=== PATIENT | male | born 1955 | race Caucasian/White ===

== ENCOUNTER 2016-11-13 19:16 | Inpatient (IN) | payer BC ==
--- NOTE | 2016-11-13 20:43 | ERPHSYRPT ---
- History of Present Illness Time Seen by Provider: 11/13/16 20:31 Source: patient, family () Patient Subjective Stated Complaint: rt lower leg swelling for 1.5 weeks Triage Nursing Assessment: had doppler for blood clot and it was negative and dx with bakers cyst. pt states rt leg increased swelling and painful to ambulate.3-4+ pitting edema from knee to foot. strong pedal pulse present. pain worse with ambulation--03/19 Physician History: CC: swelling right leg Hx: 61 y/o patient of Dr David Nova. He has hx of liver cirrhosis. Prior DVT treated with anticoagulation. Now off blood thinners. Had right leg swelling start last week after stopping thinners. He had neg doppler but it did show bakers cyst. No fever or chills. He has malaise. No cough, vomiting. No abd pain. Was unable to get out of car due to leg pain. Severity: moderate Allergies/Adverse Reactions: No Known Drug Allergies Allergy (Verified 11/13/16 19:49) Home Medications: Metformin HCl 1000 mg [Glucophage 1000 MG] 1,000 mg PO BID 02/27/15 [History] Lisinopril 20 mg PO DAILY 10/08/15 [History] Furosemide [Lasix] 40 mg PO BID 05/20/16 [History] Hx Tetanus, Diphtheria Vaccination/Date Given: Yes Hx Influenza Vaccination/Date Given: No Hx Pneumococcal Vaccination/Date Given: No Immunizations Up to Date: Yes - Review of Systems Constitutional: Fatigue, Malaise, No Fever, No Chills Eyes: No Symptoms Ears, Nose, & Throat: No Symptoms Respiratory: No Cough, No Dyspnea Cardiac: No Chest Pain Abdominal/Gastrointestinal: No Abdominal Pain, No Nausea, No Vomiting Genitourinary Symptoms: No Dysuria Musculoskeletal: Other (right leg swelling below knee), No Joint Swelling Neurological: No Focal Weakness, No Parasthesia All Other Systems: Reviewed and Negative - Past Medical History Pertinent Past Medical History: Yes Neurological History: No Pertinent History ENT History: Cataracts Cardiac History: Hypertension Respiratory History: No Pertinent History Endocrine Medical History: Diabetes Type II Musculoskeletal History: Other GI Medical History: Cirrhosis History: No Pertinent History Psycho-Social History: No Pertinent History Male Reproductive Disorders: No Pertinent History Other Medical History: elevated ammonia - Past Surgical History Past Surgical History: Yes Neuro Surgical History: No Pertinent History Cardiac: No Pertinent History Respiratory: No Pertinent History Gastrointestinal: Hernia Repair Musculoskeletal: Joint Replacement, Other Male Surgical History: No Pertinent History Other Surgical History: partial RIGHT KNEE REPLACEMENT. cataracts - Social History Smoking Status: Never smoker Exposure to second hand smoke: Yes Drug Use: none Patient Lives Alone: No - Nursing Vital Signs Nursing Vital Signs: Initial Vital Signs Temperature 100.6 F Temperature Source Rectal Pulse Rate 77 Respiratory Rate 18 Blood Pressure [Right Arm] 130/73 Pain Intensity 0 - Physical Exam General Appearance: alert Eye Exam: PERRL/EOMI Ears, Nose, Throat Exam: moist mucous membranes Neck Exam: normal inspection, non-tender, supple Respiratory Exam: normal breath sounds Cardiovascular Exam: regular rate/rhythm, murmur Gastrointestinal/Abdomen Exam: soft, No tenderness, No distention Extremity Exam: pedal edema (right leg edema rather prounounced with warmness, some redness. No shauna knee effusion or swelling) Neurologic Exam: alert, oriented x 3, cooperative, sensation nml, No motor deficits Skin Exam: warm, dry, other (hot skin) SpO2 Interpretation: normal SpO2: 99 Oxygen Delivery: Room Air - Course Nursing assessment & vital signs reviewed: Yes - Radiology Exams cxr X-ray Interpretation: Reviewed by me (CM, mild congestion) lower leg X-ray Interpretation: Reviewed by me (no air in soft tissues, no fx) - Radiology Ultrasound Exam right leg Ultrasound: Other (per RVT: popliteal DVT, bakers cyst present) Ordered Tests: Active Orders 24 hr Category Date Time Status Clean Catch Urine Specimen STAT Care 11/13/16 20:37 Active IV Insertion STAT Care 11/13/16 20:00 Active CHEST 1 VIEW (PORTABLE) Stat Exams 11/13/16 20:37 Taken LOWER LEG Stat Exams 11/13/16 20:38 Taken VENOUS UNILAT/LIMITED EXTREMIT [US] Stat Exams 11/13/16 20:39 Taken BLOOD CULTURE Stat Lab 11/13/16 20:00 Received CBC W DIFF Stat Lab 11/13/16 20:55 Completed CMP Stat Lab 11/13/16 20:55 Completed Lactic Acid Stat Lab 11/13/16 20:37 Results PROTIME WITH INR Stat Lab 11/13/16 20:55 Completed UA W/RFX UR CULTURE Stat Lab 11/13/16 20:37 Ordered Medication Summary Generic Name Dose Route Start Last Admin Trade Name Italoq PRN Reason Stop Dose Admin Enoxaparin Sodium 90 mg 11/13/16 21:45 Enoxaparin Sodium SQ 12/13/16 21:44 Q12H PRESTON Aztreonam 1 gm in 100 mls @ 200 mls/hr 11/13/16 21:42 Azactam 1 Gm/100 Ml D5w IV 11/13/16 22:11 STAT ONE Discontinued Medications Generic Name Dose Route Start Last Admin Trade Name Tommy PRN Reason Stop Dose Admin Famotidine 20 mg 11/13/16 21:42 Pepcid 20 Mg Vial IV 11/13/16 21:43 STAT ONE Non-Formulary Medication 1 each 11/13/16 21:42 Pharmacy Dosing Required: Vancomycin IV 11/13/16 21:43 STAT ONE Lab/Rad Data: Laboratory Result Diagrams 11/13/16 20:55 11/13/16 20:55 Laboratory Results 11/13/16 11/13/16 11/13/16 Range/Units 20:55 20:55 20:55 WBC 4.8 (4.0-10.5) K/mm3 RBC 3.14 L (4.1-5.6) M/mm3 Hgb 9.2 L (12.5-18.0) gm/dl Hct 27.8 L (42-50) % MCV 88.5 (78-100) fl MCH 29.2 (26-32) pg MCHC 33.1 (32-36) g/dl RDW 14.9 H (11.5-14.0) % Plt Count 154 (150-450) K/mm3 MPV 9.7 H (6-9.5) fl Gran % 69.2 H (36.0-66.0) % Lymphocytes % 14.8 L (24.0-44.0) % Monocytes % 14.8 H (0.0-12.0) % Eosinophils % 0.8 (0.00-5.0) % Basophils % 0.4 (0.0-0.4) % Basophils # 0.02 (0-0.4) INR 1.44 (0.8-3.0) Sodium 137 (136-145) mEq/L Potassium 3.6 (3.5-5.1) mEq/L Chloride 102 (98-107) mEq/L Carbon Dioxide 25.0 (21-32) mEq/L Anion Gap 13.4 (5-15) MEQ/L BUN 13 (9-20) mg/dL Creatinine 0.87 (0.55-1.30) mg/dl Estimated GFR > 60 ML/MIN Glucose 153 H (70-110) MG/DL Lactic Acid (0.4-2.0) Calcium 8.9 (8.5-10.1) mg/dL Total Bilirubin 2.00 H (0.2-1.0) mg/dL AST 36 (15-37) U/L ALT 15 (12-78) U/L Alkaline Phosphatase 130 H (46-116) U/L Ammonia (11-32) MMOL/l Serum Total Protein 6.5 (6.4-8.2) gm/dL Albumin 2.3 L (3.4-5.0) g/dL 11/13/16 11/13/16 Range/Units 20:37 20:00 WBC (4.0-10.5) K/mm3 RBC (4.1-5.6) M/mm3 Hgb (12.5-18.0) gm/dl Hct (42-50) % MCV (78-100) fl MCH (26-32) pg MCHC (32-36) g/dl RDW (11.5-14.0) % Plt Count (150-450) K/mm3 MPV (6-9.5) fl Gran % (36.0-66.0) % Lymphocytes % (24.0-44.0) % Monocytes % (0.0-12.0) % Eosinophils % (0.00-5.0) % Basophils % (0.0-0.4) % Basophils # (0-0.4) INR (0.8-3.0) Sodium (136-145) mEq/L Potassium (3.5-5.1) mEq/L Chloride (98-107) mEq/L Carbon Dioxide (21-32) mEq/L Anion Gap (5-15) MEQ/L BUN (9-20) mg/dL Creatinine (0.55-1.30) mg/dl Estimated GFR ML/MIN Glucose (70-110) MG/DL Lactic Acid 2.2 H (0.4-2.0) Calcium (8.5-10.1) mg/dL Total Bilirubin (0.2-1.0) mg/dL AST (15-37) U/L ALT (12-78) U/L Alkaline Phosphatase (46-116) U/L Ammonia 33 H (11-32) MMOL/l Serum Total Protein (6.4-8.2) gm/dL Albumin (3.4-5.0) g/dL - Progress Progress Note: 11/13/16 21:48 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 He has recurrence of DVT. Will cover for cellulitis/ sepsis as leg is warm, red, and he has some fever. Called Dr Jose for [facility] for admission. Discussed with : Damon Will see patient in: hospital (full admit) Counseled pt/family regarding: lab results, diagnosis, need for follow-up, rad results - Departure Time of Disposition: 21:48 Departure Disposition: In-patient Admission Clinical Impression: Deep vein thrombosis (DVT) of popliteal vein, Cellulitis of right leg, Chronic liver disease Condition: Fair Critical Care Time: No Referrals: DAVID NOVA [Primary Care Provider] -
[2016-11-13 21:05] LABS: Lactic Acid 2.2 (0.4-2.0)
[2016-11-13 21:07] LABS: BASOPHIL % 0.4 % (0.0-0.4); Eosinophil % 0.8 % (0.00-5.0); Granulocytes % 69.2 % (36.0-66.0); Lymphocytes % 14.8 % (24.0-44.0); Mean Cell Volume 88.5 fl (78-100); Mean Platelet Volume 9.7 fl (6-9.5); Monocytes % 14.8 % (0.0-12.0); Platelet Count 154 K/mm3 (150-450); Red Blood Count 3.14 M/mm3 (4.1-5.6); Red Cell Distribution Width 14.9 % (11.5-14.0); White Blood Count 4.8 K/mm3 (4.0-10.5)
[2016-11-13 21:08] LABS: Mean Corpuscular Hemoglobin 29.2 pg (26-32)
[2016-11-13 21:24] LABS: INR 1.44 (0.8-3.0); PROTIME 16.2 SECONDS (8.83-12.87)
[2016-11-13 21:26] LABS: ALBUMIN 2.3 g/dL (3.4-5.0); ALKALINE PHOSPHATASE 130 U/L (46-116); ANION GAP 13.4 MEQ/L (5-15); BLOOD UREA NITROGEN 13 mg/dL (9-20); CHLORIDE 102 mEq/L (98-107); Glucose 153 MG/DL (70-110); Potassium 3.6 mEq/L (3.5-5.1); SGOT/AST 36 U/L (15-37); SODIUM 137 mEq/L (136-145); Total Protein 6.5 gm/dL (6.4-8.2)
[2016-11-13 21:40] LABS: SGPT/ALT 15 U/L (12-78)
[2016-11-13] MEDS ORDERED: PHARMACY DOSING REQUIRED: VANCOMYCIN IV ONE ×2 (21:42→23:06)
[2016-11-13] MEDS ORDERED: Pepcid 20 MG VIAL IV ONE ×2 (21:42→22:10)
[2016-11-13] MEDS ORDERED: Azactam 1 GM/100 ML D5W 1 GM/100 ML IVPB IV ONE (21:42)
[2016-11-13] MEDS ORDERED: ENOXAPARIN SODIUM SQ SCH (21:45)
[2016-11-13] MEDS ORDERED: VANCOCIN 1 GM VIAL*** 1 GM in Sodium Chloride 0.9% 250 ML 250 ML IV SCH (22:00)
[2016-11-13 22:32] LABS: ADD URINE CULTURE? NO (NO); Bacteria FEW /HPF (NEGATIVE); COMPLETE URINE MICROSCOPIC? YES; Collection Type CLEAN CATCH; Epithelial Cells FEW /HPF (FEW); Hyaline Casts 0-2 /LPF (0-2); Mucus MANY /HPF (NEGATIVE)
[2016-11-13] MEDS: Azactam 1 GM/100 ML D5W 1 GM/100 ML IVPB IV SCH (23:14)
[2016-11-13] MEDS ORDERED: Vancomycin 1GM/ Ns 250ML*** 250 ML IV ONE (23:41)
[2016-11-14 05:40] LABS: BASOPHIL % 0.5 % (0.0-0.4); Eosinophil % 2.6 % (0.00-5.0); Granulocytes % 60.3 % (36.0-66.0); Lymphocytes % 23.2 % (24.0-44.0); Mean Cell Volume 88.8 fl (78-100); Mean Platelet Volume 8.8 fl (6-9.5); Monocytes % 13.4 % (0.0-12.0); Platelet Count 131 K/mm3 (150-450); Red Blood Count 2.95 M/mm3 (4.1-5.6); Red Cell Distribution Width 14.8 % (11.5-14.0); White Blood Count 4.2 K/mm3 (4.0-10.5)
[2016-11-14 06:00] LABS: Mean Corpuscular Hemoglobin 29.1 pg (26-32)
[2016-11-14] MEDS ORDERED: D5w 100ML Mini Bag 100 ML 100 ML IV ONE (06:04)
[2016-11-14] MEDS ORDERED: AZACTAM 1 GM ONE (06:04)
[2016-11-14] MEDS: Azactam 1 GM/100 ML D5W 1 GM/100 ML IVPB IV SCH ×3 (06:08→23:39)
[2016-11-14 07:18] LABS: ALKALINE PHOSPHATASE 116 U/L (46-116); BLOOD UREA NITROGEN 12 mg/dL (9-20); CHLORIDE 105 mEq/L (98-107); Carbon Dioxide 25.3 mEq/L (21-32); Glucose 126 MG/DL (70-110); Potassium 3.2 mEq/L (3.5-5.1); SGOT/AST 31 U/L (15-37); SGPT/ALT 14 U/L (12-78); SODIUM 139 mEq/L (136-145); Total Protein 5.9 gm/dL (6.4-8.2)
[2016-11-14] MEDS: VANCOCIN 1 GM VIAL*** 1.5 GM in Sodium Chloride 0.9% 500 ML 500 ML IV SCH ×2 (08:15→20:06)
[2016-11-14] MEDS: Pepcid 20 MG VIAL IV SCH ×3 (08:19→22:03)
--- NOTE | 2016-11-14 09:13 | XRAY ---
Indication: Right leg swelling. Two-dimensional sonogram and color Doppler imaging of the major venous vessels of the right leg was performed. Comparison: October 31, 2016. There is now occluding thrombus in the popliteal vein. No thrombus in the remaining deep venous vessels including greater saphenous vein. Patent veins demonstrate normal compressibility. There is again a hypoechogenic complex Brown's cyst today measuring 4.3 cm in greatest dimension. This was previously 6.1 cm. Impression: 1. New popliteal DVT. 2. Smaller complex Brown's cyst. Comment: Preliminary report was given.
--- NOTE | 2016-11-14 09:15 | XRAY ---
Indication: Lower leg swelling. History DVT. Comparison: None 2 views of the right lower leg demonstrates diffuse soft tissue swelling/edema and previous medial knee hemiarthroplasty with intact hardware. No other bony, articular, or soft tissue abnormalities.
--- NOTE | 2016-11-14 09:17 | XRAY ---
Indication: Fever. Comparison: October 08, 2015. Portable chest again demonstrates normal heart, lungs, and bony thorax with incidental scattered calcified granulomas.
[2016-11-14] MEDS: ENOXAPARIN SODIUM SQ SCH ×2 (10:20→22:04)
[2016-11-14] MEDS: Glucophage 500 MG PO SCH (17:04)
[2016-11-14] MEDS: Zestril 20 MG PO SCH (17:04)
[2016-11-14] MEDS: Klor Con 10 MEQ PO SCH (17:04)
[2016-11-14] MEDS: LACTULOSE 20 GM/30ML UD CUP PO SCH ×2 (17:04→22:10)
--- NOTE | 2016-11-14 17:45 | PCM.HP ---
History of Present Illness - Chief Complaint Chief Complaint: DVT, Cellulitis of rt leg Date: 11/14/16 (exam at 08:00) History of Present Illness: is a 61 year old male. with history of cirrhosis and right lower extremity dvt who was treated with 6 months of anticoagulation but was still having pain in the leg. He had repeat ultrasound showing no clot and trial off the anticoagulation was tried and has been off for a few weeks now. He developed worsening pain redness swelling and chills over the last week and pain was so bad last night he was unable to get out of the car to get to the hospital. He was found to have new clot in the popliteal vein as well as concern for a cellulites in that leg as well in the ED last night. He is not having shortness of breath. - Review of Systems Constitutional: Chills, Fatigue, Lethargy, No Fever Eyes: No Symptoms Ears, Nose, & Throat: No Symptoms Respiratory: No Cough, No Short Of Breath Cardiac: Edema, No Chest Pain, No Syncope Abdominal/Gastrointestinal: No Abdominal Pain, No Nausea, No Vomiting, No Diarrhea Genitourinary Symptoms: No Dysuria Musculoskeletal: No Back Pain, No Neck Pain Skin: Rash Neurological: No Dizziness, No Focal Weakness, No Sensory Changes Psychological: No Symptoms Endocrine: No Symptoms Hematologic/Lymphatic: No Symptoms Immunological/Allergic: No Symptoms Medications & Allergies Home Medications: Home Medication List Metformin HCl 1000 mg [Glucophage 1000 MG] 1,000 mg PO BID 02/27/15 [History Confirmed 11/13/16] Lisinopril 20 mg PO DAILY 10/08/15 [History Confirmed 11/13/16] Duloxetine HCl 30 mg [Cymbalta 30 MG Capsule] 60 mg PO DAILY 11/14/16 [ History Confirmed 11/14/16] Furosemide 20 mg [Lasix 20 mg] 20 mg PO DAILY 11/14/16 [History Confirmed 11/14/16] Lactulose 40 ml PO TID 11/14/16 [History Confirmed 11/14/16] Potassium Chloride 10 Meq Tab* [Klor Con 10 MEQ] 10 meq PO DAILY 11/14/16 [ History Confirmed 11/14/16] Rivaroxaban 10 mg Tablet [Xarelto 10 mg Tablet] 20 mg PO DAILY 11/14/16 [ History Confirmed 11/14/16] Allergies/Adverse Reactions: Allergies Allergy/AdvReac Type Severity Reaction Status Date / Time No Known Drug Allergies Allergy Verified 11/13/16 19:49 - Past Medical History Past Medical History: Yes Neurological History: No Pertinent History ENT History: Cataracts Cardiac History: Hypertension Respiratory History: No Pertinent History Endocrine Medical History: Diabetes Type II Musculoskelatal History: Other GI Medical History: Cirrhosis History: No Pertinent History Pyscho-Social History: No Pertinent History Male Reproductive Disorders: No Pertinent History Comment: elevated ammonia - Past Surgical History Past Surgical History: Yes Neuro Surgical History: No Pertinent History Cardiac History: No Pertinent History Respiratory Surgery: No Pertinent History GI Surgical History: Hernia Repair Musculskeletal Surgical Hx: Joint Replacement, Other Male Surgical History: No Pertinent History Other Surgical History: partial RIGHT KNEE REPLACEMENT. cataracts - Social History Smoking Status: Never smoker Exposure to second hand smoke: No Alcohol: None Drug Use: none - Physical Exam Vital Signs: Vital Signs - 24 hr Temp Pulse Resp BP Pulse Ox 11/14/16 16:00 98.5 F 86 20 132/60 98 11/14/16 15:59 18 11/14/16 11:35 98.5 F 86 22 136/69 96 11/14/16 11:27 20 11/14/16 08:00 20 11/14/16 07:35 98.6 F 89 20 135/62 91 L 11/14/16 04:03 97.9 F 91 H 14 129/61 93 L 11/13/16 23:10 98.6 F 97 H 13 135/61 11/13/16 21:56 100 H 16 131/65 96 11/13/16 21:49 99 11/13/16 20:52 18 130/73 97 11/13/16 20:45 100.6 F 11/13/16 20:10 77 18 127/66 99 11/13/16 19:43 99.1 F 110 H 18 127/66 97 General Appearance: obese Neurologic Exam: alert, oriented x 3, cooperative Eye Exam: No scleral icterus, No pale conjunctivae Ears, Nose, Throat Exam: moist mucous membranes Neck Exam: normal inspection, non-tender, supple Respiratory Exam: lungs clear Cardiovascular Exam: regular rate/rhythm, normal peripheral pulses, edema Gastrointestinal/Abdomen Exam: soft, normal bowel sounds, No tenderness, No guarding Extremity Exam: other (right lower extremity warm and tender redness has resolved 3+ edema) Results - Labs Lab/Micro Results: Accuchecks Date 11/14/16 Date 11/14/16 Accucheck Value: 170 Accucheck Value: 182 Lab Results-Last 24 Hours 11/14/16 11/14/16 11/14/16 Range/Units 00:02 05:00 05:30 WBC (4.0-10.5) K/mm3 RBC (4.1-5.6) M/mm3 Hgb (12.5-18.0) gm/dl Hct (42-50) % MCV (78-100) fl MCH (26-32) pg MCHC (32-36) g/dl RDW (11.5-14.0) % Plt Count (150-450) K/mm3 MPV (6-9.5) fl Gran % (36.0-66.0) % Lymphocytes % (24.0-44.0) % Monocytes % (0.0-12.0) % Eosinophils % (0.00-5.0) % Basophils % (0.0-0.4) % Basophils # (0-0.4) Sodium (136-145) mEq/L Potassium (3.5-5.1) mEq/L Chloride (98-107) mEq/L Carbon Dioxide (21-32) mEq/L Anion Gap (5-15) MEQ/L BUN (9-20) mg/dL Creatinine (0.55-1.30) mg/dl Estimated GFR ML/MIN Glucose (70-110) MG/DL Hemoglobin A1c 5.5 (4.5-6.2) Lactic Acid 2.3 H (0.4-2.0) Calcium (8.5-10.1) mg/dL Total Bilirubin (0.2-1.0) mg/dL AST (15-37) U/L ALT (12-78) U/L Alkaline Phosphatase (46-116) U/L Serum Total Protein (6.4-8.2) gm/dL Albumin (3.4-5.0) g/dL Prealbumin 6.3 L (18.0-35.7) mg/dL 11/14/16 11/14/16 Range/Units 05:30 05:30 WBC 4.2 (4.0-10.5) K/mm3 RBC 2.95 L (4.1-5.6) M/mm3 Hgb 8.6 L (12.5-18.0) gm/dl Hct 26.2 L (42-50) % MCV 88.8 (78-100) fl MCH 29.1 (26-32) pg MCHC 32.8 (32-36) g/dl RDW 14.8 H (11.5-14.0) % Plt Count 131 L (150-450) K/mm3 MPV 8.8 (6-9.5) fl Gran % 60.3 (36.0-66.0) % Lymphocytes % 23.2 L (24.0-44.0) % Monocytes % 13.4 H (0.0-12.0) % Eosinophils % 2.6 (0.00-5.0) % Basophils % 0.5 (0.0-0.4) % Basophils # 0.02 (0-0.4) Sodium 139 (136-145) mEq/L Potassium 3.2 L (3.5-5.1) mEq/L Chloride 105 (98-107) mEq/L Carbon Dioxide 25.3 (21-32) mEq/L Anion Gap 12.0 (5-15) MEQ/L BUN 12 (9-20) mg/dL Creatinine 0.68 (0.55-1.30) mg/dl Estimated GFR > 60 ML/MIN Glucose 126 H (70-110) MG/DL Hemoglobin A1c (4.5-6.2) Lactic Acid (0.4-2.0) Calcium 8.6 (8.5-10.1) mg/dL Total Bilirubin 1.80 H (0.2-1.0) mg/dL AST 31 (15-37) U/L ALT 14 (12-78) U/L Alkaline Phosphatase 116 (46-116) U/L Serum Total Protein 5.9 L (6.4-8.2) gm/dL Albumin 2.0 L (3.4-5.0) g/dL Prealbumin (18.0-35.7) mg/dL Accuchecks Date 11/14/16 Date 11/14/16 Accucheck Value: 170 Accucheck Value: 182 Assessment/Plan (1) Deep vein thrombosis (DVT) of popliteal vein Current Visit: Yes Status: Acute Qualifiers: Chronicity: acute Laterality: right Qualified Code(s): I82.431 - Acute embolism and thrombosis of right popliteal vein Assessment & Plan: second unprovoked dvt discussed lifelong anticoagulation currently on therapeutic lovenox. with his fever could be due to the acute dvt but with the hardware in that knee and the redness and warmth he is emprically covered for suspected cellulitis will monitor elevate ambulate as tolerated Code(s): I82.439 - ACUTE EMBOLISM AND THROMBOSIS OF UNSPECIFIED POPLITEAL VEIN (2) Cellulitis of right leg Current Visit: Yes Status: Acute Code(s): L03.115 - CELLULITIS OF RIGHT LOWER LIMB (3) Anemia Current Visit: Yes Status: Acute Assessment & Plan: check iron studies Code(s): D64.9 - ANEMIA, UNSPECIFIED (4) Thrombocytopenia Current Visit: No Status: Acute (5) Diabetes Current Visit: No Status: Chronic Code(s): E11.9 - TYPE 2 DIABETES MELLITUS WITHOUT COMPLICATIONS (6) Cirrhosis of liver Current Visit: No Status: Acute
[2016-11-15] MEDS: Azactam 1 GM/100 ML D5W 1 GM/100 ML IVPB IV SCH ×2 (05:19→12:48)
[2016-11-15] MEDS: Klor Con 10 MEQ PO SCH (07:38)
[2016-11-15] MEDS: Glucophage 500 MG PO SCH (07:38)
[2016-11-15] MEDS: Zestril 20 MG PO SCH (07:38)
[2016-11-15] MEDS: LACTULOSE 20 GM/30ML UD CUP PO SCH ×2 (07:39→15:17)
[2016-11-15] MEDS: VANCOCIN 1 GM VIAL*** 1.5 GM in Sodium Chloride 0.9% 500 ML 500 ML IV SCH (07:40)
[2016-11-15] MEDS: ENOXAPARIN SODIUM SQ SCH (07:40)
[2016-11-15 08:04] VITALS: PULSE 87
[2016-11-15 08:18] LABS: Mean Corpuscular Hemoglobin 29.2 pg (26-32); Mean Platelet Volume 8.9 fl (6-9.5); Platelet Count 134 K/mm3 (150-450); Red Blood Count 3.01 M/mm3 (4.1-5.6); Red Cell Distribution Width 14.9 % (11.5-14.0); White Blood Count 4.1 K/mm3 (4.0-10.5)
[2016-11-15 09:26] LABS: ANION GAP 9.8 MEQ/L (5-15); BLOOD UREA NITROGEN 10 mg/dL (9-20); CHLORIDE 107 mEq/L (98-107); Glucose 132 MG/DL (70-110); MAGNESIUM 1.4 mg/dL (1.8-2.4); Potassium 3.4 mEq/L (3.5-5.1); SODIUM 140 mEq/L (136-145)
[2016-11-15] MEDS: Pepcid 20 MG VIAL IV SCH (09:35)
[2016-11-15] MEDS ORDERED: LASIX 20 MG PO SCH (10:00)
[2016-11-15] MEDS ORDERED: XARELTO 10 MG TABLET PO SCH (10:00)
[2016-11-15] MEDS ORDERED: Cymbalta 30 MG Capsule PO SCH (10:00)
[2016-11-15 12:36] VITALS: BP 131/63; O2SAT 99
--- NOTE | 2016-11-15 12:52 | PCM.DCORD ---
- Discharge Discharge Date: 11/15/16 Disposition: Home, Self-Care Condition: Fair Prescriptions: New Sulfamethoxazole/Trimethoprim [Bactrim Ds Tablet] 1 each PO BID #12 tablet Penicillin V Potassium 500 mg PO QID #24 tablet Rivaroxaban [Xarelto] 15 mg PO BID #21 tablet Ferrous Sulfate 325 mg PO BID #60 tablet. Folic Acid 1 mg PO DAILY #30 tablet Continue Metformin HCl 1000 mg [Glucophage 1000 MG] 1,000 mg PO BID Lisinopril 20 mg PO DAILY Duloxetine HCl 30 mg [Cymbalta 30 MG Capsule] 60 mg PO DAILY Potassium Chloride 10 Meq Tab* [Klor Con 10 MEQ] 10 meq PO DAILY Furosemide 20 mg [Lasix 20 mg] 20 mg PO DAILY Lactulose 40 ml PO TID Discontinued Rivaroxaban 10 mg Tablet [Xarelto 10 mg Tablet] 20 mg PO DAILY Follow up with: DAVID NOVA [Primary Care Provider] - Forms: Patient Portal Information
--- NOTE | 2016-11-15 20:00 | PCM.DS ---
Discharge Summary Date of Admission: 11/13/16 22:57 Date of Discharge: 11/15/16 Admitting Physician: DAVID NOVA Primary Care Provider: DAVID NOVA Allergies Allergies No Known Drug Allergies Allergy (Verified 11/13/16 19:49) Hospital Summary - Hospital Course Hospital Course: was treated for dvt in right leg for 6 months taken of anticoagulation and for 1 week had increasing pain and swelling in his right leg and found to have new dvt but was febrile and had red leg on admission and with hardware on the right knee concern for possible cellulitis as well and thus was treated empirically in ED with vanc and aztreonam. He did improve some in the pain the swelling persisted the warmth and redness resolved. He was keeping elevated. and placed on lovenox 1mg/kg bid and transitioned to xarelto as he was on this previously and it worked well for him prior to discontinuation. He also suffers from chronic cirrhosis with elevated ammonia that was only slightly elevated and on lactulose. he has chronic anemia studies show low iron and low folate and he is being treated with supplementation with this as well. He has no evidence of bleeding. the right leg is still painful when dependent. - Vitals & Intake/Output Vital Signs: Vital Signs Temperature 98.1 F 11/15/16 12:10 Pulse Rate 87 11/15/16 12:10 Respiratory Rate 20 11/15/16 12:10 Blood Pressure 131/63 11/15/16 12:10 O2 Sat by Pulse Oximetry 99 11/15/16 12:10 Intake & Output: Intake & Output 11/13/16 11/14/16 11/15/16 11/16/16 11:59 11:59 11:59 11:59 Intake Total 840 3169 360 Output Total 680 Balance 160 3169 360 Weight 90.718 kg - Lab Result Diagrams: 11/15/16 07:50 11/15/16 07:50 Lab Results-Last 24 Hrs: Accuchecks Date 11/15/16 Date 11/15/16 Date 11/14/16 Time 11:30 Time 07:30 Accucheck Value: 164 Accucheck Value: 142 Accucheck Value: 195 Lab Results-Last 24 Hours 11/15/16 11/15/16 11/15/16 Range/Units 07:50 07:50 07:50 WBC 4.1 (4.0-10.5) K/mm3 RBC 3.01 L (4.1-5.6) M/mm3 Hgb 8.8 L (12.5-18.0) gm/dl Hct 26.8 L (42-50) % MCV 89.0 (78-100) fl MCH 29.2 (26-32) pg MCHC 32.8 (32-36) g/dl RDW 14.9 H (11.5-14.0) % Plt Count 134 L (150-450) K/mm3 MPV 8.9 (6-9.5) fl Sodium (136-145) mEq/L Potassium (3.5-5.1) mEq/L Chloride (98-107) mEq/L Carbon Dioxide (21-32) mEq/L Anion Gap (5-15) MEQ/L BUN (9-20) mg/dL Creatinine (0.55-1.30) mg/dl Estimated GFR ML/MIN Glucose (70-110) MG/DL Calcium (8.5-10.1) mg/dL Magnesium (1.8-2.4) mg/dL Iron 40 L (50-175) ug/dl TIBC 134 L (250-450) ug/dl Iron Saturation 29.9 (20-39) % Vitamin B12 (193-986) Folic Acid (8.6-58.9) Vancomycin Trough 11.8 (10-20) UG/ML 11/15/16 Range/Units 07:50 WBC (4.0-10.5) K/mm3 RBC (4.1-5.6) M/mm3 Hgb (12.5-18.0) gm/dl Hct (42-50) % MCV (78-100) fl MCH (26-32) pg MCHC (32-36) g/dl RDW (11.5-14.0) % Plt Count (150-450) K/mm3 MPV (6-9.5) fl Sodium 140 (136-145) mEq/L Potassium 3.4 L (3.5-5.1) mEq/L Chloride 107 (98-107) mEq/L Carbon Dioxide 27.0 (21-32) mEq/L Anion Gap 9.8 (5-15) MEQ/L BUN 10 (9-20) mg/dL Creatinine 0.67 (0.55-1.30) mg/dl Estimated GFR > 60 ML/MIN Glucose 132 H (70-110) MG/DL Calcium 8.4 L (8.5-10.1) mg/dL Magnesium 1.4 L (1.8-2.4) mg/dL Iron (50-175) ug/dl TIBC (250-450) ug/dl Iron Saturation (20-39) % Vitamin B12 594 (193-986) Folic Acid 4.5 L (8.6-58.9) Vancomycin Trough (10-20) UG/ML Micro Results-Entire Visit: Accuchecks Date 11/15/16 Date 11/15/16 Date 11/14/16 Time 11:30 Time 07:30 Accucheck Value: 164 Accucheck Value: 142 Accucheck Value: 195 - Procedures and Test Procedures and Tests throughout Hospitalization: Therapy Orders & Screens 11/14/16 10:45 OT Screen per Nursing Assess ONCE Comment: Protocol Order Physician Instructions: Greater than 3 points order OT Admission Screening Reason For Exam: Triggered on Admission Diagnosis: DVT, Cellulitis of rt leg Open Wound/Cellutlitis/Pressure Ulcers: Yes Acute Fx/ORIF/Change in wt bearing status: No Severe MUSCULOSKELETAL pain: No ADL Dysfunction: No Acute CVA w/Hemiparesis/Hemiplegia: No Decreased Functional Mobility/Strength: Yes Sprain/Strain: No Acute Post-op Mobility Dysfunction: No Total Points: 6 PT Screen per Nursing Assess ONCE Comment: Protocol Order Physician Instructions: Greater than 3 points order PT Admission Screenin Reason For Exam: Triggered on Admission Diagnosis: DVT, Cellulitis of rt leg Open Wound/Cellutlitis/Pressure Ulcers: Yes Acute Fx/ORIF/Change in wt bearing status: No Severe MUSCULOSKELETAL pain: No ADL Dysfunction: No Acute CVA w/Hemiparesis/Hemiplegia: No Decreased Functional Mobility/Strength: Yes Sprain/Strain: No Acute Post-op Mobility Dysfunction: No Total Points: 6 Discharge Exam General Appearance: no apparent distress, alert, obese Neurologic Exam: alert, oriented x 3, cooperative, normal mood/affect, nml cerebellar function, sensation nml, No motor deficits Skin Exam: normal color, warm, dry Eye Exam: PERRL, EOMI, eyes nml inspection Ears, Nose, Throat Exam: moist mucous membranes Neck Exam: normal inspection, non-tender, supple Respiratory Exam: normal breath sounds, lungs clear, No respiratory distress Cardiovascular Exam: regular rate/rhythm, normal heart sounds Gastrointestinal/Abdomen Exam: soft, No tenderness Extremity Exam: calf tenderness (right with 3+ pitting edema no longer with warmth or redness.) Back Exam: normal inspection, normal range of motion, No CVA tenderness, No vertebral tenderness Male Genitalia Exam: deferred Rectal Exam: deferred Final Diagnosis/Problem List - Final Discharge Diagnosis/Problem (1) Deep vein thrombosis (DVT) of popliteal vein Status: Acute Assessment & Plan: d/c on xarelto 15 bid for 3 weeks then 20 daily indefinitely. ambulate as tolerated but when not ambulating needs leg elevated discussed off work for 1 week until f/u next week to re-evaluate (2) Cellulitis of right leg Status: Acute Assessment & Plan: rapid improvement will change to po bactrim and penicillin to complete 1 week of therapy. (3) Anemia Status: Acute Assessment & Plan: iron and folic acid deficiency start supplement of each (4) Thrombocytopenia Status: Acute (5) Diabetes Status: Chronic (6) Cirrhosis of liver Status: Acute - Discharge Discharge Date: 11/15/16 Disposition: Home, Self-Care Condition: Fair Prescriptions: New Sulfamethoxazole/Trimethoprim [Bactrim Ds Tablet] 1 each PO BID #12 tablet Penicillin V Potassium 500 mg PO QID #24 tablet Rivaroxaban [Xarelto] 15 mg PO BID #21 tablet Ferrous Sulfate 325 mg PO BID #60 tablet. Folic Acid 1 mg PO DAILY #30 tablet Continue Metformin HCl 1000 mg [Glucophage 1000 MG] 1,000 mg PO BID Lisinopril 20 mg PO DAILY Duloxetine HCl 30 mg [Cymbalta 30 MG Capsule] 60 mg PO DAILY Potassium Chloride 10 Meq Tab* [Klor Con 10 MEQ] 10 meq PO DAILY Furosemide 20 mg [Lasix 20 mg] 20 mg PO DAILY Lactulose 40 ml PO TID Discontinued Rivaroxaban 10 mg Tablet [Xarelto 10 mg Tablet] 20 mg PO DAILY Instructions: Cellulitis -- Adult, Deep Vein Thrombosis Follow up with: DAVID NOVA [Primary Care Provider] - 11/22/16 1:00 pm Forms: Discharge Instructions, Patient Portal Information
== END 2016-11-15 15:33 | disposition home or self-care (01) | DRG 300 ==
LOC: ED 19:16 → MED SURG 22:57
PROVIDERS: ADMIT Family Medicine; ATTEND Family Medicine
DX: I82.431 Acute embolism and thrombosis of right popliteal vein (principal); L03.115 Cellulitis of right lower limb; D52.9 Folate deficiency anemia, unspecified; D50.9 Iron deficiency anemia, unspecified; D69.6 Thrombocytopenia, unspecified; E11.9 Type 2 diabetes mellitus without complications; Z79.4 Long term (current) use of insulin; K74.60 Unspecified cirrhosis of liver; Z79.01 Long term (current) use of anticoagulants; Z79.899 Other long term (current) drug therapy; I10 Essential (primary) hypertension
CPT/HCPCS: 36000; 36415; 71010; 73590; 80048; 80053; 80202; 81000; 82140; 82607; 82746; 82962; 83036; 83540; 83550; 83605; 83735; 84134; 85025; 85027; 85610; 87040; 93971; 96372; 96374; 99285; J1650; J3370; A9270-GY

== ENCOUNTER 2017-03-12 17:23 | Inpatient (IN) | payer BC, SELFPAY ==
--- NOTE | 2017-03-12 17:36 | ERPHSYRPT ---
- History of Present Illness Time Seen by Provider: 03/12/17 17:27 Source: EMS, [facility] Exam Limitations: clinical condition Physician History: The patient is a 61-year-old for a code male brought in by EMS [facility] the [facility] for an elevated ammonia level per lab report today. He is combative and confused. The [facility] medical record shows that the patient was getting 2 g of lactulose 4 times a day. His past medical history is significant for hepatic encephalopathy, septic right knee, Timing/Duration: today Severity: moderate Modifying Factors: Improves With: nothing Associated Symptoms: denies symptoms, No seizure Allergies/Adverse Reactions: No Known Drug Allergies Allergy (Verified 03/12/17 18:09) Home Medications: Metformin HCl 1000 mg [Glucophage 1000 MG] 1,000 mg PO BID 02/27/15 [History] Lisinopril 20 mg PO DAILY 10/08/15 [History] Duloxetine HCl 30 mg [Cymbalta 30 MG Capsule] 60 mg PO DAILY 11/14/16 [ History] Furosemide 20 mg [Lasix 20 mg] 20 mg PO DAILY 11/14/16 [History] Lactulose 40 ml PO TID 11/14/16 [History] Potassium Chloride 10 Meq Tab* [Klor Con 10 MEQ] 10 meq PO DAILY 11/14/16 [ History] Hx Tetanus, Diphtheria Vaccination/Date Given: Yes Hx Influenza Vaccination/Date Given: No Hx Pneumococcal Vaccination/Date Given: No - Review of Systems Constitutional: No Fever, No Chills Eyes: No Symptoms Ears, Nose, & Throat: No Symptoms Respiratory: No Cough, No Dyspnea Cardiac: No Symptoms Abdominal/Gastrointestinal: No Abdominal Pain, No Nausea, No Vomiting, No Diarrhea Genitourinary Symptoms: No Dysuria Musculoskeletal: No Back Pain, No Neck Pain Skin: No Rash Neurological: Irritability Psychological: No Symptoms Endocrine: No Symptoms Hematologic/Lymphatic: No Symptoms Immunological/Allergic: No Symptoms All Other Systems: Reviewed and Negative - Past Medical History Pertinent Past Medical History: Yes Neurological History: No Pertinent History ENT History: Cataracts Cardiac History: Hypertension Respiratory History: No Pertinent History Endocrine Medical History: Diabetes Type II Musculoskeletal History: Other GI Medical History: Cirrhosis History: No Pertinent History Psycho-Social History: No Pertinent History Male Reproductive Disorders: No Pertinent History Other Medical History: elevated ammonia - Past Surgical History Past Surgical History: Yes Neuro Surgical History: No Pertinent History Cardiac: No Pertinent History Respiratory: No Pertinent History Gastrointestinal: Hernia Repair Musculoskeletal: Joint Replacement, Other Male Surgical History: No Pertinent History Other Surgical History: partial RIGHT KNEE REPLACEMENT. cataracts - Social History Smoking Status: Never smoker Exposure to second hand smoke: No Drug Use: none Patient Lives Alone: No - Physical Exam General Appearance: mild distress Eye Exam: PERRL/EOMI Ears, Nose, Throat Exam: normal ENT inspection, TMs normal, pharynx normal, moist mucous membranes Neck Exam: normal inspection Respiratory Exam: normal breath sounds, lungs clear, No respiratory distress Cardiovascular Exam: regular rate/rhythm, normal heart sounds, normal peripheral pulses Gastrointestinal/Abdomen Exam: soft Rectal Exam: not done Back Exam: normal inspection, normal range of motion, No CVA tenderness, No vertebral tenderness Extremity Exam: normal inspection, normal range of motion, pelvis stable Neurologic Exam: disoriented, confusion, uncooperative, slurred speech Skin Exam: jaundice Lymphatic Exam: No adenopathy SpO2 Interpretation: normal - Progress Progress: unchanged Discussed with Dr.: Jose Counseled pt/family regarding: lab results - Departure Time of Disposition: 18:15 Departure Disposition: Observation Clinical Impression: Hepatic encephalopathy Condition: Good Critical Care Time: No Referrals: ANNETTE HERNANDEZ [LOCATION] - Additional Instructions: You are being admitted for hepatic encephalopathy per Dr. Jose.
[2017-03-12] MEDS ORDERED: LACTULOSE 20 GM/30ML UD CUP ONE (20:32)
[2017-03-12] MEDS: Sodium Chloride 0.9% 1000 ML 1,000 ML IV SCH (20:35)
[2017-03-12] MEDS ORDERED: Enulose 10 GM/15 ML PO SCH (22:00)
[2017-03-12] MEDS ORDERED: Restoril 15 MG PO PRN (22:38)
[2017-03-12] MEDS ORDERED: Seroquel 100 MG PO ONE (22:38)
[2017-03-12] MEDS ORDERED: ULTRAM 50 MG PO PRN (22:38)
[2017-03-12] MEDS ORDERED: Xifaxan 200 MG PO ONE (22:44)
[2017-03-12] MEDS ORDERED: PROTONIX 40 MG IV IV ONE (22:46)
[2017-03-12] MEDS: Inderal 20 MG PO SCH (23:33)
[2017-03-13] MEDS ORDERED: PHARMACY DOSING REQUEST MC ONE (05:20)
[2017-03-13 05:30] LABS: Lactic Acid 2.1 (0.4-2.0)
[2017-03-13 05:57] LABS: ANION GAP 15.4 MEQ/L (5-15); CHLORIDE 116 mEq/L (98-107); Carbon Dioxide 18.3 mEq/L (21-32); Glucose 97 MG/DL (70-110); Potassium 4.1 mEq/L (3.5-5.1); SODIUM 146 mEq/L (136-145)
[2017-03-13 06:09] LABS: BLOOD UREA NITROGEN 20 mg/dL (9-20)
[2017-03-13 06:18] LABS: BASOPHIL % 0.6 % (0.0-0.4); Eosinophil % 3.5 % (0.00-5.0); Granulocytes % 70.8 % (36.0-66.0); Lymphocytes % 15.2 % (24.0-44.0); Mean Cell Volume 98.8 fl (78-100); Mean Corpuscular Hemoglobin 31.1 pg (26-32); Mean Platelet Volume 10.8 fl (6-9.5); Monocytes % 9.9 % (0.0-12.0); Platelet Count 100 K/mm3 (150-450); Red Blood Count 2.41 M/mm3 (4.1-5.6); Red Cell Distribution Width 16.4 % (11.5-14.0); White Blood Count 6.3 K/mm3 (4.0-10.5)
[2017-03-13] MEDS: Sodium Chloride 0.9% 1000 ML 1,000 ML IV SCH ×2 (06:45→17:20)
--- NOTE | 2017-03-13 09:10 | PCM.HP ---
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 He became quite ill and septic in the midst of the knee replacement. He has been confused and screaming out all night, very confused. - Review of Systems Constitutional: No Fever, No Chills Respiratory: No Cough, No Short Of Breath Cardiac: No Chest Pain, No Edema, No Syncope Skin: No Rash Psychological: Emotional Lability All Other Systems: Reviewed and Negative Medications & Allergies Home Medications: Home Medication List Folic Acid 1 mg PO DAILY #30 tablet 11/15/16 [Rx Confirmed 03/12/17] Acetaminophen [Tylenol] 650 mg PO Q4H PRN 03/12/17 [History Confirmed 03/12/17] Aspirin 81 gm Chew [Baby Aspirin 81 mg Chew] 81 mg PO DAILY 03/12/17 [ History Confirmed 03/12/17] Atorvastatin Calcium [Lipitor 40Mg] 40 mg PO HS 03/12/17 [History Confirmed 08/24] Bisacodyl [Bisac-Evac] 10 mg RC DAILY PRN 03/12/17 [History Confirmed 03/12/17] Darbepoetin Raymundo 60 Mcg [Aranesp 60 Mcg Syringe] 1 dose SQ WEEKLY [History Confirmed 03/12/17] Dextrose [Glucose] 4 gm PO DAILY PRN 03/12/17 [History Confirmed 03/12/17] Enema Bag, Disposable [Enema Bag] 1 each RC DAILY PRN 03/12/17 [History Confirmed 03/12/17] Ferrous Sulfate 325 mg PO DAILY 03/12/17 [History Confirmed 03/12/17] Glucagon 1 mg [GlucaGen 1 MG] 1 dose SQ DAILY PRN 03/12/17 [History Confirmed 03/12/17] Lactulose [Lactulose 20 gm/30Ml Ud Cup] 2 gm PO QID 03/12/17 [History Confirmed 03/12/17] Levocarnitine (with Sugar) [Carnitor 100 mg/ml Oral Soln] 2,000 mg PO Q12H 03/12 [History Confirmed 03/12/17] Magnesium Hydroxide 30 ml [Milk of Magnesia 30 ml] 30 ml PO DAILY PRN PRN 03/12/17 [History Confirmed 03/12/17] Melatonin/Pyridoxine HCl (B6) [Melatonin 3 mg Tablet] 2 tab PO HS 03/12/17 [ History Confirmed 03/12/17] NPH, Human Insulin Isophane [Humulin N] 8 unit SQ BID 03/12/17 [History Confirmed 03/12/17] Ondansetron HCl [Zofran] 8 mg PO Q6H PRN 03/12/17 [History Confirmed 03/12/17] Pantoprazole Sodium [Protonix] 40 mg PO BID 03/12/17 [History Confirmed 03/12/17 ] Propranolol HCl 10 mg PO Q8H 03/12/17 [History Confirmed 03/12/17] Quetiapine Fumarate 100 mg PO HS 03/12/17 [History Confirmed 03/12/17] Rifaximin [Xifaxan] 550 mg PO BID 03/12/17 [History Confirmed 03/12/17] Sodium Bicarbonate 650 mg PO BID 03/12/17 [History Confirmed 03/12/17] Temazepam 15 mg [Restoril 15 MG] 15 mg PO HS PRN 03/12/17 [History Confirmed 03/12/17] Thiamine Mononitrate [Vitamin B-1] 100 mg PO DAILY 03/12/17 [History Confirmed 03/12/17] Tramadol HCl 50 mg [Ultram 50 mg] 50 mg PO Q6H PRN 03/12/17 [History Confirmed 03/12/17] Allergies/Adverse Reactions: Allergies Allergy/AdvReac Type Severity Reaction Status Date / Time No Known Drug Allergies Allergy Verified 03/12/17 18:09 - Past Medical History Past Medical History: Yes Neurological History: No Pertinent History ENT History: Cataracts Cardiac History: Hypertension Respiratory History: No Pertinent History Endocrine Medical History: Diabetes Type II Musculoskelatal History: Other GI Medical History: Cirrhosis History: Dialysis Pyscho-Social History: No Pertinent History Male Reproductive Disorders: No Pertinent History Comment: elevated ammonia, pt has hx of sepsis, has been off dialysis for a month - Past Surgical History Past Surgical History: Yes Neuro Surgical History: No Pertinent History Cardiac History: No Pertinent History Respiratory Surgery: No Pertinent History GI Surgical History: Hernia Repair Genitourinary Surgical Hx: No Pertinent History Musculskeletal Surgical Hx: Joint Replacement, Other Male Surgical History: No Pertinent History Other Surgical History: partial RIGHT KNEE REPLACEMENT. cataracts, - Social History Smoking Status: Never smoker Exposure to second hand smoke: No Alcohol: None Drug Use: none - Physical Exam Vital Signs: Vital Signs - 24 hr Temp Pulse Resp BP Pulse Ox 03/13/17 07:16 97.8 F 77 22 154/72 94 L 03/13/17 04:15 99.2 F 85 28 H 149/67 98 03/13/17 00:15 97.9 F 86 17 158/73 98 03/12/17 20:23 97.4 F 85 20 154/70 98 03/12/17 19:28 80 16 142/60 100 03/12/17 18:50 18 03/12/17 18:14 18 General Appearance: no apparent distress, mild distress (confused, hollering for family members who are not present) Neurologic Exam: alert, No oriented x 3, No cooperative Eye Exam: PERRL/EOMI, eyes nml inspection Respiratory Exam: normal breath sounds, lungs clear, No respiratory distress Cardiovascular Exam: regular rate/rhythm, normal heart sounds, normal peripheral pulses Gastrointestinal/Abdomen Exam: soft, normal bowel sounds, No tenderness, No mass Extremity Exam: other (right knee fixed position, tender. no redness, no warmth , no significant palpable fluid collection. mild swelling) Results - Labs Lab/Micro Results: Lab Results-Last 24 Hours 03/12/17 03/13/17 03/13/17 Range/Units 20:40 05:10 05:10 WBC 6.3 (4.0-10.5) K/mm3 RBC 2.41 L (4.1-5.6) M/mm3 Hgb 7.5 L (12.5-18.0) gm/dl Hct 23.8 L (42-50) % MCV 98.8 (78-100) fl MCH 31.1 (26-32) pg MCHC 31.5 L (32-36) g/dl RDW 16.4 H (11.5-14.0) % Plt Count 100 L (150-450) K/mm3 MPV 10.8 H (6-9.5) fl Gran % 70.8 H (36.0-66.0) % Lymphocytes % 15.2 L (24.0-44.0) % Monocytes % 9.9 (0.0-12.0) % Eosinophils % 3.5 (0.00-5.0) % Basophils % 0.6 (0.0-0.4) % Basophils # 0.04 (0-0.4) Sodium 146 H (136-145) mEq/L Potassium 4.1 (3.5-5.1) mEq/L Chloride 116 H (98-107) mEq/L Carbon Dioxide 18.3 L (21-32) mEq/L Anion Gap 15.4 H (5-15) MEQ/L BUN 20 (9-20) mg/dL Creatinine 1.27 (0.55-1.30) mg/dl Estimated GFR > 60 ML/MIN Glucose 97 (70-110) MG/DL Lactic Acid (0.4-2.0) Calcium 8.3 L (8.5-10.1) mg/dL Ammonia 50 H (11-32) MMOL/l 03/13/17 Range/Units 05:20 WBC (4.0-10.5) K/mm3 RBC (4.1-5.6) M/mm3 Hgb (12.5-18.0) gm/dl Hct (42-50) % MCV (78-100) fl MCH (26-32) pg MCHC (32-36) g/dl RDW (11.5-14.0) % Plt Count (150-450) K/mm3 MPV (6-9.5) fl Gran % (36.0-66.0) % Lymphocytes % (24.0-44.0) % Monocytes % (0.0-12.0) % Eosinophils % (0.00-5.0) % Basophils % (0.0-0.4) % Basophils # (0-0.4) Sodium (136-145) mEq/L Potassium (3.5-5.1) mEq/L Chloride (98-107) mEq/L Carbon Dioxide (21-32) mEq/L Anion Gap (5-15) MEQ/L BUN (9-20) mg/dL Creatinine (0.55-1.30) mg/dl Estimated GFR ML/MIN Glucose (70-110) MG/DL Lactic Acid 2.1 H (0.4-2.0) Calcium (8.5-10.1) mg/dL Ammonia (11-32) MMOL/l - Radiology Impressions Radiology Exams & Impressions: Radiology Procedures Category Date Time Status CHEST 1 VIEW (PORTABLE) Stat Exams 03/13/17 08:54 Ordered HEAD WITHOUT CONTRAST [CT] Stat Exams 03/13/17 08:53 Ordered Assessment/Plan (1) Altered mental status Current Visit: Yes Status: Acute Assessment & Plan: need to check for sources of infection, blood culture pending from yesterday. Code(s): R41.82 - ALTERED MENTAL STATUS, UNSPECIFIED (2) Hepatic encephalopathy Current Visit: Yes Status: Acute Assessment & Plan: lactulose 30ml qid and xifaxan ordered, will monitor Code(s): K72.90 - HEPATIC FAILURE, UNSPECIFIED WITHOUT COMA (3) Anemia Current Visit: No Status: Acute Code(s): D64.9 - ANEMIA, UNSPECIFIED (4) Cirrhosis of liver Current Visit: No Status: Acute (5) Diabetes Current Visit: No Status: Chronic Code(s): E11.9 - TYPE 2 DIABETES MELLITUS WITHOUT COMPLICATIONS
[2017-03-13] MEDS ORDERED: MEDICATION INTERVENTION MC PRN ×3 (09:28→09:56)
[2017-03-13] MEDS ORDERED: Dulcolax 10 MG SUPP RC PRN (09:29)
[2017-03-13] MEDS ORDERED: TYLENOL 325 MG PO PRN (09:29)
[2017-03-13] MEDS ORDERED: Restoril 15 MG PO PRN (09:29)
[2017-03-13] MEDS ORDERED: ARANESP SQ SCH (09:30)
[2017-03-13] MEDS ORDERED: PROPRANOLOL HCL 10 MG PO SCH (09:30)
[2017-03-13] MEDS ORDERED: Xifaxan 200 MG PO SCH (10:00)
[2017-03-13] MEDS ORDERED: NPH HUMAN INSULIN ISOPHANE 8 UNIT SQ SCH (10:00)
[2017-03-13] MEDS ORDERED: BABY ASPIRIN 81 MG CHEW PO SCH (10:00)
[2017-03-13] MEDS ORDERED: NON-FORMULARY ITEM (Ferrous Sulfate [Ferrous Sulfate] 325 MG) PO SCH (10:00)
[2017-03-13] MEDS ORDERED: THIAMINE MONONITRATE 100 MG PO SCH (10:00)
[2017-03-13] MEDS ORDERED: ENOXAPARIN SODIUM SQ SCH (10:00)
--- NOTE | 2017-03-13 10:08 | XRAY ---
Indication: Altered mental status. Multiple contiguous axial images obtained through the head without contrast. Comparison: November 29, 2015. A few images through the top of the head slightly degraded by motion artifact. No acute intracranial hemorrhage, abnormal extra-axial fluid collection, or mass effect. Chin-white matter differentiation preserved. Fourth ventricle is midline without hydrocephalus. Bony calvarium intact. Minimal mucosal thickening of the visualized right maxillary sinus. Remaining visualized paranasal sinuses and mastoid air cells are clear. Impression: Minimal motion artifact. No new/acute intracranial abnormalities. Incidental paranasal sinus disease. CT DI 69.52
--- NOTE | 2017-03-13 10:10 | XRAY ---
Indication: Altered mental status. Comparison: November 13, 2016. Portable chest underinflated today and clear. Heart is not enlarged. Bony thorax intact. Impression: Nonacute underinflated chest.
[2017-03-13] MEDS: LACTULOSE 20 GM/30ML UD CUP PO SCH ×4 (11:00→23:00)
[2017-03-13] MEDS: FEOSOL 325 MG PO SCH (11:09)
[2017-03-13] MEDS: ECOTRIN 81 MG PO SCH (11:09)
[2017-03-13] MEDS: FOLATE 1 MG PO SCH (11:09)
[2017-03-13] MEDS: VITAMIN B-1 100 MG PO SCH (11:09)
[2017-03-13] MEDS: NON-FORMULARY ITEM (Sodium Bicarbonate [Sodium Bicarbonate] 0 MG) PO SCH ×2 (11:10→22:37)
[2017-03-13] MEDS: Inderal 20 MG PO SCH ×3 (11:10→22:36)
[2017-03-13] MEDS: ULTRAM 50 MG PO PRN (15:04)
[2017-03-13 17:16] LABS: Collection Type CLEAN CATCH
[2017-03-13 17:17] LABS: Bacteria RARE /HPF (NEGATIVE); Bilirubin NEGATIVE (NEGATIVE); Blood TRACE NON-HEM Ery/ul (0-5); COMPLETE URINE MICROSCOPIC? YES; Epithelial Cells RARE /HPF (FEW); Glucose NEGATIVE (NEGATIVE); Leukocyte Esterase 2+ (NEGATIVE)
[2017-03-13 17:18] LABS: Yeast FEW /HPF (NEGATIVE)
[2017-03-13] MEDS: Novolin N SQ SCH (17:27)
[2017-03-13] MEDS ORDERED: PYRIDOXINE HCL PO SCH (22:00)
[2017-03-13] MEDS ORDERED: ROCEPHIN 1 Gm-D5w 50 ml Bag** 1 G/50 ML IVPB IV SCH (22:00)
[2017-03-13] MEDS ORDERED: MELATONIN PO SCH (22:00)
[2017-03-13] MEDS: Seroquel 100 MG PO SCH (22:37)
[2017-03-14] MEDS: Sodium Chloride 0.9% 1000 ML 1,000 ML IV SCH ×3 (03:55→16:51)
[2017-03-14 05:46] LABS: INR 1.47 (0.8-3.0); PROTIME 16.4 SECONDS (8.83-12.87)
[2017-03-14 05:49] LABS: Mean Cell Volume 98.6 fl (78-100); Mean Platelet Volume 10.4 fl (6-9.5); Platelet Count 65 K/mm3 (150-450); Red Blood Count 2.22 M/mm3 (4.1-5.6); Red Cell Distribution Width 16.1 % (11.5-14.0); White Blood Count 3.8 K/mm3 (4.0-10.5)
[2017-03-14 05:52] LABS: Mean Corpuscular Hemoglobin 31.9 pg (26-32)
[2017-03-14 05:56] LABS: ALBUMIN 1.8 g/dL (3.4-5.0); ALKALINE PHOSPHATASE 118 U/L (46-116); ANION GAP 14.9 MEQ/L (5-15); BLOOD UREA NITROGEN 16 mg/dL (9-20); CHLORIDE 115 mEq/L (98-107); Glucose 102 MG/DL (70-110); Potassium 3.4 mEq/L (3.5-5.1); SGOT/AST 56 U/L (15-37); SGPT/ALT 21 U/L (12-78); SODIUM 144 mEq/L (136-145); Total Protein 4.8 gm/dL (6.4-8.2)
[2017-03-14] MEDS: Inderal 20 MG PO SCH ×3 (06:35→21:32)
[2017-03-14 07:22] LABS: Eosinophil 2 % (0.00-3.0); Total Cells Counted 100
[2017-03-14 07:25] LABS: Platelet Estimate DECREASED (NORMAL); Polychromasia 1+
--- NOTE | 2017-03-14 07:40 | PCM.NOTE ---
Date and Time: 03/14/17 0736 Subjective Assessment: patient states he is feeling better this am, he is not moaning and appears better oriented Objective Exam General Appearance: no apparent distress, alert Respiratory Exam: normal breath sounds, lungs clear, No respiratory distress Cardiovascular Exam: regular rate/rhythm, normal heart sounds Gastrointestinal/Abdomen Exam: soft, No tenderness, No mass OBJECTIVE DATA Vital Signs: Vital Signs - 24 hr Temp Pulse Resp BP Pulse Ox 03/14/17 07:29 98.1 F 79 20 113/51 96 03/14/17 04:20 98.3 F 78 14 90/52 97 03/13/17 23:42 98.5 F 82 22 108/56 96 03/13/17 20:00 98.7 F 74 18 137/79 96 03/13/17 15:36 98 F 68 20 130/72 96 03/13/17 12:30 97.9 F 88 20 156/80 96 Pain Assessment - Last Documented Pain Scale Used FLACC Intake and Output: Intake & Output 03/11/17 03/12/17 03/13/17 03/14/17 11:59 11:59 11:59 11:59 Intake Total 1059 2903 Output Total 400 Balance 659 2903 Weight 72.393 kg Lab Results: Accuchecks Date 03/13/17 Time 22:00 Accucheck Value: 128 Accucheck Value: 105 Accucheck Value: 101 Lab Results-Last 24 Hours 03/13/17 03/13/17 03/14/17 Range/Units 16:45 Unknown 04:17 WBC (4.0-10.5) K/mm3 RBC (4.1-5.6) M/mm3 Hgb (12.5-18.0) gm/dl Hct (42-50) % MCV (78-100) fl MCH (26-32) pg MCHC (32-36) g/dl RDW (11.5-14.0) % Plt Count (150-450) K/mm3 MPV (6-9.5) fl Segmented Neutrophils (36.-66.) % Lymphocytes (Manual) (24-44) % Monocytes (Manual) (0.0-12.0) % Eosinophils (Manual) (0.00-3.0) % Differential Comment Platelet Estimate (NORMAL) Polychromasia INR (0.8-3.0) Sodium (136-145) mEq/L Potassium (3.5-5.1) mEq/L Chloride (98-107) mEq/L Carbon Dioxide (21-32) mEq/L Anion Gap (5-15) MEQ/L BUN (9-20) mg/dL Creatinine (0.55-1.30) mg/dl Estimated GFR ML/MIN Glucose (70-110) MG/DL Hemoglobin A1c 4.3 L (4.5-6.2) Calcium (8.5-10.1) mg/dL Total Bilirubin (0.2-1.0) mg/dL AST (15-37) U/L ALT (12-78) U/L Alkaline Phosphatase (46-116) U/L Ammonia 25 (11-32) MMOL/l Serum Total Protein (6.4-8.2) gm/dL Albumin (3.4-5.0) g/dL Ur Collection Type CLEAN CATCH Urine Color COLORLESS (YELLOW) Urine Appearance CLEAR (CLEAR) Urine pH 8.0 (5-6) Ur Specific Glady 1.000 (1.005-1.025) Urine Protein NEGATIVE (Negative) Urine Ketones NEGATIVE (NEGATIVE) Urine Blood TRACE NON-HEM (0-5) Migel/ul Urine Nitrite NEGATIVE (NEGATIVE) Urine Bilirubin NEGATIVE (NEGATIVE) Urine Urobilinogen NORMAL (0-1) mg/dL Ur Leukocyte Esterase 2+ (NEGATIVE) Urine Microscopic RBC 0-2 (0-2) /HPF Urine Microscopic WBC 2-5 (0-5) /HPF Ur Epithelial Cells RARE (FEW) /HPF Urine Bacteria RARE (NEGATIVE) /HPF Urine Yeast FEW (NEGATIVE) /HPF Urine Glucose NEGATIVE (NEGATIVE) mg/dL Specimen Received 03/13/17 1645 03/14/17 03/14/17 03/14/17 Range/Units 04:17 04:17 04:17 WBC 3.8 L (4.0-10.5) K/mm3 RBC 2.22 L (4.1-5.6) M/mm3 Hgb 7.1 L (12.5-18.0) gm/dl Hct 21.9 L (42-50) % MCV 98.6 (78-100) fl MCH 31.9 (26-32) pg MCHC 32.4 (32-36) g/dl RDW 16.1 H (11.5-14.0) % Plt Count 65 L (150-450) K/mm3 MPV 10.4 H (6-9.5) fl Segmented Neutrophils 59 (36.-66.) % Lymphocytes (Manual) 30 (24-44) % Monocytes (Manual) 9 (0.0-12.0) % Eosinophils (Manual) 2 (0.00-3.0) % Differential Comment ABNORMAL Platelet Estimate DECREASED (NORMAL) Polychromasia 1+ INR 1.47 (0.8-3.0) Sodium 144 (136-145) mEq/L Potassium 3.4 L (3.5-5.1) mEq/L Chloride 115 H (98-107) mEq/L Carbon Dioxide 17.0 L (21-32) mEq/L Anion Gap 14.9 (5-15) MEQ/L BUN 16 (9-20) mg/dL Creatinine 1.12 (0.55-1.30) mg/dl Estimated GFR > 60 ML/MIN Glucose 102 (70-110) MG/DL Hemoglobin A1c (4.5-6.2) Calcium 7.7 L (8.5-10.1) mg/dL Total Bilirubin 1.50 H (0.2-1.0) mg/dL AST 56 H (15-37) U/L ALT 21 (12-78) U/L Alkaline Phosphatase 118 H (46-116) U/L Ammonia (11-32) MMOL/l Serum Total Protein 4.8 L (6.4-8.2) gm/dL Albumin 1.8 L (3.4-5.0) g/dL Ur Collection Type Urine Color (YELLOW) Urine Appearance (CLEAR) Urine pH (5-6) Ur Specific Glady (1.005-1.025) Urine Protein (Negative) Urine Ketones (NEGATIVE) Urine Blood (0-5) Migel/ul Urine Nitrite (NEGATIVE) Urine Bilirubin (NEGATIVE) Urine Urobilinogen (0-1) mg/dL Ur Leukocyte Esterase (NEGATIVE) Urine Microscopic RBC (0-2) /HPF Urine Microscopic WBC (0-5) /HPF Ur Epithelial Cells (FEW) /HPF Urine Bacteria (NEGATIVE) /HPF Urine Yeast (NEGATIVE) /HPF Urine Glucose (NEGATIVE) mg/dL Specimen Received Radiology Exams: Radiology Procedures Category Date Time Status CHEST 1 VIEW (PORTABLE) Stat Exams 03/13/17 08:54 Completed HEAD WITHOUT CONTRAST [CT] Stat Exams 03/13/17 08:53 Completed Multi-Disciplinary Progress Notes: Multi-Disciplinary Progress Notes 03/14/17 07:34 Pharmacy Note by Martell Myers Platelets lower today at 65. Please review if Lovenox therapy still needed. Martell Reyes Initialized on 03/14/17 07:34 - END OF NOTE 03/13/17 13:00 (created 03/13/17 16:34) Case Management Note by Milly Stevenson CALLED TO REPORT THAT PT'S INSURANCE IS GOING TO REQUIRE THAT HE BE PRE CERTED FOR [facility] AGAIN WHEN HE IS READY FOR [facility]. [facility] REQUESTS TO BE NOTIFIED THE DAY PRIOR TO DISCHARGE TO START PRE CERT PROCESS. WILL CONTINUE TO KEEP [facility] UPDATED ON PT PROGRESS. Initialized on 03/13/17 16:34 - END OF NOTE 03/13/17 08:40 (created 03/13/17 16:32) Case Management Note by Milly Stevenson REVIEWED DISCHARGE PLAN AND AT HOME CARE PLAN WITH , [facility]. REPORTS THAT THEY ARE PLANNING FOR PT TO RETURN TO [facility] ON DISCHARGE. PT IS STILL CONFUSED, YELLING OUT. DECLINED ADDNL NEEDS AT PRESENT. WILL FOLLOW FOR ALL DC NEEDS. Initialized on 03/13/17 16:32 - END OF NOTE Assessment/Plan (1) Altered mental status Current Visit: Yes Status: Acute Assessment & Plan: related to UTI and elevated ammonia, started on rocephin and ammonia has improved Code(s): R41.82 - ALTERED MENTAL STATUS, UNSPECIFIED (2) Hepatic encephalopathy Current Visit: Yes Status: Acute Code(s): K72.90 - HEPATIC FAILURE, UNSPECIFIED WITHOUT COMA (3) Anemia Current Visit: No Status: Resolved Assessment & Plan: transfuse 2 units packed red blood cells Code(s): D64.9 - ANEMIA, UNSPECIFIED (4) Cirrhosis of liver Current Visit: No Status: Chronic (5) Diabetes Current Visit: No Status: Chronic Code(s): E11.9 - TYPE 2 DIABETES MELLITUS WITHOUT COMPLICATIONS
[2017-03-14] MEDS: FEOSOL 325 MG PO SCH (08:53)
[2017-03-14] MEDS: VITAMIN B-1 100 MG PO SCH (08:53)
[2017-03-14] MEDS: ULTRAM 50 MG PO PRN (08:53)
[2017-03-14] MEDS: ECOTRIN 81 MG PO SCH (08:53)
[2017-03-14] MEDS: FOLATE 1 MG PO SCH (08:53)
[2017-03-14] MEDS: NON-FORMULARY ITEM (Sodium Bicarbonate [Sodium Bicarbonate] 0 MG) PO SCH ×2 (08:53→21:33)
[2017-03-14] MEDS: Novolin N SQ SCH ×2 (08:54→16:51)
[2017-03-14] MEDS: LACTULOSE 20 GM/30ML UD CUP PO SCH ×4 (08:54→21:33)
[2017-03-14] MEDS ORDERED: NovoLOG Insulin SQ PRN (13:16)
[2017-03-14] MEDS: ROCEPHIN 1 Gm-D5w 50 ml Bag** 1 G/50 ML IVPB IV SCH (21:32)
[2017-03-14] MEDS: Seroquel 100 MG PO SCH (21:33)
[2017-03-15] MEDS: Sodium Chloride 0.9% 1000 ML 1,000 ML IV SCH (03:28)
[2017-03-15] MEDS: Inderal 20 MG PO SCH ×4 (05:54→21:41)
[2017-03-15 06:03] LABS: Mean Cell Volume 96.3 fl (78-100); Mean Platelet Volume 10.1 fl (6-9.5); Platelet Count 62 K/mm3 (150-450); Red Blood Count 2.44 M/mm3 (4.1-5.6); Red Cell Distribution Width 17.4 % (11.5-14.0); White Blood Count 3.4 K/mm3 (4.0-10.5)
[2017-03-15 06:16] LABS: Mean Corpuscular Hemoglobin 31.5 pg (26-32)
[2017-03-15 06:22] LABS: ALBUMIN 1.7 g/dL (3.4-5.0); ALKALINE PHOSPHATASE 131 U/L (46-116); ANION GAP 14.4 MEQ/L (5-15); BLOOD UREA NITROGEN 14 mg/dL (9-20); CHLORIDE 116 mEq/L (98-107); Carbon Dioxide 17.2 mEq/L (21-32); Glucose 90 MG/DL (70-110); Potassium 3.1 mEq/L (3.5-5.1); SGOT/AST 63 U/L (15-37); SGPT/ALT 23 U/L (12-78); SODIUM 145 mEq/L (136-145); Total Protein 4.6 gm/dL (6.4-8.2)
[2017-03-15 06:53] LABS: Eosinophil 3 % (0.00-3.0); Total Cells Counted 100
[2017-03-15 06:54] LABS: ANISOCYTOSIS 1+; Platelet Estimate INCREASED (NORMAL); Poikilocytosis 1+
[2017-03-15] MEDS ORDERED: K-LYTE 25 MEQ PO ONE (07:58)
--- NOTE | 2017-03-15 08:01 | PCM.NOTE ---
Date and Time: 03/15/17 0759 Subjective Assessment: patient is less confused this morning, he denies complaints. tolerating po Objective Exam General Appearance: no apparent distress, alert Neurologic Exam: alert, oriented x 3 Skin Exam: normal color, warm, dry Respiratory Exam: normal breath sounds, lungs clear, No respiratory distress Cardiovascular Exam: regular rate/rhythm, normal heart sounds Gastrointestinal/Abdomen Exam: soft, No tenderness, No mass Extremity Exam: normal inspection, normal range of motion OBJECTIVE DATA Vital Signs: Vital Signs - 24 hr Temp Pulse Resp BP Pulse Ox 03/15/17 07:16 98.0 F 79 18 121/60 100 03/15/17 04:00 98.2 F 75 18 106/53 98 03/15/17 00:06 97.5 F 64 16 114/62 96 03/14/17 20:13 98.9 F 75 16 116/58 95 03/14/17 15:54 97.8 F 03/14/17 11:12 99.2 F 81 18 133/65 97 Pain Assessment - Last Documented Pain Scale Used 0-10 Pain Scale,FLACC Intake and Output: Intake & Output 03/12/17 03/13/17 03/14/17 03/15/17 11:59 11:59 11:59 11:59 Intake Total 1059 3263 3983 Output Total 400 1 Balance 659 3263 3982 Weight 72.393 kg 72.393 kg Lab Results: Accuchecks Date 03/14/17 Date 03/14/17 Date 03/14/17 Time 22:00 Time 16:30 Time 11:30 Accucheck Value: 149 Accucheck Value: 105 Accucheck Value: 240 Lab Results-Last 24 Hours 03/14/17 03/14/17 03/15/17 Range/Units 07:45 07:45 05:10 WBC (4.0-10.5) K/mm3 RBC (4.1-5.6) M/mm3 Hgb (12.5-18.0) gm/dl Hct (42-50) % MCV (78-100) fl MCH (26-32) pg MCHC (32-36) g/dl RDW (11.5-14.0) % Plt Count (150-450) K/mm3 MPV (6-9.5) fl Segmented Neutrophils (36.-66.) % Lymphocytes (Manual) (24-44) % Monocytes (Manual) (0.0-12.0) % Eosinophils (Manual) (0.00-3.0) % Differential Comment Platelet Estimate (NORMAL) Poikilocytosis Anisocytosis Sodium (136-145) mEq/L Potassium (3.5-5.1) mEq/L Chloride (98-107) mEq/L Carbon Dioxide (21-32) mEq/L Anion Gap (5-15) MEQ/L BUN (9-20) mg/dL Creatinine (0.55-1.30) mg/dl Estimated GFR ML/MIN Glucose (70-110) MG/DL Calcium (8.5-10.1) mg/dL Total Bilirubin (0.2-1.0) mg/dL AST (15-37) U/L ALT (12-78) U/L Alkaline Phosphatase (46-116) U/L Ammonia 27 (11-32) MMOL/l Serum Total Protein (6.4-8.2) gm/dL Albumin (3.4-5.0) g/dL ABO Group O Rh Factor NEGATIVE Antibody Screen NEGATIVE (NEGATIVE) Crossmatch COMPATIBLE COMPATIBLE (COMPATIBLE) 03/15/17 03/15/17 Range/Units 05:10 05:10 WBC 3.4 L (4.0-10.5) K/mm3 RBC 2.44 L (4.1-5.6) M/mm3 Hgb 7.7 L (12.5-18.0) gm/dl Hct 23.5 L (42-50) % MCV 96.3 (78-100) fl MCH 31.5 (26-32) pg MCHC 32.8 (32-36) g/dl RDW 17.4 H (11.5-14.0) % Plt Count 62 L (150-450) K/mm3 MPV 10.1 H (6-9.5) fl Segmented Neutrophils 76 H (36.-66.) % Lymphocytes (Manual) 19 L (24-44) % Monocytes (Manual) 2 (0.0-12.0) % Eosinophils (Manual) 3 (0.00-3.0) % Differential Comment ABNORMAL Platelet Estimate INCREASED (NORMAL) Poikilocytosis 1+ Anisocytosis 1+ Sodium 145 (136-145) mEq/L Potassium 3.1 L (3.5-5.1) mEq/L Chloride 116 H (98-107) mEq/L Carbon Dioxide 17.2 L (21-32) mEq/L Anion Gap 14.4 (5-15) MEQ/L BUN 14 (9-20) mg/dL Creatinine 1.04 (0.55-1.30) mg/dl Estimated GFR > 60 ML/MIN Glucose 90 (70-110) MG/DL Calcium 7.4 L (8.5-10.1) mg/dL Total Bilirubin 1.90 H (0.2-1.0) mg/dL AST 63 H (15-37) U/L ALT 23 (12-78) U/L Alkaline Phosphatase 131 H (46-116) U/L Ammonia (11-32) MMOL/l Serum Total Protein 4.6 L (6.4-8.2) gm/dL Albumin 1.7 L (3.4-5.0) g/dL ABO Group Rh Factor Antibody Screen (NEGATIVE) Crossmatch (COMPATIBLE) Radiology Exams: Radiology Procedures Category Date Time Status CHEST 1 VIEW (PORTABLE) Stat Exams 03/13/17 08:54 Completed HEAD WITHOUT CONTRAST [CT] Stat Exams 03/13/17 08:53 Completed Assessment/Plan (1) Altered mental status Current Visit: Yes Status: Acute Assessment & Plan: improving, continue lactulose/xifaxan as ammonia has improved. will continue rocephin until urine culture complete at 48 hours, so far shows no growth Code(s): R41.82 - ALTERED MENTAL STATUS, UNSPECIFIED (2) Hepatic encephalopathy Current Visit: Yes Status: Acute Code(s): K72.90 - HEPATIC FAILURE, UNSPECIFIED WITHOUT COMA (3) Anemia Current Visit: No Status: Resolved Assessment & Plan: was given 2 units packed rbc's yesterday with very modest improvement in hemoglobin. will d/c IV fluids and repeat cbc in am Code(s): D64.9 - ANEMIA, UNSPECIFIED (4) Cirrhosis of liver Current Visit: No Status: Chronic (5) Diabetes Current Visit: No Status: Chronic Code(s): E11.9 - TYPE 2 DIABETES MELLITUS WITHOUT COMPLICATIONS
[2017-03-15] MEDS: Novolin N SQ SCH ×2 (08:32→16:45)
[2017-03-15] MEDS: FEOSOL 325 MG PO SCH (09:02)
[2017-03-15] MEDS: LACTULOSE 20 GM/30ML UD CUP PO SCH ×4 (09:02→21:46)
[2017-03-15] MEDS: FOLATE 1 MG PO SCH (09:02)
[2017-03-15] MEDS: VITAMIN B-1 100 MG PO SCH (09:02)
[2017-03-15] MEDS: ECOTRIN 81 MG PO SCH (09:02)
[2017-03-15] MEDS: ULTRAM 50 MG PO PRN ×2 (09:03→17:29)
[2017-03-15] MEDS: NON-FORMULARY ITEM (Sodium Bicarbonate [Sodium Bicarbonate] 0 MG) PO SCH (09:03)
[2017-03-15] MEDS: Xifaxan 200 MG PO SCH ×2 (10:42→22:29)
[2017-03-15] MEDS: Seroquel 100 MG PO SCH (21:42)
[2017-03-15] MEDS: NON-FORMULARY ITEM PO SCH (22:29)
[2017-03-15] MEDS: ROCEPHIN 1 Gm-D5w 50 ml Bag** 1 G/50 ML IVPB IV SCH (22:30)
[2017-03-16 06:21] LABS: Mean Cell Volume 97.3 fl (78-100); Mean Platelet Volume 11.1 fl (6-9.5); Platelet Count 62 K/mm3 (150-450); Red Blood Count 2.55 M/mm3 (4.1-5.6); Red Cell Distribution Width 16.9 % (11.5-14.0); White Blood Count 3.2 K/mm3 (4.0-10.5)
[2017-03-16 06:27] LABS: Mean Corpuscular Hemoglobin 31.3 pg (26-32)
[2017-03-16] MEDS: Inderal 20 MG PO SCH (06:38)
[2017-03-16 06:42] LABS: ALBUMIN 1.7 g/dL (3.4-5.0); ALKALINE PHOSPHATASE 178 U/L (46-116); ANION GAP 14.1 MEQ/L (5-15); BLOOD UREA NITROGEN 11 mg/dL (9-20); CHLORIDE 114 mEq/L (98-107); Carbon Dioxide 17.8 mEq/L (21-32); Glucose 109 MG/DL (70-110); Potassium 3.5 mEq/L (3.5-5.1); SGOT/AST 78 U/L (15-37); SGPT/ALT 33 U/L (12-78); SODIUM 142 mEq/L (136-145); Total Protein 5.1 gm/dL (6.4-8.2)
[2017-03-16] MEDS: Novolin N SQ SCH (07:56)
[2017-03-16] MEDS: ECOTRIN 81 MG PO SCH (08:31)
[2017-03-16] MEDS: VITAMIN B-1 100 MG PO SCH (08:31)
[2017-03-16] MEDS: FOLATE 1 MG PO SCH (08:31)
[2017-03-16] MEDS: NON-FORMULARY ITEM PO SCH (08:31)
[2017-03-16] MEDS: LACTULOSE 20 GM/30ML UD CUP PO SCH (08:31)
[2017-03-16] MEDS: FEOSOL 325 MG PO SCH (08:31)
[2017-03-16] MEDS: Xifaxan 200 MG PO SCH (08:32)
[2017-03-16 08:35] LABS: BAND 2 % (0.0-2.0); Eosinophil 2 % (0.00-3.0); Platelet Estimate DECREASED (NORMAL); Total Cells Counted 100
[2017-03-16 08:36] LABS: ANISOCYTOSIS 1+
--- NOTE | 2017-03-16 10:47 | PCM.DCORD ---
- Discharge Discharge Date: 03/16/17 Disposition: Skilled Care @ [facility] Condition: Fair Prescriptions: Continue Folic Acid 1 mg PO DAILY #30 tablet Dextrose [Glucose] 4 gm PO DAILY PRN PRN Reason: Hypoglycemia Glucagon 1 mg [GlucaGen 1 MG] 1 dose SQ DAILY PRN PRN Reason: Hypoglycemia Propranolol HCl 10 mg PO Q8H Ondansetron HCl [Zofran] 8 mg PO Q6H PRN PRN Reason: Nausea Tramadol HCl 50 mg [Ultram 50 mg] 50 mg PO Q6H PRN PRN Reason: Pain Acetaminophen [Tylenol] 650 mg PO Q4H PRN PRN Reason: Pain Temazepam 15 mg [Restoril 15 MG] 15 mg PO HS PRN PRN Reason: Insomnia Magnesium Hydroxide 30 ml [Milk of Magnesia 30 ml] 30 ml PO DAILY PRN PRN PRN Reason: Constipation Enema Bag, Disposable [Enema Bag] 1 each RC DAILY PRN PRN Reason: Constipation Bisacodyl [Bisac-Evac] 10 mg RC DAILY PRN PRN Reason: Constipation Lactulose [Lactulose 20 gm/30Ml Ud Cup] 2 gm PO QID Rifaximin [Xifaxan] 550 mg PO BID Sodium Bicarbonate 650 mg PO BID Pantoprazole Sodium [Protonix] 40 mg PO BID Levocarnitine (with Sugar) [Carnitor 100 mg/ml Oral Soln] 2,000 mg PO Q12H Thiamine Mononitrate [Vitamin B-1] 100 mg PO DAILY Quetiapine Fumarate 100 mg PO HS Melatonin/Pyridoxine HCl (B6) [Melatonin 3 mg Tablet] 2 tab PO HS Atorvastatin Calcium [Lipitor 40Mg] 40 mg PO HS Ferrous Sulfate 325 mg PO DAILY Darbepoetin Raymundo 60 Mcg [Aranesp 60 Mcg Syringe] 1 dose SQ WEEKLY Aspirin 81 gm Chew [Baby Aspirin 81 mg Chew] 81 mg PO DAILY NPH, Human Insulin Isophane [Humulin N] 8 unit SQ BID Additional Instructions: Follow up with Dr. Morales or associate as scheduled about your right knee. Follow up with: KANU HERNANDEZ MD [Primary Care Provider] - 1 Week Forms: Patient Portal Information
[2017-03-16 12:55] VITALS: BP 105/50; PULSE 78; O2SAT 100
--- NOTE | 2017-03-18 12:25 | DS ---
DISCHARGE DIAGNOSES: 1) HEPATIC ENCEPHALOPATHY. 2) CIRRHOSIS. 3) ANEMIA. 4) RIGHT KNEE INFECTION. 5) DIABETES MELLITUS TYPE 2. DISCHARGE PHYSICAL EXAMINATION: VITALS: Temperature current 98.4F, temperature max 98.6F, heart rate 69 to 82, respiratory rate 16 to 18, blood pressure 108 to 126 over 55 to 77, weight 72.3 kg on 03/14/2017. Oxygen saturation 96 to 100% on room air. GENERAL: The patient is lying in bed a pleasant talkative man in no acute distress. He's alert. CVS: He has a regular rate and rhythm. No murmurs, gallops or rubs are appreciated. CHEST: Clear to auscultation bilaterally. No crackles or wheezes. ABDOMEN: Soft, nontender, nondistended with normal bowel sounds. EXTREMITIES: His right knee was markedly swollen. Left lower extremity no clubbing, cyanosis or edema. HOSPITAL COURSE: 1) HEPATIC ENCEPHALOPATHY: He was restarted on lactulose. I saw the patient on the day of his discharge. He was alert and reports that he had eaten well. The plan was for him to be discharged back to [facility] for continued rehab and to follow up concerning his knee with his orthopedic surgeon, Dr. Morales. 2) CIRRHOSIS: Stable at this time. I will continue his home medications. 3) ANEMIA: Dr. Vasquez had him transfused with 2 units of packed red blood cells on 03/14/2017. His hemoglobin at the time of discharge was 8.0. 4) RIGHT KNEE INFECTION: He has antibiotic spacer in place in his knee according to Dr. Vasquez' history and physical. The patient was on ceftriaxone during his hospitalization for possible urinary tract infection but urine culture did not grow bacteria. 5) DIABETES MELLITUS TYPE 2: This was ell controlled his hospital stay. His hemoglobin A1C was 4.3 on 03/13/2017. DISCHARGE MEDICATIONS: Please see the discharge order. DISPOSITION: The patient was discharged back to [facility] for continued therapy, to follow up with Dr. Vasquez. He is the medical appointment clerk at [facility] as well as Dr. Morales following up about the patient's knee.
== END 2017-03-16 12:45 | DRG 442 ==
LOC: ED 17:23 → OBSVTOIN 20:03 → MED SURG 20:03
PROVIDERS: ADMIT Family Medicine; ATTEND Family Medicine
DX: K72.90 Hepatic failure, unspecified without coma (principal); N39.0 Urinary tract infection, site not specified; K74.60 Unspecified cirrhosis of liver; R41.82 Altered mental status, unspecified; T84.69XD Infection and inflammatory reaction due to internal fixation device of other site, subsequent encounter; B99.9 Unspecified infectious disease; Z96.651 Presence of right artificial knee joint; D64.9 Anemia, unspecified; E11.9 Type 2 diabetes mellitus without complications; Z79.4 Long term (current) use of insulin; I10 Essential (primary) hypertension; Z99.2 Dependence on renal dialysis; Z79.899 Other long term (current) drug therapy
CPT/HCPCS: 36000; 36415; 36430; 70450; 71010; 80048; 80053; 81000; 82140; 82272; 82962; 83036; 83605; 85025; 85379; 85610; 85652; 86140; 86850; 86900; 86901; 86922; 87086; 99285; J0696; J1650; P9016; A9270-GY

== ENCOUNTER 2017-05-02 15:50 | Emergency (ER) | payer BC, SELFPAY ==
--- NOTE | 2017-05-02 16:22 | ERPHSYRPT ---
- History of Present Illness Time Seen by Provider: 05/02/17 15:52 Source: patient, family (), EMS, senior care records Patient Subjective Stated Complaint: pt here for nausea, and not acting hes normal state per hes family. pts [place] level was high today, pt has recent major health problems,and is in [place], pt co nausea today Triage Nursing Assessment: pt alert,and knows date,time,place and person, skin w /d. co nausea and abd pain. edema to both legs, swelling worse to right leg, which is normal for him, pt has multi bruising Physician History: CC: nausea Hx: 61 y/o patient from [facility]. 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 He was seen by ortho this week with knee swelling but had no fluid on aspiration. He has been improving. He also has cirrhosis and hx of hyperammonia. He had ammonia level at [place] this AM which was high so he was sent to ER. He ate a full Thanksgiving meal and tried all of the food. He has a little nausea. No fever or vomiting. Family thought he was a little cross this AM. No complaint of pain. No abd pain. Has been taking his normal medications. Timing/Duration: today Allergies/Adverse Reactions: No Known Drug Allergies Allergy (Verified 05/02/17 16:06) Home Medications: Acetaminophen [Tylenol] 650 mg PO Q4H PRN 03/12/17 [History] Atorvastatin Calcium [Lipitor 40Mg] 40 mg PO HS 03/12/17 [History] Bisacodyl [Bisac-Evac] 10 mg RC DAILY PRN 03/12/17 [History] Dextrose [Glucose] 4 gm PO DAILY PRN 03/12/17 [History] Enema Bag, Disposable [Enema Bag] 1 each RC DAILY PRN 03/12/17 [History] Ferrous Sulfate 325 mg PO DAILY 03/12/17 [History] Glucagon 1 mg [GlucaGen 1 MG] 1 dose SQ DAILY PRN 03/12/17 [History] Lactulose [Lactulose 20 gm/30Ml Ud Cup] 2 gm PO QID 03/12/17 [History] Ondansetron HCl [Zofran] 8 mg PO Q6H PRN 03/12/17 [History] Rifaximin [Xifaxan] 550 mg PO BID 03/12/17 [History] Sodium Bicarbonate 650 mg PO TID 03/12/17 [History] Thiamine Mononitrate [Vitamin B-1] 100 mg PO DAILY 03/12/17 [History] Tramadol HCl 50 mg [Ultram 50 mg] 50 mg PO Q6H PRN 03/12/17 [History] Carvedilol 3.125 mg [Coreg 3.125 MG] 3.125 mg BID 05/02/17 [History] Fluoxetine HCl 10 mg [Prozac 10 mg] 10 mg DAILY 05/02/17 [History] Furosemide 40 mg [Lasix 40 MG] 40 mg DAILY 05/02/17 [History] Magnesium Oxide 400 mg [Mag-Ox 400] 400 mg TID 05/02/17 [History] Multivitamin [Multivitamins] 1 ea DAILY 05/02/17 [History] Oxycodone HCl 5 mg Q4H PRN PRN 05/02/17 [History] Potassium Chloride 20 Meq [Klor-Con 20 MEQ] 20 meq DAILY 05/02/17 [History] Zinc Sulfate 220 mg BID 05/02/17 [History] Hx Tetanus, Diphtheria Vaccination/Date Given: Yes Hx Influenza Vaccination/Date Given: No Hx Pneumococcal Vaccination/Date Given: No Immunizations Up to Date: Yes - Review of Systems Constitutional: Malaise, No Fever, No Chills Eyes: No Symptoms Ears, Nose, & Throat: No Symptoms Respiratory: No Cough, No Dyspnea Cardiac: No Chest Pain Abdominal/Gastrointestinal: Nausea, No Abdominal Pain, No Vomiting Genitourinary Symptoms: No Dysuria Skin: No Rash Neurological: No Headache All Other Systems: Reviewed and Negative - Past Medical History Pertinent Past Medical History: Yes Neurological History: No Pertinent History ENT History: Cataracts Cardiac History: Hypertension Respiratory History: No Pertinent History Endocrine Medical History: Diabetes Type II Musculoskeletal History: Other GI Medical History: Cirrhosis History: Dialysis Psycho-Social History: No Pertinent History Male Reproductive Disorders: No Pertinent History Other Medical History: elevated ammonia, pt has hx of sepsis, has been off dialysis for a month - Past Surgical History Past Surgical History: Yes Neuro Surgical History: No Pertinent History Cardiac: No Pertinent History Respiratory: No Pertinent History Gastrointestinal: Hernia Repair Genitourinary: No Pertinent History Musculoskeletal: Joint Replacement, Other Male Surgical History: No Pertinent History Other Surgical History: partial RIGHT KNEE REPLACEMENT. cataracts, - Social History Smoking Status: Never smoker Exposure to second hand smoke: No Drug Use: none Patient Lives Alone: No - Nursing Vital Signs Nursing Vital Signs: Initial Vital Signs Temperature 98.4 F 05/02/17 15:53 Pulse Rate 97 H 05/02/17 15:53 Respiratory Rate 16 05/02/17 15:53 Blood Pressure 153/65 05/02/17 15:53 O2 Sat by Pulse Oximetry 100 05/02/17 15:53 Pain Scale Pain Intensity 8 - Physical Exam General Appearance: alert, other (pale, frail elderly appearing man) Eye Exam: PERRL/EOMI Ears, Nose, Throat Exam: dry mucous membranes Neck Exam: supple Respiratory Exam: normal breath sounds Cardiovascular Exam: regular rate/rhythm Gastrointestinal/Abdomen Exam: soft, distention, No tenderness, No mass, No guarding, No ecchymosis Extremity Exam: pedal edema Neurologic Exam: alert, cooperative, No motor deficits Skin Exam: warm, dry, pale, No rash SpO2 Interpretation: normal SpO2: 100 Oxygen Delivery: Room Air - Course Nursing assessment & vital signs reviewed: Yes EKG Interpreted by Me: RATE (80), Sinus Rhythm, NORMAL AXIS, NORMAL INTERVALS ( QTc 434), NORMAL QRS, Non-specific ST Changes, Other (No ST elevation) - Radiology Exams cxr X-ray Interpretation: Interpreted by me, No Pneumonia Ordered Tests: Active Orders 24 hr Category Date Time Status Clean Catch Urine Specimen STAT Care 05/02/17 15:59 Active EKG-ER Only STAT Care 05/02/17 15:59 Active IV Insertion STAT Care 05/02/17 15:59 Active CHEST 1 VIEW (PORTABLE) Stat Exams 05/02/17 15:59 Taken CBC W DIFF Stat Lab 05/02/17 16:12 Completed CMP Stat Lab 05/02/17 16:12 Completed LIPASE Stat Lab 05/02/17 16:12 Completed Lactic Acid Stat Lab 05/02/17 16:17 Results PROTIME WITH INR Stat Lab 05/02/17 16:12 Completed TROPONIN Q3H Lab 05/02/17 16:12 Completed TROPONIN Q3H Lab 05/02/17 19:45 Ordered TROPONIN Q3H Lab 05/02/17 22:45 Ordered TROPONIN Q3H Lab 05/03/17 01:45 Ordered TROPONIN Q3H Lab 05/03/17 04:45 Ordered UA W/RFX UR CULTURE Stat Lab 05/02/17 16:40 Completed Lab/Rad Data: Laboratory Result Diagrams 05/02/17 16:12 05/02/17 16:12 Laboratory Results 05/02/17 05/02/17 05/02/17 Range/Units 16:40 16:17 16:12 WBC (4.0-10.5) K/mm3 RBC (4.1-5.6) M/mm3 Hgb (12.5-18.0) gm/dl Hct (42-50) % MCV (78-100) fl MCH (26-32) pg MCHC (32-36) g/dl RDW (11.5-14.0) % Plt Count (150-450) K/mm3 MPV (6-9.5) fl Gran % (36.0-66.0) % Lymphocytes % (24.0-44.0) % Monocytes % (0.0-12.0) % Eosinophils % (0.00-5.0) % Basophils % (0.0-0.4) % Basophils # (0-0.4) INR (0.8-3.0) Sodium (136-145) mEq/L Potassium (3.5-5.1) mEq/L Chloride (98-107) mEq/L Carbon Dioxide (21-32) mEq/L Anion Gap (5-15) MEQ/L BUN (9-20) mg/dL Creatinine (0.55-1.30) mg/dl Estimated GFR ML/MIN Glucose (70-110) MG/DL Lactic Acid 2.1 H (0.4-2.0) Calcium (8.5-10.1) mg/dL Total Bilirubin (0.2-1.0) mg/dL AST (15-37) U/L ALT (12-78) U/L Alkaline Phosphatase (46-116) U/L Ammonia (11-32) MMOL/l Troponin I 0.018 (0.000-0.056) ng/ml Serum Total Protein (6.4-8.2) gm/dL Albumin (3.4-5.0) g/dL Lipase (73-393) U/L Ur Collection Type VOID Urine Color YELLOW (YELLOW) Urine Appearance CLEAR (CLEAR) Urine pH 7.0 (5-6) Ur Specific [place] 1.010 (1.005-1.025) Urine Protein NEGATIVE (Negative) Urine Ketones NEGATIVE (NEGATIVE) Urine Blood NEGATIVE (0-5) Migel/ul Urine Nitrite NEGATIVE (NEGATIVE) Urine Bilirubin NEGATIVE (NEGATIVE) Urine Urobilinogen NORMAL (0-1) mg/dL Ur Leukocyte Esterase NEGATIVE (NEGATIVE) Urine Culture Reflexed NO (NO) Urine Glucose NEGATIVE (NEGATIVE) mg/dL Specimen Received 05/02/2017 [id number] 05/02/17 05/02/17 05/02/17 Range/Units 16:12 16:12 16:12 WBC (4.0-10.5) K/mm3 RBC (4.1-5.6) M/mm3 Hgb (12.5-18.0) gm/dl Hct (42-50) % MCV (78-100) fl MCH (26-32) pg MCHC (32-36) g/dl RDW (11.5-14.0) % Plt Count (150-450) K/mm3 MPV (6-9.5) fl Gran % (36.0-66.0) % Lymphocytes % (24.0-44.0) % Monocytes % (0.0-12.0) % Eosinophils % (0.00-5.0) % Basophils % (0.0-0.4) % Basophils # (0-0.4) INR 1.58 (0.8-3.0) Sodium 142 (136-145) mEq/L Potassium 3.9 (3.5-5.1) mEq/L Chloride 111 H (98-107) mEq/L Carbon Dioxide 21.1 (21-32) mEq/L Anion Gap 14.0 (5-15) MEQ/L BUN 10 (9-20) mg/dL Creatinine 1.26 (0.55-1.30) mg/dl Estimated GFR > 60 ML/MIN Glucose 151 H (70-110) MG/DL Lactic Acid (0.4-2.0) Calcium 8.0 L (8.5-10.1) mg/dL Total Bilirubin 1.20 H (0.2-1.0) mg/dL AST 61 H (15-37) U/L ALT 21 (12-78) U/L Alkaline Phosphatase 184 H (46-116) U/L Ammonia 55 H (11-32) MMOL/l Troponin I (0.000-0.056) ng/ml Serum Total Protein 5.8 L (6.4-8.2) gm/dL Albumin 1.7 L (3.4-5.0) g/dL Lipase 158 (73-393) U/L Ur Collection Type Urine Color (YELLOW) Urine Appearance (CLEAR) Urine pH (5-6) Ur Specific [place] (1.005-1.025) Urine Protein (Negative) Urine Ketones (NEGATIVE) Urine Blood (0-5) Migel/ul Urine Nitrite (NEGATIVE) Urine Bilirubin (NEGATIVE) Urine Urobilinogen (0-1) mg/dL Ur Leukocyte Esterase (NEGATIVE) Urine Culture Reflexed (NO) Urine Glucose (NEGATIVE) mg/dL Specimen Received 05/02/17 Range/Units 16:12 WBC 5.6 (4.0-10.5) K/mm3 RBC 2.59 L (4.1-5.6) M/mm3 Hgb 7.9 L (12.5-18.0) gm/dl Hct 24.8 L (42-50) % MCV 95.8 (78-100) fl MCH 30.5 (26-32) pg MCHC 31.9 L (32-36) g/dl RDW 15.9 H (11.5-14.0) % Plt Count 124 L (150-450) K/mm3 MPV 10.2 H (6-9.5) fl Gran % 59.0 (36.0-66.0) % Lymphocytes % 19.9 L (24.0-44.0) % Monocytes % 13.4 H (0.0-12.0) % Eosinophils % 7.0 H (0.00-5.0) % Basophils % 0.7 (0.0-0.4) % Basophils # 0.04 (0-0.4) INR (0.8-3.0) Sodium (136-145) mEq/L Potassium (3.5-5.1) mEq/L Chloride (98-107) mEq/L Carbon Dioxide (21-32) mEq/L Anion Gap (5-15) MEQ/L BUN (9-20) mg/dL Creatinine (0.55-1.30) mg/dl Estimated GFR ML/MIN Glucose (70-110) MG/DL Lactic Acid (0.4-2.0) Calcium (8.5-10.1) mg/dL Total Bilirubin (0.2-1.0) mg/dL AST (15-37) U/L ALT (12-78) U/L Alkaline Phosphatase (46-116) U/L Ammonia (11-32) MMOL/l Troponin I (0.000-0.056) ng/ml Serum Total Protein (6.4-8.2) gm/dL Albumin (3.4-5.0) g/dL Lipase (73-393) U/L Ur Collection Type Urine Color (YELLOW) Urine Appearance (CLEAR) Urine pH (5-6) Ur Specific [place] (1.005-1.025) Urine Protein (Negative) Urine Ketones (NEGATIVE) Urine Blood (0-5) Migel/ul Urine Nitrite (NEGATIVE) Urine Bilirubin (NEGATIVE) Urine Urobilinogen (0-1) mg/dL Ur Leukocyte Esterase (NEGATIVE) Urine Culture Reflexed (NO) Urine Glucose (NEGATIVE) mg/dL Specimen Received - Progress Progress Note: 05/02/17 18:18 Pt stable. He is chronically ill but does not appear to be acutely ill. He has no chest pain. EKG changed from November but unsure significance. Troponin wnl. Called Dr Yazan Vasquez. Will recheck labs in AM, increased lactulose. Curently he is on lactulose 30cc TID so will increase to 45 ccc TID. Family aware and agrees with plans. Counseled pt/family regarding: lab results, diagnosis, need for follow-up - Departure Time of Disposition: 18:19 Departure Disposition: Extended Care Facility Clinical Impression: Hepatic encephalopathy, Cirrhosis of liver, Anemia, Hyperammonemia Condition: Stable Critical Care Time: No Referrals: ANNETTE HERNANDEZ [Primary Care Provider] - Instructions: Cirrhosis Additional Instructions: Increase lactulose to 45 cc TID. Labs in AM. Call Dr Hand/Pedro for problems or concerns.
[2017-05-02 16:23] LABS: BASOPHIL % 0.7 % (0.0-0.4); Lymphocytes % 19.9 % (24.0-44.0); Mean Cell Volume 95.8 fl (78-100); Mean Corpuscular Hemoglobin 30.5 pg (26-32); Mean Platelet Volume 10.2 fl (6-9.5); Monocytes % 13.4 % (0.0-12.0); Platelet Count 124 K/mm3 (150-450); Red Blood Count 2.59 M/mm3 (4.1-5.6); Red Cell Distribution Width 15.9 % (11.5-14.0); White Blood Count 5.6 K/mm3 (4.0-10.5)
[2017-05-02 16:23] LABS: Lactic Acid 2.1 (0.4-2.0)
[2017-05-02 16:33] LABS: INR 1.58 (0.8-3.0); PROTIME 17.6 SECONDS (8.83-12.87)
[2017-05-02 16:39] LABS: ALBUMIN 1.7 g/dL (3.4-5.0); ALKALINE PHOSPHATASE 184 U/L (46-116); BLOOD UREA NITROGEN 10 mg/dL (9-20); CHLORIDE 111 mEq/L (98-107); Carbon Dioxide 21.1 mEq/L (21-32); Glucose 151 MG/DL (70-110); LIPASE 158 U/L (73-393); Potassium 3.9 mEq/L (3.5-5.1); SGOT/AST 61 U/L (15-37); SGPT/ALT 21 U/L (12-78); SODIUM 142 mEq/L (136-145); Total Protein 5.8 gm/dL (6.4-8.2)
[2017-05-02 16:41] LABS: Collection Type VOID
[2017-05-02 16:42] LABS: ADD URINE CULTURE? NO (NO); Bilirubin NEGATIVE (NEGATIVE); Blood NEGATIVE Ery/ul (0-5); COMPLETE URINE MICROSCOPIC? NO; Glucose NEGATIVE (NEGATIVE); Leukocyte Esterase NEGATIVE (NEGATIVE)
[2017-05-02 18:41] VITALS: BP 131/65; PULSE 92; O2SAT 98
--- NOTE | 2017-05-02 19:53 | XRAY ---
Indication: Altered mental status. Comparison: March 13, 2017. Portable chest again demonstrates normal heart, lungs, and bony thorax.
== END 2017-05-02 19:00 | disposition home or self-care (01) ==
LOC: ED 15:50
DX: K72.90 Hepatic failure, unspecified without coma (principal); K74.60 Unspecified cirrhosis of liver; D64.9 Anemia, unspecified; E72.4 Disorders of ornithine metabolism
CPT/HCPCS: 36000; 36415; 71010; 80053; 81002; 82140; 83605; 83690; 84484; 85025; 85610; 93005; 99284

== ENCOUNTER 2017-09-09 13:45 | Emergency (ER) | payer BC, MEDICAID ==
--- NOTE | 2017-09-09 14:04 | ERPHSYRPT ---
- History of Present Illness Time Seen by Provider: 09/09/17 13:47 Source: patient, family Physician History: CC: swelling Hx: 61 y/o patient of Dr Hernandez and Dr Joseph (ortho). He has hx of right knee arthroplasty, infection and subsequent hepato renal failure. Doing better. Home on maintenace abtx. He is on lactulose. Family noted some increased lower extremity edema in the past few days, worsening. No chest pain, cough, or dyspnea. He has some diff with urination. No fever or chills. The right knee hurts a little more than prior. Timing/Duration: day(s) (few) Severity: moderate Allergies/Adverse Reactions: No Known Drug Allergies Allergy (Verified 05/02/17 16:06) Home Medications: Acetaminophen [Tylenol] 650 mg PO Q4H PRN 03/12/17 [History] Atorvastatin Calcium [Lipitor 40Mg] 40 mg PO HS 03/12/17 [History] Bisacodyl [Bisac-Evac] 10 mg RC DAILY PRN 03/12/17 [History] Dextrose [Glucose] 4 gm PO DAILY PRN 03/12/17 [History] Enema Bag, Disposable [Enema Bag] 1 each RC DAILY PRN 03/12/17 [History] Ferrous Sulfate 325 mg PO DAILY 03/12/17 [History] Glucagon 1 mg [GlucaGen 1 MG] 1 dose SQ DAILY PRN 03/12/17 [History] Lactulose [Lactulose 20 gm/30Ml Ud Cup] 2 gm PO QID 03/12/17 [History] Ondansetron HCl [Zofran] 8 mg PO Q6H PRN 03/12/17 [History] Rifaximin [Xifaxan] 550 mg PO BID 03/12/17 [History] Sodium Bicarbonate 650 mg PO TID 03/12/17 [History] Thiamine Mononitrate [Vitamin B-1] 100 mg PO DAILY 03/12/17 [History] Tramadol HCl 50 mg [Ultram 50 mg] 50 mg PO Q6H PRN 03/12/17 [History] Carvedilol 3.125 mg [Coreg 3.125 MG] 3.125 mg BID 05/02/17 [History] Fluoxetine HCl 10 mg [Prozac 10 mg] 10 mg DAILY 05/02/17 [History] Furosemide 40 mg [Lasix 40 MG] 40 mg DAILY 05/02/17 [History] Magnesium Oxide 400 mg [Mag-Ox 400] 400 mg TID 05/02/17 [History] Multivitamin [Multivitamins] 1 ea DAILY 05/02/17 [History] Oxycodone HCl 5 mg Q4H PRN PRN 05/02/17 [History] Potassium Chloride 20 Meq [Klor-Con 20 MEQ] 20 meq DAILY 05/02/17 [History] Zinc Sulfate 220 mg BID 05/02/17 [History] Hx Tetanus, Diphtheria Vaccination/Date Given: Yes Hx Influenza Vaccination/Date Given: No Hx Pneumococcal Vaccination/Date Given: No - Review of Systems Constitutional: Fatigue, Malaise, Weakness, No Fever, No Chills Eyes: No Symptoms Ears, Nose, & Throat: No Symptoms Respiratory: No Cough, No Dyspnea Cardiac: Edema, No Chest Pain Abdominal/Gastrointestinal: No Abdominal Pain, No Nausea, No Vomiting Genitourinary Symptoms: Incontinence Musculoskeletal: Joint Pain (right knee) Skin: Rash (some blisters on legs) Neurological: No Focal Weakness, No Headache All Other Systems: Reviewed and Negative - Past Medical History Pertinent Past Medical History: Yes Neurological History: No Pertinent History ENT History: Cataracts Cardiac History: Hypertension Respiratory History: No Pertinent History Endocrine Medical History: Diabetes Type II Musculoskeletal History: Other GI Medical History: Cirrhosis History: Dialysis Psycho-Social History: No Pertinent History Male Reproductive Disorders: No Pertinent History Other Medical History: elevated ammonia, pt has hx of sepsis. Prior dialysis. - Past Surgical History Past Surgical History: Yes Neuro Surgical History: No Pertinent History Cardiac: No Pertinent History Respiratory: No Pertinent History Gastrointestinal: Hernia Repair Genitourinary: No Pertinent History Musculoskeletal: Joint Replacement, Other Male Surgical History: No Pertinent History Other Surgical History: partial RIGHT KNEE REPLACEMENT. cataracts, - Social History Smoking Status: Never smoker Exposure to second hand smoke: No Drug Use: none Patient Lives Alone: No - Nursing Vital Signs Nursing Vital Signs: Initial Vital Signs Temperature 98.7 F 09/09/17 14:42 Pulse Rate 76 09/09/17 14:42 Respiratory Rate 18 09/09/17 14:42 Blood Pressure 118/55 09/09/17 14:42 O2 Sat by Pulse Oximetry 98 09/09/17 14:42 Pain Scale Pain Intensity 0 - Physical Exam General Appearance: alert Eye Exam: PERRL/EOMI Ears, Nose, Throat Exam: moist mucous membranes Neck Exam: normal inspection, non-tender, supple Respiratory Exam: normal breath sounds, lungs clear, No respiratory distress Cardiovascular Exam: regular rate/rhythm, murmur Gastrointestinal/Abdomen Exam: soft, No tenderness, No distention, No mass, No guarding Male Genitalia Exam: normal genitalia (no scrotal edema, uncircumcised phallus, unable to retract foreskin) Back Exam: normal inspection Extremity Exam: other (moderately severe edema both lower legs, stasis dermatitis with some blisters. Right knee a little warm and a little tender.) Neurologic Exam: alert, oriented x 3, cooperative, cv rn II-XII nml as tested, sensation nml, No motor deficits Skin Exam: warm, dry - Course Nursing assessment & vital signs reviewed: Yes Ordered Tests: Active Orders 24 hr Category Date Time Status Clean Catch Urine Specimen STAT Care 09/09/17 13:47 Active IV Insertion STAT Care 09/09/17 13:47 Active BMP Stat Lab 09/09/17 14:10 Completed CBC W DIFF Stat Lab 09/09/17 14:10 Completed Hepatic Function Panel Stat Lab 09/09/17 14:10 Completed UA W/RFX UR CULTURE Stat Lab 09/09/17 14:35 Completed Lab/Rad Data: Laboratory Result Diagrams 09/09/17 14:10 09/09/17 14:10 Laboratory Results 09/09/17 09/09/17 09/09/17 Range/Units 14:35 14:10 14:10 WBC (4.0-10.5) K/mm3 RBC (4.1-5.6) M/mm3 Hgb (12.5-18.0) gm/dl Hct (42-50) % MCV (78-100) fl MCH (26-32) pg MCHC (32-36) g/dl RDW (11.5-14.0) % Plt Count (150-450) K/mm3 MPV (6-9.5) fl Gran % (36.0-66.0) % Eos # (Auto) (0-0.5) Absolute Lymphs (auto) (1.0-4.6) Absolute Monos (auto) (0.0-1.3) Lymphocytes % (24.0-44.0) % Monocytes % (0.0-12.0) % Eosinophils % (0.00-5.0) % Basophils % (0.0-0.4) % Absolute Granulocytes (1.4-6.9) Basophils # (0-0.4) Sodium 139 (137-145) mmol/L Potassium 3.8 (3.5-5.1) mmol/L Chloride 108 H (98-107) mmol/L Carbon Dioxide 22 (22-30) mmol/L Anion Gap 12.2 (5-15) MEQ/L BUN 21 H (9-20) mg/dL Creatinine 0.95 (0.66-1.25) mg/dL Estimated GFR > 60.0 ML/MIN Glucose 117 H (74-106) mg/dL Calcium 8.6 (8.4-10.2) mg/dL Total Bilirubin 0.90 (0.2-1.3) mg/dL Direct Bilirubin 0 (0.0-0.4) mg/dL AST 57 (17-59) U/L ALT 26 (0-50) U/L Alkaline Phosphatase 226 H (38-126) U/L Ammonia 52 H (9-30) umol/L Serum Total Protein 5.4 L (6.3-8.2) g/dL Albumin 2.6 L (3.5-5.0) g/dL Ur Collection Type CLEAN CATCH Urine Color YELLOW (YELLOW) Urine Appearance CLEAR (CLEAR) Urine pH 5.0 (5-6) Ur Specific [place] 1.015 (1.005-1.025) Urine Protein NEGATIVE (Negative) Urine Ketones NEGATIVE (NEGATIVE) Urine Blood NEGATIVE (0-5) Migel/ul Urine Nitrite NEGATIVE (NEGATIVE) Urine Bilirubin NEGATIVE (NEGATIVE) Urine Urobilinogen NORMAL (0-1) mg/dL Ur Leukocyte Esterase NEGATIVE (NEGATIVE) Urine Culture Reflexed NO (NO) Urine Glucose NEGATIVE (NEGATIVE) mg/dL Slides for Path Review Specimen Received 09/09/2017 1435 09/09/17 Range/Units 14:10 WBC 3.4 L (4.0-10.5) K/mm3 RBC 2.65 L (4.1-5.6) M/mm3 Hgb 8.2 L (12.5-18.0) gm/dl Hct 25.6 L (42-50) % MCV 96.6 (78-100) fl MCH 30.9 (26-32) pg MCHC 32.0 (32-36) g/dl RDW 16.2 H (11.5-14.0) % Plt Count 74 L (150-450) K/mm3 MPV 9.6 H (6-9.5) fl Gran % 60.9 (36.0-66.0) % Eos # (Auto) 0.24 (0-0.5) Absolute Lymphs (auto) 0.67 L (1.0-4.6) Absolute Monos (auto) 0.41 (0.0-1.3) Lymphocytes % 19.5 L (24.0-44.0) % Monocytes % 12.0 (0.0-12.0) % Eosinophils % 7.0 H (0.00-5.0) % Basophils % 0.6 (0.0-0.4) % Absolute Granulocytes 2.09 (1.4-6.9) Basophils # 0.02 (0-0.4) Sodium (137-145) mmol/L Potassium (3.5-5.1) mmol/L Chloride (98-107) mmol/L Carbon Dioxide (22-30) mmol/L Anion Gap (5-15) MEQ/L BUN (9-20) mg/dL Creatinine (0.66-1.25) mg/dL Estimated GFR ML/MIN Glucose (74-106) mg/dL Calcium (8.4-10.2) mg/dL Total Bilirubin (0.2-1.3) mg/dL Direct Bilirubin (0.0-0.4) mg/dL AST (17-59) U/L ALT (0-50) U/L Alkaline Phosphatase (38-126) U/L Ammonia (9-30) umol/L Serum Total Protein (6.3-8.2) g/dL Albumin (3.5-5.0) g/dL Ur Collection Type Urine Color (YELLOW) Urine Appearance (CLEAR) Urine pH (5-6) Ur Specific Evans (1.005-1.025) Urine Protein (Negative) Urine Ketones (NEGATIVE) Urine Blood (0-5) Migel/ul Urine Nitrite (NEGATIVE) Urine Bilirubin (NEGATIVE) Urine Urobilinogen (0-1) mg/dL Ur Leukocyte Esterase (NEGATIVE) Urine Culture Reflexed (NO) Urine Glucose (NEGATIVE) mg/dL Slides for Path Review YES Specimen Received - Progress Progress Note: 09/09/17 15:38 Pt alert, comfortable. He has lower extremity edema bilateral. Labs reassuring. Spoke to Dr Hernandez. Will work on support stockings as he has not been able to use. Will give extra lasix for 3 days. Plan follow up. Counseled pt/family regarding: lab results, diagnosis, need for follow-up - Departure Time of Disposition: 15:39 Departure Disposition: Home Clinical Impression: Lower extremity edema, Cirrhosis of liver Condition: Stable Critical Care Time: No Referrals: KANU HERNANDEZ MD [ACTIVE STAFF] - Instructions: Dependent Edema (DC) Additional Instructions: Use compression stockings. Take an extra lasix every day for 3 days. Follow up with Dr Hernandez. Report any fever or worsening.
[2017-09-09 14:19] LABS: BASOPHIL % 0.6 % (0.0-0.4); Basophil (Absolute #) 0.02 (0-0.4); Eosinophil (Absolute #) 0.24 (0-0.5); Granulocyte Absolute (ANC) 2.09 (1.4-6.9); Granulocytes % 60.9 % (36.0-66.0); Hematocrit 25.6 % (42-50); Hemoglobin 8.2 gm/dl (12.5-18.0); Lymphocyte (Absolute #) 0.67 (1.0-4.6); Lymphocytes % 19.5 % (24.0-44.0); Mean Cell Volume 96.6 fl (78-100); Mean Corpuscular Hemoglobin 30.9 pg (26-32); Mean Platelet Volume 9.6 fl (6-9.5); Monocyte (Absolute #) 0.41 (0.0-1.3); Platelet Count 74 K/mm3 (150-450); Red Blood Count 2.65 M/mm3 (4.1-5.6); Red Cell Distribution Width 16.2 % (11.5-14.0); White Blood Count 3.4 K/mm3 (4.0-10.5)
[2017-09-09 14:40] LABS: ALBUMIN 2.6 g/dL (3.5-5.0); ALKALINE PHOSPHATASE 226 U/L (38-126); ANION GAP 12.2 MEQ/L (5-15); BLOOD UREA NITROGEN 21 mg/dL (9-20); CHLORIDE 108 mmol/L (98-107); Calcium 8.6 mg/dL (8.4-10.2); Carbon Dioxide 22 mmol/L (22-30); Creatinine 1 0.95 mg/dL (0.66-1.25); Glucose 117 mg/dL (74-106); Potassium 3.8 mmol/L (3.5-5.1); SGOT/AST 57 U/L (17-59); SGPT/ALT 26 U/L (0-50); SODIUM 139 mmol/L (137-145); Total Protein 5.4 g/dL (6.3-8.2)
[2017-09-09 14:41] LABS: Direct Bilirubin 0 mg/dL (0.0-0.4)
[2017-09-09 14:45] VITALS: O2SAT 98
[2017-09-09 14:50] LABS: Appearance CLEAR (CLEAR); Bilirubin NEGATIVE (NEGATIVE); Blood NEGATIVE Ery/ul (0-5); Glucose NEGATIVE (NEGATIVE); Ketones NEGATIVE (NEGATIVE); Leukocyte Esterase NEGATIVE (NEGATIVE); Nitrite NEGATIVE (NEGATIVE); Protein,Urine Dip NEGATIVE (Negative); Specific Gravity 1.015 (1.005-1.025); Urobilinogen NORMAL mg/dL (0-1)
[2017-09-09 15:10] LABS: Slide Review 1 YES
[2017-09-09 15:49] VITALS: BP 118/56; PULSE 70
== END 2017-09-09 16:14 | disposition home or self-care (01) ==
LOC: ED 13:45
DX: R60.0 Localized edema (principal); K74.60 Unspecified cirrhosis of liver; I87.2 Venous insufficiency (chronic) (peripheral); Z79.899 Other long term (current) drug therapy
CPT/HCPCS: 36000; 36415; 80048; 80076; 81002; 82140; 85025; 99283

== ENCOUNTER 2017-11-16 14:35 | Observation (INO) | payer SELFPAY ==
[~2017-11-16 14:35] MED LIST: HOLD METFORMIN PRODUCTS FOR 48 HOURS MC SCH
[2017-11-16] MEDS ORDERED: Zofran 4 MG/2 ML VIAL ONE (14:48)
[2017-11-16] MEDS ORDERED: Zofran 4 MG/2 ML VIAL IV ONE (15:08)
[2017-11-16 15:09] LABS: Granulocyte Absolute (ANC) 5.27 (1.4-6.9); Hematocrit 39.7 % (42-50); Hemoglobin 13.8 gm/dl (12.5-18.0); Mean Cell Volume 88.6 fl (78-100); Mean Corpuscular Hemoglobin 30.8 pg (26-32); Mean Corpuscular Hgb Concent. 34.8 g/dl (32-36); Mean Platelet Volume 11.4 fl (6-9.5); Platelet Count 86 K/mm3 (150-450); Red Blood Count 4.48 M/mm3 (4.1-5.6); Red Cell Distribution Width 14.9 % (11.5-14.0); White Blood Count 7.3 K/mm3 (4.0-10.5)
[2017-11-16 15:11] LABS: Lactic Acid 2.7 (0.4-2.0)
[2017-11-16] MEDS: Sodium Chloride 0.9% 1000 ML 1,000 ML IV SCH ×2 (15:29→21:33)
--- NOTE | 2017-11-16 15:48 | ERPHSYRPT ---
- History of Present Illness Time Seen by Provider: 11/16/17 15:01 Historian: patient, family Exam Limitations: no limitations Patient Subjective Stated Complaint: Pt states "his ammonia sometimes will go up and we are fighting an infection in his knee, but today I was trying to tell him to wipe his but and he just stood there and did not do anything. He is not his normal self.". Pt stated he was last seen his normal self on . Triage Nursing Assessment: PT alert and confused, knows who he is knows where he is, but does not know much else. He will follow some commands but not others. when he was coming into the room, he was vomiting into a bucket. Physician History: 62 y/o male with history of cirrhosis and history of hepatic encephalopathy currently on lactulose brought in by for confusion, nausea and vomiting for the last 2 days. Pt has not been having solid bowel movements even though he has been compliant on lactulose. The states that he has been been confused just not acting himself. says that he gets this way when his ammonia level goes up. Timing/Duration: day(s) Activities at Onset: none Associated Symptoms: fatigue, loss of appetite, weakness, No diarrhea Previous symptoms: same symptoms as today Allergies/Adverse Reactions: No Known Drug Allergies Allergy (Verified 05/02/17 16:06) Home Medications: Ferrous Sulfate 325 mg PO BID 03/12/17 [History] Lactulose [Lactulose 20 gm/30Ml Ud Cup] 2 gm PO QID 03/12/17 [History] Ondansetron HCl [Zofran] 8 mg PO Q6H PRN 03/12/17 [History] Thiamine Mononitrate [Vitamin B-1] 100 mg PO DAILY 03/12/17 [History] Fluoxetine HCl 10 mg [Prozac 10 mg] 10 mg DAILY 05/02/17 [History] Furosemide 40 mg [Lasix 40 MG] 40 mg DAILY 05/02/17 [History] Oxycodone HCl 5 mg Q4H PRN PRN 05/02/17 [History] Zinc Sulfate 220 mg PO BID 05/02/17 [History] Alprazolam 0.25 mg [xanAX 0.25 MG] 0.25 mg PO Q6H 11/16/17 [History] Ascorbic Acid 500 mg [Vitamin C 500 MG] 500 mg PO DAILY 11/16/17 [History] Aspirin 81 gm Chew [Baby Aspirin 81 mg Chew] 81 mg PO BID 11/16/17 [ History] Ciprofloxacin [Cipro 500 MG] 500 mg PO BID 11/16/17 [History] Famotidine 20 mg [Pepcid 20 MG] 20 mg PO BID 11/16/17 [History] Folic Acid 1 mg [Folate 1 mg] 1 mg PO DAILY 11/16/17 [History] Gabapentin 100 mg PO TID 11/16/17 [History] Metformin HCl 500 mg [Glucophage 500 MG] 1,000 mg PO BID 11/16/17 [History ] Spironolactone 25 mg [Aldactone 25 MG] 50 mg PO DAILY 11/16/17 [History] Vitamin E 400 Units [Vitamin E 400 UNIT SOFTGEL] 400 units PO DAILY [History] Hx Tetanus, Diphtheria Vaccination/Date Given: Yes Hx Influenza Vaccination/Date Given: Yes Hx Pneumococcal Vaccination/Date Given: No Immunizations Up to Date: Yes - Review of Systems Constitutional: No Fever, No Chills Eyes: No Symptoms Ears, Nose, & Throat: No Symptoms Respiratory: No Cough, No Dyspnea Cardiac: No Chest Pain, No Edema, No Syncope Abdominal/Gastrointestinal: Nausea, Vomiting, Constipation, No Abdominal Pain, No Diarrhea Genitourinary Symptoms: No Dysuria Musculoskeletal: No Back Pain, No Neck Pain Skin: No Rash Neurological: No Dizziness, No Focal Weakness, No Sensory Changes Psychological: No Symptoms Endocrine: No Symptoms All Other Systems: Reviewed and Negative - Past Medical History Pertinent Past Medical History: Yes Neurological History: No Pertinent History ENT History: Cataracts Cardiac History: Hypertension Respiratory History: No Pertinent History Endocrine Medical History: Diabetes Type II Musculoskeletal History: Other GI Medical History: Cirrhosis History: Dialysis Psycho-Social History: No Pertinent History Male Reproductive Disorders: No Pertinent History Other Medical History: elevated ammonia, pt has hx of sepsis. Prior dialysis. - Past Surgical History Past Surgical History: Yes Neuro Surgical History: No Pertinent History Cardiac: No Pertinent History Respiratory: No Pertinent History Gastrointestinal: Hernia Repair Genitourinary: No Pertinent History Musculoskeletal: Joint Replacement, Other Male Surgical History: No Pertinent History Other Surgical History: partial RIGHT KNEE REPLACEMENT. cataracts, - Social History Smoking Status: Never smoker Exposure to second hand smoke: No Drug Use: none Patient Lives Alone: No - Nursing Vital Signs Nursing Vital Signs: Initial Vital Signs Temperature 97.7 F 11/16/17 14:41 Pulse Rate 88 11/16/17 14:41 Respiratory Rate 16 11/16/17 14:41 Blood Pressure 172/100 11/16/17 14:41 O2 Sat by Pulse Oximetry 99 11/16/17 14:41 Pain Scale Pain Intensity 0 - Physical Exam General Appearance: no apparent distress, alert Eye Exam: PERRL/EOMI, eyes nml inspection Ears, Nose, Throat Exam: normal ENT inspection, pharynx normal, moist mucous membranes Neck Exam: normal inspection, non-tender, supple, full range of motion Respiratory Exam: normal breath sounds, lungs clear, No respiratory distress Cardiovascular Exam: regular rate/rhythm, normal heart sounds Gastrointestinal/Abdomen Exam: soft, normal bowel sounds, distention, No tenderness, No mass Back Exam: normal inspection, normal range of motion, No CVA tenderness, No vertebral tenderness Extremity Exam: normal inspection, normal range of motion, pelvis stable Neurologic Exam: alert, oriented x 3, cooperative, normal mood/affect, nml cerebellar function, sensation nml, No motor deficits Skin Exam: normal color, warm, dry SpO2: 99 Oxygen Delivery: Room Air - Course Nursing assessment & vital signs reviewed: Yes EKG Interpreted by Me: RATE, NORMAL AXIS, NORMAL INTERVALS, NORMAL QRS, Non- specific ST Changes Ordered Tests: Medication Summary Discontinued Medications Generic Name Dose Route Start Last Admin Trade Name Freq PRN Reason Stop Dose Admin Alprazolam 0.25 mg 11/16/17 21:15 11/16/17 21:34 Xanax 0.25 Mg PO 12/16/17 21:14 0.25 mg Q6H PRN PRESTON Administration Alprazolam 0.25 mg 11/17/17 09:30 11/18/17 06:24 Xanax 0.25 Mg PO 12/17/17 09:29 0.25 mg Q6HT PRESTON Administration Ascorbic Acid 500 mg 11/17/17 10:00 11/18/17 11:36 Vitamin C 500 Mg PO 12/17/17 09:59 500 mg DAILY PRESTON Administration Aspirin 81 mg 11/16/17 22:00 11/16/17 22:08 Baby Aspirin 81 Mg Chew PO 11/16/17 22:01 81 mg ONCE ONE Administration Aspirin Confirm 11/16/17 21:28 Ecotrin 81 Mg Administered 11/16/17 21:29 Dose 81 mg PO .STK-MED ONE Aspirin 81 mg 11/17/17 07:45 11/17/17 12:39 Ecotrin 81 Mg PO 11/17/17 07:46 Not Given ONCE ONE Aspirin 81 mg 11/17/17 10:00 11/18/17 11:36 Ecotrin 81 Mg PO 12/17/17 09:59 81 mg BID PRESTON Administration Famotidine 20 mg 11/16/17 22:00 11/16/17 21:34 Pepcid 20 Mg PO 11/16/17 22:01 20 mg ONCE ONE Administration Famotidine 20 mg 11/17/17 10:00 11/18/17 11:36 Pepcid 20 Mg PO 12/17/17 09:59 20 mg BID PRESTON Administration Ferrous Sulfate 325 mg 11/16/17 22:00 11/16/17 21:33 Feosol 325 Mg PO 11/16/17 22:01 325 mg ONCE ONE Administration Ferrous Sulfate 325 mg 11/17/17 10:00 11/18/17 11:36 Feosol 325 Mg PO 12/17/17 09:59 325 mg BID RPESTON Administration Fluoxetine HCl 10 mg 11/17/17 10:00 11/18/17 11:36 Prozac 10 Mg PO 12/17/17 09:59 10 mg DAILY PRESTON Administration Folic Acid 1 mg 11/17/17 10:00 11/18/17 11:35 Folate 1 Mg PO 12/17/17 09:59 1 mg DAILY PRESTON Administration Furosemide 40 mg 11/17/17 10:00 11/18/17 11:35 Lasix 40 Mg PO 12/17/17 09:59 40 mg DAILY PRESTON Administration Gabapentin 100 mg 11/16/17 22:00 11/16/17 21:33 Neurontin 100 Mg PO 11/16/17 22:01 100 mg ONCE ONE Administration Gabapentin 100 mg 11/17/17 10:00 11/18/17 11:36 Neurontin 100 Mg PO 12/17/17 09:59 100 mg TID PRESTON Administration Sodium Chloride 1,000 mls @ 100 mls/hr 11/16/17 15:00 11/18/17 06:24 Sodium Chloride 0.9% 1000 Ml IV 12/16/17 14:59 100 mls/hr .Q10H PRESTON Administration Sodium Chloride 1,000 mls @ 100 mls/hr 11/16/17 18:45 Sodium Chloride 0.9% 1000 Ml IV 12/16/17 18:44 .Q10H PRESTON Ceftriaxone Sodium/Dextrose 1 g in 50 mls @ 100 mls/hr 11/17/17 10:00 09:19 Rocephin 1 Gm-D5w 50 Ml Bag IV 12/17/17 09:59 100 mls/hr Q24H10 PRESTON Administration Insulin Aspart 0 unit 11/16/17 21:11 Novolog Insulin SQ 12/16/17 21:10 UD PRN HYPERGLYCEMIA Lactulose 10 g 11/16/17 16:26 11/16/17 18:08 Enulose 10 Gm/15 Ml PO 11/16/17 16:27 10 g STAT ONE Administration Lactulose Confirm 11/16/17 16:49 Lactulose 20 Gm/30ml Ud Cup Administered 11/16/17 16:50 Dose 20 gm .ROUTE .STK-MED ONE Lactulose 20 gm 11/17/17 10:30 11/18/17 11:37 Lactulose 20 Gm/30ml Ud Cup PO 12/17/17 10:29 20 gm TID PRESTON Administration Non-Formulary Medication 1 each 11/16/17 10:00 Hold Metformin Products For 48 Hours 12/16/17 09:59 DAILY PRESTON Ondansetron HCl Confirm 11/16/17 14:48 Zofran 4 Mg/2 Ml Vial Administered 11/16/17 14:49 Dose 4 mg .ROUTE .STK-MED ONE Ondansetron HCl 4 mg 11/16/17 15:08 11/16/17 15:29 Zofran 4 Mg/2 Ml Vial IV 11/16/17 15:09 4 mg STAT ONE Administration Ondansetron HCl 4 mg 11/16/17 18:35 Zofran 4 Mg/2 Ml Vial IV 12/16/17 18:34 Q6H PRN PRN NAUSEA/VOMITING Oxycodone HCl 5 mg 11/16/17 21:16 11/17/17 07:59 Oxy-Ir 5 Mg PO 11/21/17 21:15 5 mg Q4H PRN Administration PAIN Oxycodone HCl 5 mg 11/17/17 09:45 11/17/17 21:39 Oxy-Ir 5 Mg PO 11/21/17 21:15 5 mg Q4H PRN PRN Administration PAIN Spironolactone 50 mg 11/17/17 10:00 11/18/17 11:37 Aldactone 25 Mg PO 12/17/17 09:59 50 mg DAILY PRESTON Administration Thiamine HCl 100 mg 11/17/17 10:00 11/18/17 11:36 Vitamin B-1 100 Mg PO 12/17/17 09:59 100 mg DAILY PRESTON Administration Vitamin E 400 u 11/17/17 10:00 11/18/17 11:36 Vitamin E 400 Unit Softgel PO 12/17/17 09:59 400 u DAILY PRESTON Administration Zinc Gluconate 50 mg 11/17/17 10:00 11/18/17 11:37 Zinc Gluconate 50 Mg PO 12/17/17 09:59 50 mg BID PRESTON Administration Zolpidem Tartrate 5 mg 11/16/17 21:18 11/16/17 23:50 Ambien 5 Mg Tablet PO 12/16/17 21:17 5 mg HS PRN PRN Administration INSOMNIA Lab/Rad Data: Laboratory Result Diagrams 11/16/17 15:00 11/16/17 15:00 Laboratory Results 11/16/17 11/16/17 11/16/17 Range/Units 18:38 18:15 17:00 WBC (4.0-10.5) K/mm3 RBC (4.1-5.6) M/mm3 Hgb (12.5-18.0) gm/dl Hct (42-50) % MCV (78-100) fl MCH (26-32) pg MCHC (32-36) g/dl RDW (11.5-14.0) % Plt Count (150-450) K/mm3 MPV (6-9.5) fl Absolute Granulocytes (1.4-6.9) Segmented Neutrophils (36.-66.) % Band Neutrophils (0.0-2.0) % Lymphocytes (Manual) (24-44) % Monocytes (Manual) (0.0-12.0) % Eosinophils (Manual) (0.00-3.0) % Platelet Estimate (NORMAL) RBC Morphology Sodium (137-145) mmol/L Potassium (3.5-5.1) mmol/L Chloride (98-107) mmol/L Carbon Dioxide (22-30) mmol/L Anion Gap (5-15) MEQ/L BUN (9-20) mg/dL Creatinine (0.66-1.25) mg/dL Estimated GFR ML/MIN Glucose (74-106) mg/dL Lactic Acid 1.8 (0.4-2.0) Calcium (8.4-10.2) mg/dL Total Bilirubin (0.2-1.3) mg/dL AST (17-59) U/L ALT (0-50) U/L Alkaline Phosphatase (38-126) U/L Ammonia (9-30) umol/L Creatine Kinase (55-170) U/L Troponin I < 0.012 (0.000-0.034) ng/mL Serum Total Protein (6.3-8.2) g/dL Albumin (3.5-5.0) g/dL Ur Collection Type CLEAN CATCH Urine Color YELLOW (YELLOW) Urine Appearance CLEAR (CLEAR) Urine pH 6.0 (5-6) Ur Specific [place] 1.015 (1.005-1.025) Urine Protein NEGATIVE (Negative) Urine Ketones NEGATIVE (NEGATIVE) Urine Blood NEGATIVE (0-5) Migel/ul Urine Nitrite NEGATIVE (NEGATIVE) Urine Bilirubin NEGATIVE (NEGATIVE) Urine Urobilinogen NORMAL (0-1) mg/dL Ur Leukocyte Esterase NEGATIVE (NEGATIVE) Urine Culture Reflexed NO (NO) Urine Glucose NEGATIVE (NEGATIVE) mg/dL Specimen Received 11/16/17 1700 11/16/17 11/16/17 11/16/17 Range/Units 15:00 15:00 15:00 WBC (4.0-10.5) K/mm3 RBC (4.1-5.6) M/mm3 Hgb (12.5-18.0) gm/dl Hct (42-50) % MCV (78-100) fl MCH (26-32) pg MCHC (32-36) g/dl RDW (11.5-14.0) % Plt Count (150-450) K/mm3 MPV (6-9.5) fl Absolute Granulocytes (1.4-6.9) Segmented Neutrophils (36.-66.) % Band Neutrophils (0.0-2.0) % Lymphocytes (Manual) (24-44) % Monocytes (Manual) (0.0-12.0) % Eosinophils (Manual) (0.00-3.0) % Platelet Estimate (NORMAL) RBC Morphology Sodium (137-145) mmol/L Potassium (3.5-5.1) mmol/L Chloride (98-107) mmol/L Carbon Dioxide (22-30) mmol/L Anion Gap (5-15) MEQ/L BUN (9-20) mg/dL Creatinine (0.66-1.25) mg/dL Estimated GFR ML/MIN Glucose (74-106) mg/dL Lactic Acid (0.4-2.0) Calcium (8.4-10.2) mg/dL Total Bilirubin (0.2-1.3) mg/dL AST (17-59) U/L ALT (0-50) U/L Alkaline Phosphatase (38-126) U/L Ammonia 36 H (9-30) umol/L Creatine Kinase 122 (55-170) U/L Troponin I < 0.012 (0.000-0.034) ng/mL Serum Total Protein (6.3-8.2) g/dL Albumin (3.5-5.0) g/dL Ur Collection Type Urine Color (YELLOW) Urine Appearance (CLEAR) Urine pH (5-6) Ur Specific [place] (1.005-1.025) Urine Protein (Negative) Urine Ketones (NEGATIVE) Urine Blood (0-5) Mgiel/ul Urine Nitrite (NEGATIVE) Urine Bilirubin (NEGATIVE) Urine Urobilinogen (0-1) mg/dL Ur Leukocyte Esterase (NEGATIVE) Urine Culture Reflexed (NO) Urine Glucose (NEGATIVE) mg/dL Specimen Received 11/16/17 11/16/17 11/16/17 Range/Units 15:00 15:00 14:58 WBC 7.3 (4.0-10.5) K/mm3 RBC 4.48 (4.1-5.6) M/mm3 Hgb 13.8 (12.5-18.0) gm/dl Hct 39.7 L (42-50) % MCV 88.6 (78-100) fl MCH 30.8 (26-32) pg MCHC 34.8 (32-36) g/dl RDW 14.9 H (11.5-14.0) % Plt Count 86 L (150-450) K/mm3 MPV 11.4 H (6-9.5) fl Absolute Granulocytes 5.27 (1.4-6.9) Segmented Neutrophils 88 H (36.-66.) % Band Neutrophils 4 H (0.0-2.0) % Lymphocytes (Manual) 5 L (24-44) % Monocytes (Manual) 2 (0.0-12.0) % Eosinophils (Manual) 1 (0.00-3.0) % Platelet Estimate DECREASED (NORMAL) RBC Morphology NORMAL Sodium 139 (137-145) mmol/L Potassium 4.1 (3.5-5.1) mmol/L Chloride 107 (98-107) mmol/L Carbon Dioxide 21 L (22-30) mmol/L Anion Gap 15.8 H (5-15) MEQ/L BUN 24 H (9-20) mg/dL Creatinine 1.07 (0.66-1.25) mg/dL Estimated GFR > 60.0 ML/MIN Glucose 113 H (74-106) mg/dL Lactic Acid 2.7 H (0.4-2.0) Calcium 9.6 (8.4-10.2) mg/dL Total Bilirubin 2.60 H (0.2-1.3) mg/dL AST 61 H (17-59) U/L ALT 29 (0-50) U/L Alkaline Phosphatase 251 H (38-126) U/L Ammonia (9-30) umol/L Creatine Kinase (55-170) U/L Troponin I (0.000-0.034) ng/mL Serum Total Protein 6.9 (6.3-8.2) g/dL Albumin 3.7 (3.5-5.0) g/dL Ur Collection Type Urine Color (YELLOW) Urine Appearance (CLEAR) Urine pH (5-6) Ur Specific [place] (1.005-1.025) Urine Protein (Negative) Urine Ketones (NEGATIVE) Urine Blood (0-5) Migel/ul Urine Nitrite (NEGATIVE) Urine Bilirubin (NEGATIVE) Urine Urobilinogen (0-1) mg/dL Ur Leukocyte Esterase (NEGATIVE) Urine Culture Reflexed (NO) Urine Glucose (NEGATIVE) mg/dL Specimen Received - Progress Progress: improved Progress Note: 11/16/17 18:30 Pt is resting comfortably after receiving NS fluids and lactulose. The states that he has been more confused but his ammonia level is only 36. He does have worsening direct bili but the CT scan abd/pelvis does not show any acute findings except for cirrhosis. Pt also has no signs of infection with a clean urine and a normal looking CXR. Pt does have a lactoc acid of 2.7 and will be given additional NS fluids. Pt has been admitted to Dr Vasquez for confusion and dehydration. - Departure Time of Disposition: 18:33 Departure Disposition: Observation Clinical Impression: Confusion, Dehydration Cirrhosis of liver Qualifiers: Hepatic cirrhosis type: unspecified hepatic cirrhosis Ascites presence: without ascites Qualified Code(s): K74.60 - Unspecified cirrhosis of liver Condition: Fair Critical Care Time: Yes Critical Care Time(excluding separately billable procedures): 30-74 minutes
[2017-11-16 15:52] LABS: ALBUMIN 3.7 g/dL (3.5-5.0); ALKALINE PHOSPHATASE 251 U/L (38-126); ANION GAP 15.8 MEQ/L (5-15); BLOOD UREA NITROGEN 24 mg/dL (9-20); CHLORIDE 107 mmol/L (98-107); Calcium 9.6 mg/dL (8.4-10.2); Carbon Dioxide 21 mmol/L (22-30); Creatinine 1 1.07 mg/dL (0.66-1.25); Glucose 113 mg/dL (74-106); Potassium 4.1 mmol/L (3.5-5.1); SGOT/AST 61 U/L (17-59); SGPT/ALT 29 U/L (0-50); SODIUM 139 mmol/L (137-145); Total Protein 6.9 g/dL (6.3-8.2)
[2017-11-16 16:21] LABS: BAND 4 % (0.0-2.0); Eosinophil 1 % (0.00-3.0); Lymphocytes 5 % (24-44); Monocyte 2 % (0.0-12.0); Neutrophils 88 % (36.-66.); Total Cells Counted 100
[2017-11-16 16:23] LABS: Platelet Estimate DECREASED (NORMAL)
[2017-11-16] MEDS ORDERED: Enulose 10 GM/15 ML PO ONE (16:26)
[2017-11-16] MEDS ORDERED: LACTULOSE 20 GM/30ML UD CUP ONE (16:49)
[2017-11-16 17:50] LABS: Appearance CLEAR (CLEAR); Bilirubin NEGATIVE (NEGATIVE); Blood NEGATIVE Ery/ul (0-5); Glucose NEGATIVE (NEGATIVE); Ketones NEGATIVE (NEGATIVE); Leukocyte Esterase NEGATIVE (NEGATIVE); Nitrite NEGATIVE (NEGATIVE); Protein,Urine Dip NEGATIVE (Negative); Specific Gravity 1.015 (1.005-1.025); Urobilinogen NORMAL mg/dL (0-1)
[2017-11-16] MEDS ORDERED: Zofran 4 MG/2 ML VIAL IV PRN (18:35)
[2017-11-16] MEDS ORDERED: Sodium Chloride 0.9% 1000 ML 1,000 ML IV SCH (18:45)
--- NOTE | 2017-11-16 20:58 | XRAY ---
Indication: Abdominal pain, nausea, vomiting, and diarrhea. Multiple contiguous axial images obtained through the abdomen and pelvis using 80 cc Isovue 370 contrast. Comparison: May 02, 2015. Lung bases essentially clear. Heart is not enlarged. Stable distal esophageal varices. Noncontrasted stomach and bowel loops appear nonobstructed. Again normal appendix. No free fluid/air. Colon now images mild diffuse fluid distention with some fluid leveling favoring diarrhea. Stable cirrhotic liver, 18 cm splenomegaly, and splenorenal varices. There are now tiny gallstones/gravel. Remaining pancreas, adrenal glands, kidneys, ureters, and bladder appear unremarkable. Stable mild aortoiliac calcifications. No AAA or pathologic retroperitoneal lymphadenopathy. Osseous structures intact again with mild degenerative changes throughout the spine and both hips. Both femur heads again demonstrates subcortical serpiginous lines, possible avascular necrosis in the right clinical setting. Impression: 1. Stable cirrhotic liver, splenomegaly, and portosystemic collaterals. 2. New tiny gallstones/gravel. 3. New fluid distended colon with fluid leveling favoring diarrhea. 4. Again bilateral femur head subcortical serpiginous lines. Rule out avascular necrosis. Comment: Preliminary interpretation was made by [facility]. No critical discrepancy. CTDI 23.66
--- NOTE | 2017-11-16 21:02 | XRAY ---
Indication: Abdominal pain, nausea, vomiting, and diarrhea. Comparison: Chest exam May 02, 2017. 2 views of the abdomen nonacute and nonobstructed with CT proven mild fluid distended large bowel loops and fluid leveling favoring diarrhea. No focal bowel dilatation, obstruction, or free air. Solid organs unremarkable. Osseous structures intact with mild multilevel lumbar degenerative spondylosis and mild levoscoliosis. Single AP chest again demonstrates normal heart and lungs. Bony thorax intact. Impression: 1. Mild fluid distended colon with fluid leveling favoring diarrhea. 2. Stable nonacute one view chest.
[2017-11-16] MEDS ORDERED: NovoLOG Insulin SQ PRN (21:11)
[2017-11-16] MEDS ORDERED: xanAX 0.25 MG PO SCH (21:15)
[2017-11-16] MEDS ORDERED: Ambien 5 MG Tablet PO PRN (21:18)
[2017-11-16] MEDS ORDERED: ECOTRIN 81 MG PO ONE (21:28)
[2017-11-16] MEDS: Oxy-IR 5 MG PO PRN (21:34)
[2017-11-16] MEDS ORDERED: FEOSOL 325 MG PO ONE (22:00)
[2017-11-16] MEDS ORDERED: Pepcid 20 MG PO ONE (22:00)
[2017-11-16] MEDS ORDERED: BABY ASPIRIN 81 MG CHEW PO ONE (22:00)
[2017-11-16] MEDS ORDERED: Neurontin 100 MG PO ONE (22:00)
[2017-11-17 05:50] LABS: BASOPHIL % 0.2 % (0.0-0.4); Basophil (Absolute #) 0.01 (0-0.4); Eosinophil % 3.2 % (0.00-5.0); Eosinophil (Absolute #) 0.15 (0-0.5); Granulocyte Absolute (ANC) 3.27 (1.4-6.9); Granulocytes % 70.7 % (36.0-66.0); Hematocrit 33.1 % (42-50); Hemoglobin 11.8 gm/dl (12.5-18.0); Lymphocyte (Absolute #) 0.74 (1.0-4.6); Mean Cell Volume 89.5 fl (78-100); Mean Corpuscular Hgb Concent. 35.6 g/dl (32-36); Mean Platelet Volume 11.5 fl (6-9.5); Monocyte (Absolute #) 0.46 (0.0-1.3); Monocytes % 9.9 % (0.0-12.0); Platelet Count 63 K/mm3 (150-450); Red Cell Distribution Width 14.6 % (11.5-14.0); White Blood Count 4.6 K/mm3 (4.0-10.5)
[2017-11-17 05:53] LABS: Mean Corpuscular Hemoglobin 31.8 pg (26-32)
[2017-11-17 05:59] LABS: INR 1.41 (0.8-3.0)
[2017-11-17 06:01] LABS: ALBUMIN 2.7 g/dL (3.5-5.0); ALKALINE PHOSPHATASE 138 U/L (38-126); ANION GAP 10.9 MEQ/L (5-15); BLOOD UREA NITROGEN 19 mg/dL (9-20); CHLORIDE 111 mmol/L (98-107); Calcium 8.7 mg/dL (8.4-10.2); Carbon Dioxide 21 mmol/L (22-30); Creatinine 1 0.84 mg/dL (0.66-1.25); Glucose 86 mg/dL (74-106); Potassium 3.7 mmol/L (3.5-5.1); SGOT/AST 41 U/L (17-59); SGPT/ALT 23 U/L (0-50); SODIUM 139 mmol/L (137-145); Total Protein 5.3 g/dL (6.3-8.2)
[2017-11-17] MEDS ORDERED: ECOTRIN 81 MG PO ONE (07:45)
[2017-11-17] MEDS: Oxy-IR 5 MG PO PRN (07:59)
--- NOTE | 2017-11-17 08:18 | PCM.HP ---
History of Present Illness - Chief Complaint Chief Complaint: altered mental status History of Present Illness: is a 62 year old male with advanced cirrhosis and history of right total knee replacement with infected joint and hardware removal. He has been much more confused in the last few days, no fever, no vomiting, no cough or other complaints. - Review of Systems Constitutional: Weakness, No Fever, No Chills Respiratory: No Cough, No Short Of Breath Cardiac: No Chest Pain, No Edema, No Syncope Musculoskeletal: Joint Pain (right knee chronic, no redness or swelling) All Other Systems: Reviewed and Negative Medications & Allergies Home Medications: Home Medication List Ferrous Sulfate 325 mg PO BID 03/12/17 [History Confirmed 11/16/17] Lactulose [Lactulose 20 gm/30Ml Ud Cup] 2 gm PO QID 03/12/17 [History Confirmed 11/16/17] Ondansetron HCl [Zofran] 8 mg PO Q6H PRN 03/12/17 [History Confirmed 11/16/17] Thiamine Mononitrate [Vitamin B-1] 100 mg PO DAILY 03/12/17 [History Confirmed 11/16/17] Fluoxetine HCl 10 mg [Prozac 10 mg] 10 mg DAILY 05/02/17 [History Confirmed 11/16/17] Furosemide 40 mg [Lasix 40 MG] 40 mg DAILY 05/02/17 [History Confirmed 02/25] Oxycodone HCl 5 mg Q4H PRN PRN 05/02/17 [History Confirmed 11/16/17] Zinc Sulfate 220 mg PO BID 05/02/17 [History Confirmed 11/16/17] Alprazolam 0.25 mg [xanAX 0.25 MG] 0.25 mg PO Q6H 11/16/17 [History Confirmed 11/16/17] Ascorbic Acid 500 mg [Vitamin C 500 MG] 500 mg PO DAILY 11/16/17 [History Confirmed 11/16/17] Aspirin 81 gm Chew [Baby Aspirin 81 mg Chew] 81 mg PO BID 11/16/17 [ History Confirmed 11/16/17] Ciprofloxacin [Cipro 500 MG] 500 mg PO BID 11/16/17 [History Confirmed ] Famotidine 20 mg [Pepcid 20 MG] 20 mg PO BID 11/16/17 [History Confirmed 11/16/17] Folic Acid 1 mg [Folate 1 mg] 1 mg PO DAILY 11/16/17 [History Confirmed ] Gabapentin 100 mg PO TID 11/16/17 [History Confirmed 11/16/17] Metformin HCl 500 mg [Glucophage 500 MG] 1,000 mg PO BID 11/16/17 [ History Confirmed 11/16/17] Spironolactone 25 mg [Aldactone 25 MG] 50 mg PO DAILY 11/16/17 [History Confirmed 11/16/17] Vitamin E 400 Units [Vitamin E 400 UNIT SOFTGEL] 400 units PO DAILY [History Confirmed 11/16/17] Allergies/Adverse Reactions: Allergies Allergy/AdvReac Type Severity Reaction Status Date / Time No Known Drug Allergies Allergy Verified 05/02/17 16:06 - Past Medical History Past Medical History: Yes Neurological History: No Pertinent History ENT History: Cataracts Cardiac History: Hypertension Respiratory History: No Pertinent History Endocrine Medical History: Diabetes Type II Musculoskelatal History: Other GI Medical History: Cirrhosis History: Dialysis Pyscho-Social History: No Pertinent History Male Reproductive Disorders: No Pertinent History Comment: elevated ammonia, pt has hx of sepsis. Prior dialysis. - Past Surgical History Past Surgical History: Yes Neuro Surgical History: No Pertinent History Cardiac History: No Pertinent History Respiratory Surgery: No Pertinent History GI Surgical History: Hernia Repair Genitourinary Surgical Hx: No Pertinent History Musculskeletal Surgical Hx: Joint Replacement, Other Male Surgical History: No Pertinent History Other Surgical History: partial RIGHT KNEE REPLACEMENT. cataracts - Social History Smoking Status: Never smoker Exposure to second hand smoke: No Alcohol: None Drug Use: none - Physical Exam Vital Signs: Vital Signs - 24 hr Temp Pulse Resp BP Pulse Ox 11/17/17 07:28 97.7 F 78 19 170/81 95 11/17/17 04:00 97.9 F 78 16 139/64 98 11/17/17 00:05 98.4 F 85 18 133/56 98 11/16/17 18:34 99 11/16/17 17:05 97.9 F 80 16 113/75 98 11/16/17 16:07 98.4 F 82 16 166/96 97 11/16/17 14:41 97.7 F 88 16 172/100 99 General Appearance: no apparent distress Neurologic Exam: alert, No oriented x 3 (disoriented to time but oriented to person and place) Eye Exam: PERRL/EOMI, eyes nml inspection Neck Exam: normal inspection, non-tender, supple, full range of motion Respiratory Exam: normal breath sounds, lungs clear, No respiratory distress Cardiovascular Exam: regular rate/rhythm, normal heart sounds, normal peripheral pulses Gastrointestinal/Abdomen Exam: soft, normal bowel sounds, No tenderness, No mass Extremity Exam: other (right knee well healed incision, no erythema, mild swelling, no warmth) Results - Labs Lab/Micro Results: Accuchecks Date 11/16/17 Time 22:00 Accucheck Value: 98 Lab Results-Last 24 Hours 11/16/17 11/17/17 11/17/17 Range/Units 21:30 05:25 05:25 WBC 4.6 (4.0-10.5) K/mm3 RBC 3.70 L (4.1-5.6) M/mm3 Hgb 11.8 L (12.5-18.0) gm/dl Hct 33.1 L (42-50) % MCV 89.5 (78-100) fl MCH 31.8 (26-32) pg MCHC 35.6 (32-36) g/dl RDW 14.6 H (11.5-14.0) % Plt Count 63 L (150-450) K/mm3 MPV 11.5 H (6-9.5) fl Gran % 70.7 H (36.0-66.0) % Eos # (Auto) 0.15 (0-0.5) Absolute Lymphs (auto) 0.74 L (1.0-4.6) Absolute Monos (auto) 0.46 (0.0-1.3) Lymphocytes % 16.0 L (24.0-44.0) % Monocytes % 9.9 (0.0-12.0) % Eosinophils % 3.2 (0.00-5.0) % Basophils % 0.2 (0.0-0.4) % Absolute Granulocytes 3.27 (1.4-6.9) Basophils # 0.01 (0-0.4) PT (8.83-12.87) SECONDS INR (0.8-3.0) Sodium (137-145) mmol/L Potassium (3.5-5.1) mmol/L Chloride (98-107) mmol/L Carbon Dioxide (22-30) mmol/L Anion Gap (5-15) MEQ/L BUN (9-20) mg/dL Creatinine (0.66-1.25) mg/dL Estimated GFR ML/MIN Glucose (74-106) mg/dL Lactic Acid 1.1 (0.4-2.0) Calcium (8.4-10.2) mg/dL Total Bilirubin (0.2-1.3) mg/dL AST (17-59) U/L ALT (0-50) U/L Alkaline Phosphatase (38-126) U/L Troponin I < 0.012 (0.000-0.034) ng/mL Serum Total Protein (6.3-8.2) g/dL Albumin (3.5-5.0) g/dL 11/17/17 11/17/17 Range/Units 05:25 05:25 WBC (4.0-10.5) K/mm3 RBC (4.1-5.6) M/mm3 Hgb (12.5-18.0) gm/dl Hct (42-50) % MCV (78-100) fl MCH (26-32) pg MCHC (32-36) g/dl RDW (11.5-14.0) % Plt Count (150-450) K/mm3 MPV (6-9.5) fl Gran % (36.0-66.0) % Eos # (Auto) (0-0.5) Absolute Lymphs (auto) (1.0-4.6) Absolute Monos (auto) (0.0-1.3) Lymphocytes % (24.0-44.0) % Monocytes % (0.0-12.0) % Eosinophils % (0.00-5.0) % Basophils % (0.0-0.4) % Absolute Granulocytes (1.4-6.9) Basophils # (0-0.4) PT 16.5 H (8.83-12.87) SECONDS INR 1.41 (0.8-3.0) Sodium 139 (137-145) mmol/L Potassium 3.7 (3.5-5.1) mmol/L Chloride 111 H (98-107) mmol/L Carbon Dioxide 21 L (22-30) mmol/L Anion Gap 10.9 (5-15) MEQ/L BUN 19 (9-20) mg/dL Creatinine 0.84 (0.66-1.25) mg/dL Estimated GFR > 60.0 ML/MIN Glucose 86 (74-106) mg/dL Lactic Acid (0.4-2.0) Calcium 8.7 (8.4-10.2) mg/dL Total Bilirubin 2.70 H (0.2-1.3) mg/dL AST 41 (17-59) U/L ALT 23 (0-50) U/L Alkaline Phosphatase 138 H (38-126) U/L Troponin I (0.000-0.034) ng/mL Serum Total Protein 5.3 L (6.3-8.2) g/dL Albumin 2.7 L (3.5-5.0) g/dL Accuchecks Date 11/16/17 Time 22:00 Accucheck Value: 98 Assessment/Plan (1) Altered mental status Current Visit: Yes Status: Acute Onset Date: ~11/16/17 Assessment & Plan: ammonia level is stable, continue lactulose. will hydrate and cover with rocephin while we await cultures. abdomen nontender, no sign of spontaneous bacterial peritonitis at this time. Code(s): R41.82 - ALTERED MENTAL STATUS, UNSPECIFIED (2) Dehydration Current Visit: Yes Status: Acute Onset Date: ~11/16/17 Code(s): E86.0 - DEHYDRATION (3) Cirrhosis of liver Current Visit: Yes Status: Chronic Qualifiers: Hepatic cirrhosis type: unspecified hepatic cirrhosis Ascites presence: without ascites Qualified Code(s): K74.60 - Unspecified cirrhosis of liver
[2017-11-17] MEDS ORDERED: Oxy-IR 5 MG PO PRN (09:45)
[2017-11-17] MEDS ORDERED: THIAMINE MONONITRATE 100 MG PO SCH (10:00)
[2017-11-17] MEDS ORDERED: NON-FORMULARY ITEM (Ferrous Sulfate [Ferrous Sulfate] 325 MG) PO SCH (10:00)
[2017-11-17] MEDS ORDERED: BABY ASPIRIN 81 MG CHEW PO SCH (10:00)
[2017-11-17 10:11] LABS: Slide Review 1 YES
[2017-11-17] MEDS: Sodium Chloride 0.9% 1000 ML 1,000 ML IV SCH ×2 (10:15→20:39)
[2017-11-17] MEDS: ROCEPHIN 1 Gm-D5w 50 ml Bag** 1 G/50 ML IVPB IV SCH (11:01)
[2017-11-17] MEDS: Aldactone 25 MG PO SCH (11:03)
[2017-11-17] MEDS: FEOSOL 325 MG PO SCH ×2 (11:04→21:39)
[2017-11-17] MEDS: Lasix 40 MG PO SCH (11:04)
[2017-11-17] MEDS: FOLATE 1 MG PO SCH (11:04)
[2017-11-17] MEDS: ECOTRIN 81 MG PO SCH ×2 (11:04→21:39)
[2017-11-17] MEDS: VITAMIN B-1 100 MG PO SCH (11:05)
[2017-11-17] MEDS: Neurontin 100 MG PO SCH ×3 (11:05→21:39)
[2017-11-17] MEDS: PROZAC 10 MG PO SCH (11:05)
[2017-11-17] MEDS: Pepcid 20 MG PO SCH ×2 (11:05→21:40)
[2017-11-17] MEDS: Vitamin E 400 UNIT SOFTGEL PO SCH (11:06)
[2017-11-17] MEDS: Vitamin C 500 MG PO SCH (11:06)
[2017-11-17] MEDS: Zinc Gluconate 50 MG PO SCH ×2 (11:07→21:39)
[2017-11-17] MEDS: LACTULOSE 20 GM/30ML UD CUP PO SCH ×3 (11:07→21:39)
[2017-11-17] MEDS: xanAX 0.25 MG PO SCH ×2 (11:07→18:41)
[2017-11-18] MEDS: xanAX 0.25 MG PO SCH ×2 (00:06→06:24)
[2017-11-18 06:10] LABS: BASOPHIL % 0.6 % (0.0-0.4); Basophil (Absolute #) 0.03 (0-0.4); Eosinophil % 5.3 % (0.00-5.0); Eosinophil (Absolute #) 0.25 (0-0.5); Granulocyte Absolute (ANC) 3.22 (1.4-6.9); Granulocytes % 68.1 % (36.0-66.0); Hematocrit 34.1 % (42-50); Lymphocyte (Absolute #) 0.74 (1.0-4.6); Lymphocytes % 15.6 % (24.0-44.0); Mean Cell Volume 90.2 fl (78-100); Mean Corpuscular Hemoglobin 31.7 pg (26-32); Mean Corpuscular Hgb Concent. 35.2 g/dl (32-36); Mean Platelet Volume 11.1 fl (6-9.5); Monocyte (Absolute #) 0.49 (0.0-1.3); Monocytes % 10.4 % (0.0-12.0); Platelet Count 60 K/mm3 (150-450); Red Blood Count 3.78 M/mm3 (4.1-5.6); Red Cell Distribution Width 14.8 % (11.5-14.0); White Blood Count 4.7 K/mm3 (4.0-10.5)
[2017-11-18] MEDS: Sodium Chloride 0.9% 1000 ML 1,000 ML IV SCH (06:24)
[2017-11-18 06:28] LABS: ALBUMIN 2.6 g/dL (3.5-5.0); ALKALINE PHOSPHATASE 134 U/L (38-126); ANION GAP 10.8 MEQ/L (5-15); BLOOD UREA NITROGEN 15 mg/dL (9-20); CHLORIDE 113 mmol/L (98-107); Calcium 8.6 mg/dL (8.4-10.2); Carbon Dioxide 21 mmol/L (22-30); Creatinine 1 0.73 mg/dL (0.66-1.25); Glucose 93 mg/dL (74-106); Potassium 3.5 mmol/L (3.5-5.1); SGOT/AST 43 U/L (17-59); SGPT/ALT 24 U/L (0-50); SODIUM 141 mmol/L (137-145); Total Protein 5.3 g/dL (6.3-8.2)
[2017-11-18 06:30] LABS: INR 1.37 (0.8-3.0)
[2017-11-18 07:11] LABS: Slide Review 1 YES
--- NOTE | 2017-11-18 08:11 | PCM.DS ---
Discharge Summary Date of Admission: 11/16/17 18:52 Admitting Physician: KANU HERNANDEZ Primary Care Provider: KANU HERNANDEZ Allergies Allergies No Known Drug Allergies Allergy (Verified 05/02/17 16:06) Hospital Summary - Hospital Course Hospital Course: patient was admitted with altered mental status, hx of cirrhosis and right knee infection following total knee replacement. patient had modest elevation in ammonia, honestly lower than his usual baseline. urine was clear, blood cultures clear. he is clear mentally today and labs look good, tolerating po. has no complaints of pain other than the chronic right knee pain. - Vitals & Intake/Output Vital Signs: Vital Signs Temperature 98.2 F 11/18/17 04:16 Pulse Rate 71 11/18/17 04:16 Respiratory Rate 18 11/18/17 04:16 Blood Pressure 137/66 11/18/17 04:16 O2 Sat by Pulse Oximetry 97 11/18/17 04:16 Intake & Output: Intake & Output 11/15/17 11/16/17 11/17/17 11/18/17 11:59 11:59 11:59 11:59 Intake Total 1103 3203 Output Total 475 2550 Balance 628 653 Weight 87.4 kg - Lab Result Diagrams: 11/18/17 05:47 11/18/17 05:47 Lab Results-Last 24 Hrs: Accuchecks Date 11/17/17 Time 11:30 Accucheck Value: 105 Accucheck Value: 138 Accucheck Value: 136 Lab Results-Last 24 Hours 11/17/17 11/18/17 11/18/17 Range/Units 05:25 05:47 05:47 WBC 4.7 (4.0-10.5) K/mm3 RBC 3.78 L (4.1-5.6) M/mm3 Hgb 12.0 L (12.5-18.0) gm/dl Hct 34.1 L (42-50) % MCV 90.2 (78-100) fl MCH 31.7 (26-32) pg MCHC 35.2 (32-36) g/dl RDW 14.8 H (11.5-14.0) % Plt Count 60 L (150-450) K/mm3 MPV 11.1 H (6-9.5) fl Gran % 68.1 H (36.0-66.0) % Eos # (Auto) 0.25 (0-0.5) Absolute Lymphs (auto) 0.74 L (1.0-4.6) Absolute Monos (auto) 0.49 (0.0-1.3) Lymphocytes % 15.6 L (24.0-44.0) % Monocytes % 10.4 (0.0-12.0) % Eosinophils % 5.3 H (0.00-5.0) % Basophils % 0.6 (0.0-0.4) % Absolute Granulocytes 3.22 (1.4-6.9) Basophils # 0.03 (0-0.4) PT (8.83-12.87) SECONDS INR (0.8-3.0) Sodium 141 (137-145) mmol/L Potassium 3.5 (3.5-5.1) mmol/L Chloride 113 H (98-107) mmol/L Carbon Dioxide 21 L (22-30) mmol/L Anion Gap 10.8 (5-15) MEQ/L BUN 15 (9-20) mg/dL Creatinine 0.73 (0.66-1.25) mg/dL Estimated GFR > 60.0 ML/MIN Glucose 93 (74-106) mg/dL Calcium 8.6 (8.4-10.2) mg/dL Magnesium 1.6 (1.6-2.3) mg/dL Total Bilirubin 2.30 H (0.2-1.3) mg/dL AST 43 (17-59) U/L ALT 24 (0-50) U/L Alkaline Phosphatase 134 H (38-126) U/L Ammonia (9-30) umol/L Serum Total Protein 5.3 L (6.3-8.2) g/dL Albumin 2.6 L (3.5-5.0) g/dL Slides for Path Review YES YES 11/18/17 11/18/17 Range/Units 05:47 05:47 WBC (4.0-10.5) K/mm3 RBC (4.1-5.6) M/mm3 Hgb (12.5-18.0) gm/dl Hct (42-50) % MCV (78-100) fl MCH (26-32) pg MCHC (32-36) g/dl RDW (11.5-14.0) % Plt Count (150-450) K/mm3 MPV (6-9.5) fl Gran % (36.0-66.0) % Eos # (Auto) (0-0.5) Absolute Lymphs (auto) (1.0-4.6) Absolute Monos (auto) (0.0-1.3) Lymphocytes % (24.0-44.0) % Monocytes % (0.0-12.0) % Eosinophils % (0.00-5.0) % Basophils % (0.0-0.4) % Absolute Granulocytes (1.4-6.9) Basophils # (0-0.4) PT 16.0 H (8.83-12.87) SECONDS INR 1.37 (0.8-3.0) Sodium (137-145) mmol/L Potassium (3.5-5.1) mmol/L Chloride (98-107) mmol/L Carbon Dioxide (22-30) mmol/L Anion Gap (5-15) MEQ/L BUN (9-20) mg/dL Creatinine (0.66-1.25) mg/dL Estimated GFR ML/MIN Glucose (74-106) mg/dL Calcium (8.4-10.2) mg/dL Magnesium (1.6-2.3) mg/dL Total Bilirubin (0.2-1.3) mg/dL AST (17-59) U/L ALT (0-50) U/L Alkaline Phosphatase (38-126) U/L Ammonia < 9 L (9-30) umol/L Serum Total Protein (6.3-8.2) g/dL Albumin (3.5-5.0) g/dL Slides for Path Review Micro Results-Entire Visit: Accuchecks Date 11/17/17 Time 11:30 Accucheck Value: 105 Accucheck Value: 138 Accucheck Value: 136 - Procedures and Test Procedures and Tests throughout Hospitalization: Therapy Orders & Screens 11/16/17 20:25 OT Screen per Nursing Assess ONCE Comment: Protocol Order Physician Instructions: Greater than 3 points order OT Admission Screening Reason For Exam: Triggered on Admission Diagnosis: altered mental status Open Wound/Cellutlitis/Pressure Ulcers: Yes Acute Fx/ORIF/Change in wt bearing status: No Severe MUSCULOSKELETAL pain: No ADL Dysfunction: No Acute CVA w/Hemiparesis/Hemiplegia: No Decreased Functional Mobility/Strength: No Sprain/Strain: No Acute Post-op Mobility Dysfunction: No Total Points: 5 PT Screen per Nursing Assess ONCE Comment: Protocol Order Physician Instructions: Greater than 3 points order PT Admission Screenin Reason For Exam: Triggered on Admission Diagnosis: altered mental status Open Wound/Cellutlitis/Pressure Ulcers: Yes Acute Fx/ORIF/Change in wt bearing status: No Severe MUSCULOSKELETAL pain: No ADL Dysfunction: No Acute CVA w/Hemiparesis/Hemiplegia: No Decreased Functional Mobility/Strength: No Sprain/Strain: No Acute Post-op Mobility Dysfunction: No Total Points: 5 Discharge Exam General Appearance: no apparent distress, alert Skin Exam: normal color, warm, dry Respiratory Exam: normal breath sounds, lungs clear, No respiratory distress Cardiovascular Exam: regular rate/rhythm, normal heart sounds Gastrointestinal/Abdomen Exam: soft, No tenderness, No mass Extremity Exam: other (right knee mild swelling, no erythema, no draiange. incision well healed) Final Diagnosis/Problem List - Final Discharge Diagnosis/Problem (1) Altered mental status Current Visit: Yes Status: Acute Onset Date: ~11/16/17 Assessment & Plan: no change in home regimen, appears to have had some mild dehydration. discussed drinking more water at home (2) Dehydration Current Visit: Yes Status: Acute Onset Date: ~11/16/17 (3) Cirrhosis of liver Current Visit: Yes Status: Chronic - Discharge Disposition: Home, Self-Care Condition: Fair Prescriptions: Continue Ondansetron HCl [Zofran] 8 mg PO Q6H PRN PRN Reason: Nausea Lactulose [Lactulose 20 gm/30Ml Ud Cup] 2 gm PO QID Thiamine Mononitrate [Vitamin B-1] 100 mg PO DAILY Ferrous Sulfate 325 mg PO BID Furosemide 40 mg [Lasix 40 MG] 40 mg DAILY Zinc Sulfate 220 mg PO BID Oxycodone HCl 5 mg Q4H PRN PRN PRN Reason: Pain Fluoxetine HCl 10 mg [Prozac 10 mg] 10 mg DAILY Aspirin 81 gm Chew [Baby Aspirin 81 mg Chew] 81 mg PO BID Alprazolam 0.25 mg [xanAX 0.25 MG] 0.25 mg PO Q6H Ciprofloxacin [Cipro 500 MG] 500 mg PO BID Famotidine 20 mg [Pepcid 20 MG] 20 mg PO BID Gabapentin 100 mg PO TID Vitamin E 400 Units [Vitamin E 400 UNIT SOFTGEL] 400 units PO DAILY Ascorbic Acid 500 mg [Vitamin C 500 MG] 500 mg PO DAILY Folic Acid 1 mg [Folate 1 mg] 1 mg PO DAILY Spironolactone 25 mg [Aldactone 25 MG] 50 mg PO DAILY Metformin HCl 500 mg [Glucophage 500 MG] 1,000 mg PO BID
[2017-11-18] MEDS: ROCEPHIN 1 Gm-D5w 50 ml Bag** 1 G/50 ML IVPB IV SCH (09:19)
[2017-11-18] MEDS: Lasix 40 MG PO SCH (11:35)
[2017-11-18] MEDS: FOLATE 1 MG PO SCH (11:35)
[2017-11-18] MEDS: ECOTRIN 81 MG PO SCH (11:36)
[2017-11-18] MEDS: Neurontin 100 MG PO SCH (11:36)
[2017-11-18] MEDS: VITAMIN B-1 100 MG PO SCH (11:36)
[2017-11-18] MEDS: FEOSOL 325 MG PO SCH (11:36)
[2017-11-18] MEDS: Vitamin C 500 MG PO SCH (11:36)
[2017-11-18] MEDS: PROZAC 10 MG PO SCH (11:36)
[2017-11-18] MEDS: Pepcid 20 MG PO SCH (11:36)
[2017-11-18] MEDS: Vitamin E 400 UNIT SOFTGEL PO SCH (11:36)
[2017-11-18] MEDS: LACTULOSE 20 GM/30ML UD CUP PO SCH (11:37)
[2017-11-18] MEDS: Zinc Gluconate 50 MG PO SCH (11:37)
[2017-11-18] MEDS: Aldactone 25 MG PO SCH (11:37)
[2017-11-18 11:58] VITALS: BP 147/65; PULSE 74
[2017-11-18 20:54] VITALS: O2SAT 99
== END 2017-11-18 12:30 | disposition home or self-care (01) ==
LOC: ED 14:35 → MED SURG 18:52
PROVIDERS: ADMIT Family Medicine; ATTEND Family Medicine
DX: R41.82 Altered mental status, unspecified (principal); E86.0 Dehydration; K74.60 Unspecified cirrhosis of liver; E11.9 Type 2 diabetes mellitus without complications; Z79.4 Long term (current) use of insulin; Z79.899 Other long term (current) drug therapy; Z99.2 Dependence on renal dialysis
CPT/HCPCS: 36000; 36415; 74022; 74177; 80053; 81002; 82140; 82550; 83605; 83735; 84484; 85025; 85610; 87040; 93005; 96360; 96361; 96374; 99285; G0378; J0696; J2405; A9270-GY

== ENCOUNTER 2017-12-05 14:02 | Observation (INO) | payer MEDICAID ==
--- NOTE | 2017-12-05 14:54 | ERPHSYRPT ---
- History of Present Illness Time Seen by Provider: 12/05/17 14:35 Source: family Exam Limitations: clinical condition Patient Subjective Stated Complaint: pt spouse reports pt has been doing odd things-states he has put a cup in the freezer instead of the refrigerater-asked where they where going on the drive to [facility] and asked if he could open the door to the truck-pt states that he has laid and cried most of the time this past week-states that she doesn't know what is wrong with him Triage Nursing Assessment: pt pink warm and dry-slow to answer but answers questions correctly-resp nonlabored-follows simple commands-self transfered to er bed with verbal guidance-tearful during triage at times- tearful throughout triage Physician History: PATIENT WITH A HISTORY OF CIRRHOSIS, HEPATIC ENCEPHALOPATHY, NOTICED EPISODES OF CONFUSION OVER THE PAST SEVERAL DAYS, PLACED HIS CUP OF COFFEE IN THE FREEZER INSTEAD OF REFIGERATOR. HAS HISTORY OF SEPSIS, ACUTE RENAL FAILURE FOLLOWING RIGHT KNEE REPLACEMENT AND TREATED WITH SHORT TERM DIALYSIS WITH A HOSPITALIZATION OF 7 MONTHS. STATES PATIENT HAS BEEN EMOTIONAL LABILE OUTBURST OF CRYING X 5-7 MONTHS. PATIENT DENIES HEADACHE, BLURRED VISION , CHEST PAIN, DYSPNEA. Severity: moderate Baseline/Normal Cognition: alert but confused Current Cognition: alert but confused Baseline Gait: walks w/o assistance Associated Symptoms: confusion Allergies/Adverse Reactions: No Known Drug Allergies Allergy (Verified 12/05/17 18:05) Home Medications: Ferrous Sulfate 325 mg PO DAILY 03/12/17 [History] Ondansetron HCl [Zofran] 4 mg PO Q6H PRN 03/12/17 [History] Thiamine Mononitrate [Vitamin B-1] 250 mg PO DAILY 03/12/17 [History] Fluoxetine HCl 10 mg [Prozac 10 mg] 40 mg PO HS 05/02/17 [History] Furosemide 40 mg [Lasix 40 MG] 40 mg PO BID 05/02/17 [History] Oxycodone HCl 5 mg PO Q4H PRN PRN 05/02/17 [History] Zinc Sulfate 220 mg PO DAILY 05/02/17 [History] Alprazolam 0.25 mg [xanAX 0.25 MG] 0.25 mg PO Q6H 11/16/17 [History] Ascorbic Acid 500 mg [Vitamin C 500 MG] 500 mg PO DAILY 11/16/17 [History] Aspirin 81 gm Chew [Baby Aspirin 81 mg Chew] 81 mg PO DAILY 11/16/17 [ History] Ciprofloxacin [Cipro 500 MG] 500 mg PO BID 11/16/17 [History] Famotidine 20 mg [Pepcid 20 MG] 20 mg PO BID 11/16/17 [History] Folic Acid 1 mg [Folate 1 mg] 1 mg PO DAILY 11/16/17 [History] Gabapentin 100 mg PO TID 11/16/17 [History] Spironolactone 25 mg [Aldactone 25 MG] 50 mg PO DAILY 11/16/17 [History] Vitamin E 400 Units [Vitamin E 400 UNIT SOFTGEL] 450 units PO DAILY [History] Lactulose 30 ml PO TID 12/05/17 [History] Hx Tetanus, Diphtheria Vaccination/Date Given: Yes Hx Influenza Vaccination/Date Given: Yes Hx Pneumococcal Vaccination/Date Given: No Immunizations Up to Date: Yes - Review of Systems Constitutional: No Fever, No Chills Eyes: No Symptoms Ears, Nose, & Throat: No Symptoms Respiratory: No Symptoms, No Cough, No Dyspnea Cardiac: No Symptoms, No Chest Pain, No Edema, No Syncope Abdominal/Gastrointestinal: No Symptoms, No Abdominal Pain, No Nausea, No Vomiting, No Diarrhea Genitourinary Symptoms: No Symptoms, No Dysuria Musculoskeletal: No Symptoms, No Back Pain, No Neck Pain Skin: No Symptoms, No Rash Neurological: Irritability, Lethargy, Other (CONFUSION), No Dizziness, No Focal Weakness, No Sensory Changes Psychological: No Symptoms Endocrine: No Symptoms All Other Systems: Reviewed and Negative - Past Medical History Pertinent Past Medical History: Yes Neurological History: No Pertinent History ENT History: Cataracts Cardiac History: Hypertension Respiratory History: No Pertinent History Endocrine Medical History: Diabetes Type II Musculoskeletal History: Other GI Medical History: Cirrhosis History: Dialysis Psycho-Social History: No Pertinent History Male Reproductive Disorders: No Pertinent History Other Medical History: elevated ammonia, pt has hx of sepsis. Prior dialysis. - Past Surgical History Past Surgical History: Yes Neuro Surgical History: No Pertinent History Cardiac: No Pertinent History Respiratory: No Pertinent History Gastrointestinal: Hernia Repair Genitourinary: No Pertinent History Musculoskeletal: Joint Replacement, Other Male Surgical History: No Pertinent History Other Surgical History: partial RIGHT KNEE REPLACEMENT. cataracts, - Social History Smoking Status: Never smoker Exposure to second hand smoke: No Drug Use: none Patient Lives Alone: No - Nursing Vital Signs Nursing Vital Signs: Initial Vital Signs Temperature 98.1 F 12/05/17 14:10 Pulse Rate 85 12/05/17 14:10 Respiratory Rate 18 12/05/17 14:10 Blood Pressure 140/71 12/05/17 14:10 O2 Sat by Pulse Oximetry 99 12/05/17 14:10 Pain Scale Pain Intensity 0 - [place] Coma Scale Best Eye Response ([place]): (4) open spontaneously Best Verbal Response ([place]): (4) confused conversation Best Motor Response ([place]): (6) obeys commands [place] Total: 14 - Physical Exam General Appearance: no apparent distress, lethargy Eye Exam: bilateral eye: PERRL, EOMI Ears, Nose, Throat Exam: normal ENT inspection, moist mucous membranes Neck Exam: normal inspection, non-tender, supple Respiratory: normal breath sounds, lungs clear, airway intact, No respiratory distress Cardiovascular: regular rate/rhythm, No edema Gastrointestinal: soft, normal bowel sounds, other (NONTENDER), No tenderness, No distention Back Exam: normal inspection Extremity Exam: normal inspection, No pedal edema (1+) Peripheral Pulses: carotid (R): 2+, carotid (L): 2+, femoral (R): 2+, femoral (L ): 2+, dorsalis-pedis (R): 2+, dorsalis-pedis (L): 2+ Mental Status: disoriented to place, disoriented to time, 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: normal hearing, abnormal pupil position, tongue midline Coordination/Gait: normal finger to nose, normal gait Motor/Sensory: no motor deficit, no sensory deficit DTR: bicep (R): 2+, bicep (L): 2+, tricep (R): 2+, tricep (L): 2+, knee (R): 2+ , knee (L): 2+, ankle (R): 2+, ankle (L): 2+ Skin Exam: normal color, warm, dry, No rash SpO2 Interpretation: normal SpO2: 99 Oxygen Delivery: Room Air - Course EKG Interpreted by Me: RATE, Sinus Rhythm, NORMAL AXIS - Radiology Exams Chest X-ray Interpretation: Discussed w/ radiologist, Negative - CT Exams Head CT Interpretation: Discussed w/radiologist, No/Intracranial Hemorrhag Ordered Tests: Active Orders 24 hr Category Date Time Status Up With Assistance ROUTINE Activity 12/05/17 18:04 Active Accucheck ACHS Care 12/05/17 18:04 Active Call Admit Doctor for Orders ON ADMISSION Care 12/05/17 18:04 Active Clean Catch Urine Specimen STAT Care 12/05/17 14:50 Completed Code Status Order ROUTINE Care 12/05/17 18:04 Active EKG-ER Only STAT Care 12/05/17 14:50 Completed IV Care Q6H Care 12/05/17 18:04 Active IV Insertion STAT Care 12/05/17 14:50 Completed Neuro Checks Q4H Care 12/05/17 18:[address] in Observation ROUTINE Care 12/05/17 18:04 Active Vital Signs Q4H Care 12/05/17 18:04 Active 1800 Calorie ADA Diet 12/05/17 Dinner Active CHEST 1 VIEW (PORTABLE) Stat Exams 12/05/17 14:51 Completed HEAD WITHOUT CONTRAST [CT] Stat Exams 12/05/17 14:52 Completed AMYLASE Stat Lab 12/05/17 15:20 Completed BLOOD CULTURE Stat Lab 12/05/17 15:30 Received CBC W DIFF Stat Lab 12/05/17 15:20 Completed CMP Stat Lab 12/05/17 15:20 Completed LIPASE Stat Lab 12/05/17 15:20 Completed PROTIME WITH INR Stat Lab 12/05/17 15:20 Completed TROPONIN Q3H Lab 12/05/17 15:20 Completed TROPONIN Q3H Lab 12/05/17 18:22 Completed TROPONIN Q3H Lab 12/05/17 21:00 Completed TROPONIN Q3H Lab 12/06/17 00:20 Completed TROPONIN Q3H Lab 12/06/17 03:00 Received UA W/RFX UR CULTURE Stat Lab 12/05/17 15:20 Completed Urine Triage Profile Stat Lab 12/05/17 15:20 Completed Medication Summary Generic Name Dose Route Start Last Admin Trade Name Freq PRN Reason Stop Dose Admin Alprazolam 0.25 mg 12/05/17 22:00 12/05/17 22:18 Xanax 0.25 Mg PO 01/04/18 21:59 0.25 mg QID PRESTON Administration Famotidine 20 mg 12/05/17 22:00 12/05/17 22:18 Pepcid 20 Mg PO 01/04/18 21:59 20 mg BID PRESTON Administration Fluoxetine HCl 10 mg 12/05/17 22:00 12/05/17 22:18 Prozac 10 Mg PO 01/04/18 21:59 10 mg HS PRESTON Administration Furosemide 40 mg 12/06/17 10:00 Lasix 40 Mg PO 01/05/18 09:59 BID DIURETIC PRESTON Sodium Chloride 1,000 mls @ 50 mls/hr 12/05/17 15:00 12/05/17 18:07 Sodium Chloride 0.9% 1000 Ml IV 01/04/18 14:59 Infused .Q20H PRESTON Infusion Lactulose 20 gm 12/05/17 22:00 12/05/17 22:18 Lactulose 20 Gm/30ml Ud Cup PO 01/04/18 21:59 20 gm QID PRESTON Administration Ondansetron HCl 4 mg 12/05/17 18:04 Zofran 4 Mg/2 Ml Vial IV 01/04/18 18:03 Q6H PRN PRN NAUSEA/VOMITING Oxycodone HCl 5 mg 12/05/17 18:57 12/06/17 01:49 Oxy-Ir 5 Mg PO 12/10/17 18:56 5 mg Q4H PRN PRN Administration PAIN Spironolactone 50 mg 12/06/17 10:00 Aldactone 25 Mg PO 01/05/18 09:59 DAILY PRESTON Discontinued Medications Generic Name Dose Route Start Last Admin Trade Name Freq PRN Reason Stop Dose Admin Furosemide 40 mg 12/06/17 10:00 Lasix 20 Mg PO 01/05/18 09:59 DAILY PRESTON Lactulose 30 g 12/05/17 16:35 12/05/17 16:55 Enulose 10 Gm/15 Ml PO 12/05/17 16:36 30 g STAT ONE Administration Metformin HCl 500 mg 12/06/17 08:00 Glucophage 500 Mg PO 01/05/18 07:59 BIDWM PRESTON Lab/Rad Data: Laboratory Result Diagrams 12/05/17 15:20 12/05/17 15:20 Laboratory Results 12/05/17 12/05/17 12/05/17 Range/Units 15:20 15:20 15:20 WBC (4.0-10.5) K/mm3 RBC (4.1-5.6) M/mm3 Hgb (12.5-18.0) gm/dl Hct (42-50) % MCV (78-100) fl MCH (26-32) pg MCHC (32-36) g/dl RDW (11.5-14.0) % Plt Count (150-450) K/mm3 MPV (6-9.5) fl Gran % (36.0-66.0) % Eos # (Auto) (0-0.5) Absolute Lymphs (auto) (1.0-4.6) Absolute Monos (auto) (0.0-1.3) Lymphocytes % (24.0-44.0) % Monocytes % (0.0-12.0) % Eosinophils % (0.00-5.0) % Basophils % (0.0-0.4) % Absolute Granulocytes (1.4-6.9) Basophils # (0-0.4) PT (8.83-12.87) SECONDS INR (0.8-3.0) Sodium (137-145) mmol/L Potassium (3.5-5.1) mmol/L Chloride (98-107) mmol/L Carbon Dioxide (22-30) mmol/L Anion Gap (5-15) MEQ/L BUN (9-20) mg/dL Creatinine (0.66-1.25) mg/dL Estimated GFR ML/MIN Glucose (74-106) mg/dL Calcium (8.4-10.2) mg/dL Total Bilirubin (0.2-1.3) mg/dL AST (17-59) U/L ALT (0-50) U/L Alkaline Phosphatase (38-126) U/L Ammonia (9-30) umol/L Troponin I < 0.012 (0.000-0.034) ng/mL Serum Total Protein (6.3-8.2) g/dL Albumin (3.5-5.0) g/dL Amylase (30-110) U/L Lipase (23-300) U/L Ur Collection Type CLEAN CATCH Urine Color YELLOW (YELLOW) Urine Appearance CLEAR (CLEAR) Urine pH 5.0 (5-6) Ur Specific [place] 1.010 (1.005-1.025) Urine Protein NEGATIVE (Negative) Urine Ketones NEGATIVE (NEGATIVE) Urine Blood NEGATIVE (0-5) Migel/ul Urine Nitrite NEGATIVE (NEGATIVE) Urine Bilirubin NEGATIVE (NEGATIVE) Urine Urobilinogen NORMAL (0-1) mg/dL Ur Leukocyte Esterase NEGATIVE (NEGATIVE) Urine Culture Reflexed NO (NO) Urine Glucose NEGATIVE (NEGATIVE) mg/dL Urine Opiates Level NEGATIVE (NEGATIVE) Ur Methadone NEGATIVE (NEGATIVE) Urine Barbiturates NEGATIVE (NEGATIVE) Ur Phencyclidine (PCP) NEGATIVE (NEGATIVE) Urine Amphetamine NEGATIVE (NEGATIVE) U Benzodiazepine Level NEGATIVE (NEGATIVE) Urine Cocaine NEGATIVE (NEGATIVE) Urine Marijuana (THC) NEGATIVE (NEGATIVE) Slides for Path Review Specimen Received 11/25/17 1555 12/05/17 12/05/17 12/05/17 Range/Units 15:20 15:20 15:20 WBC (4.0-10.5) K/mm3 RBC (4.1-5.6) M/mm3 Hgb (12.5-18.0) gm/dl Hct (42-50) % MCV (78-100) fl MCH (26-32) pg MCHC (32-36) g/dl RDW (11.5-14.0) % Plt Count (150-450) K/mm3 MPV (6-9.5) fl Gran % (36.0-66.0) % Eos # (Auto) (0-0.5) Absolute Lymphs (auto) (1.0-4.6) Absolute Monos (auto) (0.0-1.3) Lymphocytes % (24.0-44.0) % Monocytes % (0.0-12.0) % Eosinophils % (0.00-5.0) % Basophils % (0.0-0.4) % Absolute Granulocytes (1.4-6.9) Basophils # (0-0.4) PT 14.8 H (8.83-12.87) SECONDS INR 1.27 (0.8-3.0) Sodium 137 (137-145) mmol/L Potassium 4.0 (3.5-5.1) mmol/L Chloride 106 (98-107) mmol/L Carbon Dioxide 22 (22-30) mmol/L Anion Gap 12.5 (5-15) MEQ/L BUN 20 (9-20) mg/dL Creatinine 1.13 (0.66-1.25) mg/dL Estimated GFR > 60.0 ML/MIN Glucose 215 H (74-106) mg/dL Calcium 9.1 (8.4-10.2) mg/dL Total Bilirubin 1.50 H (0.2-1.3) mg/dL AST 40 (17-59) U/L ALT 26 (0-50) U/L Alkaline Phosphatase 193 H (38-126) U/L Ammonia 83 H (9-30) umol/L Troponin I (0.000-0.034) ng/mL Serum Total Protein 5.6 L (6.3-8.2) g/dL Albumin 3.0 L (3.5-5.0) g/dL Amylase 57 (30-110) U/L Lipase 131 (23-300) U/L Ur Collection Type Urine Color (YELLOW) Urine Appearance (CLEAR) Urine pH (5-6) Ur Specific [place] (1.005-1.025) Urine Protein (Negative) Urine Ketones (NEGATIVE) Urine Blood (0-5) Migel/ul Urine Nitrite (NEGATIVE) Urine Bilirubin (NEGATIVE) Urine Urobilinogen (0-1) mg/dL Ur Leukocyte Esterase (NEGATIVE) Urine Culture Reflexed (NO) Urine Glucose (NEGATIVE) mg/dL Urine Opiates Level (NEGATIVE) Ur Methadone (NEGATIVE) Urine Barbiturates (NEGATIVE) Ur Phencyclidine (PCP) (NEGATIVE) Urine Amphetamine (NEGATIVE) U Benzodiazepine Level (NEGATIVE) Urine Cocaine (NEGATIVE) Urine Marijuana (THC) (NEGATIVE) Slides for Path Review Specimen Received 12/05/17 Range/Units 15:20 WBC 4.0 (4.0-10.5) K/mm3 RBC 3.42 L (4.1-5.6) M/mm3 Hgb 10.9 L (12.5-18.0) gm/dl Hct 31.2 L (42-50) % MCV 91.2 (78-100) fl MCH 31.8 (26-32) pg MCHC 34.9 (32-36) g/dl RDW 15.4 H (11.5-14.0) % Plt Count 50 L (150-450) K/mm3 MPV 11.3 H (6-9.5) fl Gran % 69.4 H (36.0-66.0) % Eos # (Auto) 0.09 (0-0.5) Absolute Lymphs (auto) 0.61 L (1.0-4.6) Absolute Monos (auto) 0.49 (0.0-1.3) Lymphocytes % 15.4 L (24.0-44.0) % Monocytes % 12.4 H (0.0-12.0) % Eosinophils % 2.3 (0.00-5.0) % Basophils % 0.5 (0.0-0.4) % Absolute Granulocytes 2.75 (1.4-6.9) Basophils # 0.02 (0-0.4) PT (8.83-12.87) SECONDS INR (0.8-3.0) Sodium (137-145) mmol/L Potassium (3.5-5.1) mmol/L Chloride (98-107) mmol/L Carbon Dioxide (22-30) mmol/L Anion Gap (5-15) MEQ/L BUN (9-20) mg/dL Creatinine (0.66-1.25) mg/dL Estimated GFR ML/MIN Glucose (74-106) mg/dL Calcium (8.4-10.2) mg/dL Total Bilirubin (0.2-1.3) mg/dL AST (17-59) U/L ALT (0-50) U/L Alkaline Phosphatase (38-126) U/L Ammonia (9-30) umol/L Troponin I (0.000-0.034) ng/mL Serum Total Protein (6.3-8.2) g/dL Albumin (3.5-5.0) g/dL Amylase (30-110) U/L Lipase (23-300) U/L Ur Collection Type Urine Color (YELLOW) Urine Appearance (CLEAR) Urine pH (5-6) Ur Specific [place] (1.005-1.025) Urine Protein (Negative) Urine Ketones (NEGATIVE) Urine Blood (0-5) Migel/ul Urine Nitrite (NEGATIVE) Urine Bilirubin (NEGATIVE) Urine Urobilinogen (0-1) mg/dL Ur Leukocyte Esterase (NEGATIVE) Urine Culture Reflexed (NO) Urine Glucose (NEGATIVE) mg/dL Urine Opiates Level (NEGATIVE) Ur Methadone (NEGATIVE) Urine Barbiturates (NEGATIVE) Ur Phencyclidine (PCP) (NEGATIVE) Urine Amphetamine (NEGATIVE) U Benzodiazepine Level (NEGATIVE) Urine Cocaine (NEGATIVE) Urine Marijuana (THC) (NEGATIVE) Slides for Path Review YES Specimen Received - Progress Progress Note: 12/05/17 17:08 AMMONIA LEVEL-[id number], ADMINISTERED LACTULOSE 30GM ORALLY Discussed with Dr.: Hand (DISCUSSED WITH DR HAND AT 1700 FOR OBSERVATION) - Departure Time of Disposition: 18:30 Departure Disposition: Observation Clinical Impression: Hepatic encephalopathy, ALTERED MENTAL STATUS Condition: Stable Critical Care Time: No
--- NOTE | 2017-12-05 15:07 | XRAY ---
Indication: Cough. Comparison: November 16, 2017. Portable apical lordotic chest less inflated today and remains clear. Heart and mediastinal structures within normal limits. Bony thorax intact. No new/acute findings. Impression: Nonacute chest.
[2017-12-05] MEDS ORDERED: Sodium Chloride 0.9% 1000 ML 1,000 ML ONE (15:28)
--- NOTE | 2017-12-05 15:28 | XRAY ---
Indication: Confusion. Leg pain. Multiple contiguous axial images obtained through the head without contrast. Comparison: March 13, 2017. Again several images slightly degraded by motion artifact even with repeat CT. No acute intracranial hemorrhage, abnormal extra-axial fluid collection, or mass effect. Fourth ventricle is midline without hydrocephalus. Chin-white matter differentiation preserved. Bony calvarium intact. Visualized paranasal sinuses and mastoid air cells are clear. Impression: Again minimal motion artifact. Remaining CT head without contrast exam grossly negative. CT DI 90.77
[2017-12-05] MEDS: Sodium Chloride 0.9% 1000 ML 1,000 ML IV SCH (15:33)
[2017-12-05 15:41] LABS: BASOPHIL % 0.5 % (0.0-0.4); Basophil (Absolute #) 0.02 (0-0.4); Eosinophil % 2.3 % (0.00-5.0); Eosinophil (Absolute #) 0.09 (0-0.5); Granulocyte Absolute (ANC) 2.75 (1.4-6.9); Granulocytes % 69.4 % (36.0-66.0); Hematocrit 31.2 % (42-50); Hemoglobin 10.9 gm/dl (12.5-18.0); Lymphocyte (Absolute #) 0.61 (1.0-4.6); Lymphocytes % 15.4 % (24.0-44.0); Mean Cell Volume 91.2 fl (78-100); Mean Corpuscular Hgb Concent. 34.9 g/dl (32-36); Mean Platelet Volume 11.3 fl (6-9.5); Monocyte (Absolute #) 0.49 (0.0-1.3); Monocytes % 12.4 % (0.0-12.0); Platelet Count 50 K/mm3 (150-450); Red Blood Count 3.42 M/mm3 (4.1-5.6); Red Cell Distribution Width 15.4 % (11.5-14.0)
[2017-12-05 15:56] LABS: INR 1.27 (0.8-3.0)
[2017-12-05 15:58] LABS: Appearance CLEAR (CLEAR); Bilirubin NEGATIVE (NEGATIVE); Blood NEGATIVE Ery/ul (0-5); Glucose NEGATIVE (NEGATIVE); Ketones NEGATIVE (NEGATIVE); Leukocyte Esterase NEGATIVE (NEGATIVE); Nitrite NEGATIVE (NEGATIVE); Protein,Urine Dip NEGATIVE (Negative); Urobilinogen NORMAL mg/dL (0-1)
[2017-12-05 16:03] LABS: ALKALINE PHOSPHATASE 193 U/L (38-126); AMYLASE 57 U/L (30-110); ANION GAP 12.5 MEQ/L (5-15); BLOOD UREA NITROGEN 20 mg/dL (9-20); CHLORIDE 106 mmol/L (98-107); Calcium 9.1 mg/dL (8.4-10.2); Carbon Dioxide 22 mmol/L (22-30); Creatinine 1 1.13 mg/dL (0.66-1.25); Glucose 215 mg/dL (74-106); LIPASE 131 U/L (23-300); SGOT/AST 40 U/L (17-59); SGPT/ALT 26 U/L (0-50); SODIUM 137 mmol/L (137-145); Total Protein 5.6 g/dL (6.3-8.2)
[2017-12-05 16:15] LABS: Amphetamine,Urine NEGATIVE (NEGATIVE); Barbiturate,Urine NEGATIVE (NEGATIVE); Benzodiazepine,Urine NEGATIVE (NEGATIVE); Cocaine,Urine NEGATIVE (NEGATIVE); Methadone,Urine NEGATIVE (NEGATIVE); Opiate,Urine NEGATIVE (NEGATIVE); PCP,Urine NEGATIVE (NEGATIVE); THC,Urine NEGATIVE (NEGATIVE)
[2017-12-05 16:20] LABS: Mean Corpuscular Hemoglobin 31.8 pg (26-32)
[2017-12-05 16:31] LABS: Slide Review 1 YES
[2017-12-05] MEDS ORDERED: Enulose 10 GM/15 ML PO ONE (16:35)
[2017-12-05] MEDS ORDERED: Zofran 4 MG/2 ML VIAL IV PRN (18:04)
[2017-12-05] MEDS: Oxy-IR 5 MG PO PRN (19:20)
[2017-12-05] MEDS ORDERED: LACTULOSE 20 GM/30ML UD CUP PO SCH (22:00)
[2017-12-05] MEDS ORDERED: PROZAC 10 MG PO SCH (22:00)
[2017-12-05] MEDS: xanAX 0.25 MG PO SCH (22:18)
[2017-12-05] MEDS: Pepcid 20 MG PO SCH (22:18)
[2017-12-06] MEDS: Oxy-IR 5 MG PO PRN ×3 (01:49→22:06)
[2017-12-06] MEDS ORDERED: Glucophage 500 MG PO SCH (08:00)
[2017-12-06] MEDS ORDERED: LACTULOSE 20 GM/30ML UD CUP PO SCH (08:00)
[2017-12-06] MEDS: LACTULOSE 20 GM/30ML UD CUP PO SCH ×4 (08:16→23:50)
--- NOTE | 2017-12-06 08:55 | PCM.HP ---
History of Present Illness - Chief Complaint Chief Complaint: hepatic encephalopathy, AMS History of Present Illness: is a 62 year old male with extensive recent medical hx of knee replacement complicated by sepsis and pt on ventilator; pt now at home but acting more confused over the past 1 week, putting his drink in the freezer and going to the bathroom to eat. Found to have elevated ammonia level in ER of 52. Denies any fever. In ER, labs nonacute aside from ammonia. CT head and CXR nl. - Review of Systems Neurological: Other (disorientation) Psychological: Anxiety, Depression (cries "all the time" even when he doesn't feel like it) All Other Systems: Reviewed and Negative Medications & Allergies Home Medications: Home Medication List Ferrous Sulfate 325 mg PO DAILY 03/12/17 [History Confirmed 12/05/17] Ondansetron HCl [Zofran] 4 mg PO Q6H PRN 03/12/17 [History Confirmed 12/05/17] Thiamine Mononitrate [Vitamin B-1] 250 mg PO DAILY 03/12/17 [History Confirmed 12/05/17] Fluoxetine HCl 10 mg [Prozac 10 mg] 40 mg PO HS 05/02/17 [History Confirmed 12/05/17] Furosemide 40 mg [Lasix 40 MG] 40 mg PO BID 05/02/17 [History Confirmed ] Oxycodone HCl 5 mg PO Q4H PRN PRN 05/02/17 [History Confirmed 12/05/17] Zinc Sulfate 220 mg PO DAILY 05/02/17 [History Confirmed 12/05/17] Alprazolam 0.25 mg [xanAX 0.25 MG] 0.25 mg PO Q6H 11/16/17 [History Confirmed 12/05/17] Ascorbic Acid 500 mg [Vitamin C 500 MG] 500 mg PO DAILY 11/16/17 [History Confirmed 12/05/17] Aspirin 81 gm Chew [Baby Aspirin 81 mg Chew] 81 mg PO DAILY 11/16/17 [ History Confirmed 12/05/17] Ciprofloxacin [Cipro 500 MG] 500 mg PO BID 11/16/17 [History Confirmed ] Famotidine 20 mg [Pepcid 20 MG] 20 mg PO BID 11/16/17 [History Confirmed 12/05/17] Folic Acid 1 mg [Folate 1 mg] 1 mg PO DAILY 11/16/17 [History Confirmed ] Gabapentin 100 mg PO TID 11/16/17 [History Confirmed 12/05/17] Spironolactone 25 mg [Aldactone 25 MG] 50 mg PO DAILY 11/16/17 [History Confirmed 12/05/17] Vitamin E 400 Units [Vitamin E 400 UNIT SOFTGEL] 450 units PO DAILY [History Confirmed 12/05/17] Lactulose 30 ml PO TID 12/05/17 [History Confirmed 12/05/17] Allergies/Adverse Reactions: Allergies Allergy/AdvReac Type Severity Reaction Status Date / Time No Known Drug Allergies Allergy Verified 12/05/17 18:05 - Past Medical History Past Medical History: Yes Neurological History: No Pertinent History ENT History: Cataracts Cardiac History: Hypertension Respiratory History: No Pertinent History Endocrine Medical History: Diabetes Type II Musculoskelatal History: Other GI Medical History: Cirrhosis History: Dialysis Pyscho-Social History: No Pertinent History Male Reproductive Disorders: No Pertinent History Comment: elevated ammonia, pt has hx of sepsis. Prior dialysis. - Past Surgical History Past Surgical History: Yes Neuro Surgical History: No Pertinent History Cardiac History: No Pertinent History Respiratory Surgery: No Pertinent History GI Surgical History: Hernia Repair Genitourinary Surgical Hx: No Pertinent History Musculskeletal Surgical Hx: Joint Replacement, Other Male Surgical History: No Pertinent History Other Surgical History: partial RIGHT KNEE REPLACEMENT. cataracts, - Social History Smoking Status: Never smoker Exposure to second hand smoke: No Alcohol: None Drug Use: none - Physical Exam Vital Signs: Vital Signs - 24 hr Temp Pulse Resp BP Pulse Ox 12/06/17 08:00 16 12/06/17 07:50 97.7 F 80 16 143/63 99 12/06/17 04:17 99 12/06/17 04:00 97.8 F 69 18 134/61 98 12/06/17 00:10 97.9 F 83 18 131/60 98 12/06/17 00:00 16 12/05/17 20:15 98.3 F 72 18 130/61 100 12/05/17 20:00 20 12/05/17 18:13 98.0 F 80 20 140/97 100 12/05/17 17:45 148/69 12/05/17 16:06 87 18 134/64 100 12/05/17 15:49 88 18 143/64 100 12/05/17 14:10 98.1 F 85 18 140/71 99 Oxygen-Last 24 hours O2 Percentage 4 Liters = 36% General Appearance: no apparent distress, alert Neurologic Exam: cooperative, other (oriented to place; thinks it's December 13, unsure of the year) Ears, Nose, Throat Exam: moist mucous membranes Respiratory Exam: normal breath sounds, lungs clear, No crackles/rales, No rhonchi, No wheezing Cardiovascular Exam: regular rate/rhythm, normal heart sounds, No murmur Back Exam: normal inspection, No rash Extremity Exam: other (healing incision on R knee with approx 1cm area of scabbing.) Skin Exam: normal color, warm, dry, No rash Results - Labs Lab/Micro Results: Accuchecks Date 12/06/17 Date 12/05/17 Time 08:10 Time 22:00 Accucheck Value: 95 Accucheck Value: 100 Lab Results-Last 24 Hours 12/05/17 12/05/17 12/05/17 Range/Units 15:20 15:20 15:20 WBC 4.0 (4.0-10.5) K/mm3 RBC 3.42 L (4.1-5.6) M/mm3 Hgb 10.9 L (12.5-18.0) gm/dl Hct 31.2 L (42-50) % MCV 91.2 (78-100) fl MCH 31.8 (26-32) pg MCHC 34.9 (32-36) g/dl RDW 15.4 H (11.5-14.0) % Plt Count 50 L (150-450) K/mm3 MPV 11.3 H (6-9.5) fl Gran % 69.4 H (36.0-66.0) % Eos # (Auto) 0.09 (0-0.5) Absolute Lymphs (auto) 0.61 L (1.0-4.6) Absolute Monos (auto) 0.49 (0.0-1.3) Lymphocytes % 15.4 L (24.0-44.0) % Monocytes % 12.4 H (0.0-12.0) % Eosinophils % 2.3 (0.00-5.0) % Basophils % 0.5 (0.0-0.4) % Absolute Granulocytes 2.75 (1.4-6.9) Basophils # 0.02 (0-0.4) PT (8.83-12.87) SECONDS INR (0.8-3.0) Sodium 137 (137-145) mmol/L Potassium 4.0 (3.5-5.1) mmol/L Chloride 106 (98-107) mmol/L Carbon Dioxide 22 (22-30) mmol/L Anion Gap 12.5 (5-15) MEQ/L BUN 20 (9-20) mg/dL Creatinine 1.13 (0.66-1.25) mg/dL Estimated GFR > 60.0 ML/MIN Glucose 215 H (74-106) mg/dL Hemoglobin A1c (4.5-6.0) % Calcium 9.1 (8.4-10.2) mg/dL Total Bilirubin 1.50 H (0.2-1.3) mg/dL AST 40 (17-59) U/L ALT 26 (0-50) U/L Alkaline Phosphatase 193 H (38-126) U/L Ammonia 83 H (9-30) umol/L Troponin I (0.000-0.034) ng/mL Serum Total Protein 5.6 L (6.3-8.2) g/dL Albumin 3.0 L (3.5-5.0) g/dL Amylase 57 (30-110) U/L Lipase 131 (23-300) U/L Ur Collection Type Urine Color (YELLOW) Urine Appearance (CLEAR) Urine pH (5-6) Ur Specific [place] (1.005-1.025) Urine Protein (Negative) Urine Ketones (NEGATIVE) Urine Blood (0-5) Migel/ul Urine Nitrite (NEGATIVE) Urine Bilirubin (NEGATIVE) Urine Urobilinogen (0-1) mg/dL Ur Leukocyte Esterase (NEGATIVE) Urine Culture Reflexed (NO) Urine Glucose (NEGATIVE) mg/dL Urine Opiates Level (NEGATIVE) Ur Methadone (NEGATIVE) Urine Barbiturates (NEGATIVE) Ur Phencyclidine (PCP) (NEGATIVE) Urine Amphetamine (NEGATIVE) U Benzodiazepine Level (NEGATIVE) Urine Cocaine (NEGATIVE) Urine Marijuana (THC) (NEGATIVE) Slides for Path Review YES Specimen Received 12/05/17 12/05/17 12/05/17 Range/Units 15:20 15:20 15:20 WBC (4.0-10.5) K/mm3 RBC (4.1-5.6) M/mm3 Hgb (12.5-18.0) gm/dl Hct (42-50) % MCV (78-100) fl MCH (26-32) pg MCHC (32-36) g/dl RDW (11.5-14.0) % Plt Count (150-450) K/mm3 MPV (6-9.5) fl Gran % (36.0-66.0) % Eos # (Auto) (0-0.5) Absolute Lymphs (auto) (1.0-4.6) Absolute Monos (auto) (0.0-1.3) Lymphocytes % (24.0-44.0) % Monocytes % (0.0-12.0) % Eosinophils % (0.00-5.0) % Basophils % (0.0-0.4) % Absolute Granulocytes (1.4-6.9) Basophils # (0-0.4) PT 14.8 H (8.83-12.87) SECONDS INR 1.27 (0.8-3.0) Sodium (137-145) mmol/L Potassium (3.5-5.1) mmol/L Chloride (98-107) mmol/L Carbon Dioxide (22-30) mmol/L Anion Gap (5-15) MEQ/L BUN (9-20) mg/dL Creatinine (0.66-1.25) mg/dL Estimated GFR ML/MIN Glucose (74-106) mg/dL Hemoglobin A1c (4.5-6.0) % Calcium (8.4-10.2) mg/dL Total Bilirubin (0.2-1.3) mg/dL AST (17-59) U/L ALT (0-50) U/L Alkaline Phosphatase (38-126) U/L Ammonia (9-30) umol/L Troponin I < 0.012 (0.000-0.034) ng/mL Serum Total Protein (6.3-8.2) g/dL Albumin (3.5-5.0) g/dL Amylase (30-110) U/L Lipase (23-300) U/L Ur Collection Type CLEAN CATCH Urine Color YELLOW (YELLOW) Urine Appearance CLEAR (CLEAR) Urine pH 5.0 (5-6) Ur Specific [place] 1.010 (1.005-1.025) Urine Protein NEGATIVE (Negative) Urine Ketones NEGATIVE (NEGATIVE) Urine Blood NEGATIVE (0-5) Migel/ul Urine Nitrite NEGATIVE (NEGATIVE) Urine Bilirubin NEGATIVE (NEGATIVE) Urine Urobilinogen NORMAL (0-1) mg/dL Ur Leukocyte Esterase NEGATIVE (NEGATIVE) Urine Culture Reflexed NO (NO) Urine Glucose NEGATIVE (NEGATIVE) mg/dL Urine Opiates Level (NEGATIVE) Ur Methadone (NEGATIVE) Urine Barbiturates (NEGATIVE) Ur Phencyclidine (PCP) (NEGATIVE) Urine Amphetamine (NEGATIVE) U Benzodiazepine Level (NEGATIVE) Urine Cocaine (NEGATIVE) Urine Marijuana (THC) (NEGATIVE) Slides for Path Review Specimen Received 11/25/17 [id number] 12/05/17 12/05/17 12/05/17 Range/Units 15:20 18:22 18:22 WBC (4.0-10.5) K/mm3 RBC (4.1-5.6) M/mm3 Hgb (12.5-18.0) gm/dl Hct (42-50) % MCV (78-100) fl MCH (26-32) pg MCHC (32-36) g/dl RDW (11.5-14.0) % Plt Count (150-450) K/mm3 MPV (6-9.5) fl Gran % (36.0-66.0) % Eos # (Auto) (0-0.5) Absolute Lymphs (auto) (1.0-4.6) Absolute Monos (auto) (0.0-1.3) Lymphocytes % (24.0-44.0) % Monocytes % (0.0-12.0) % Eosinophils % (0.00-5.0) % Basophils % (0.0-0.4) % Absolute Granulocytes (1.4-6.9) Basophils # (0-0.4) PT (8.83-12.87) SECONDS INR (0.8-3.0) Sodium (137-145) mmol/L Potassium (3.5-5.1) mmol/L Chloride (98-107) mmol/L Carbon Dioxide (22-30) mmol/L Anion Gap (5-15) MEQ/L BUN (9-20) mg/dL Creatinine (0.66-1.25) mg/dL Estimated GFR ML/MIN Glucose (74-106) mg/dL Hemoglobin A1c (4.5-6.0) % Calcium (8.4-10.2) mg/dL Total Bilirubin (0.2-1.3) mg/dL AST (17-59) U/L ALT (0-50) U/L Alkaline Phosphatase (38-126) U/L Ammonia 52 H (9-30) umol/L Troponin I < 0.012 (0.000-0.034) ng/mL Serum Total Protein (6.3-8.2) g/dL Albumin (3.5-5.0) g/dL Amylase (30-110) U/L Lipase (23-300) U/L Ur Collection Type Urine Color (YELLOW) Urine Appearance (CLEAR) Urine pH (5-6) Ur Specific [place] (1.005-1.025) Urine Protein (Negative) Urine Ketones (NEGATIVE) Urine Blood (0-5) Migel/ul Urine Nitrite (NEGATIVE) Urine Bilirubin (NEGATIVE) Urine Urobilinogen (0-1) mg/dL Ur Leukocyte Esterase (NEGATIVE) Urine Culture Reflexed (NO) Urine Glucose (NEGATIVE) mg/dL Urine Opiates Level NEGATIVE (NEGATIVE) Ur Methadone NEGATIVE (NEGATIVE) Urine Barbiturates NEGATIVE (NEGATIVE) Ur Phencyclidine (PCP) NEGATIVE (NEGATIVE) Urine Amphetamine NEGATIVE (NEGATIVE) U Benzodiazepine Level NEGATIVE (NEGATIVE) Urine Cocaine NEGATIVE (NEGATIVE) Urine Marijuana (THC) NEGATIVE (NEGATIVE) Slides for Path Review Specimen Received 12/05/17 12/05/17 12/06/17 Range/Units 21:00 Unknown 00:20 WBC (4.0-10.5) K/mm3 RBC (4.1-5.6) M/mm3 Hgb (12.5-18.0) gm/dl Hct (42-50) % MCV (78-100) fl MCH (26-32) pg MCHC (32-36) g/dl RDW (11.5-14.0) % Plt Count (150-450) K/mm3 MPV (6-9.5) fl Gran % (36.0-66.0) % Eos # (Auto) (0-0.5) Absolute Lymphs (auto) (1.0-4.6) Absolute Monos (auto) (0.0-1.3) Lymphocytes % (24.0-44.0) % Monocytes % (0.0-12.0) % Eosinophils % (0.00-5.0) % Basophils % (0.0-0.4) % Absolute Granulocytes (1.4-6.9) Basophils # (0-0.4) PT (8.83-12.87) SECONDS INR (0.8-3.0) Sodium (137-145) mmol/L Potassium (3.5-5.1) mmol/L Chloride (98-107) mmol/L Carbon Dioxide (22-30) mmol/L Anion Gap (5-15) MEQ/L BUN (9-20) mg/dL Creatinine (0.66-1.25) mg/dL Estimated GFR ML/MIN Glucose (74-106) mg/dL Hemoglobin A1c 5.40 (4.5-6.0) % Calcium (8.4-10.2) mg/dL Total Bilirubin (0.2-1.3) mg/dL AST (17-59) U/L ALT (0-50) U/L Alkaline Phosphatase (38-126) U/L Ammonia (9-30) umol/L Troponin I < 0.012 < 0.012 (0.000-0.034) ng/mL Serum Total Protein (6.3-8.2) g/dL Albumin (3.5-5.0) g/dL Amylase (30-110) U/L Lipase (23-300) U/L Ur Collection Type Urine Color (YELLOW) Urine Appearance (CLEAR) Urine pH (5-6) Ur Specific [place] (1.005-1.025) Urine Protein (Negative) Urine Ketones (NEGATIVE) Urine Blood (0-5) Migel/ul Urine Nitrite (NEGATIVE) Urine Bilirubin (NEGATIVE) Urine Urobilinogen (0-1) mg/dL Ur Leukocyte Esterase (NEGATIVE) Urine Culture Reflexed (NO) Urine Glucose (NEGATIVE) mg/dL Urine Opiates Level (NEGATIVE) Ur Methadone (NEGATIVE) Urine Barbiturates (NEGATIVE) Ur Phencyclidine (PCP) (NEGATIVE) Urine Amphetamine (NEGATIVE) U Benzodiazepine Level (NEGATIVE) Urine Cocaine (NEGATIVE) Urine Marijuana (THC) (NEGATIVE) Slides for Path Review Specimen Received 12/06/17 Range/Units 03:00 WBC (4.0-10.5) K/mm3 RBC (4.1-5.6) M/mm3 Hgb (12.5-18.0) gm/dl Hct (42-50) % MCV (78-100) fl MCH (26-32) pg MCHC (32-36) g/dl RDW (11.5-14.0) % Plt Count (150-450) K/mm3 MPV (6-9.5) fl Gran % (36.0-66.0) % Eos # (Auto) (0-0.5) Absolute Lymphs (auto) (1.0-4.6) Absolute Monos (auto) (0.0-1.3) Lymphocytes % (24.0-44.0) % Monocytes % (0.0-12.0) % Eosinophils % (0.00-5.0) % Basophils % (0.0-0.4) % Absolute Granulocytes (1.4-6.9) Basophils # (0-0.4) PT (8.83-12.87) SECONDS INR (0.8-3.0) Sodium (137-145) mmol/L Potassium (3.5-5.1) mmol/L Chloride (98-107) mmol/L Carbon Dioxide (22-30) mmol/L Anion Gap (5-15) MEQ/L BUN (9-20) mg/dL Creatinine (0.66-1.25) mg/dL Estimated GFR ML/MIN Glucose (74-106) mg/dL Hemoglobin A1c (4.5-6.0) % Calcium (8.4-10.2) mg/dL Total Bilirubin (0.2-1.3) mg/dL AST (17-59) U/L ALT (0-50) U/L Alkaline Phosphatase (38-126) U/L Ammonia (9-30) umol/L Troponin I < 0.012 (0.000-0.034) ng/mL Serum Total Protein (6.3-8.2) g/dL Albumin (3.5-5.0) g/dL Amylase (30-110) U/L Lipase (23-300) U/L Ur Collection Type Urine Color (YELLOW) Urine Appearance (CLEAR) Urine pH (5-6) Ur Specific [place] (1.005-1.025) Urine Protein (Negative) Urine Ketones (NEGATIVE) Urine Blood (0-5) Migel/ul Urine Nitrite (NEGATIVE) Urine Bilirubin (NEGATIVE) Urine Urobilinogen (0-1) mg/dL Ur Leukocyte Esterase (NEGATIVE) Urine Culture Reflexed (NO) Urine Glucose (NEGATIVE) mg/dL Urine Opiates Level (NEGATIVE) Ur Methadone (NEGATIVE) Urine Barbiturates (NEGATIVE) Ur Phencyclidine (PCP) (NEGATIVE) Urine Amphetamine (NEGATIVE) U Benzodiazepine Level (NEGATIVE) Urine Cocaine (NEGATIVE) Urine Marijuana (THC) (NEGATIVE) Slides for Path Review Specimen Received Accuchecks Date 12/06/17 Date 12/05/17 Time 08:10 Time 22:00 Accucheck Value: 95 Accucheck Value: 100 - Radiology Impressions Radiology Exams & Impressions: Radiology Procedures Category Date Time Status CHEST 1 VIEW (PORTABLE) Stat Exams 12/05/17 14:51 Completed HEAD WITHOUT CONTRAST [CT] Stat Exams 12/05/17 14:52 Completed Assessment/Plan (1) Confusion Current Visit: No Status: Acute Onset Date: ~11/16/17 Assessment & Plan: Likely due to ammonia level increase. on admission increased lactulose to 30 QID. Will observe today. Code(s): R41.0 - DISORIENTATION, UNSPECIFIED (2) Hepatic encephalopathy Current Visit: Yes Status: Acute Code(s): K72.90 - HEPATIC FAILURE, UNSPECIFIED WITHOUT COMA (3) Diabetes Current Visit: No Status: Chronic Qualifiers: Diabetes mellitus type: type 2 Code(s): E11.9 - TYPE 2 DIABETES MELLITUS WITHOUT COMPLICATIONS (4) Hyperammonemia Current Visit: No Status: Acute Onset Date: ~11/16/17 Assessment & Plan: recheck this morning. Code(s): E72.20 - DISORDER OF UREA CYCLE METABOLISM, UNSPECIFIED
[2017-12-06 09:06] LABS: ANION GAP 10.9 MEQ/L (5-15); BLOOD UREA NITROGEN 18 mg/dL (9-20); CHLORIDE 110 mmol/L (98-107); Calcium 8.8 mg/dL (8.4-10.2); Carbon Dioxide 21 mmol/L (22-30); Creatinine 1 0.94 mg/dL (0.66-1.25); Glucose 93 mg/dL (74-106); Potassium 3.7 mmol/L (3.5-5.1); SODIUM 139 mmol/L (137-145)
[2017-12-06 09:43] LABS: BASOPHIL % 0.3 % (0.0-0.4); Basophil (Absolute #) 0.01 (0-0.4); Eosinophil % 4.8 % (0.00-5.0); Eosinophil (Absolute #) 0.19 (0-0.5); Granulocyte Absolute (ANC) 2.45 (1.4-6.9); Granulocytes % 62.2 % (36.0-66.0); Hematocrit 31.9 % (42-50); Lymphocyte (Absolute #) 0.86 (1.0-4.6); Lymphocytes % 21.8 % (24.0-44.0); Mean Cell Volume 90.9 fl (78-100); Mean Corpuscular Hemoglobin 31.3 pg (26-32); Mean Corpuscular Hgb Concent. 34.5 g/dl (32-36); Mean Platelet Volume 12.2 fl (6-9.5); Monocyte (Absolute #) 0.43 (0.0-1.3); Monocytes % 10.9 % (0.0-12.0); Platelet Count 50 K/mm3 (150-450); Red Blood Count 3.51 M/mm3 (4.1-5.6); Red Cell Distribution Width 15.4 % (11.5-14.0); White Blood Count 3.9 K/mm3 (4.0-10.5)
[2017-12-06] MEDS: Aldactone 25 MG PO SCH (09:44)
[2017-12-06] MEDS: Lasix 40 MG PO SCH ×2 (09:44→18:04)
[2017-12-06] MEDS: Pepcid 20 MG PO SCH ×2 (09:44→22:05)
[2017-12-06] MEDS: xanAX 0.25 MG PO SCH ×4 (09:44→22:06)
[2017-12-06] MEDS ORDERED: LASIX 20 MG PO SCH (10:00)
[2017-12-06] MEDS ORDERED: NON-FORMULARY ITEM (Ondansetron Hcl [Zofran] 4 MG) PO PRN (10:31)
[2017-12-06] MEDS: Sodium Chloride 0.9% 1000 ML 1,000 ML IV SCH (10:37)
[2017-12-06] MEDS ORDERED: ZOFRAN ODT 4 MG PO PRN (10:39)
[2017-12-06] MEDS: Cipro 500 MG PO SCH ×2 (11:19→22:05)
[2017-12-06] MEDS: Vitamin E 400 UNIT SOFTGEL PO SCH (11:19)
[2017-12-06] MEDS: FEOSOL 325 MG PO SCH (11:20)
[2017-12-06] MEDS: Neurontin 100 MG PO SCH ×3 (11:20→22:05)
[2017-12-06] MEDS: ECOTRIN 81 MG PO SCH (11:20)
[2017-12-06] MEDS: FOLATE 1 MG PO SCH (11:20)
[2017-12-06] MEDS ORDERED: NovoLOG Insulin SQ PRN (11:32)
[2017-12-06] MEDS ORDERED: Prozac 20 MG PO SCH (22:00)
[2017-12-07] MEDS: Oxy-IR 5 MG PO PRN (02:28)
[2017-12-07] MEDS: LACTULOSE 20 GM/30ML UD CUP PO SCH ×2 (05:29→11:21)
[2017-12-07 05:51] LABS: Hematocrit 32.2 % (42-50); Mean Corpuscular Hgb Concent. 34.2 g/dl (32-36); Mean Platelet Volume 11.9 fl (6-9.5); Platelet Count 52 K/mm3 (150-450); Red Blood Count 3.54 M/mm3 (4.1-5.6); Red Cell Distribution Width 15.3 % (11.5-14.0); White Blood Count 3.7 K/mm3 (4.0-10.5)
[2017-12-07 06:04] LABS: ALKALINE PHOSPHATASE 155 U/L (38-126); ANION GAP 10.6 MEQ/L (5-15); BLOOD UREA NITROGEN 17 mg/dL (9-20); CHLORIDE 109 mmol/L (98-107); Calcium 9.3 mg/dL (8.4-10.2); Carbon Dioxide 23 mmol/L (22-30); Creatinine 1 1.04 mg/dL (0.66-1.25); Glucose 114 mg/dL (74-106); Potassium 3.7 mmol/L (3.5-5.1); SGOT/AST 42 U/L (17-59); SGPT/ALT 27 U/L (0-50); SODIUM 139 mmol/L (137-145); Total Protein 5.7 g/dL (6.3-8.2)
[2017-12-07 07:46] VITALS: O2SAT 98
[2017-12-07] MEDS ORDERED: NON-FORMULARY ITEM (Ferrous Sulfate [Ferrous Sulfate] 325 MG) PO SCH (10:00)
[2017-12-07] MEDS ORDERED: BABY ASPIRIN 81 MG CHEW PO SCH (10:00)
[2017-12-07] MEDS: Vitamin E 400 UNIT SOFTGEL PO SCH (11:14)
[2017-12-07] MEDS: Lasix 40 MG PO SCH (11:14)
[2017-12-07] MEDS: Neurontin 100 MG PO SCH (11:14)
[2017-12-07] MEDS: ECOTRIN 81 MG PO SCH (11:14)
[2017-12-07] MEDS: FEOSOL 325 MG PO SCH (11:14)
[2017-12-07] MEDS: Cipro 500 MG PO SCH (11:14)
[2017-12-07] MEDS: FOLATE 1 MG PO SCH (11:14)
[2017-12-07] MEDS: Aldactone 25 MG PO SCH (11:15)
[2017-12-07] MEDS: xanAX 0.25 MG PO SCH (11:15)
[2017-12-07] MEDS: Pepcid 20 MG PO SCH (11:15)
[2017-12-07 11:30] VITALS: BP 141/65; PULSE 85
--- NOTE | 2017-12-07 12:17 | PCM.DCORD ---
- Discharge Discharge Date: 12/07/17 Disposition: Home, Self-Care Condition: Fair Prescriptions: New Lactulose [Lactulose 20 gm/30Ml Ud Cup] 30 gm PO QID #3600 g Continue Ondansetron HCl [Zofran] 4 mg PO Q6H PRN PRN Reason: Nausea Thiamine Mononitrate [Vitamin B-1] 250 mg PO DAILY Ferrous Sulfate 325 mg PO DAILY Furosemide 40 mg [Lasix 40 MG] 40 mg PO BID Zinc Sulfate 220 mg PO DAILY Oxycodone HCl 5 mg PO Q4H PRN PRN PRN Reason: Pain Fluoxetine HCl 10 mg [Prozac 10 mg] 40 mg PO HS Aspirin 81 gm Chew [Baby Aspirin 81 mg Chew] 81 mg PO DAILY Alprazolam 0.25 mg [xanAX 0.25 MG] 0.25 mg PO Q6H Ciprofloxacin [Cipro 500 MG] 500 mg PO BID Famotidine 20 mg [Pepcid 20 MG] 20 mg PO BID Gabapentin 100 mg PO TID Vitamin E 400 Units [Vitamin E 400 UNIT SOFTGEL] 450 units PO DAILY Ascorbic Acid 500 mg [Vitamin C 500 MG] 500 mg PO DAILY Folic Acid 1 mg [Folate 1 mg] 1 mg PO DAILY Spironolactone 25 mg [Aldactone 25 MG] 50 mg PO DAILY Discontinued Lactulose 30 ml PO TID Instructions: Cirrhosis (DC) Follow up with: KANU HERNANDEZ MD [Primary Care Provider] - Call for Appointment Forms: Discharge Instructions, Patient Portal Information
--- NOTE | 2017-12-10 11:56 | DS ---
DISCHARGE DIAGNOSIS: HEPATIC ENCEPHALOPATHY. DISCHARGE PHYSICAL EXAMINATION: VITALS: Temperature current 97.6F, temperature max 98.4F, heart rate 69 to 88, respiratory rate 17 to 20, blood pressure 130 to 172 over 65 to 76, weight 88.1 kg. Oxygen saturation 98 to 100% on room air. GENERAL: The patient is sitting up in bed in no acute distress. His is at the bedside. He is oriented to place and person. He does not know the year. He does know who the President of [facility] is. CVS: He has a regular rate and rhythm. No murmurs, gallops or rubs are appreciated. CHEST: Clear to auscultation bilaterally. ABDOMEN: Soft, nontender, nondistended with no hepatosplenomegaly noted. EXTREMITIES: No clubbing, cyanosis or edema. SKIN: Warm, dry and intact. HOSPITAL COURSE: HEPATIC ENCEPHALOPATHY: He has a history of this. He was more confused at home. His ammonia was checked and was found to be 52 on 12/05/2017. His lactulose was 83 when he first came in on that day. His lactulose is increased from three times a day to four times a day. His ammonia level is down to normal at 23 today. The patient desires to go home. He feels like he will be able to continue to take care of himself at home. His reports that they have support at home with family. DISCHARGE MEDICATIONS: He is resuming all of his home medications. We are increasing the lactulose to four times a day from three times a day and then follow up again closely with Dr. Vasquez. FOLLOW UP: Follow up with his primary care doctor, Dr. Vasquez. DISPOSITION: The patient will be discharged to home in fair condition.
== END 2017-12-07 13:00 | disposition home or self-care (01) ==
LOC: ED 14:02 → MED SURG 17:56
PROVIDERS: ADMIT Family Medicine; ATTEND Family Medicine
DX: K72.90 Hepatic failure, unspecified without coma (principal); R41.82 Altered mental status, unspecified; R41.0 Disorientation, unspecified; E11.9 Type 2 diabetes mellitus without complications; E72.20 Disorder of urea cycle metabolism, unspecified; F41.8 Other specified anxiety disorders
CPT/HCPCS: 36000; 36415; 70450; 71045; 80048; 80053; 80307; 81002; 82140; 82150; 83036; 83690; 84484; 85025; 85027; 85610; 87040; 93005; 93268; 99285; A9270-GY; G0378

== ENCOUNTER 2018-02-28 02:41 | Observation (INO) | payer BC, MEDICAID, SELFPAY ==
--- NOTE | 2018-02-28 03:31 | ERPHSYRPT ---
- History of Present Illness Time Seen by Provider: 02/28/18 03:23 Source: patient, family Exam Limitations: clinical condition Patient Subjective Stated Complaint: Confusion, states he was outside pecking on the bedroom window at 2:00 AM. He said he was out playing cards, but didn't know with who. Pt states he is dizzy. Pt ambulates with slow gait. states his has been c/o right knee pain all day. A&O x Person & Place states it is 10/26 of . 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 thinks the confusion has been building up over the last few days. Triage Nursing Assessment: See above. Physician History: The patient is a 62-year-old male with his complaining of confusion that began the night. His gives see details of the problem. He has known episodes of hepatic encephalopathy and cirrhosis of the liver. He will get confused and will need to be admitted. He has episodes of elevated serum ammonia levels. Tonight he woke her up by tapping on the window of her bedroom from outside. He states that he had people over from his uncles work. They were playing cards in the house. The states that did not happen. The patient is unable to give us the correct location. He states he is in a different hospital. He does not know the year, day, or month. He says it summer going in the winter. He says Joyce is the president. He also had a knee replacement over a year ago that had a problem causing sepsis. He was in ICU for several months. Timing/Duration: today, sudden Severity: moderate Character of Deficits: other (confusion) Baseline/Normal Cognition: alert oriented x 3, alert/disoriented to time Current Cognition: alert but confused, alert/disoriented to time Baseline Gait: walks w/o assistance Associated Symptoms: confusion Allergies/Adverse Reactions: No Known Drug Allergies Allergy (Verified 12/05/17 18:05) Home Medications: Ferrous Sulfate 325 mg PO DAILY 03/12/17 [History] Ondansetron HCl [Zofran] 4 mg PO Q6H PRN 03/12/17 [History] Thiamine Mononitrate [Vitamin B-1] 250 mg PO DAILY 03/12/17 [History] Fluoxetine HCl 10 mg [Prozac 10 mg] 40 mg PO HS 05/02/17 [History] Furosemide 40 mg [Lasix 40 MG] 40 mg PO BID 05/02/17 [History] Oxycodone HCl 5 mg PO Q4H PRN PRN 05/02/17 [History] Zinc Sulfate 220 mg PO DAILY 05/02/17 [History] Alprazolam 0.25 mg [xanAX 0.25 MG] 0.25 mg PO Q6H 11/16/17 [History] Ascorbic Acid 500 mg [Vitamin C 500 MG] 500 mg PO DAILY 11/16/17 [History] Aspirin 81 gm Chew [Baby Aspirin 81 mg Chew] 81 mg PO DAILY 11/16/17 [ History] Ciprofloxacin [Cipro 500 MG] 500 mg PO BID 11/16/17 [History] Famotidine 20 mg [Pepcid 20 MG] 20 mg PO BID 11/16/17 [History] Folic Acid 1 mg [Folate 1 mg] 1 mg PO DAILY 11/16/17 [History] Gabapentin 100 mg PO TID 11/16/17 [History] Spironolactone 25 mg [Aldactone 25 MG] 50 mg PO DAILY 11/16/17 [History] Vitamin E 400 Units [Vitamin E 400 UNIT SOFTGEL] 450 units PO DAILY [History] Hx Tetanus, Diphtheria Vaccination/Date Given: Yes Hx Influenza Vaccination/Date Given: Yes Hx Pneumococcal Vaccination/Date Given: No - Review of Systems Constitutional: No Fever, No Chills Eyes: No Symptoms Ears, Nose, & Throat: No Symptoms Respiratory: No Cough, No Dyspnea Cardiac: No Chest Pain, No Edema, No Syncope Abdominal/Gastrointestinal: No Abdominal Pain, No Nausea, No Vomiting, No Diarrhea Genitourinary Symptoms: No Dysuria Musculoskeletal: No Back Pain, No Neck Pain Skin: No Rash Neurological: Other (confusion), No Dizziness, No Focal Weakness, No Sensory Changes Psychological: No Symptoms Endocrine: No Symptoms Hematologic/Lymphatic: No Symptoms Immunological/Allergic: No Symptoms All Other Systems: Reviewed and Negative - Past Medical History Pertinent Past Medical History: Yes Neurological History: No Pertinent History ENT History: Cataracts Cardiac History: Hypertension Respiratory History: No Pertinent History Endocrine Medical History: Diabetes Type II Musculoskeletal History: Other GI Medical History: Cirrhosis History: Dialysis Psycho-Social History: No Pertinent History Male Reproductive Disorders: No Pertinent History Other Medical History: elevated ammonia, pt has hx of sepsis. Prior dialysis. - Past Surgical History Past Surgical History: Yes Neuro Surgical History: No Pertinent History Cardiac: No Pertinent History Respiratory: No Pertinent History Gastrointestinal: Hernia Repair Genitourinary: No Pertinent History Musculoskeletal: Joint Replacement, Other Male Surgical History: No Pertinent History Other Surgical History: partial RIGHT KNEE REPLACEMENT. cataracts, - Social History Smoking Status: Never smoker Exposure to second hand smoke: No Drug Use: none Patient Lives Alone: No - Nursing Vital Signs Nursing Vital Signs: Initial Vital Signs Temperature 97.6 F 02/28/18 02:46 Pulse Rate 89 02/28/18 02:46 Respiratory Rate 34 H 02/28/18 02:46 Blood Pressure 140/75 02/28/18 02:46 O2 Sat by Pulse Oximetry 99 02/28/18 02:46 Pain Scale Pain Intensity 8 - [place] Coma Scale Best Eye Response ([place]): (4) open spontaneously Best Verbal Response ([place]): (5) oriented Best Motor Response ([place]): (6) obeys commands [place] Total: 15 - Physical Exam General Appearance: mild distress Ears, Nose, Throat Exam: dry mucous membranes Neck Exam: normal inspection, non-tender, supple Respiratory: normal breath sounds, lungs clear, airway intact, No respiratory distress Cardiovascular: regular rate/rhythm, No edema Gastrointestinal: soft, No tenderness, No distention Rectal Exam: not done Back Exam: normal inspection Extremity Exam: swelling (chronic swelling of right leg) Mental Status: alert, disoriented to place, 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 Exam: tongue midline Motor/Sensory: no motor deficit, no sensory deficit Skin Exam: normal color, warm, dry, No rash SpO2 Interpretation: normal SpO2: 99 Oxygen Delivery: Room Air - Course EKG Interpreted by Me: RATE, Sinus Rhythm, NORMAL INTERVALS, NORMAL QRS, NORMAL ST-T, Other (no change compared to EKG from 12/05/17.) - CT Exams Head CT Interpretation: Negative, Tele-radiologist Report (per Dr Sandoval), No/ Intracranial Hemorrhag Ordered Tests: Active Orders 24 hr Category Date Time Status Accucheck STAT Care 02/28/18 03:38 Active Clean Catch Urine Specimen STAT Care 02/28/18 03:38 Active EKG-ER Only STAT Care 02/28/18 03:38 Active IV Insertion STAT Care 02/28/18 03:38 Active HEAD WITHOUT CONTRAST [CT] Stat Exams 02/28/18 04:50 Taken BLOOD CULTURE Stat Lab 02/28/18 04:25 Received CBC W DIFF Stat Lab 02/28/18 03:45 Completed CMP Stat Lab 02/28/18 03:45 Completed Lactic Acid Stat Lab 02/28/18 04:50 Completed TROPONIN Q3H Lab 02/28/18 04:25 Completed TROPONIN Q3H Lab 02/28/18 06:45 Ordered TROPONIN Q3H Lab 02/28/18 09:45 Ordered TROPONIN Q3H Lab 02/28/18 12:45 Ordered TROPONIN Q3H Lab 02/28/18 15:45 Ordered UA W/RFX UR CULTURE Stat Lab 02/28/18 03:45 Completed Urine Triage Profile Stat Lab 02/28/18 03:45 Completed Medication Summary Discontinued Medications Generic Name Dose Route Start Last Admin Trade Name Freq PRN Reason Stop Dose Admin Sodium Chloride 1,000 mls @ 999 mls/hr 02/28/18 03:38 02/28/18 03:56 Sodium Chloride 0.9% 1000 Ml IV 02/28/18 04:38 999 mls/hr .Q1H1M STA Administration Sodium Chloride Confirm 02/28/18 03:44 Sodium Chloride 0.9% 1000 Ml Administered 02/28/18 03:45 Dose 1,000 mls @ ud .ROUTE .STK-MED ONE Lab/Rad Data: Laboratory Result Diagrams 02/28/18 03:45 02/28/18 03:45 Laboratory Results 02/28/18 02/28/18 02/28/18 Range/Units 04:50 04:25 04:25 WBC (4.0-10.5) K/mm3 RBC (4.1-5.6) M/mm3 Hgb (12.5-18.0) gm/dl Hct (42-50) % MCV (78-100) fl MCH (26-32) pg MCHC (32-36) g/dl RDW (11.5-14.0) % Plt Count (150-450) K/mm3 MPV (6-9.5) fl Gran % (36.0-66.0) % Eos # (Auto) (0-0.5) Absolute Lymphs (auto) (1.0-4.6) Absolute Monos (auto) (0.0-1.3) Lymphocytes % (24.0-44.0) % Monocytes % (0.0-12.0) % Eosinophils % (0.00-5.0) % Basophils % (0.0-0.4) % Absolute Granulocytes (1.4-6.9) Basophils # (0-0.4) Sodium (137-145) mmol/L Potassium (3.5-5.1) mmol/L Chloride (98-107) mmol/L Carbon Dioxide (22-30) mmol/L Anion Gap (5-15) MEQ/L BUN (9-20) mg/dL Creatinine (0.66-1.25) mg/dL Estimated GFR ML/MIN Glucose (74-106) mg/dL Lactic Acid 1.1 (0.4-2.0) Calcium (8.4-10.2) mg/dL Total Bilirubin (0.2-1.3) mg/dL AST (17-59) U/L ALT (0-50) U/L Alkaline Phosphatase (38-126) U/L Ammonia 27 (9-30) umol/L Troponin I < 0.012 (0.000-0.034) ng/mL Serum Total Protein (6.3-8.2) g/dL Albumin (3.5-5.0) g/dL Ur Collection Type Urine Color (YELLOW) Urine Appearance (CLEAR) Urine pH (5-6) Ur Specific [place] (1.005-1.025) Urine Protein (Negative) Urine Ketones (NEGATIVE) Urine Blood (0-5) Migel/ul Urine Nitrite (NEGATIVE) Urine Bilirubin (NEGATIVE) Urine Urobilinogen (0-1) mg/dL Ur Leukocyte Esterase (NEGATIVE) Urine Culture Reflexed (NO) Urine Glucose (NEGATIVE) mg/dL Urine Opiates Level (NEGATIVE) Ur Methadone (NEGATIVE) Urine Barbiturates (NEGATIVE) Ur Phencyclidine (PCP) (NEGATIVE) Urine Amphetamine (NEGATIVE) U Benzodiazepine Level (NEGATIVE) Urine Cocaine (NEGATIVE) Urine Marijuana (THC) (NEGATIVE) 02/28/18 02/28/18 02/28/18 Range/Units 03:45 03:45 03:45 WBC (4.0-10.5) K/mm3 RBC (4.1-5.6) M/mm3 Hgb (12.5-18.0) gm/dl Hct (42-50) % MCV (78-100) fl MCH (26-32) pg MCHC (32-36) g/dl RDW (11.5-14.0) % Plt Count (150-450) K/mm3 MPV (6-9.5) fl Gran % (36.0-66.0) % Eos # (Auto) (0-0.5) Absolute Lymphs (auto) (1.0-4.6) Absolute Monos (auto) (0.0-1.3) Lymphocytes % (24.0-44.0) % Monocytes % (0.0-12.0) % Eosinophils % (0.00-5.0) % Basophils % (0.0-0.4) % Absolute Granulocytes (1.4-6.9) Basophils # (0-0.4) Sodium 136 L (137-145) mmol/L Potassium 4.1 (3.5-5.1) mmol/L Chloride 113 H (98-107) mmol/L Carbon Dioxide 14 L* (22-30) mmol/L Anion Gap 13.7 (5-15) MEQ/L BUN 20 (9-20) mg/dL Creatinine 0.89 (0.66-1.25) mg/dL Estimated GFR > 60.0 ML/MIN Glucose 113 H (74-106) mg/dL Lactic Acid (0.4-2.0) Calcium 9.9 (8.4-10.2) mg/dL Total Bilirubin 1.70 H (0.2-1.3) mg/dL AST 41 (17-59) U/L ALT 23 (0-50) U/L Alkaline Phosphatase 179 H (38-126) U/L Ammonia (9-30) umol/L Troponin I (0.000-0.034) ng/mL Serum Total Protein 6.0 L (6.3-8.2) g/dL Albumin 3.3 L (3.5-5.0) g/dL Ur Collection Type CLEAN CATCH Urine Color YELLOW (YELLOW) Urine Appearance CLEAR (CLEAR) Urine pH 6.0 (5-6) Ur Specific [place] 1.015 (1.005-1.025) Urine Protein NEGATIVE (Negative) Urine Ketones NEGATIVE (NEGATIVE) Urine Blood NEGATIVE (0-5) Migel/ul Urine Nitrite NEGATIVE (NEGATIVE) Urine Bilirubin NEGATIVE (NEGATIVE) Urine Urobilinogen NORMAL (0-1) mg/dL Ur Leukocyte Esterase NEGATIVE (NEGATIVE) Urine Culture Reflexed NO (NO) Urine Glucose NEGATIVE (NEGATIVE) mg/dL Urine Opiates Level NEGATIVE (NEGATIVE) Ur Methadone NEGATIVE (NEGATIVE) Urine Barbiturates NEGATIVE (NEGATIVE) Ur Phencyclidine (PCP) NEGATIVE (NEGATIVE) Urine Amphetamine NEGATIVE (NEGATIVE) U Benzodiazepine Level POSITIVE (NEGATIVE) Urine Cocaine NEGATIVE (NEGATIVE) Urine Marijuana (THC) NEGATIVE (NEGATIVE) 02/28/18 Range/Units 03:45 WBC 8.0 (4.0-10.5) K/mm3 RBC 3.36 L (4.1-5.6) M/mm3 Hgb 11.0 L (12.5-18.0) gm/dl Hct 30.7 L (42-50) % MCV 91.4 (78-100) fl MCH 32.7 H (26-32) pg MCHC 35.8 (32-36) g/dl RDW 14.6 H (11.5-14.0) % Plt Count 63 L (150-450) K/mm3 MPV 10.8 H (6-9.5) fl Gran % 77.2 H (36.0-66.0) % Eos # (Auto) 0.18 (0-0.5) Absolute Lymphs (auto) 0.84 L (1.0-4.6) Absolute Monos (auto) 0.80 (0.0-1.3) Lymphocytes % 10.4 L (24.0-44.0) % Monocytes % 10.0 (0.0-12.0) % Eosinophils % 2.2 (0.00-5.0) % Basophils % 0.2 (0.0-0.4) % Absolute Granulocytes 6.20 (1.4-6.9) Basophils # 0.02 (0-0.4) Sodium (137-145) mmol/L Potassium (3.5-5.1) mmol/L Chloride (98-107) mmol/L Carbon Dioxide (22-30) mmol/L Anion Gap (5-15) MEQ/L BUN (9-20) mg/dL Creatinine (0.66-1.25) mg/dL Estimated GFR ML/MIN Glucose (74-106) mg/dL Lactic Acid (0.4-2.0) Calcium (8.4-10.2) mg/dL Total Bilirubin (0.2-1.3) mg/dL AST (17-59) U/L ALT (0-50) U/L Alkaline Phosphatase (38-126) U/L Ammonia (9-30) umol/L Troponin I (0.000-0.034) ng/mL Serum Total Protein (6.3-8.2) g/dL Albumin (3.5-5.0) g/dL Ur Collection Type Urine Color (YELLOW) Urine Appearance (CLEAR) Urine pH (5-6) Ur Specific [place] (1.005-1.025) Urine Protein (Negative) Urine Ketones (NEGATIVE) Urine Blood (0-5) Migel/ul Urine Nitrite (NEGATIVE) Urine Bilirubin (NEGATIVE) Urine Urobilinogen (0-1) mg/dL Ur Leukocyte Esterase (NEGATIVE) Urine Culture Reflexed (NO) Urine Glucose (NEGATIVE) mg/dL Urine Opiates Level (NEGATIVE) Ur Methadone (NEGATIVE) Urine Barbiturates (NEGATIVE) Ur Phencyclidine (PCP) (NEGATIVE) Urine Amphetamine (NEGATIVE) U Benzodiazepine Level (NEGATIVE) Urine Cocaine (NEGATIVE) Urine Marijuana (THC) (NEGATIVE) - Progress Progress: unchanged Discussed with : Pedro Will see patient in: hospital (observation) Counseled pt/family regarding: lab results, diagnosis, rad results - Departure Time of Disposition: 05:26 Departure Disposition: Observation (per Dr Hernandez) Clinical Impression: Altered mental status, unspecified Condition: Stable Critical Care Time: No Referrals: KANU HERNANDEZ MD [Primary Care Provider] -
[2018-02-28] MEDS ORDERED: Sodium Chloride 0.9% 1000 ML 1,000 ML IV STA (03:38)
[2018-02-28] MEDS ORDERED: Sodium Chloride 0.9% 1000 ML 1,000 ML ONE (03:44)
[2018-02-28 04:40] LABS: BASOPHIL % 0.2 % (0.0-0.4); Basophil (Absolute #) 0.02 (0-0.4); Eosinophil % 2.2 % (0.00-5.0); Eosinophil (Absolute #) 0.18 (0-0.5); Granulocytes % 77.2 % (36.0-66.0); Hematocrit 30.7 % (42-50); Lymphocyte (Absolute #) 0.84 (1.0-4.6); Lymphocytes % 10.4 % (24.0-44.0); Mean Cell Volume 91.4 fl (78-100); Mean Corpuscular Hemoglobin 32.7 pg (26-32); Mean Corpuscular Hgb Concent. 35.8 g/dl (32-36); Mean Platelet Volume 10.8 fl (6-9.5); Platelet Count 63 K/mm3 (150-450); Red Blood Count 3.36 M/mm3 (4.1-5.6); Red Cell Distribution Width 14.6 % (11.5-14.0)
[2018-02-28 04:52] LABS: Appearance CLEAR (CLEAR); Glucose NEGATIVE (NEGATIVE); Leukocyte Esterase NEGATIVE (NEGATIVE); Nitrite NEGATIVE (NEGATIVE); Protein,Urine Dip NEGATIVE (Negative); Specific Gravity 1.015 (1.005-1.025)
[2018-02-28 04:53] LABS: Bilirubin NEGATIVE (NEGATIVE); Blood NEGATIVE Ery/ul (0-5); Ketones NEGATIVE (NEGATIVE); Urobilinogen NORMAL mg/dL (0-1)
[2018-02-28 04:55] LABS: ALBUMIN 3.3 g/dL (3.5-5.0); ALKALINE PHOSPHATASE 179 U/L (38-126); ANION GAP 13.7 MEQ/L (5-15); BLOOD UREA NITROGEN 20 mg/dL (9-20); CHLORIDE 113 mmol/L (98-107); Calcium 9.9 mg/dL (8.4-10.2); Creatinine 1 0.89 mg/dL (0.66-1.25); Glucose 113 mg/dL (74-106); Potassium 4.1 mmol/L (3.5-5.1); SGOT/AST 41 U/L (17-59); SGPT/ALT 23 U/L (0-50); SODIUM 136 mmol/L (137-145)
[2018-02-28 05:02] LABS: Carbon Dioxide 14 mmol/L (22-30)
[2018-02-28 05:04] LABS: Amphetamine,Urine NEGATIVE (NEGATIVE); Barbiturate,Urine NEGATIVE (NEGATIVE); Benzodiazepine,Urine POSITIVE (NEGATIVE); Cocaine,Urine NEGATIVE (NEGATIVE); Methadone,Urine NEGATIVE (NEGATIVE); Opiate,Urine NEGATIVE (NEGATIVE); PCP,Urine NEGATIVE (NEGATIVE); THC,Urine NEGATIVE (NEGATIVE)
[2018-02-28 05:41] LABS: Slide Review 1 YES
[2018-02-28] MEDS ORDERED: TYLENOL 325 MG PO PRN (06:16)
[2018-02-28] MEDS ORDERED: Zofran 4 MG/2 ML VIAL IV PRN (06:16)
[2018-02-28] MEDS: Sodium Chloride 0.9% 1000 ML 1,000 ML IV SCH (06:58)
[2018-02-28] MEDS ORDERED: xanAX 0.25 MG PO PRN (08:19)
[2018-02-28] MEDS ORDERED: Oxy-IR 5 MG PO PRN (08:27)
--- NOTE | 2018-02-28 08:32 | PCM.HP ---
History of Present Illness - Chief Complaint Chief Complaint: altered mental status History of Present Illness: is a 62 year old male with a complicated medical history who presented to the ER early this morning, his reports he was knocking on the window of their home at 1:30am and told her he had been playing cards but not sure with who or where. He is disoriented to place and time on arrival, thinks the year is "80". He has a history of cirrhosis and normally has hyperammonemia when these episodes occur but this is negative today. 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 He is on cipro chronically for this by his orthopedist at [facility]. He takes oxycodone as needed for pain but hasn't actually had any for the last couple of days, takes a low dose of xanax for anxiety but there have been no medication changes. There has been no fever, no cough, no difficulty urinating. No swelling or redness in the knee etc. - Review of Systems Constitutional: No Fever, No Chills Respiratory: No Cough, No Short Of Breath Cardiac: No Chest Pain, No Edema, No Syncope Abdominal/Gastrointestinal: No Abdominal Pain, No Nausea, No Vomiting, No Diarrhea Genitourinary Symptoms: No Dysuria Neurological: No Dizziness, No Focal Weakness, No Headache, No Paralysis, No Parasthesia, No Seizure, No Sensory Changes, No Speech Changes Psychological: No Alcohol Abuse, No Drug Abuse All Other Systems: Reviewed and Negative Medications & Allergies Home Medications: Home Medication List Ferrous Sulfate 325 mg PO BID 03/12/17 [History Confirmed 02/28/18] Ondansetron HCl [Zofran] 4 mg PO Q6H PRN 03/12/17 [History Confirmed 02/28/18] Thiamine Mononitrate [Vitamin B-1] 250 mg PO DAILY 03/12/17 [History Confirmed 02/28/18] Oxycodone HCl 5 mg PO Q4H PRN PRN 05/02/17 [History Confirmed 02/28/18] Zinc Sulfate 220 mg PO BID 05/02/17 [History Confirmed 02/28/18] Alprazolam 0.25 mg [xanAX 0.25 MG] 0.25 mg PO Q6H 11/16/17 [History Confirmed 02/28/18] Ascorbic Acid 500 mg [Vitamin C 500 MG] 500 mg PO DAILY 11/16/17 [History Confirmed 02/28/18] Aspirin 81 gm Chew [Baby Aspirin 81 mg Chew] 81 mg PO BID 11/16/17 [ History Confirmed 02/28/18] Ciprofloxacin [Cipro 500 MG] 500 mg PO BID 11/16/17 [History Confirmed ] Famotidine 20 mg [Pepcid 20 MG] 20 mg PO BID 11/16/17 [History Confirmed 02/28/18] Folic Acid 1 mg [Folate 1 mg] 1 mg PO DAILY 11/16/17 [History Confirmed ] Spironolactone 25 mg [Aldactone 25 MG] 50 mg PO DAILY 11/16/17 [History Confirmed 02/28/18] Vitamin E 400 Units [Vitamin E 400 UNIT SOFTGEL] 450 units PO DAILY [History Confirmed 02/28/18] Lactulose [Lactulose 20 gm/30Ml Ud Cup] 30 gm PO QID #3600 g 12/07/17 [Rx Confirmed 02/28/18] Escitalopram Oxalate 10 mg [Lexapro 10 MG] 10 mg PO DAILY 02/28/18 [History Confirmed 02/28/18] Rifaximin [Xifaxan] 550 mg PO BID 02/28/18 [History Confirmed 02/28/18] Allergies/Adverse Reactions: Allergies Allergy/AdvReac Type Severity Reaction Status Date / Time No Known Drug Allergies Allergy Verified 12/05/17 18:05 - Past Medical History Past Medical History: Yes Neurological History: No Pertinent History ENT History: Cataracts Cardiac History: Hypertension Respiratory History: No Pertinent History Endocrine Medical History: Diabetes Type II Musculoskelatal History: Other GI Medical History: Cirrhosis History: Dialysis Pyscho-Social History: No Pertinent History Male Reproductive Disorders: No Pertinent History Comment: elevated ammonia, pt has hx of sepsis. Prior dialysis. - Past Surgical History Past Surgical History: Yes Neuro Surgical History: No Pertinent History Cardiac History: No Pertinent History Respiratory Surgery: No Pertinent History GI Surgical History: Hernia Repair Genitourinary Surgical Hx: No Pertinent History Musculskeletal Surgical Hx: Joint Replacement, Other Male Surgical History: No Pertinent History Other Surgical History: partial RIGHT KNEE REPLACEMENT. 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, sensation nml, confusion, No oriented x 3 (disoriented to time, oriented to person and place), No motor deficits, No sensory deficit, No agitation, No intoxicated appearance, No facial droop, No slurred speech Eye Exam: PERRL/EOMI, eyes nml inspection Respiratory Exam: normal breath sounds, lungs clear, No respiratory distress Cardiovascular Exam: regular rate/rhythm, normal heart sounds, normal peripheral pulses Gastrointestinal/Abdomen Exam: soft, normal bowel sounds, No tenderness, No mass Extremity Exam: normal inspection, normal range of motion, pelvis stable, other (right knee with well healed surgical scar. no significant redness, warmth etc) Skin Exam: normal color, warm, dry, No rash Results - Labs Lab/Micro Results: Accuchecks Accucheck Value: 120 Lab Results-Last 24 Hours 02/28/18 02/28/18 02/28/18 Range/Units 03:45 03:45 03:45 WBC 8.0 (4.0-10.5) K/mm3 RBC 3.36 L (4.1-5.6) M/mm3 Hgb 11.0 L (12.5-18.0) gm/dl Hct 30.7 L (42-50) % MCV 91.4 (78-100) fl MCH 32.7 H (26-32) pg MCHC 35.8 (32-36) g/dl RDW 14.6 H (11.5-14.0) % Plt Count 63 L (150-450) K/mm3 MPV 10.8 H (6-9.5) fl Gran % 77.2 H (36.0-66.0) % Eos # (Auto) 0.18 (0-0.5) Absolute Lymphs (auto) 0.84 L (1.0-4.6) Absolute Monos (auto) 0.80 (0.0-1.3) Lymphocytes % 10.4 L (24.0-44.0) % Monocytes % 10.0 (0.0-12.0) % Eosinophils % 2.2 (0.00-5.0) % Basophils % 0.2 (0.0-0.4) % Absolute Granulocytes 6.20 (1.4-6.9) Basophils # 0.02 (0-0.4) Sodium 136 L (137-145) mmol/L Potassium 4.1 (3.5-5.1) mmol/L Chloride 113 H (98-107) mmol/L Carbon Dioxide 14 L* (22-30) mmol/L Anion Gap 13.7 (5-15) MEQ/L BUN 20 (9-20) mg/dL Creatinine 0.89 (0.66-1.25) mg/dL Estimated GFR > 60.0 ML/MIN Glucose 113 H (74-106) mg/dL Lactic Acid (0.4-2.0) Calcium 9.9 (8.4-10.2) mg/dL Total Bilirubin 1.70 H (0.2-1.3) mg/dL AST 41 (17-59) U/L ALT 23 (0-50) U/L Alkaline Phosphatase 179 H (38-126) U/L Ammonia (9-30) umol/L Troponin I (0.000-0.034) ng/mL Serum Total Protein 6.0 L (6.3-8.2) g/dL Albumin 3.3 L (3.5-5.0) g/dL Ur Collection Type CLEAN CATCH Urine Color YELLOW (YELLOW) Urine Appearance CLEAR (CLEAR) Urine pH 6.0 (5-6) Ur Specific [place] 1.015 (1.005-1.025) Urine Protein NEGATIVE (Negative) Urine Ketones NEGATIVE (NEGATIVE) Urine Blood NEGATIVE (0-5) Migel/ul Urine Nitrite NEGATIVE (NEGATIVE) Urine Bilirubin NEGATIVE (NEGATIVE) Urine Urobilinogen NORMAL (0-1) mg/dL Ur Leukocyte Esterase NEGATIVE (NEGATIVE) Urine Culture Reflexed NO (NO) Urine Glucose NEGATIVE (NEGATIVE) mg/dL Urine Opiates Level (NEGATIVE) Ur Methadone (NEGATIVE) Urine Barbiturates (NEGATIVE) Ur Phencyclidine (PCP) (NEGATIVE) Urine Amphetamine (NEGATIVE) U Benzodiazepine Level (NEGATIVE) Urine Cocaine (NEGATIVE) Urine Marijuana (THC) (NEGATIVE) Slides for Path Review YES 02/28/18 02/28/18 02/28/18 Range/Units 03:45 04:25 04:25 WBC (4.0-10.5) K/mm3 RBC (4.1-5.6) M/mm3 Hgb (12.5-18.0) gm/dl Hct (42-50) % MCV (78-100) fl MCH (26-32) pg MCHC (32-36) g/dl RDW (11.5-14.0) % Plt Count (150-450) K/mm3 MPV (6-9.5) fl Gran % (36.0-66.0) % Eos # (Auto) (0-0.5) Absolute Lymphs (auto) (1.0-4.6) Absolute Monos (auto) (0.0-1.3) Lymphocytes % (24.0-44.0) % Monocytes % (0.0-12.0) % Eosinophils % (0.00-5.0) % Basophils % (0.0-0.4) % Absolute Granulocytes (1.4-6.9) Basophils # (0-0.4) Sodium (137-145) mmol/L Potassium (3.5-5.1) mmol/L Chloride (98-107) mmol/L Carbon Dioxide (22-30) mmol/L Anion Gap (5-15) MEQ/L BUN (9-20) mg/dL Creatinine (0.66-1.25) mg/dL Estimated GFR ML/MIN Glucose (74-106) mg/dL Lactic Acid (0.4-2.0) Calcium (8.4-10.2) mg/dL Total Bilirubin (0.2-1.3) mg/dL AST (17-59) U/L ALT (0-50) U/L Alkaline Phosphatase (38-126) U/L Ammonia 27 (9-30) umol/L Troponin I < 0.012 (0.000-0.034) ng/mL Serum Total Protein (6.3-8.2) g/dL Albumin (3.5-5.0) g/dL Ur Collection Type Urine Color (YELLOW) Urine Appearance (CLEAR) Urine pH (5-6) Ur Specific [place] (1.005-1.025) Urine Protein (Negative) Urine Ketones (NEGATIVE) Urine Blood (0-5) Migel/ul Urine Nitrite (NEGATIVE) Urine Bilirubin (NEGATIVE) Urine Urobilinogen (0-1) mg/dL Ur Leukocyte Esterase (NEGATIVE) Urine Culture Reflexed (NO) Urine Glucose (NEGATIVE) mg/dL Urine Opiates Level NEGATIVE (NEGATIVE) Ur Methadone NEGATIVE (NEGATIVE) Urine Barbiturates NEGATIVE (NEGATIVE) Ur Phencyclidine (PCP) NEGATIVE (NEGATIVE) Urine Amphetamine NEGATIVE (NEGATIVE) U Benzodiazepine Level POSITIVE (NEGATIVE) Urine Cocaine NEGATIVE (NEGATIVE) Urine Marijuana (THC) NEGATIVE (NEGATIVE) Slides for Path Review 02/28/18 02/28/18 Range/Units 04:50 06:45 WBC (4.0-10.5) K/mm3 RBC (4.1-5.6) M/mm3 Hgb (12.5-18.0) gm/dl Hct (42-50) % MCV (78-100) fl MCH (26-32) pg MCHC (32-36) g/dl RDW (11.5-14.0) % Plt Count (150-450) K/mm3 MPV (6-9.5) fl Gran % (36.0-66.0) % Eos # (Auto) (0-0.5) Absolute Lymphs (auto) (1.0-4.6) Absolute Monos (auto) (0.0-1.3) Lymphocytes % (24.0-44.0) % Monocytes % (0.0-12.0) % Eosinophils % (0.00-5.0) % Basophils % (0.0-0.4) % Absolute Granulocytes (1.4-6.9) Basophils # (0-0.4) Sodium (137-145) mmol/L Potassium (3.5-5.1) mmol/L Chloride (98-107) mmol/L Carbon Dioxide (22-30) mmol/L Anion Gap (5-15) MEQ/L BUN (9-20) mg/dL Creatinine (0.66-1.25) mg/dL Estimated GFR ML/MIN Glucose (74-106) mg/dL Lactic Acid 1.1 (0.4-2.0) Calcium (8.4-10.2) mg/dL Total Bilirubin (0.2-1.3) mg/dL AST (17-59) U/L ALT (0-50) U/L Alkaline Phosphatase (38-126) U/L Ammonia (9-30) umol/L Troponin I < 0.012 (0.000-0.034) ng/mL Serum Total Protein (6.3-8.2) g/dL Albumin (3.5-5.0) g/dL Ur Collection Type Urine Color (YELLOW) Urine Appearance (CLEAR) Urine pH (5-6) Ur Specific [place] (1.005-1.025) Urine Protein (Negative) Urine Ketones (NEGATIVE) Urine Blood (0-5) Migel/ul Urine Nitrite (NEGATIVE) Urine Bilirubin (NEGATIVE) Urine Urobilinogen (0-1) mg/dL Ur Leukocyte Esterase (NEGATIVE) Urine Culture Reflexed (NO) Urine Glucose (NEGATIVE) mg/dL Urine Opiates Level (NEGATIVE) Ur Methadone (NEGATIVE) Urine Barbiturates (NEGATIVE) Ur Phencyclidine (PCP) (NEGATIVE) Urine Amphetamine (NEGATIVE) U Benzodiazepine Level (NEGATIVE) Urine Cocaine (NEGATIVE) Urine Marijuana (THC) (NEGATIVE) Slides for Path Review Accuchecks Accucheck Value: 120 - Radiology Impressions Radiology Exams & Impressions: Radiology Procedures Category Date Time Status HEAD WITHOUT CONTRAST [CT] Stat Exams 02/28/18 04:50 Taken MRA BRAIN WITH CONTRAST [MRI] Stat Exams 02/28/18 06:16 Ordered Assessment/Plan (1) Metabolic acidosis Current Visit: Yes Status: Acute Assessment & Plan: will hold aspirin, check renin/aldosterone ratio. 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 will consult nephrology Dr Coelho. renal function appears stable at this time. 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
[2018-02-28] MEDS ORDERED: NovoLOG Insulin SQ PRN (08:43)
--- NOTE | 2018-02-28 09:00 | XRAY ---
Indication: Confusion. Multiple contiguous axial images obtained through the head without contrast. Comparison: December 05, 2017. Again several images are slightly degraded by motion artifact even with repeat CT. No acute intracranial hemorrhage, abnormal extra-axial fluid collection, or mass effect. Fourth ventricle is midline without hydrocephalus. Chin-white matter differentiation preserved. Bony calvarium intact. Visualized paranasal sinuses and mastoid air cells are clear. Impression: Again motion artifact. Remaining CT head without contrast exam again grossly negative. Comment: Preliminary interpretation was made by [facility]. No discrepancy. CT DI 58.18
[2018-02-28] MEDS ORDERED: THIAMINE MONONITRATE 250 MG PO SCH (10:00)
[2018-02-28] MEDS ORDERED: RIFAXIMIN 550 MG PO SCH (10:00)
[2018-02-28] MEDS ORDERED: NON-FORMULARY ITEM (Ferrous Sulfate [Ferrous Sulfate] 325 MG) PO SCH (10:00)
[2018-02-28] MEDS ORDERED: BABY ASPIRIN 81 MG CHEW PO SCH (10:00)
[2018-02-28] MEDS ORDERED: ECOTRIN 81 MG PO SCH (10:00)
[2018-02-28] MEDS: Lexapro 10 MG PO SCH (10:06)
[2018-02-28] MEDS: Cipro 500 MG PO SCH ×2 (10:06→21:15)
[2018-02-28] MEDS: Aldactone 25 MG PO SCH (10:06)
[2018-02-28] MEDS: Pepcid 20 MG PO SCH ×2 (10:07→21:14)
[2018-02-28] MEDS: FOLATE 1 MG PO SCH (10:07)
[2018-02-28] MEDS: VITAMIN B-1 100 MG PO SCH (10:07)
[2018-02-28] MEDS: Vitamin C 500 MG PO SCH (10:07)
[2018-02-28] MEDS: FEOSOL 325 MG PO SCH ×2 (10:08→21:14)
[2018-02-28] MEDS: Xifaxan 200 MG PO SCH ×2 (10:08→21:15)
[2018-02-28] MEDS: Zinc Gluconate 50 MG PO SCH ×2 (10:09→21:19)
[2018-02-28] MEDS: Vitamin E 400 UNIT SOFTGEL PO SCH (10:09)
[2018-02-28] MEDS: LACTULOSE 20 GM/30ML UD CUP PO SCH ×4 (10:17→21:20)
--- NOTE | 2018-02-28 10:17 | XRAY ---
Indication: Confusion. Only sagittal and axial limited MRI brain was performed without contrast using T2, diffusion, and ADC weighted sequences. This was due to patient unable to lay still for completion of exam. Comparison: None. There is same-day CT head exam. Several images slightly degraded by motion artifact. Age-appropriate global atrophy and minimal periventricular degenerative micro-ischemia signal. Diffusion images are negative for restricted signal. No abnormal extra axial fluid collection, hydrocephalus, or mass effect. 7/8 cranial nerve complex bilaterally symmetric. Normal flow void signal within the major intracerebral circulation. Normal-appearing craniocervical junction and sella turcica. Right occipital bone demonstrates 9 mm cyst. Minimal mucosal thickening of both maxillary sinuses inferiorly. Impression: 1. Limited incomplete exam as discussed. 2. Normal aging atrophy and degenerative micro-ischemia. 3. Remaining limited MRI brain without contrast exam is negative. 4. Incidental occipital bone cyst and minimal paranasal sinus disease.
--- NOTE | 2018-02-28 10:19 | XRAY ---
Indication: Confusion. Comparison: December 05, 2017. Portable chest remains clear. Heart and mediastinal structures within normal limits. Bony thorax intact. No new/acute findings. Impression: Stable nonacute chest.
[2018-02-28 16:08] LABS: Vitamin B12 739 pg/mL (239-931)
[2018-02-28 16:09] LABS: Folate (Folic Acid) > 20.0 ng/mL (2.76 - >20)
[2018-02-28] MEDS: Sodium Bicarbonate 50 MEQ/50 ML VIAL*** 150 MEQ in Dextrose 5%/Water IV Soln. 1000 ML 1... IV SCH (17:45)
[2018-02-28] MEDS: NON-FORMULARY ITEM PO SCH ×2 (17:46→21:17)
[2018-03-01] MEDS: Sodium Bicarbonate 50 MEQ/50 ML VIAL*** 150 MEQ in Dextrose 5%/Water IV Soln. 1000 ML 1... IV SCH ×2 (05:14→17:04)
[2018-03-01 05:25] LABS: BASOPHIL % 0.4 % (0.0-0.4); Basophil (Absolute #) 0.02 (0-0.4); Eosinophil % 3.7 % (0.00-5.0); Granulocyte Absolute (ANC) 3.86 (1.4-6.9); Granulocytes % 72.2 % (36.0-66.0); Hematocrit 28.4 % (42-50); Hemoglobin 10.3 gm/dl (12.5-18.0); Lymphocyte (Absolute #) 0.74 (1.0-4.6); Lymphocytes % 13.8 % (24.0-44.0); Mean Cell Volume 90.4 fl (78-100); Mean Corpuscular Hemoglobin 32.8 pg (26-32); Mean Corpuscular Hgb Concent. 36.3 g/dl (32-36); Mean Platelet Volume 9.8 fl (6-9.5); Monocyte (Absolute #) 0.53 (0.0-1.3); Monocytes % 9.9 % (0.0-12.0); Platelet Count 57 K/mm3 (150-450); Red Blood Count 3.14 M/mm3 (4.1-5.6); Red Cell Distribution Width 14.7 % (11.5-14.0); White Blood Count 5.4 K/mm3 (4.0-10.5)
[2018-03-01 05:55] LABS: ALBUMIN 2.7 g/dL (3.5-5.0); ALKALINE PHOSPHATASE 94 U/L (38-126); ANION GAP 9.9 MEQ/L (5-15); BLOOD UREA NITROGEN 15 mg/dL (9-20); CHLORIDE 115 mmol/L (98-107); Calcium 9.4 mg/dL (8.4-10.2); Carbon Dioxide 17 mmol/L (22-30); Creatinine 1 0.73 mg/dL (0.66-1.25); Glucose 122 mg/dL (74-106); Potassium 3.5 mmol/L (3.5-5.1); SGOT/AST 35 U/L (17-59); SGPT/ALT 20 U/L (0-50); SODIUM 138 mmol/L (137-145); Total Protein 5.3 g/dL (6.3-8.2)
[2018-03-01 08:25] LABS: Slide Review 1 YES
[2018-03-01] MEDS: Aldactone 25 MG PO SCH (09:54)
[2018-03-01] MEDS: LACTULOSE 20 GM/30ML UD CUP PO SCH ×4 (09:54→21:37)
[2018-03-01] MEDS: Pepcid 20 MG PO SCH ×2 (09:55→21:36)
[2018-03-01] MEDS: FOLATE 1 MG PO SCH (09:55)
[2018-03-01] MEDS: NON-FORMULARY ITEM PO SCH ×3 (09:55→21:38)
[2018-03-01] MEDS: Vitamin C 500 MG PO SCH (09:55)
[2018-03-01] MEDS: Lexapro 10 MG PO SCH (09:55)
[2018-03-01] MEDS: VITAMIN B-1 100 MG PO SCH (09:55)
[2018-03-01] MEDS: FEOSOL 325 MG PO SCH ×2 (09:55→21:36)
[2018-03-01] MEDS: Zinc Gluconate 50 MG PO SCH ×2 (09:56→21:37)
[2018-03-01] MEDS: Vitamin E 400 UNIT SOFTGEL PO SCH (09:56)
[2018-03-01] MEDS: Xifaxan 200 MG PO SCH ×2 (09:57→21:37)
[2018-03-01] MEDS: Cipro 500 MG PO SCH ×2 (09:58→21:37)
--- NOTE | 2018-03-01 15:33 | PCM.NOTE ---
Date and Time: 03/01/18 1529 Subjective Assessment: He is feeling much better today. R leg not hurting. Has been having diarrhea with lactulose. Knows he is in [facility], and knows it is February "... I mean 18." - Review of Systems Constitutional: No Fever Abdominal/Gastrointestinal: No Vomiting Objective Exam General Appearance: no apparent distress, alert Neurologic Exam: oriented x 3, cooperative Skin Exam: normal color, warm, dry, No rash Respiratory Exam: normal breath sounds, lungs clear, No crackles/rales, No rhonchi, No wheezing Cardiovascular Exam: regular rate/rhythm, normal heart sounds, No murmur Extremity Exam: other (RLE with healed incision with tiny midline defect, no exudate or erythema or induration) Back Exam: normal inspection, No rash OBJECTIVE DATA Vital Signs: Vital Signs - 24 hr Temp Pulse Resp BP Pulse Ox 03/01/18 11:22 98.6 F 72 18 142/62 97 03/01/18 07:06 98.2 F 76 18 148/66 98 03/01/18 04:00 98.6 F 75 18 135/64 99 02/28/18 23:28 98.6 F 74 18 145/65 98 02/28/18 20:00 97.8 F 75 18 143/69 99 02/28/18 16:00 98.2 F 72 20 147/66 99 Pain Assessment - Last Documented Pain Intensity 1 Pain Scale Used 0-10 Pain Scale Intake and Output: Intake & Output 02/27/18 02/28/18 03/01/18 03/02/18 11:59 11:59 11:59 11:59 Intake Total 120 3064 240 Output Total 600 Balance 120 2464 240 Weight 96.1 kg Lab Results: Accuchecks Date 03/01/18 Date 03/01/18 Date 02/28/18 Time 11:30 Time 07:30 Time 21:00 Accucheck Value: 138 Accucheck Value: 135 Accucheck Value: 118 Lab Results-Last 24 Hours 02/28/18 02/28/18 03/01/18 Range/Units 09:53 16:29 05:10 WBC 5.4 (4.0-10.5) K/mm3 RBC 3.14 L (4.1-5.6) M/mm3 Hgb 10.3 L (12.5-18.0) gm/dl Hct 28.4 L (42-50) % MCV 90.4 (78-100) fl MCH 32.8 H (26-32) pg MCHC 36.3 H (32-36) g/dl RDW 14.7 H (11.5-14.0) % Plt Count 57 L (150-450) K/mm3 MPV 9.8 H (6-9.5) fl Gran % 72.2 H (36.0-66.0) % Eos # (Auto) 0.20 (0-0.5) Absolute Lymphs (auto) 0.74 L (1.0-4.6) Absolute Monos (auto) 0.53 (0.0-1.3) Lymphocytes % 13.8 L (24.0-44.0) % Monocytes % 9.9 (0.0-12.0) % Eosinophils % 3.7 (0.00-5.0) % Basophils % 0.4 (0.0-0.4) % Absolute Granulocytes 3.86 (1.4-6.9) Basophils # 0.02 (0-0.4) Sodium (137-145) mmol/L Potassium (3.5-5.1) mmol/L Chloride (98-107) mmol/L Carbon Dioxide (22-30) mmol/L Anion Gap (5-15) MEQ/L BUN (9-20) mg/dL Creatinine (0.66-1.25) mg/dL Estimated GFR ML/MIN Glucose (74-106) mg/dL Calcium (8.4-10.2) mg/dL Magnesium (1.6-2.3) mg/dL Total Bilirubin (0.2-1.3) mg/dL AST (17-59) U/L ALT (0-50) U/L Alkaline Phosphatase (38-126) U/L Ammonia (9-30) umol/L Troponin I 0.013 (0.000-0.034) ng/mL Serum Total Protein (6.3-8.2) g/dL Albumin (3.5-5.0) g/dL Vitamin B12 739 (239-931) pg/mL Folic Acid > 20.0 (2.76 - >20) ng/mL Slides for Path Review YES 03/01/18 03/01/18 03/01/18 Range/Units 05:10 05:10 05:10 WBC (4.0-10.5) K/mm3 RBC (4.1-5.6) M/mm3 Hgb (12.5-18.0) gm/dl Hct (42-50) % MCV (78-100) fl MCH (26-32) pg MCHC (32-36) g/dl RDW (11.5-14.0) % Plt Count (150-450) K/mm3 MPV (6-9.5) fl Gran % (36.0-66.0) % Eos # (Auto) (0-0.5) Absolute Lymphs (auto) (1.0-4.6) Absolute Monos (auto) (0.0-1.3) Lymphocytes % (24.0-44.0) % Monocytes % (0.0-12.0) % Eosinophils % (0.00-5.0) % Basophils % (0.0-0.4) % Absolute Granulocytes (1.4-6.9) Basophils # (0-0.4) Sodium 138 (137-145) mmol/L Potassium 3.5 (3.5-5.1) mmol/L Chloride 115 H (98-107) mmol/L Carbon Dioxide 17 L (22-30) mmol/L Anion Gap 9.9 (5-15) MEQ/L BUN 15 (9-20) mg/dL Creatinine 0.73 (0.66-1.25) mg/dL Estimated GFR > 60.0 ML/MIN Glucose 122 H (74-106) mg/dL Calcium 9.4 (8.4-10.2) mg/dL Magnesium 1.6 (1.6-2.3) mg/dL Total Bilirubin 2.10 H (0.2-1.3) mg/dL AST 35 (17-59) U/L ALT 20 (0-50) U/L Alkaline Phosphatase 94 (38-126) U/L Ammonia 33 H (9-30) umol/L Troponin I (0.000-0.034) ng/mL Serum Total Protein 5.3 L (6.3-8.2) g/dL Albumin 2.7 L (3.5-5.0) g/dL Vitamin B12 (239-931) pg/mL Folic Acid (2.76 - >20) ng/mL Slides for Path Review Radiology Exams: Radiology Procedures Category Date Time Status CHEST 1 VIEW (PORTABLE) Routine Exams 02/28/18 08:42 Completed HEAD WITHOUT CONTRAST [CT] Stat Exams 02/28/18 04:50 Completed MRI BRAIN W/O CONTRAST [MRI] Stat Exams 02/28/18 06:16 Completed Assessment/Plan (1) Metabolic acidosis Current Visit: Yes Status: Acute Onset Date: ~02/28/18 Assessment & Plan: Unsure etiology; nephrology consulted, thank you. Dr. العراقي did order IV bicarbonate. Pt's CO2 on BMP increased from 14 to 17; will recheck in a.m. 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 Up walking with THERAPEUT[employer]IDING INSTRU[employer] today and appears to be doing well. Code(s): T84.59XA - INFECT/INFLM REACTION DUE TO OTH INTERNAL JOINT PROSTH, INIT ; Z96.659 - PRESENCE OF UNSPECIFIED ARTIFICIAL KNEE JOINT (4) Hyperammonemia Current Visit: No Status: Acute Onset Date: ~12/05/17 Assessment & Plan: from 27 to 33 today; pt has been much higher in the past. Will recheck in the morning. On lactulose. 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
[2018-03-01] MEDS: Sodium Chloride 0.9% 1000 ML 1,000 ML IV SCH (19:42)
[2018-03-02 05:28] LABS: BASOPHIL % 0.3 % (0.0-0.4); Basophil (Absolute #) 0.02 (0-0.4); Eosinophil % 3.1 % (0.00-5.0); Eosinophil (Absolute #) 0.18 (0-0.5); Granulocyte Absolute (ANC) 4.14 (1.4-6.9); Granulocytes % 71.4 % (36.0-66.0); Hematocrit 30.9 % (42-50); Hemoglobin 11.1 gm/dl (12.5-18.0); Lymphocyte (Absolute #) 0.81 (1.0-4.6); Mean Cell Volume 90.9 fl (78-100); Mean Corpuscular Hemoglobin 32.6 pg (26-32); Mean Corpuscular Hgb Concent. 35.9 g/dl (32-36); Mean Platelet Volume 10.8 fl (6-9.5); Monocyte (Absolute #) 0.65 (0.0-1.3); Monocytes % 11.2 % (0.0-12.0); Platelet Count 65 K/mm3 (150-450); Red Cell Distribution Width 14.6 % (11.5-14.0); White Blood Count 5.8 K/mm3 (4.0-10.5)
[2018-03-02 05:39] LABS: ALBUMIN 2.9 g/dL (3.5-5.0); ALKALINE PHOSPHATASE 96 U/L (38-126); ANION GAP 8.6 MEQ/L (5-15); BLOOD UREA NITROGEN 14 mg/dL (9-20); CHLORIDE 110 mmol/L (98-107); Calcium 8.8 mg/dL (8.4-10.2); Carbon Dioxide 24 mmol/L (22-30); Creatinine 1 0.69 mg/dL (0.66-1.25); Glucose 131 mg/dL (74-106); Potassium 3.1 mmol/L (3.5-5.1); SGOT/AST 36 U/L (17-59); SGPT/ALT 22 U/L (0-50); SODIUM 140 mmol/L (137-145); Total Protein 5.3 g/dL (6.3-8.2)
[2018-03-02] MEDS: Sodium Bicarbonate 50 MEQ/50 ML VIAL*** 150 MEQ in Dextrose 5%/Water IV Soln. 1000 ML 1... IV SCH (05:55)
[2018-03-02 07:14] LABS: Slide Review 1 YES
[2018-03-02] MEDS ORDERED: PROVENTIL 2.5 MG/3 ML NEB IH PRN (09:56)
[2018-03-02] MEDS: FOLATE 1 MG PO SCH (10:26)
[2018-03-02] MEDS: Cipro 500 MG PO SCH (10:26)
[2018-03-02] MEDS: Lexapro 10 MG PO SCH (10:26)
[2018-03-02] MEDS: Pepcid 20 MG PO SCH (10:26)
[2018-03-02] MEDS: Aldactone 25 MG PO SCH (10:26)
[2018-03-02] MEDS: FEOSOL 325 MG PO SCH (10:26)
[2018-03-02] MEDS: LACTULOSE 20 GM/30ML UD CUP PO SCH ×2 (10:26→14:25)
--- NOTE | 2018-03-02 10:27 | PCM.DS ---
Discharge Summary Date of Admission: 02/28/18 06:04 Admitting Physician: KANU VASQUEZ Consults: Consults on Case 02/28/18 06:16 Consult Neurology ROUTINE 02/28/18 08:34 Consult Nephrology ROUTINE Primary Care Provider: KANU VASQUEZ Allergies Allergies No Known Drug Allergies Allergy (Verified 12/05/17 18:05) Hospital Summary - Hospital Course Hospital Course: Pt is 62 yo male pt of Dr. 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 CT head non acute. Teleneurology was consulted. MRI brain with normal atrophy and degenerative micro-ischemia; nothing acute. His ammonia level was normal, but he was found to be in metabolic acidosis of unknown etiology with CO2 of 14. Nephrology was consulted and placed him on bicarbonate IV. The next day his CO2 was 17, and today it was 24. Yesterday he was oriented x 3 and feeling much better. I saw him up in the [place] and he was walking without assistance. Will discharge pt to home. F/u with Dr. Vasquez (has scheduled appt on 03/12/18). Dr. العراقي prescribed sodium bicarb po TID; pt should have an outpatient follow up with him as well. He is to get labs after discharge (next week). - Vitals & Intake/Output Vital Signs: Vital Signs Temperature 98.4 F 03/02/18 07:29 Pulse Rate 66 03/02/18 07:29 Respiratory Rate 18 03/02/18 07:29 Blood Pressure 143/97 03/02/18 07:29 O2 Sat by Pulse Oximetry 100 03/02/18 07:29 Intake & Output: Intake & Output 02/27/18 02/28/18 03/01/18 03/02/18 11:59 11:59 11:59 11:59 Intake Total 120 3064 3507 Output Total 600 1 Balance 120 2464 3506 Weight 96.1 kg - Lab Result Diagrams: 03/02/18 05:10 03/02/18 05:10 Lab Results-Last 24 Hrs: Accuchecks Date 03/02/18 Date 03/01/18 Date 03/01/18 Date 03/01/18 Time 07:15 Time 22:00 Time 16:30 Time 11:30 Accucheck Value: 126 Accucheck Value: 128 Accucheck Value: 140 Accucheck Value: 138 Lab Results-Last 24 Hours 03/02/18 03/02/18 03/02/18 Range/Units 05:10 05:10 05:10 WBC 5.8 (4.0-10.5) K/mm3 RBC 3.40 L (4.1-5.6) M/mm3 Hgb 11.1 L (12.5-18.0) gm/dl Hct 30.9 L (42-50) % MCV 90.9 (78-100) fl MCH 32.6 H (26-32) pg MCHC 35.9 (32-36) g/dl RDW 14.6 H (11.5-14.0) % Plt Count 65 L (150-450) K/mm3 MPV 10.8 H (6-9.5) fl Gran % 71.4 H (36.0-66.0) % Eos # (Auto) 0.18 (0-0.5) Absolute Lymphs (auto) 0.81 L (1.0-4.6) Absolute Monos (auto) 0.65 (0.0-1.3) Lymphocytes % 14.0 L (24.0-44.0) % Monocytes % 11.2 (0.0-12.0) % Eosinophils % 3.1 (0.00-5.0) % Basophils % 0.3 (0.0-0.4) % Absolute Granulocytes 4.14 (1.4-6.9) Basophils # 0.02 (0-0.4) Sodium 140 (137-145) mmol/L Potassium 3.1 L (3.5-5.1) mmol/L Chloride 110 H (98-107) mmol/L Carbon Dioxide 24 (22-30) mmol/L Anion Gap 8.6 (5-15) MEQ/L BUN 14 (9-20) mg/dL Creatinine 0.69 (0.66-1.25) mg/dL Estimated GFR > 60.0 ML/MIN Glucose 131 H (74-106) mg/dL Calcium 8.8 (8.4-10.2) mg/dL Total Bilirubin 1.70 H (0.2-1.3) mg/dL AST 36 (17-59) U/L ALT 22 (0-50) U/L Alkaline Phosphatase 96 (38-126) U/L Ammonia 26 (9-30) umol/L Serum Total Protein 5.3 L (6.3-8.2) g/dL Albumin 2.9 L (3.5-5.0) g/dL Slides for Path Review YES Micro Results-Entire Visit: Microbiology 02/28/18 04:25 Blood Culture - Preliminary Blood NO GROWTH TO DATE 02/28/18 03:45 Blood Culture - Preliminary Blood NO GROWTH TO DATE Accuchecks Date 03/02/18 Date 03/01/18 Date 03/01/18 Date 03/01/18 Time 07:15 Time 22:00 Time 16:30 Time 11:30 Accucheck Value: 126 Accucheck Value: 128 Accucheck Value: 140 Accucheck Value: 138 - Procedures and Test Procedures and Tests throughout Hospitalization: Therapy Orders & Screens 02/28/18 07:16 OT Screen per Nursing Assess ONCE Comment: Protocol Order Physician Instructions: Greater than 3 points order OT Admission Screening Reason For Exam: Triggered on Admission Diagnosis: altered mental status Open Wound/Cellutlitis/Pressure Ulcers: No Acute Fx/ORIF/Change in wt bearing status: No Severe MUSCULOSKELETAL pain: Yes ADL Dysfunction: Yes Acute CVA w/Hemiparesis/Hemiplegia: No Decreased Functional Mobility/Strength: Yes Sprain/Strain: No Acute Post-op Mobility Dysfunction: No Total Points: 9 PT Screen per Nursing Assess ONCE Comment: Protocol Order Physician Instructions: Greater than 3 points order PT Admission Screenin Reason For Exam: Triggered on Admission Diagnosis: altered mental status Open Wound/Cellutlitis/Pressure Ulcers: No Acute Fx/ORIF/Change in wt bearing status: No Severe MUSCULOSKELETAL pain: Yes ADL Dysfunction: Yes Acute CVA w/Hemiparesis/Hemiplegia: No Decreased Functional Mobility/Strength: Yes Sprain/Strain: No Acute Post-op Mobility Dysfunction: No Total Points: 9 02/28/18 10:59 PT Eval & Treat ( Order) ROUTINE Reason for Eval:: WOULD LIKE TO DO OTPT PT AFTER DC Diagnosis: altered mental status 03/02/18 09:57 Respiratory Therapy Assessment DAILY Comment: Diagnosis: altered mental status 03/02/18 09:59 Peak Expiratory Flow Rate ONCE Comment: Reason For Exam: Diagnosis: altered mental status Discharge Exam General Appearance: no apparent distress, alert Neurologic Exam: oriented x 3, cooperative Skin Exam: normal color, warm, dry, No rash Respiratory Exam: normal breath sounds, wheezing (scattered exp wheezes), No crackles/rales, No rhonchi Cardiovascular Exam: regular rate/rhythm, normal heart sounds, No murmur Gastrointestinal/Abdomen Exam: soft, normal bowel sounds, No tenderness, No distention, No mass, No guarding, No rebound Extremity Exam: swelling (RLE tr pretibial edema) Back Exam: normal inspection, No rash Final Diagnosis/Problem List - Final Discharge Diagnosis/Problem (1) Metabolic acidosis Current Visit: Yes Status: Acute Onset Date: ~02/28/18 Assessment & Plan: resolved. Home on bicarb [address] العراقي, thank you. (2) Altered mental status Current Visit: Yes Status: Resolved Onset Date: ~02/28/18 Assessment & Plan: b12/folate nl (3) Chronic infection of knee joint prosthesis Current Visit: Yes Status: Chronic Onset Date: ~02/28/18 Assessment & Plan: continue on po cipro (4) Hyperammonemia Current Visit: No Status: Acute Onset Date: ~12/05/17 Assessment & Plan: not always compliant with lactulose at home. the ammonia has normalized here. (5) Diabetes Current Visit: No Status: Chronic (6) Wheezing Current Visit: Yes Status: Acute Assessment & Plan: Pt states he has some of this chronically - will do nebulizer tx here and make sure he has an inhaler at home. - Discharge Disposition: Home, Self-Care Condition: Good Prescriptions: New Albuterol Sulfate [Albuterol Sulfate Hfa] 2 puff IH QID PRN #1 [email or web address] PRN Reason: Wheezing Promethazine HCl 12.5 mg PO Q6H PRN #15 tablet PRN Reason: Nausea Sodium Bicarbonate 650 mg PO TID #90 tablet Continue Thiamine Mononitrate [Vitamin B-1] 250 mg PO DAILY Ferrous Sulfate 325 mg PO BID Zinc Sulfate 220 mg PO BID Oxycodone HCl 5 mg PO Q4H PRN PRN PRN Reason: Pain Aspirin 81 gm Chew [Baby Aspirin 81 mg Chew] 81 mg PO BID Alprazolam 0.25 mg [xanAX 0.25 MG] 0.25 mg PO Q6H Ciprofloxacin [Cipro 500 MG] 500 mg PO BID Famotidine 20 mg [Pepcid 20 MG] 20 mg PO BID Vitamin E 400 Units [Vitamin E 400 UNIT SOFTGEL] 450 units PO DAILY Ascorbic Acid 500 mg [Vitamin C 500 MG] 500 mg PO DAILY Folic Acid 1 mg [Folate 1 mg] 1 mg PO DAILY Spironolactone 25 mg [Aldactone 25 MG] 50 mg PO DAILY Lactulose [Lactulose 20 gm/30Ml Ud Cup] 30 gm PO QID #3600 g Escitalopram Oxalate 10 mg [Lexapro 10 MG] 10 mg PO DAILY Rifaximin [Xifaxan] 550 mg PO BID Discontinued Ondansetron HCl [Zofran] 4 mg PO Q6H PRN PRN Reason: Nausea Follow up with: BERTHA MALIK [CONSULTING PHYSICIAN] - 03/12/18 11:00 am ([facility])
[2018-03-02] MEDS: Xifaxan 200 MG PO SCH (10:29)
[2018-03-02 11:50] VITALS: BP 146/72; PULSE 76; O2SAT 99
[2018-03-02] MEDS: VITAMIN B-1 100 MG PO SCH (11:55)
[2018-03-02] MEDS: Vitamin C 500 MG PO SCH (11:55)
[2018-03-02] MEDS: NON-FORMULARY ITEM PO SCH ×2 (11:56→14:26)
[2018-03-02] MEDS: Zinc Gluconate 50 MG PO SCH (11:56)
[2018-03-02] MEDS: Vitamin E 400 UNIT SOFTGEL PO SCH (11:56)
--- NOTE | 2018-03-03 08:24 | CONS ---
CONSULT DATE: 02/28/2018 REASON FOR CONSULT: Metabolic acidosis. HISTORY: The patient is a 62 year-old gentleman who has history of multiple medical problems including cirrhosis of unclear etiology. He presented to the emergency room last night after he was found to be confused. His reported that he was knocking on the window at their home at 0130 hours. He had been playing cards he was not sure where. He was disoriented. He has had episodes of altered mental status, encephalopathy and hepatic encephalopathy before. He also had an acute episode of acute kidney disease requiring dialysis about a year ago in [place]. He also has history of sepsis in the joint in the right knee and he is chronically on Cipro. He takes oxycodone but stopped it one day ago. He was found to have metabolic acidosis with bicarb of 14 so nephrology service consulted. REVIEW OF SYSTEMS: Complains of some diarrhea related to the lactulose but he had stopped taking his lactulose a few days ago at home because of diarrhea. He denies any vomiting. He denies any chest pain. His confusion is better. He denies any abdominal pain. Trace leg edema or urinary difficulties. All other systems reviewed and negative except for in history of present illness. PAST MEDICAL HISTORY: History of cirrhosis unclear etiology, diabetes mellitus type 2, hypertension. History of acute kidney disease requiring dialysis. History of cataracts. PAST SURGICAL HISTORY: Past surgical history reviewed. Hernia repair, right knee joint replacement surgery, cataract surgery. MEDICATIONS: Home medicines and medicine in the hospital reviewed per the medication reconciliation sheet. His home medicine included Spironolactone, lactulose, rifaximin along with other medications. ALLERGIES: NKDA. SOCIAL HISTORY: Denies any tobacco, current substance abuse. He has remote past history of alcohol but he had quit drinking several years ago. FAMILY HISTORY: He denies any kidney problems in the family. PHYSICAL EXAMINATION: The patient is awake, alert and oriented x3. No acute distress. VITAL SIGNS: Temperature 97.5, pulse rate 86, respiratory rate 20, blood pressure 158/71. Oxygen saturation 98%. HEENT: Head - Atraumatic, normocephalic. Eyes - Positive icterus. No pallor. ENT: Mucosa moist. NECK: No JVD. Trachea midline. CHEST: Clear to auscultation bilaterally. No respiratory distress. CVS: Appears regular. No peripheral edema. ABDOMEN: Soft, nontender. Positive bowel sounds. No organomegaly. EXTREMITIES: No peripheral edema. NEURO: Awake, alert, oriented. Following commands. PSYCH: Appropriate mood and affect. SKIN: Warm and dry. LAB DATA AND TESTS: Hemoglobin 11.0, hematocrit 8.0, PLT 63,000. Sodium 136, potassium 4.1, bicarb 14, BUN 20, creatinine 0.8. AST 41, ALT 23, total bilirubin 1.7, albumin 3.3. UA showed specific gravity 1.015. Ammonia level 27. Lactic acid 1.1. ASSESSMENT AND PLAN: A 62 year-old gentleman with medical problems: 1) Metabolic acidosis with anion gap, hyperchloremic likely secondary to diarrhea but he needs to take lactulose and needs to have bowel movements because of his hepatic encephalopathy. I will start him on bicarb drip while he is in the hospital and then start him on p.o. bicarb. He will require chronic long-term vital supplementation. I will monitor his acid base level closely. 2) Altered mental status/encephalopathy. Likely related to hepatic encephalopathy even though ammonia level is okay. He had stopped taking his lactulose. The history and clinical picture is consistent with that. I will monitor and further management per primary team and neurology. 3) Acute kidney disease treated with dialysis. Management per primary team. 4) Diabetes mellitus type 2. Management per primary team. 5) Chronic infection in knee joint. Management per primary team. 6) Pancytopenia. Likely related to cirrhosis. Primary team will manage. 7) Hypertension. I recommend continuing monitoring and continue present medications. I will adjust medication as an outpatient. He will also require outpatient follow up once he is discharged from the hospital. The patient was accompanied with updated at bedside and all questions were answered. Thank you for the consultation on this patient. Please do not hesitate to contact me for any questions.
[2018-03-03 16:22] LABS: RPR Screen Non Reactive (Non Reactive)
== END 2018-03-02 15:30 | disposition home or self-care (01) ==
LOC: ED 02:41 → MED SURG 06:04
PROVIDERS: ADMIT Family Medicine; ATTEND Family Medicine
DX: E87.2 Acidosis (principal); R41.82 Altered mental status, unspecified; T84.59XA Infection and inflammatory reaction due to other internal joint prosthesis, initial encounter; Z96.659 Presence of unspecified artificial knee joint; K74.60 Unspecified cirrhosis of liver; E11.9 Type 2 diabetes mellitus without complications; E72.20 Disorder of urea cycle metabolism, unspecified; I10 Essential (primary) hypertension; G93.40 Encephalopathy, unspecified; D61.818 Other pancytopenia; Z79.899 Other long term (current) drug therapy
CPT/HCPCS: 36000; 36415; 70450; 70551; 71045; 80053; 80307; 81002; 82088; 82140; 82607; 82746; 82962; 83036; 83605; 83735; 83921; 84244; 84484; 85025; 85652; 86592; 86593; 86780; 87040; 93005; 93268; 94150; 94640; 94760; 96360; 97161; 99285; G0378; J7609; J2405; A9270-GY

== ENCOUNTER 2018-06-16 03:10 | Emergency (ER) | payer MEDICAID ==
--- NOTE | 2018-06-16 04:04 | ERPHSYRPT ---
- History of Present Illness Source: patient, family Patient Subjective Stated Complaint: Pt has been confused, found him at basement steps, he had fallen. states that when he fell, he said that "They went off and left him" Denies hitting his head. Vomited yesterday about 1: 00 pm. States he had been vomiting about every other day. Pt oriented to person and place. States it is 2008,then stated it is 2019. states he has been becoming confused for 2 days. Some hallucinations, says has seen a bat in the house. Triage Nursing Assessment: See above. Occurred: just prior to arrival Reason for Fall: tripped (on steps) Injuries/Pain Location: lower extremity (right knee) Loss of Consciousness: no loss of consciousness Severity of Pain-Max: mild Severity of Pain-Current: mild Associated Symptoms (Fall): confusion Hx Tetanus, Diphtheria Vaccination/Date Given: (unknown) Hx Influenza Vaccination/Date Given: No Hx Pneumococcal Vaccination/Date Given: No Immunizations Up to Date: Yes <PHANI RIVERA - Last Filed: 06/16/18 07:08> <ROSETTA NICHOLSON - Last Filed: 06/16/18 08:08> - History of Present Illness Time Seen by Provider: 06/16/18 03:35 Physician History: 62 y/o diabetic white male with h/o dementia and cirrhosis liver issues on lactulose has been more confused lately. pt found at bottom of stair steps at home. pt stated at home there was a bat. pt brought into ED by spouse. pts blood glucose over 500 at home. pt gets confused when his ammonia level is elevated. pt c/o right knee pain. (PHANI RIVERA) Allergies/Adverse Reactions: No Known Drug Allergies Allergy (Verified 12/05/17 18:05) Home Medications: Ferrous Sulfate 325 mg PO BID 03/12/17 [History] Thiamine Mononitrate [Vitamin B-1] 250 mg PO DAILY 03/12/17 [History] Oxycodone HCl 5 mg PO Q4H PRN PRN 05/02/17 [History] Zinc Sulfate 220 mg PO BID 05/02/17 [History] Alprazolam 0.25 mg [xanAX 0.25 MG] 0.25 mg PO Q6H PRN PRN 11/16/17 [ History] Ascorbic Acid 500 mg [Vitamin C 500 MG] 500 mg PO DAILY 11/16/17 [History] Aspirin 81 gm Chew [Baby Aspirin 81 mg Chew] 81 mg PO BID 11/16/17 [ History] Ciprofloxacin [Cipro 500 MG] 500 mg PO BID 11/16/17 [History] Famotidine 20 mg [Pepcid 20 MG] 20 mg PO BID 11/16/17 [History] Folic Acid 1 mg [Folate 1 mg] 1 mg PO DAILY 11/16/17 [History] Spironolactone 25 mg [Aldactone 25 MG] 50 mg PO DAILY 11/16/17 [History] Vitamin E 400 Units [Vitamin E 400 UNIT SOFTGEL] 450 units PO DAILY [History] Escitalopram Oxalate 10 mg [Lexapro 10 MG] 10 mg PO DAILY 02/28/18 [History] Rifaximin [Xifaxan] 550 mg PO BID 02/28/18 [History] Ondansetron HCl [Zofran] 4 mg PO Q6H PRN PRN 06/16/18 [History] - Review of Systems Constitutional: No Symptoms, No Fever, No Weakness Eyes: No Symptoms Ears, Nose, & Throat: No Symptoms Respiratory: No Symptoms Cardiac: No Symptoms, No Chest Pain, No Palpitations, No Syncope Abdominal/Gastrointestinal: No Symptoms, No Abdominal Pain, No Nausea, No Vomiting, No Diarrhea Genitourinary Symptoms: No Symptoms, No Dysuria, No Frequency, No Hematuria Musculoskeletal: No Symptoms Skin: No Symptoms Psychological: No Symptoms Endocrine: No Symptoms Hematologic/Lymphatic: No Symptoms Immunological/Allergic: No Symptoms All Other Systems: Reviewed and Negative <PHANI RIVERA - Last Filed: 06/16/18 07:08> - Past Medical History Pertinent Past Medical History: Yes Neurological History: Dementia ENT History: Cataracts Cardiac History: Hypertension Respiratory History: Pneumonia Endocrine Medical History: Diabetes Type II, Liver Disease Musculoskeletal History: Arthritis GI Medical History: Cirrhosis History: Dialysis Psycho-Social History: Depression Male Reproductive Disorders: No Pertinent History Other Medical History: elevated ammonia, pt has hx of sepsis. Prior dialysis. - Past Surgical History Past Surgical History: Yes Neuro Surgical History: No Pertinent History Cardiac: No Pertinent History Respiratory: No Pertinent History Gastrointestinal: Hernia Repair Genitourinary: No Pertinent History Musculoskeletal: Joint Replacement, Other Male Surgical History: No Pertinent History Other Surgical History: partial RIGHT KNEE REPLACEMENT. cataracts, - Social History Smoking Status: Never smoker Exposure to second hand smoke: Yes Drug Use: none Patient Lives Alone: No <PHANI RIVERA - Last Filed: 06/16/18 07:08> - [place] Coma Score Best Eye Response ([place]): (4) open spontaneously Best Verbal Response ([place]): (4) confused conversation Best Motor Response ([place]): (6) obeys commands [place] Total: 14 - Physical Exam General Appearance: no apparent distress, alert Head Injury: no evidence of injury Eye Exam: PERRL/EOMI, eyes nml inspection ENT Exam: airway nml Neck Exam: supple, trachea midline, full range of motion, normal alignment, normal inspection Respiratory/Chest Exam: chest tenderness, normal breath sounds, No respiratory distress, No rhonchi, No wheezing Cardiovascular Exam: normal heart sounds, regular rate/rhythm, murmur Gastrointestinal Exam: soft, normal bowel sounds, No tenderness, No guarding, No rebound Rectal Exam: not done Extremity Exam: normal inspection, normal range of motion Neurologic Exam: alert, oriented x 3, cooperative, shift manager II-XII nml as tested, normal mood/affect, No intoxicated appearance, No slurred speech Skin Exam: normal color, warm, dry SpO2 Interpretation: normal SpO2: 97 Oxygen Delivery: Room Air <PHANI RIVERA - Last Filed: 06/16/18 07:08> - Nursing Vital Signs Nursing Vital Signs: Initial Vital Signs Temperature 97.9 F 06/16/18 03:18 Pulse Rate 74 06/16/18 03:18 Blood Pressure 162/82 06/16/18 03:18 O2 Sat by Pulse Oximetry 97 06/16/18 03:18 Pain Scale Pain Intensity [Right Knee] 7 Pain Intensity 0 - Course Nursing assessment & vital signs reviewed: Yes <PHANI RIVERA - Last Filed: 06/16/18 07:08> Ordered Tests: Active Orders 24 hr Category Date Time Status Accucheck STAT Care 06/16/18 04:08 Active Last Model Department Supervisor STAT Care 06/16/18 04:10 Active Clean Catch Urine Specimen STAT Care 06/16/18 04:08 Active IV Insertion STAT Care 06/16/18 04:08 Active HEAD WITHOUT CONTRAST [CT] Stat Exams 06/16/18 04:10 Taken KNEE (3 VIEWS) Stat Exams 06/16/18 04:11 Taken CBC W DIFF Stat Lab 06/16/18 04:15 Completed CMP Stat Lab 06/16/18 04:15 Completed CULTURE,URINE Stat Lab 06/16/18 06:00 Received UA W/RFX UR CULTURE Stat Lab 06/16/18 06:00 Completed Medication Summary Discontinued Medications Generic Name Dose Route Start Last Admin Trade Name Italoq PRN Reason Stop Dose Admin Sodium Chloride 1,000 mls @ 999 mls/hr 06/16/18 04:08 06/16/18 05:51 Sodium Chloride 0.9% 1000 Ml IV 06/16/18 05:08 Infused .Q1H1M STA Infusion Sodium Chloride Confirm 06/16/18 04:19 Sodium Chloride 0.9% 1000 Ml Administered 06/16/18 04:20 Dose 1,000 mls @ ud .ROUTE .STK-MED ONE Insulin Human Regular 14 unit 06/16/18 04:12 06/16/18 04:22 Novolin R IV 06/16/18 04:13 14 unit STAT ONE Administration Insulin Human Regular Confirm 06/16/18 04:19 Novolin R Administered 06/16/18 04:20 Dose 14 unit .ROUTE .STK-MED ONE Insulin Human Regular 15 unit 06/16/18 06:52 06/16/18 07:02 Novolin R IV 06/16/18 06:53 15 unit STAT ONE Administration Insulin Human Regular Confirm 06/16/18 07:00 Novolin R Administered 06/16/18 07:01 Dose 15 unit .ROUTE .STK-MED ONE Lactulose 45 g 06/16/18 06:52 06/16/18 07:12 Enulose 10 Gm/15 Ml PO 06/16/18 06:53 45 g STAT ONE Administration Lab/Rad Data: Laboratory Result Diagrams 06/16/18 04:15 06/16/18 04:15 Laboratory Results 06/16/18 06/16/18 06/16/18 Range/Units 06:00 04:15 04:15 WBC (4.0-10.5) K/mm3 RBC (4.1-5.6) M/mm3 Hgb (12.5-18.0) gm/dl Hct (42-50) % MCV (78-100) fl MCH (26-32) pg MCHC (32-36) g/dl RDW (11.5-14.0) % Plt Count (150-450) K/mm3 MPV (6-9.5) fl Gran % (36.0-66.0) % Eos # (Auto) (0-0.5) Absolute Lymphs (auto) (1.0-4.6) Absolute Monos (auto) (0.0-1.3) Lymphocytes % (24.0-44.0) % Monocytes % (0.0-12.0) % Eosinophils % (0.00-5.0) % Basophils % (0.0-0.4) % Absolute Granulocytes (1.4-6.9) Basophils # (0-0.4) Sodium 131 L (137-145) mmol/L Potassium 3.8 (3.5-5.1) mmol/L Chloride 102 (98-107) mmol/L Carbon Dioxide 17 L (22-30) mmol/L Anion Gap 15.8 H (5-15) MEQ/L BUN 10 (9-20) mg/dL Creatinine 0.93 (0.66-1.25) mg/dL Estimated GFR > 60.0 ML/MIN Glucose 612 H* (74-106) mg/dL Calcium 9.8 (8.4-10.2) mg/dL Total Bilirubin 3.00 H (0.2-1.3) mg/dL AST 35 (17-59) U/L ALT 35 (0-50) U/L Alkaline Phosphatase 341 H (38-126) U/L Ammonia 40 H (9-30) umol/L Serum Total Protein 6.5 (6.3-8.2) g/dL Albumin 3.7 (3.5-5.0) g/dL Urine Color YELLOW (YELLOW) Urine Appearance CLEAR (CLEAR) Urine pH 7.0 (5-6) Ur Specific [place] 1.025 (1.005-1.025) Urine Protein NEGATIVE (Negative) Urine Ketones NEGATIVE (NEGATIVE) Urine Blood NEGATIVE (0-5) Migel/ul Urine Nitrite NEGATIVE (NEGATIVE) Urine Bilirubin NEGATIVE (NEGATIVE) Urine Urobilinogen NEGATIVE (0-1) mg/dL Ur Leukocyte Esterase NEGATIVE (NEGATIVE) Urine WBC (Auto) 3-5 (0-5) /HPF Urine RBC (Auto) 11-15 (0-2) /HPF U Epithel Cells (Auto) RARE (FEW) /HPF Urine Bacteria (Auto) FEW (NEGATIVE) /HPF Urine Mucus (Auto) SLIGHT (NEGATIVE) /HPF Urine Yeast (Budding) Few (NEGATIVE) /HPF Urine Culture Reflexed YES (NO) Urine Glucose >=500 (NEGATIVE) mg/dL Slides for Path Review 06/16/18 Range/Units 04:15 WBC 6.0 (4.0-10.5) K/mm3 RBC 3.83 L (4.1-5.6) M/mm3 Hgb 12.8 (12.5-18.0) gm/dl Hct 34.2 L (42-50) % MCV 89.3 (78-100) fl MCH 33.4 H (26-32) pg MCHC 37.4 H (32-36) g/dl RDW 13.8 (11.5-14.0) % Plt Count 50 L (150-450) K/mm3 MPV 11.2 H (6-9.5) fl Gran % 74.1 H (36.0-66.0) % Eos # (Auto) 0.22 (0-0.5) Absolute Lymphs (auto) 0.85 L (1.0-4.6) Absolute Monos (auto) 0.44 (0.0-1.3) Lymphocytes % 14.3 L (24.0-44.0) % Monocytes % 7.4 (0.0-12.0) % Eosinophils % 3.7 (0.00-5.0) % Basophils % 0.5 (0.0-0.4) % Absolute Granulocytes 4.41 (1.4-6.9) Basophils # 0.03 (0-0.4) Sodium (137-145) mmol/L Potassium (3.5-5.1) mmol/L Chloride (98-107) mmol/L Carbon Dioxide (22-30) mmol/L Anion Gap (5-15) MEQ/L BUN (9-20) mg/dL Creatinine (0.66-1.25) mg/dL Estimated GFR ML/MIN Glucose (74-106) mg/dL Calcium (8.4-10.2) mg/dL Total Bilirubin (0.2-1.3) mg/dL AST (17-59) U/L ALT (0-50) U/L Alkaline Phosphatase (38-126) U/L Ammonia (9-30) umol/L Serum Total Protein (6.3-8.2) g/dL Albumin (3.5-5.0) g/dL Urine Color (YELLOW) Urine Appearance (CLEAR) Urine pH (5-6) Ur Specific [place] (1.005-1.025) Urine Protein (Negative) Urine Ketones (NEGATIVE) Urine Blood (0-5) Migel/ul Urine Nitrite (NEGATIVE) Urine Bilirubin (NEGATIVE) Urine Urobilinogen (0-1) mg/dL Ur Leukocyte Esterase (NEGATIVE) Urine WBC (Auto) (0-5) /HPF Urine RBC (Auto) (0-2) /HPF U Epithel Cells (Auto) (FEW) /HPF Urine Bacteria (Auto) (NEGATIVE) /HPF Urine Mucus (Auto) (NEGATIVE) /HPF Urine Yeast (Budding) (NEGATIVE) /HPF Urine Culture Reflexed (NO) Urine Glucose (NEGATIVE) mg/dL Slides for Path Review YES - Progress Progress: improved, re-examined Counseled pt/family regarding: lab results, diagnosis, need for follow-up, rad results <PHANI RIVERA - Last Filed: 06/16/18 07:08> - Progress Discussed with : Pedro Will see patient in: office <ROSETTA NICHOLSON - Last Filed: 06/16/18 08:08> - Progress Progress Note: 06/16/18 06:56 pt improved. transfer care to dr. nicholson at shift change. he accepts pt in transfer. (PHANI RIVERA) 06/16/18 07:33 Pt care discussed and care accepted from Dr Rivera at 07:00. 06/16/18 07:42 Pt geven insulin 14 units and 15 units IV. Last BG was 447. 06/16/18 08:01 I discussed the findings of the patient with Dr. Vasquez. We discussed the ammonia level of [address] Vasquez says is quite good for the patient's usual ammonia level. We discussed his platelet level of 50. We discussed the sodium of 131, T bili of 3.0, and glucose of 612 when he initially arrived. I also discussed with him that we gave insulin IV 14 units initially followed by another 15 units. His blood glucose lowered to 447. I also discussed the urinalysis finding showing white cells of 3-5, red cells 11-15, and bacteria few. I also discussed that the patient has an appointment with orthopedic surgeon today in [place] at 10:30. Dr. Vasquez wanted to have the patient be given a prescription for Lantus 10 units for use in the evening. Also he is to be given Bactrim double strength twice a day for [address] Vasquez thinks the patient is able to go home and attend his appointment in [place] if he wishes. Dr. Vasquez will see him sometime within the week. I then discussed with the patient and the patient's about my discussion with Dr Vasquez. The patient's then wanted me to talk to Dr. Vasquez once again to see if he could stay in the hospital. Before I could call Dr. Vasquez, the patient's changed her mind and stated the patient wanted to come home and that she agrees with that. She will change her appointment in [place] with orthopedic surgeon. (ROSETTA NICHOLSON) - Departure Time of Disposition: 06:57 Departure Disposition: Home Critical Care Time: No <PHANI RIVERA - Last Filed: 06/16/18 07:08> - Departure Departure Disposition: Home <ROSETTA NICHOLSON - Last Filed: 06/16/18 08:08> - Departure Clinical Impression: Confusion, Fall, Hyperglycemia, Hyperammonemia, Dementia, Thrombocytopenia, UTI (urinary tract infection) Condition: Stable Referrals: KANU VASQUEZ MD [Primary Care Provider] - Additional Instructions: You had a fall during the night. Your blood glucose was elevated to 612 when he initially arrived. After insulin 14 units followed by 15 units IV, your blood sugar had decreased to 447. I discussed all of the findings of your imaging studies and laboratory studies with Dr. Vasquez. He is agreeable to have you go home as you have desired. I gave you the option of going home or staying in the hospital. You decided to go home. You are going to reschedule your orthopedic surgery appointment. Dr. Vasquez wants you to take Lantus 10 units in the evening. Also for a possible mild UTI Dr. Vasquez wants you to take Bactrim double strength 1 tablet 2 times a day for [address] Vasquez within the week. Prescriptions: Insulin Glargine,Hum.rec.anlog [Lantus] 10 unit SQ QPM #1 vial Smz/Tmp Ds Tablet [Bactrim Ds Tablet] 1 udtab PO BID #14 tablet
[2018-06-16] MEDS ORDERED: Sodium Chloride 0.9% 1000 ML 1,000 ML IV STA (04:08)
[2018-06-16] MEDS ORDERED: NovoLIN R IV ONE ×2 (04:12→06:52)
[2018-06-16] MEDS ORDERED: Sodium Chloride 0.9% 1000 ML 1,000 ML ONE (04:19)
[2018-06-16] MEDS ORDERED: NovoLIN R ONE ×2 (04:19→07:00)
[2018-06-16 05:10] LABS: ALBUMIN 3.7 g/dL (3.5-5.0); ALKALINE PHOSPHATASE 341 U/L (38-126); ANION GAP 15.8 MEQ/L (5-15); BLOOD UREA NITROGEN 10 mg/dL (9-20); CHLORIDE 102 mmol/L (98-107); Calcium 9.8 mg/dL (8.4-10.2); Carbon Dioxide 17 mmol/L (22-30); Creatinine 1 0.93 mg/dL (0.66-1.25); Potassium 3.8 mmol/L (3.5-5.1); SGOT/AST 35 U/L (17-59); SGPT/ALT 35 U/L (0-50); SODIUM 131 mmol/L (137-145); Total Protein 6.5 g/dL (6.3-8.2)
[2018-06-16 05:21] LABS: Glucose 612 mg/dL (74-106)
[2018-06-16 05:55] LABS: BASOPHIL % 0.5 % (0.0-0.4); Basophil (Absolute #) 0.03 (0-0.4); Eosinophil % 3.7 % (0.00-5.0); Eosinophil (Absolute #) 0.22 (0-0.5); Granulocytes % 74.1 % (36.0-66.0); Hematocrit 34.2 % (42-50); Hemoglobin 12.8 gm/dl (12.5-18.0); Lymphocyte (Absolute #) 0.85 (1.0-4.6); Lymphocytes % 14.3 % (24.0-44.0); Mean Cell Volume 89.3 fl (78-100); Mean Corpuscular Hemoglobin 33.4 pg (26-32); Mean Corpuscular Hgb Concent. 37.4 g/dl (32-36); Mean Platelet Volume 11.2 fl (6-9.5); Monocyte (Absolute #) 0.44 (0.0-1.3); Monocytes % 7.4 % (0.0-12.0); Platelet Count 50 K/mm3 (150-450); Red Blood Count 3.83 M/mm3 (4.1-5.6); Red Cell Distribution Width 13.8 % (11.5-14.0)
[2018-06-16 06:08] LABS: Slide Review 1 YES
[2018-06-16 06:39] LABS: Appearance CLEAR (CLEAR); Bacteria FEW /HPF (NEGATIVE); Bilirubin NEGATIVE (NEGATIVE); Blood NEGATIVE Ery/ul (0-5); Epithelial Cells RARE /HPF (FEW); Glucose >=500 mg/dL (NEGATIVE); Ketones NEGATIVE (NEGATIVE); Leukocyte Esterase NEGATIVE (NEGATIVE); Mucus SLIGHT /HPF (NEGATIVE); Nitrite NEGATIVE (NEGATIVE); Protein,Urine Dip NEGATIVE (Negative); Specific Gravity 1.025 (1.005-1.025); Urobilinogen NEGATIVE mg/dL (0-1)
[2018-06-16] MEDS ORDERED: Enulose 10 GM/15 ML PO ONE (06:52)
[2018-06-16 07:47] VITALS: PULSE 74
[2018-06-16 08:11] VITALS: BP 124/92; O2SAT 98
--- NOTE | 2018-06-16 08:53 | XRAY ---
Indication: Pain following fall. Comparison: None 3 views of the right knee demonstrates total knee arthroplasty with intact prosthesis and tibial screws. Scattered vascular calcifications. No other bony, articular, or soft tissue abnormalities.
--- NOTE | 2018-06-16 08:53 | XRAY ---
Indication: Confusion following fall. Elevated ammonia and glucose. Multiple contiguous axial images obtained through the head without contrast as ordered. Comparison: February 28, 2018. Images through the base of the brain slightly degraded by motion artifact. Stable age-appropriate global atrophy and minimal periventricular degenerative micro-ischemia. No acute intracranial hemorrhage, abnormal extra-axial fluid collection, or mass effect. Fourth ventricle is midline without hydrocephalus. Bony calvarium intact. Minimal mucosal thickening of both maxillary sinuses. Remaining visualized paranasal sinuses and mastoid air cells are clear. Impression: Motion artifact. Grossly stable nonacute senile brain. Minimal paranasal sinus disease. Comment: Preliminary interpretation was made by [facility]. No discrepancy. CT DI 67.99
== END 2018-06-16 08:36 | disposition home or self-care (01) ==
LOC: ED 03:10
DX: R41.0 Disorientation, unspecified (principal); E11.65 Type 2 diabetes mellitus with hyperglycemia; E72.20 Disorder of urea cycle metabolism, unspecified; F03.90 Unspecified dementia, unspecified severity, without behavioral disturbance, psychotic disturbance, mood disturbance, and anxiety; D69.6 Thrombocytopenia, unspecified; N39.0 Urinary tract infection, site not specified; M25.561 Pain in right knee; I10 Essential (primary) hypertension; W10.9XXA Fall (on) (from) unspecified stairs and steps, initial encounter; Y92.009 Unspecified place in unspecified non-institutional (private) residence as the place of occurrence of the external cause; Z79.899 Other long term (current) drug therapy
CPT/HCPCS: 36000; 36415; 70450; 73562; 80053; 81001; 82140; 82962; 85025; 87086; 93041; 96360; 96372; 99285; A9270-GY

== ENCOUNTER 2018-06-16 19:27 | Inpatient (IN) | payer MEDICAID ==
[2018-06-16] MEDS ORDERED: Sodium Chloride 0.9% 1000 ML 1,000 ML IV STA ×2 (20:09→20:44)
--- NOTE | 2018-06-16 20:14 | ERPHSYRPT ---
- History of Present Illness Time Seen by Provider: 06/16/18 20:01 Source: patient Exam Limitations: no limitations Patient Subjective Stated Complaint: Hyperglycemia Triage Nursing Assessment: Patient brought into ED via W/C and transferred to bed with assist of 1. Patient A+O X 3 with intermittent confusion. Patient was seen in ER this am for hyperglycemia. Patient's stated his last blood sugar was this am prior to leaving ER BS was 490. Patient was given a script for Lantus and Bactrim for UTI. Neither med was started. Patient's skin pink, warm and dry. Patient's lungs clear a/p greyson. Physician History: 62-year-old white male with history of dementia, cataracts, diabetes type 2, liver disease, pneumonia, high blood pressure, cirrhosis Patient is brought by his with complaint of intermittent confusion for 3 days he was seen this morning at 3 AM noted to have a blood sugar of over 600 he was given a prescription for Lantus insulin, Bactrim. Apparently given insulin coverage in the emergency room this morning. Patient's states the patient's blood sugar read high high high so she brought him into the emergency room. Patient denies any pain. Past medical history includes dementia, cataracts, diabetes type 2, liver disease, pneumonia, high blood pressure, cirrhosis, dialysis, arthritis, depression, elevated ammonia, sepsis, dialysis secondary to sepsis Past surgical history includes cataracts, hernia, right knee replacement. Timing/Duration: day(s) (3 days) Severity: moderate Modifying Factors: Improves With: other (seen this morning at 3 AM and given insulin sent home with Bactrim and prescription for Lantis insulin) Associated Symptoms: other (intermittent confusion), No nausea, No vomiting, No abdominal pain, No shortness of breath, No heartburn, No diaphoresis, No cough, No chills, No chest pain, No fever, No headaches, No loss of appetite, No malaise, No rash, No syncope, No seizure, No weakness Allergies/Adverse Reactions: No Known Drug Allergies Allergy (Verified 06/16/18 19:44) Home Medications: Ferrous Sulfate 325 mg PO BID 03/12/17 [History] Thiamine Mononitrate [Vitamin B-1] 250 mg PO DAILY 03/12/17 [History] Oxycodone HCl 5 mg PO Q4H PRN PRN 05/02/17 [History] Zinc Sulfate 220 mg PO BID 05/02/17 [History] Alprazolam 0.25 mg [xanAX 0.25 MG] 0.25 mg PO Q6H PRN PRN 11/16/17 [ History] Ascorbic Acid 500 mg [Vitamin C 500 MG] 500 mg PO DAILY 11/16/17 [History] Aspirin 81 gm Chew [Baby Aspirin 81 mg Chew] 81 mg PO BID 11/16/17 [ History] Ciprofloxacin [Cipro 500 MG] 500 mg PO BID 11/16/17 [History] Famotidine 20 mg [Pepcid 20 MG] 20 mg PO BID 11/16/17 [History] Folic Acid 1 mg [Folate 1 mg] 1 mg PO DAILY 11/16/17 [History] Spironolactone 25 mg [Aldactone 25 MG] 50 mg PO DAILY 11/16/17 [History] Vitamin E 400 Units [Vitamin E 400 UNIT SOFTGEL] 450 units PO DAILY [History] Escitalopram Oxalate 10 mg [Lexapro 10 MG] 10 mg PO DAILY 02/28/18 [History] Rifaximin [Xifaxan] 550 mg PO BID 02/28/18 [History] Ondansetron HCl [Zofran] 4 mg PO Q6H PRN PRN 06/16/18 [History] Hx Tetanus, Diphtheria Vaccination/Date Given: (unknown) Hx Influenza Vaccination/Date Given: No Hx Pneumococcal Vaccination/Date Given: No Immunizations Up to Date: Yes - Review of Systems Constitutional: No Fever, No Chills Eyes: No Symptoms Ears, Nose, & Throat: No Symptoms Respiratory: No Cough, No Dyspnea Cardiac: No Chest Pain, No Edema, No Syncope Abdominal/Gastrointestinal: No Abdominal Pain, No Nausea, No Vomiting, No Diarrhea Genitourinary Symptoms: No Dysuria Musculoskeletal: No Back Pain, No Neck Pain Skin: No Rash Neurological: Other (intermittent confusion), No Dizziness, No Focal Weakness, No Gait Changes, No Headache, No Irritability, No Lethargy, No Paralysis, No Parasthesia, No Seizure, No Sensory Changes, No Speech Changes, No Tics, No Tremors, No Vertigo Psychological: No Symptoms Endocrine: No Symptoms All Other Systems: Reviewed and Negative - Past Medical History Pertinent Past Medical History: Yes Neurological History: Dementia ENT History: Cataracts Cardiac History: Hypertension Respiratory History: Pneumonia Endocrine Medical History: Diabetes Type II, Liver Disease Musculoskeletal History: Arthritis GI Medical History: Cirrhosis History: Dialysis Psycho-Social History: Depression Male Reproductive Disorders: No Pertinent History Other Medical History: elevated ammonia, pt has hx of sepsis. Prior dialysis. - Past Surgical History Past Surgical History: Yes Neuro Surgical History: No Pertinent History Cardiac: No Pertinent History Respiratory: No Pertinent History Gastrointestinal: Hernia Repair Genitourinary: No Pertinent History Musculoskeletal: Joint Replacement, Other Male Surgical History: No Pertinent History Other Surgical History: partial RIGHT KNEE REPLACEMENT. cataracts, - Social History Smoking Status: Never smoker Exposure to second hand smoke: Yes Drug Use: none Patient Lives Alone: No - Nursing Vital Signs Nursing Vital Signs: Initial Vital Signs Temperature 98.2 F 06/16/18 19:35 Pulse Rate 70 06/16/18 19:35 Respiratory Rate 18 06/16/18 19:35 Blood Pressure 155/82 06/16/18 19:35 O2 Sat by Pulse Oximetry 99 06/16/18 19:35 Pain Scale Pain Intensity 0 - Physical Exam General Appearance: no apparent distress Eye Exam: PERRL/EOMI, eyes nml inspection Ears, Nose, Throat Exam: normal ENT inspection, TMs normal, pharynx normal, moist mucous membranes Neck Exam: normal inspection, non-tender, supple, full range of motion Respiratory Exam: normal breath sounds, lungs clear, No respiratory distress Cardiovascular Exam: regular rate/rhythm, normal heart sounds, normal peripheral pulses, capillary refill <2 sec Gastrointestinal/Abdomen Exam: soft, normal bowel sounds, No tenderness, No mass Back Exam: normal inspection, normal range of motion, No CVA tenderness, No vertebral tenderness Extremity Exam: normal inspection, normal range of motion, pelvis stable Neurologic Exam: alert, oriented x 3, cooperative, application support administrator II-XII nml as tested, normal mood/affect, nml cerebellar function, nml station & gait, sensation nml, No motor deficits Skin Exam: normal color, warm, dry, No rash Lymphatic Exam: No adenopathy SpO2 Interpretation: normal (99%) SpO2: 99 Oxygen Delivery: Room Air - Course Nursing assessment & vital signs reviewed: Yes EKG Interpreted by Me: RATE (bpm), Sinus Rhythm, Other (EKG: Sinus rhythm, 72 bpm, axisSI/QIII pattern, no acute ST or TWAVE CHANGES< ) Ordered Tests: Active Orders 24 hr Category Date Time Status Accucheck STAT Care 06/16/18 20:09 Active Accucheck STAT Care 06/16/18 21:49 Active EKG-ER Only STAT Care 06/16/18 20:09 Active IV Insertion STAT Care 06/16/18 20:09 Active Pulse Oximetry (ED) STAT Care 06/16/18 20:09 Active CBC W DIFF Stat Lab 06/16/18 19:40 Completed CMP Stat Lab 06/16/18 19:40 Completed VENOUS BLOOD GAS Urgent Lab 06/16/18 20:09 Completed Transfer Order Routine Transfer 06/16/18 Ordered Medication Summary Discontinued Medications Generic Name Dose Route Start Last Admin Trade Name Freq PRN Reason Stop Dose Admin Sodium Chloride 1,000 mls @ 999 mls/hr 06/16/18 20:09 06/16/18 20:17 Sodium Chloride 0.9% 1000 Ml IV 06/16/18 21:09 999 mls/hr .Q1H1M STA Administration Sodium Chloride Confirm 06/16/18 20:16 Sodium Chloride 0.9% 1000 Ml Administered 06/16/18 20:17 Dose 1,000 mls @ ud .ROUTE .STK-MED ONE Sodium Chloride 1,000 mls @ 999 mls/hr 06/16/18 20:44 06/16/18 21:33 Sodium Chloride 0.9% 1000 Ml IV 06/16/18 21:44 999 mls/hr .Q1H1M STA Administration Sodium Chloride Confirm 06/16/18 21:00 Sodium Chloride 0.9% 1000 Ml Administered 06/16/18 21:01 Dose 1,000 mls @ ud .ROUTE .STK-MED ONE Insulin Human Regular 7 unit 06/16/18 23:20 06/16/18 23:40 Novolin R SQ 06/16/18 23:21 7 unit STAT ONE Administration Insulin Human Regular Confirm 06/16/18 23:38 Novolin R Administered 06/16/18 23:39 Dose 7 unit .ROUTE .STK-MED ONE Lab/Rad Data: Laboratory Result Diagrams 06/16/18 19:40 06/16/18 19:40 Laboratory Results 06/16/18 06/16/18 06/16/18 Range/Units 20:09 19:40 19:40 WBC 7.4 (4.0-10.5) K/mm3 RBC 4.21 (4.1-5.6) M/mm3 Hgb 13.8 (12.5-18.0) gm/dl Hct 37.6 L (42-50) % MCV 89.3 (78-100) fl MCH 32.8 H (26-32) pg MCHC 36.7 H (32-36) g/dl RDW 14.3 H (11.5-14.0) % Plt Count 58 L (150-450) K/mm3 MPV 11.5 H (6-9.5) fl Gran % 74.7 H (36.0-66.0) % Eos # (Auto) 0.24 (0-0.5) Absolute Lymphs (auto) 1.15 (1.0-4.6) Absolute Monos (auto) 0.45 (0.0-1.3) Lymphocytes % 15.5 L (24.0-44.0) % Monocytes % 6.1 (0.0-12.0) % Eosinophils % 3.2 (0.00-5.0) % Basophils % 0.5 (0.0-0.4) % Absolute Granulocytes 5.55 (1.4-6.9) Basophils # 0.04 (0-0.4) pO2/FiO2 Ratio 21.0 % VBG pH 7.32 (7.32-7.42) VBG pCO2 at Pat Temp 33 L (42-55) mm/Hg VBG pO2 at Pat Temp 30 (25-40) mm/Hg VBG HCO3 17.0 L (22-28) meq/L VBG O2 Sat (Mark) 73.4 L (95-100) VBG Base Excess -8.1 L (-2.0-2.0) VBG Hemoglobin 14.0 VBG Carboxyhemoglobin 4.0 (0.0-6.9) % T HGB POC Potassium 4.0 (3.5-5.1) Sodium 135 L (137-145) mmol/L Potassium 3.9 (3.5-5.1) mmol/L Chloride 107 (98-107) mmol/L Carbon Dioxide 17 L (22-30) mmol/L Anion Gap 14.5 (5-15) MEQ/L BUN 9 (9-20) mg/dL Creatinine 0.82 (0.66-1.25) mg/dL Estimated GFR > 60.0 ML/MIN Glucose 443 H (74-106) mg/dL Calcium 9.7 (8.4-10.2) mg/dL Total Bilirubin 4.00 H (0.2-1.3) mg/dL AST 43 (17-59) U/L ALT 35 (0-50) U/L Alkaline Phosphatase 217 H (38-126) U/L Serum Total Protein 6.2 L (6.3-8.2) g/dL Albumin 3.4 L (3.5-5.0) g/dL Slides for Path Review YES - Progress Progress: improved Progress Note: 06/16/18 23:16 62-year-old white male with history of diabetes type 2, cataracts, dementia, liver disease, pneumonia, high blood pressure, cirrhosis Seen this morning around 3:00 secondary to hyperglycemia Patient was apparently given Bactrim for his urine and also given a prescription for Lantus insulin after being given coverage in the emergency room. Patient's brings patient back and she states she feels he is intermittently confused she states his blood sugars are high at home Patient with a glucose of 443 on chemistry patient with a pH of 7.32 PCO2 of 32 Patient is given 2 L of normal saline patient's blood sugar now 365. I've discussed the patient's case with Dr. Hernandez will place patient on observation Will provide insulin coverage moderate sliding scale continued IV fluids. Obtain telemetry and every neuro checks also every 4 hour Accu-Cheks. - Departure Time of Disposition: 23:56 Departure Disposition: Observation Clinical Impression: Intermittent confusion, Hyperglycemia Condition: Fair Critical Care Time: No Referrals: KANU HERNANDEZ MD [Primary Care Provider] -
[2018-06-16] MEDS ORDERED: Sodium Chloride 0.9% 1000 ML 1,000 ML ONE ×2 (20:16→21:00)
[2018-06-16 20:39] LABS: VBG BASE EXCESS -8.1 (-2.0-2.0); VBG O2 SATURATION 73.4 (95-100); VBG pH 7.32 (7.32-7.42)
[2018-06-16 20:41] LABS: BASOPHIL % 0.5 % (0.0-0.4); Basophil (Absolute #) 0.04 (0-0.4); Eosinophil % 3.2 % (0.00-5.0); Eosinophil (Absolute #) 0.24 (0-0.5); Granulocytes % 74.7 % (36.0-66.0); Hematocrit 37.6 % (42-50); Hemoglobin 13.8 gm/dl (12.5-18.0); Lymphocyte (Absolute #) 1.15 (1.0-4.6); Lymphocytes % 15.5 % (24.0-44.0); Mean Cell Volume 89.3 fl (78-100); Mean Corpuscular Hemoglobin 32.8 pg (26-32); Mean Corpuscular Hgb Concent. 36.7 g/dl (32-36); Mean Platelet Volume 11.5 fl (6-9.5); Monocyte (Absolute #) 0.45 (0.0-1.3); Monocytes % 6.1 % (0.0-12.0); Platelet Count 58 K/mm3 (150-450); Red Blood Count 4.21 M/mm3 (4.1-5.6); Red Cell Distribution Width 14.3 % (11.5-14.0); White Blood Count 7.4 K/mm3 (4.0-10.5)
[2018-06-16 20:51] LABS: ALBUMIN 3.4 g/dL (3.5-5.0); ALKALINE PHOSPHATASE 217 U/L (38-126); ANION GAP 14.5 MEQ/L (5-15); BLOOD UREA NITROGEN 9 mg/dL (9-20); CHLORIDE 107 mmol/L (98-107); Calcium 9.7 mg/dL (8.4-10.2); Carbon Dioxide 17 mmol/L (22-30); Creatinine 1 0.82 mg/dL (0.66-1.25); Glucose 443 mg/dL (74-106); Potassium 3.9 mmol/L (3.5-5.1); SGOT/AST 43 U/L (17-59); SGPT/ALT 35 U/L (0-50); SODIUM 135 mmol/L (137-145); Total Protein 6.2 g/dL (6.3-8.2)
[2018-06-16 22:06] LABS: Slide Review 1 YES
[2018-06-16] MEDS ORDERED: NovoLIN R SQ ONE (23:20)
[2018-06-16] MEDS ORDERED: NovoLIN R ONE (23:38)
[2018-06-16] MEDS ORDERED: DUONEB 0.5-3 MG/3 ml Neb IH PRN (23:57)
[2018-06-17] MEDS: NovoLOG Insulin SQ PRN ×6 (00:35→21:25)
[2018-06-17] MEDS: Sodium Chloride 0.9% 1000 ML 1,000 ML IV SCH ×4 (01:17→18:28)
[2018-06-17] MEDS ORDERED: ROCEPHIN 1 Gm-D5w 50 ml Bag** 1 G/50 ML IVPB IV SCH ×2 (05:00→22:00)
[2018-06-17 05:58] LABS: BASOPHIL % 0.4 % (0.0-0.4); Basophil (Absolute #) 0.03 (0-0.4); Eosinophil (Absolute #) 0.27 (0-0.5); Granulocytes % 70.9 % (36.0-66.0); Hematocrit 34.1 % (42-50); Hemoglobin 12.3 gm/dl (12.5-18.0); Lymphocyte (Absolute #) 1.21 (1.0-4.6); Lymphocytes % 18.1 % (24.0-44.0); Mean Cell Volume 90.2 fl (78-100); Mean Corpuscular Hemoglobin 32.5 pg (26-32); Mean Corpuscular Hgb Concent. 36.1 g/dl (32-36); Mean Platelet Volume 11.7 fl (6-9.5); Monocyte (Absolute #) 0.44 (0.0-1.3); Monocytes % 6.6 % (0.0-12.0); Platelet Count 52 K/mm3 (150-450); Red Blood Count 3.78 M/mm3 (4.1-5.6); Red Cell Distribution Width 14.3 % (11.5-14.0); White Blood Count 6.7 K/mm3 (4.0-10.5)
[2018-06-17 06:11] LABS: ALBUMIN 2.8 g/dL (3.5-5.0); ALKALINE PHOSPHATASE 150 U/L (38-126); ANION GAP 11.7 MEQ/L (5-15); BLOOD UREA NITROGEN 8 mg/dL (9-20); CHLORIDE 113 mmol/L (98-107); Calcium 8.6 mg/dL (8.4-10.2); Creatinine 1 0.71 mg/dL (0.66-1.25); Glucose 231 mg/dL (74-106); SGOT/AST 33 U/L (17-59); SGPT/ALT 30 U/L (0-50); SODIUM 136 mmol/L (137-145); Total Protein 5.5 g/dL (6.3-8.2)
[2018-06-17 06:24] LABS: Potassium 2.9 mmol/L (3.5-5.1)
[2018-06-17 06:25] LABS: Carbon Dioxide 16 mmol/L (22-30)
[2018-06-17 07:35] LABS: Slide Review 1 YES
[2018-06-17] MEDS: POTASSIUM CHLORIDE 20 mEq IN WATER 100ML 20 MEQ/100 ML BAG IV SCH ×2 (08:26→11:15)
--- NOTE | 2018-06-17 08:45 | PCM.HP ---
History of Present Illness - Chief Complaint Chief Complaint: hyperglycemia, confusion History of Present Illness: is a 62 year old male pt of DR. Vasquez with sepsis after knee replacement last year, also with DM, HTN, and hepatic encephalopathy who was admitted through ER with UTI. He had several days of acting abnormally at home and had been vomiting intermittently. He went outside on his own, "missed the last 4 steps" and was found outside complaining that "those people aren't helping me" - no people were around. His blood sugar was elevated. He was brought to ER, found to have UTI, started on Lantus 10 units daily and bactrim and sent home. Those Rx were not given at home as his BS read "HI" and he was brought back to ER last night. BS was 443. He was given IV fluids and insulin on sliding scale. IV rocephin 1 g given. This morning he is alert. Oriented to place. Says the date is "06/27/17" as he reads it from the message board. Potassium was 2.9 this morning. He is complaining of pain from the site of potassium IV infusion. - Review of Systems Abdominal/Gastrointestinal: Vomiting Musculoskeletal: Other (swelling RLE, chronic) Neurological: Other (confusion) Psychological: Depression (cries "for no reason") Hematologic/Lymphatic: Anemia All Other Systems: Reviewed and Negative (with pt and pt's ) Medications & Allergies Home Medications: Home Medication List Ferrous Sulfate 325 mg PO BID 03/12/17 [History Confirmed 06/17/18] Thiamine Mononitrate [Vitamin B-1] 250 mg PO DAILY 03/12/17 [History Confirmed 06/17/18] Oxycodone HCl 5 mg PO Q6H PRN PRN 05/02/17 [History Confirmed 06/17/18] Zinc Sulfate 220 mg PO BID 05/02/17 [History Confirmed 06/17/18] Alprazolam 0.25 mg [xanAX 0.25 MG] 0.25 mg PO Q6H PRN PRN 11/16/17 [ History Confirmed 06/17/18] Ascorbic Acid 500 mg [Vitamin C 500 MG] 500 mg PO DAILY 11/16/17 [History Confirmed 06/17/18] Aspirin 81 gm Chew [Baby Aspirin 81 mg Chew] 81 mg PO BID 11/16/17 [ History Confirmed 06/17/18] Ciprofloxacin [Cipro 500 MG] 500 mg PO BID 11/16/17 [History Confirmed ] Famotidine 20 mg [Pepcid 20 MG] 20 mg PO BID 11/16/17 [History Confirmed 06/17/18] Folic Acid 1 mg [Folate 1 mg] 1 mg PO DAILY 11/16/17 [History Confirmed ] Spironolactone 25 mg [Aldactone 25 MG] 50 mg PO DAILY 11/16/17 [History Confirmed 06/17/18] Vitamin E 400 Units [Vitamin E 400 UNIT SOFTGEL] 400 units PO DAILY [History Confirmed 06/17/18] Escitalopram Oxalate 10 mg [Lexapro 10 MG] 10 mg PO DAILY 02/28/18 [History Confirmed 06/17/18] Rifaximin [Xifaxan] 550 mg PO BID 02/28/18 [History Confirmed 06/17/18] Sodium Bicarbonate 650 mg PO TID #90 tablet 03/02/18 [Rx Confirmed 06/17/18] Insulin Glargine,Hum.rec.anlog [Lantus] 10 unit SQ QPM #1 vial 06/16/18 [Rx Confirmed 06/17/18] Ondansetron HCl [Zofran] 4 mg PO Q6H PRN PRN 06/16/18 [History Confirmed ] Lactulose [Lactulose 20 gm/30Ml Ud Cup] 30 mg PO QID 06/17/18 [History Confirmed 06/17/18] Smz/Tmp Ds Tablet [Bactrim Ds Tablet] 1 tab PO BID 06/17/18 [History Confirmed 06/17/18] Allergies/Adverse Reactions: Allergies Allergy/AdvReac Type Severity Reaction Status Date / Time No Known Drug Allergies Allergy Verified 06/16/18 19:44 - Past Medical History Past Medical History: Yes Neurological History: Dementia ENT History: Cataracts Cardiac History: Hypertension Respiratory History: Pneumonia Endocrine Medical History: Diabetes Type II, Liver Disease Musculoskelatal History: Arthritis GI Medical History: Cirrhosis History: Dialysis Pyscho-Social History: Depression Male Reproductive Disorders: No Pertinent History Comment: elevated ammonia, pt has hx of sepsis. Prior dialysis. - Past Surgical History Past Surgical History: Yes Neuro Surgical History: No Pertinent History Cardiac History: No Pertinent History Respiratory Surgery: No Pertinent History GI Surgical History: Hernia Repair Genitourinary Surgical Hx: No Pertinent History Musculskeletal Surgical Hx: Joint Replacement, Other Male Surgical History: No Pertinent History Other Surgical History: partial RIGHT KNEE REPLACEMENT. cataracts, - Social History Smoking Status: Never smoker Exposure to second hand smoke: No Alcohol: None Drug Use: none - Physical Exam Vital Signs: Vital Signs - 24 hr Temp Pulse Resp BP Pulse Ox 06/17/18 07:15 98 F 86 20 158/80 98 06/17/18 03:53 98 F 75 19 168/72 96 06/17/18 00:43 98.4 F 67 22 172/74 100 06/17/18 00:10 67 22 100 06/17/18 00:00 98.4 F 67 22 172/74 100 06/16/18 23:57 100 06/16/18 23:56 99 06/16/18 23:09 75 157/83 98 06/16/18 22:25 68 18 170/86 96 06/16/18 21:43 78 18 167/94 95 06/16/18 20:59 77 164/83 99 06/16/18 20:17 73 151/84 97 06/16/18 20:13 99 06/16/18 19:35 98.2 F 70 18 155/82 99 General Appearance: no apparent distress, alert Neurologic Exam: cooperative, other (gives wrong date) Eye Exam: eyes nml inspection Ears, Nose, Throat Exam: moist mucous membranes Respiratory Exam: diminished breath sounds (good air exchange), wheezing ( expiratory), No crackles/rales, No rhonchi Cardiovascular Exam: regular rate/rhythm, normal heart sounds, No murmur Gastrointestinal/Abdomen Exam: soft, normal bowel sounds, No tenderness, No distention, No mass, No guarding, No rebound Back Exam: normal inspection, No CVA tenderness, No rash Extremity Exam: swelling (1+ pretibial edema RLE, none on L well healed scar on R knee) Results - Labs Lab/Micro Results: Accuchecks Date 06/17/18 Date 06/17/18 Date 06/17/18 Time 04:08 Time 00:15 Accucheck Value: 276 Accucheck Value: 274 Accucheck Value: 395 Accucheck Value: 365 Accucheck Value: 462 Lab Results-Last 24 Hours 06/16/18 06/16/18 06/16/18 Range/Units 19:40 19:40 20:09 WBC 7.4 (4.0-10.5) K/mm3 RBC 4.21 (4.1-5.6) M/mm3 Hgb 13.8 (12.5-18.0) gm/dl Hct 37.6 L (42-50) % MCV 89.3 (78-100) fl MCH 32.8 H (26-32) pg MCHC 36.7 H (32-36) g/dl RDW 14.3 H (11.5-14.0) % Plt Count 58 L (150-450) K/mm3 MPV 11.5 H (6-9.5) fl Gran % 74.7 H (36.0-66.0) % Eos # (Auto) 0.24 (0-0.5) Absolute Lymphs (auto) 1.15 (1.0-4.6) Absolute Monos (auto) 0.45 (0.0-1.3) Lymphocytes % 15.5 L (24.0-44.0) % Monocytes % 6.1 (0.0-12.0) % Eosinophils % 3.2 (0.00-5.0) % Basophils % 0.5 (0.0-0.4) % Absolute Granulocytes 5.55 (1.4-6.9) Basophils # 0.04 (0-0.4) pO2/FiO2 Ratio 21.0 % VBG pH 7.32 (7.32-7.42) VBG pCO2 at Pat Temp 33 L (42-55) mm/Hg VBG pO2 at Pat Temp 30 (25-40) mm/Hg VBG HCO3 17.0 L (22-28) meq/L VBG O2 Sat (Mark) 73.4 L (95-100) VBG Base Excess -8.1 L (-2.0-2.0) VBG Hemoglobin 14.0 VBG Carboxyhemoglobin 4.0 (0.0-6.9) % T HGB POC Potassium 4.0 (3.5-5.1) Sodium 135 L (137-145) mmol/L Potassium 3.9 (3.5-5.1) mmol/L Chloride 107 (98-107) mmol/L Carbon Dioxide 17 L (22-30) mmol/L Anion Gap 14.5 (5-15) MEQ/L BUN 9 (9-20) mg/dL Creatinine 0.82 (0.66-1.25) mg/dL Estimated GFR > 60.0 ML/MIN Glucose 443 H (74-106) mg/dL Calcium 9.7 (8.4-10.2) mg/dL Total Bilirubin 4.00 H (0.2-1.3) mg/dL AST 43 (17-59) U/L ALT 35 (0-50) U/L Alkaline Phosphatase 217 H (38-126) U/L Serum Total Protein 6.2 L (6.3-8.2) g/dL Albumin 3.4 L (3.5-5.0) g/dL Slides for Path Review YES 06/17/18 06/17/18 Range/Units 05:14 05:14 WBC 6.7 (4.0-10.5) K/mm3 RBC 3.78 L (4.1-5.6) M/mm3 Hgb 12.3 L (12.5-18.0) gm/dl Hct 34.1 L (42-50) % MCV 90.2 (78-100) fl MCH 32.5 H (26-32) pg MCHC 36.1 H (32-36) g/dl RDW 14.3 H (11.5-14.0) % Plt Count 52 L (150-450) K/mm3 MPV 11.7 H (6-9.5) fl Gran % 70.9 H (36.0-66.0) % Eos # (Auto) 0.27 (0-0.5) Absolute Lymphs (auto) 1.21 (1.0-4.6) Absolute Monos (auto) 0.44 (0.0-1.3) Lymphocytes % 18.1 L (24.0-44.0) % Monocytes % 6.6 (0.0-12.0) % Eosinophils % 4.0 (0.00-5.0) % Basophils % 0.4 (0.0-0.4) % Absolute Granulocytes 4.73 (1.4-6.9) Basophils # 0.03 (0-0.4) pO2/FiO2 Ratio % VBG pH (7.32-7.42) VBG pCO2 at Pat Temp (42-55) mm/Hg VBG pO2 at Pat Temp (25-40) mm/Hg VBG HCO3 (22-28) meq/L VBG O2 Sat (Mark) (95-100) VBG Base Excess (-2.0-2.0) VBG Hemoglobin VBG Carboxyhemoglobin (0.0-6.9) % T HGB POC Potassium (3.5-5.1) Sodium 136 L (137-145) mmol/L Potassium 2.9 L* D (3.5-5.1) mmol/L Chloride 113 H (98-107) mmol/L Carbon Dioxide 16 L* (22-30) mmol/L Anion Gap 11.7 (5-15) MEQ/L BUN 8 L (9-20) mg/dL Creatinine 0.71 (0.66-1.25) mg/dL Estimated GFR > 60.0 ML/MIN Glucose 231 H (74-106) mg/dL Calcium 8.6 (8.4-10.2) mg/dL Total Bilirubin 3.10 H (0.2-1.3) mg/dL AST 33 (17-59) U/L ALT 30 (0-50) U/L Alkaline Phosphatase 150 H (38-126) U/L Serum Total Protein 5.5 L (6.3-8.2) g/dL Albumin 2.8 L (3.5-5.0) g/dL Slides for Path Review YES Accuchecks Date 06/17/18 Date 06/17/18 Date 06/17/18 Time 04:08 Time 00:15 Accucheck Value: 276 Accucheck Value: 274 Accucheck Value: 395 Accucheck Value: 365 Accucheck Value: 462 - Other Procedures and Tests Respiratory Therapy 06/17/18 00:25 Peak Expiratory Flow Rate ONCE Respiratory Therapy Assessment DAILY Assessment/Plan (1) Hyperglycemia Current Visit: Yes Status: Acute Onset Date: ~06/16/18 Assessment & Plan: Likely due to current infection; just started on insulin. With BS so high he will likely have to stay on insulin. Will give the family rx for lantus pen for home use. Will probably take several days to stabilize the blood sugars. Code(s): R73.9 - HYPERGLYCEMIA, UNSPECIFIED (2) Intermittent confusion Current Visit: Yes Status: Acute Onset Date: ~06/16/18 Assessment & Plan: expect this to resolve as UTI is treated. Code(s): R41.0 - DISORIENTATION, UNSPECIFIED (3) UTI (urinary tract infection) Current Visit: Yes Status: Acute Onset Date: ~06/16/18 Qualifiers: Urinary tract infection type: acute cystitis Hematuria presence: without hematuria Qualified Code(s): N30.00 - Acute cystitis without hematuria Assessment & Plan: on IV rocephin. Culture from 06/16/18 pending - few budding yeast apparent, so will add diflucan 200mg po daily x 14d. Code(s): N39.0 - URINARY TRACT INFECTION, SITE NOT SPECIFIED (4) Diabetes Current Visit: No Status: Chronic Qualifiers: Diabetes mellitus type: type 2 Diabetes mellitus [facility] insulin use: without directory operator use Assessment & Plan: on Lantus 10 units and sliding scale. Likely higher insulin requirement while he is fighting UTI, but with his BS so high I expect he will need insulin going forward. Code(s): E11.9 - TYPE 2 DIABETES MELLITUS WITHOUT COMPLICATIONS (5) Hypokalemia Current Visit: Yes Status: Acute Assessment & Plan: receiving 40 unit K-rider currently. Code(s): E87.6 - HYPOKALEMIA (6) Thrombocytopenia Current Visit: Yes Status: Acute Assessment & Plan: chronic. in Feb 2018 was 63. (7) Cirrhosis of liver Current Visit: No Status: Chronic Qualifiers: Hepatic cirrhosis type: unspecified hepatic cirrhosis Ascites presence: without ascites Qualified Code(s): K74.60 - Unspecified cirrhosis of liver Assessment & Plan: will check ammonia - with hx hepatic encephalopathy.
[2018-06-17] MEDS: Lexapro 10 MG PO SCH (09:21)
[2018-06-17] MEDS ORDERED: xanAX 0.25 MG PO PRN (09:35)
[2018-06-17] MEDS ORDERED: RIFAXIMIN 550 MG PO SCH (10:00)
[2018-06-17] MEDS ORDERED: THIAMINE MONONITRATE 250 MG PO SCH (10:00)
[2018-06-17] MEDS ORDERED: NON-FORMULARY ITEM (Sodium Bicarbonate 650 MG) PO SCH (10:00)
[2018-06-17] MEDS: Zinc Gluconate 50 MG PO SCH ×2 (10:39→21:29)
[2018-06-17] MEDS: Vitamin E 400 UNIT SOFTGEL PO SCH (10:39)
[2018-06-17] MEDS: Aldactone 25 MG PO SCH (10:40)
[2018-06-17] MEDS: Vitamin C 500 MG PO SCH (10:40)
[2018-06-17] MEDS: FOLATE 1 MG PO SCH (10:40)
[2018-06-17] MEDS: ECOTRIN 81 MG PO SCH ×2 (10:40→21:26)
[2018-06-17] MEDS: Pepcid 20 MG PO SCH ×2 (10:40→21:28)
[2018-06-17] MEDS: PROVENTIL 2.5 MG/3 ML NEB IH SCH ×3 (10:41→19:49)
[2018-06-17] MEDS: VITAMIN B-1 100 MG PO SCH (10:42)
[2018-06-17] MEDS: Xifaxan 200 MG PO SCH ×2 (10:43→21:29)
[2018-06-17] MEDS: NON-FORMULARY ITEM PO SCH ×3 (10:44→21:27)
[2018-06-17] MEDS: Enulose 10 GM/15 ML PO SCH ×4 (10:46→21:41)
[2018-06-17] MEDS: ENOXAPARIN SODIUM SQ SCH (10:53)
[2018-06-17] MEDS: PHENERGAN 25 MG PO PRN ×2 (15:19→20:25)
[2018-06-17 17:15] LABS: ANION GAP 13.5 MEQ/L (5-15); BLOOD UREA NITROGEN 8 mg/dL (9-20); CHLORIDE 116 mmol/L (98-107); Calcium 8.7 mg/dL (8.4-10.2); Creatinine 1 0.89 mg/dL (0.66-1.25); Glucose 339 mg/dL (74-106); Potassium 3.4 mmol/L (3.5-5.1); SODIUM 141 mmol/L (137-145)
[2018-06-17 17:24] LABS: Carbon Dioxide 13 mmol/L (22-30)
[2018-06-17] MEDS ORDERED: Sodium Chloride 0.9% 1000 ML 1,000 ML IV STA ×3 (17:30→22:01)
[2018-06-17 20:22] LABS: ANION GAP 11.1 MEQ/L (5-15); BLOOD UREA NITROGEN 8 mg/dL (9-20); CHLORIDE 119 mmol/L (98-107); Calcium 8.2 mg/dL (8.4-10.2); Creatinine 1 0.83 mg/dL (0.66-1.25); Glucose 372 mg/dL (74-106); Potassium 3.8 mmol/L (3.5-5.1); SODIUM 140 mmol/L (137-145)
[2018-06-17 20:28] LABS: Carbon Dioxide 13 mmol/L (22-30)
[2018-06-17] MEDS ORDERED: Phenergan 25 MG INJ IV PRN (20:36)
[2018-06-17] MEDS: Lantus Insulin SQ SCH (21:24)
[2018-06-17 23:11] LABS: ANION GAP 14.2 MEQ/L (5-15); BLOOD UREA NITROGEN 7 mg/dL (9-20); CHLORIDE 119 mmol/L (98-107); Calcium 8.3 mg/dL (8.4-10.2); Creatinine 1 0.82 mg/dL (0.66-1.25); Glucose 381 mg/dL (74-106); Potassium 3.6 mmol/L (3.5-5.1); SODIUM 141 mmol/L (137-145)
[2018-06-17 23:18] LABS: Carbon Dioxide 12 mmol/L (22-30)
[2018-06-17 23:49] LABS: A-aADO2 -19; ABG HEMOGLOBIN 10.9; ABG POTASSIUM 3.4 (3.5-5.1); ARTERIAL BLD GAS O2 SATURATION 100.2 % (95-100); ARTERIAL BLOOD GAS BASE EXCESS -11.7 (-2.0-2.0); ARTERIAL BLOOD GAS FIO2 21 %; ARTERIAL BLOOD GAS PCO2 21 mmHg (35-45); ARTERIAL BLOOD GAS PO2 142 mmHg (75-100); ARTERIAL BLOOD GAS pH 7.36 (7.35-7.45); CARBOXYHEMOGLOBIN 3.1 % THgb (0.0-6.9); HCO3- 11.9 (22-28); HGB O2 SAT 95.6 g/dF (94-100); Methhemoglobin 1.5 % (1.4-1.5); paO2 pAO1 1.15
[2018-06-17 23:50] LABS: ABG SITE RIGHT BRACHIAL
[2018-06-18] MEDS: NovoLOG Insulin SQ PRN ×6 (00:03→23:35)
[2018-06-18] MEDS ORDERED: NOVOLIN R INSULIN (FOR DRIPS)** 100 UNITS in Sodium Chloride 0.9% 100 ML IVPB 100 ML IV PRN ×3 (01:16→03:23)
[2018-06-18] MEDS ORDERED: NovoLIN R ONE ×3 (01:29→01:46)
[2018-06-18] MEDS ORDERED: Sodium Chloride 0.9% 100 ML IVPB 100 ML IV ONE (01:30)
[2018-06-18] MEDS ORDERED: Dextrose 5% -0.45 NaCl 1000 ML 1,000 ML IV ONE (02:12)
[2018-06-18] MEDS ORDERED: Dextrose 5% -0.45 NaCl 1000 ML 1,000 ML IV SCH (02:25)
[2018-06-18] MEDS: Oxy-IR 5 MG PO PRN ×2 (03:14→21:37)
[2018-06-18 04:21] LABS: Lactic Acid 3.1 (0.4-2.0)
[2018-06-18 04:22] LABS: BASOPHIL % 0.3 % (0.0-0.4); Basophil (Absolute #) 0.03 (0-0.4); Eosinophil % 3.8 % (0.00-5.0); Eosinophil (Absolute #) 0.37 (0-0.5); Granulocytes % 65.6 % (36.0-66.0); Hematocrit 33.5 % (42-50); Lymphocyte (Absolute #) 1.93 (1.0-4.6); Lymphocytes % 19.6 % (24.0-44.0); Mean Corpuscular Hemoglobin 32.6 pg (26-32); Mean Corpuscular Hgb Concent. 35.8 g/dl (32-36); Mean Platelet Volume 11.1 fl (6-9.5); Monocyte (Absolute #) 1.05 (0.0-1.3); Monocytes % 10.7 % (0.0-12.0); Platelet Count 67 K/mm3 (150-450); Red Blood Count 3.68 M/mm3 (4.1-5.6); Red Cell Distribution Width 14.8 % (11.5-14.0); White Blood Count 9.8 K/mm3 (4.0-10.5)
[2018-06-18 04:35] LABS: ALBUMIN 2.7 g/dL (3.5-5.0); ALKALINE PHOSPHATASE 151 U/L (38-126); ANION GAP 10.8 MEQ/L (5-15); BLOOD UREA NITROGEN 7 mg/dL (9-20); CHLORIDE 122 mmol/L (98-107); Calcium 8.1 mg/dL (8.4-10.2); Creatinine 1 0.78 mg/dL (0.66-1.25); Glucose 56 mg/dL (74-106); SGOT/AST 55 U/L (17-59); SGPT/ALT 38 U/L (0-50); SODIUM 143 mmol/L (137-145); Total Protein 5.2 g/dL (6.3-8.2)
[2018-06-18 04:43] LABS: Carbon Dioxide 13 mmol/L (22-30); Potassium 2.7 mmol/L (3.5-5.1)
[2018-06-18] MEDS: Zosyn 3.375GM/100 Ml D5W 3.375 GM/100 ML IVPB IV SCH ×4 (05:01→23:35)
[2018-06-18] MEDS ORDERED: POTASSIUM CHLORIDE 20 mEq IN WATER 100ML 100 ML IV ONE (05:23)
[2018-06-18] MEDS: PROVENTIL 2.5 MG/3 ML NEB IH SCH ×4 (05:45→19:50)
[2018-06-18 05:52] LABS: Slide Review 1 YES
[2018-06-18] MEDS: POTASSIUM CHLORIDE 20 mEq IN WATER 100ML 20 MEQ/100 ML BAG IV SCH ×2 (06:50→08:35)
--- NOTE | 2018-06-18 08:05 | PCM.NOTE ---
Date and Time: 06/18/18 08 Subjective Assessment: patient sugars have improved, rapidly fell after initiation of IV insulin drip. his sugars are 150-170 recently. he denies any pain, does report intermittent vomiting. Objective Exam General Appearance: no apparent distress, alert Neurologic Exam: alert, oriented x 3, cooperative, normal mood/affect, nml cerebellar function, sensation nml, No motor deficits Respiratory Exam: normal breath sounds, lungs clear, No respiratory distress Cardiovascular Exam: regular rate/rhythm, normal heart sounds Gastrointestinal/Abdomen Exam: soft, No tenderness, No mass OBJECTIVE DATA Vital Signs: Vital Signs - 24 hr Temp Pulse Resp BP Pulse Ox 06/18/18 05:45 73 18 97 06/18/18 04:12 97.8 F 83 29 H 137/64 96 06/18/18 01:15 98.1 F 93 H 22 161/73 99 06/18/18 00:25 97.9 F 87 20 140/62 98 06/17/18 19:49 82 27 H 97 06/17/18 19:33 98.8 F 83 20 135/58 97 06/17/18 15:53 98 F 87 20 149/68 96 06/17/18 15:25 76 18 96 06/17/18 11:07 97.8 F 77 18 160/87 96 06/17/18 10:44 76 18 95 06/17/18 08:48 86 18 96 Pain Assessment - Last Documented Pain Intensity 0 Pain Scale Used 0-10 Pain Scale Intake and Output: Intake & Output 06/15/18 06/16/18 06/17/18 06/18/18 11:59 11:59 11:59 11:59 Intake Total 454 5787 Balance 454 5787 Weight 95.3 kg Lab Results: Accuchecks Date 06/18/1806/18/1806/18/1806/18/1806/18/1806/18/1806/18/1806/17/1806/17/1806/17/18 Time 06:55 Time 06:00 Time 05:00 Time 04:00 Time 03:00 Time 02:00 Time 00:00 Time 20:00 Accucheck Value: 172 Accucheck Value: 157 Accucheck Value: 152 Accucheck Value: 55 Accucheck Value: 110 Accucheck Value: 276 Accucheck Value: 323 Accucheck Value: 382 Accucheck Value: 324 Accucheck Value: 354 Lab Results-Last 24 Hours 06/17/18 06/17/18 06/17/18 Range/Units 09:15 16:55 20:00 WBC (4.0-10.5) K/mm3 RBC (4.1-5.6) M/mm3 Hgb (12.5-18.0) gm/dl Hct (42-50) % MCV (78-100) fl MCH (26-32) pg MCHC (32-36) g/dl RDW (11.5-14.0) % Plt Count (150-450) K/mm3 MPV (6-9.5) fl Gran % (36.0-66.0) % Eos # (Auto) (0-0.5) Absolute Lymphs (auto) (1.0-4.6) Absolute Monos (auto) (0.0-1.3) Lymphocytes % (24.0-44.0) % Monocytes % (0.0-12.0) % Eosinophils % (0.00-5.0) % Basophils % (0.0-0.4) % Absolute Granulocytes (1.4-6.9) Basophils # (0-0.4) Puncture Site pCO2 (35-45) mmHg pO2 (75-100) mmHg Base Excess (-2.0-2.0) O2 Saturation (94-100) g/dF ABG pH (7.35-7.45) ABG HCO3 (22-28) ABG O2 Sat (Measured) (95-100) % Matt Test A-a Gradient a/A Ratio Hemoglobin Carboxyhemoglobin (0.0-6.9) % THgb Methemoglobin (1.4-1.5) % Temperature C POC O2 Flow Rate % Sodium 141 140 (137-145) mmol/L Potassium 3.4 L 3.8 (3.5-5.1) mmol/L Chloride 116 H 119 H (98-107) mmol/L Carbon Dioxide 13 L* 13 L* (22-30) mmol/L Anion Gap 13.5 11.1 (5-15) MEQ/L BUN 8 L 8 L (9-20) mg/dL Creatinine 0.89 0.83 (0.66-1.25) mg/dL Estimated GFR > 60.0 > 60.0 ML/MIN Glucose 339 H 372 H (74-106) mg/dL Lactic Acid (0.4-2.0) Calcium 8.7 8.2 L (8.4-10.2) mg/dL Total Bilirubin (0.2-1.3) mg/dL AST (17-59) U/L ALT (0-50) U/L Alkaline Phosphatase (38-126) U/L Ammonia 42 H (9-30) umol/L Serum Total Protein (6.3-8.2) g/dL Albumin (3.5-5.0) g/dL Slides for Path Review 06/17/18 06/17/18 06/17/18 Range/Units 22:50 23:44 23:44 WBC (4.0-10.5) K/mm3 RBC (4.1-5.6) M/mm3 Hgb (12.5-18.0) gm/dl Hct (42-50) % MCV (78-100) fl MCH (26-32) pg MCHC (32-36) g/dl RDW (11.5-14.0) % Plt Count (150-450) K/mm3 MPV (6-9.5) fl Gran % (36.0-66.0) % Eos # (Auto) (0-0.5) Absolute Lymphs (auto) (1.0-4.6) Absolute Monos (auto) (0.0-1.3) Lymphocytes % (24.0-44.0) % Monocytes % (0.0-12.0) % Eosinophils % (0.00-5.0) % Basophils % (0.0-0.4) % Absolute Granulocytes (1.4-6.9) Basophils # (0-0.4) Puncture Site RIGHT BRACHIAL pCO2 21 L (35-45) mmHg pO2 142 H* (75-100) mmHg Base Excess -11.7 L (-2.0-2.0) O2 Saturation 95.6 (94-100) g/dF ABG pH 7.36 (7.35-7.45) ABG HCO3 11.9 L* (22-28) ABG O2 Sat (Measured) 100.2 H (95-100) % Matt Test NOT APPLICABLE A-a Gradient -19 a/A Ratio 1.15 Hemoglobin 10.9 Carboxyhemoglobin 3.1 (0.0-6.9) % THgb Methemoglobin 1.5 (1.4-1.5) % Temperature 37.0 C POC O2 Flow Rate 21 % Sodium 141 (137-145) mmol/L Potassium 3.6 3.4 L (3.5-5.1) mmol/L Chloride 119 H (98-107) mmol/L Carbon Dioxide 12 L* (22-30) mmol/L Anion Gap 14.2 (5-15) MEQ/L BUN 7 L (9-20) mg/dL Creatinine 0.82 (0.66-1.25) mg/dL Estimated GFR > 60.0 ML/MIN Glucose 381 H (74-106) mg/dL Lactic Acid 3.0 H (0.4-2.0) Calcium 8.3 L (8.4-10.2) mg/dL Total Bilirubin (0.2-1.3) mg/dL AST (17-59) U/L ALT (0-50) U/L Alkaline Phosphatase (38-126) U/L Ammonia (9-30) umol/L Serum Total Protein (6.3-8.2) g/dL Albumin (3.5-5.0) g/dL Slides for Path Review 06/18/18 06/18/18 06/18/18 Range/Units 04:00 04:00 04:00 WBC 9.8 (4.0-10.5) K/mm3 RBC 3.68 L (4.1-5.6) M/mm3 Hgb 12.0 L (12.5-18.0) gm/dl Hct 33.5 L (42-50) % MCV 91.0 (78-100) fl MCH 32.6 H (26-32) pg MCHC 35.8 (32-36) g/dl RDW 14.8 H (11.5-14.0) % Plt Count 67 L (150-450) K/mm3 MPV 11.1 H (6-9.5) fl Gran % 65.6 (36.0-66.0) % Eos # (Auto) 0.37 (0-0.5) Absolute Lymphs (auto) 1.93 (1.0-4.6) Absolute Monos (auto) 1.05 (0.0-1.3) Lymphocytes % 19.6 L (24.0-44.0) % Monocytes % 10.7 (0.0-12.0) % Eosinophils % 3.8 (0.00-5.0) % Basophils % 0.3 (0.0-0.4) % Absolute Granulocytes 6.45 (1.4-6.9) Basophils # 0.03 (0-0.4) Puncture Site pCO2 (35-45) mmHg pO2 (75-100) mmHg Base Excess (-2.0-2.0) O2 Saturation (94-100) g/dF ABG pH (7.35-7.45) ABG HCO3 (22-28) ABG O2 Sat (Measured) (95-100) % Matt Test A-a Gradient a/A Ratio Hemoglobin Carboxyhemoglobin (0.0-6.9) % THgb Methemoglobin (1.4-1.5) % Temperature C POC O2 Flow Rate % Sodium 143 (137-145) mmol/L Potassium 2.7 L* D (3.5-5.1) mmol/L Chloride 122 H (98-107) mmol/L Carbon Dioxide 13 L* (22-30) mmol/L Anion Gap 10.8 (5-15) MEQ/L BUN 7 L (9-20) mg/dL Creatinine 0.78 (0.66-1.25) mg/dL Estimated GFR > 60.0 ML/MIN Glucose 56 L (74-106) mg/dL Lactic Acid (0.4-2.0) Calcium 8.1 L (8.4-10.2) mg/dL Total Bilirubin 1.60 H (0.2-1.3) mg/dL AST 55 (17-59) U/L ALT 38 (0-50) U/L Alkaline Phosphatase 151 H (38-126) U/L Ammonia 54 H (9-30) umol/L Serum Total Protein 5.2 L (6.3-8.2) g/dL Albumin 2.7 L (3.5-5.0) g/dL Slides for Path Review YES 06/18/18 Range/Units 04:12 WBC (4.0-10.5) K/mm3 RBC (4.1-5.6) M/mm3 Hgb (12.5-18.0) gm/dl Hct (42-50) % MCV (78-100) fl MCH (26-32) pg MCHC (32-36) g/dl RDW (11.5-14.0) % Plt Count (150-450) K/mm3 MPV (6-9.5) fl Gran % (36.0-66.0) % Eos # (Auto) (0-0.5) Absolute Lymphs (auto) (1.0-4.6) Absolute Monos (auto) (0.0-1.3) Lymphocytes % (24.0-44.0) % Monocytes % (0.0-12.0) % Eosinophils % (0.00-5.0) % Basophils % (0.0-0.4) % Absolute Granulocytes (1.4-6.9) Basophils # (0-0.4) Puncture Site pCO2 (35-45) mmHg pO2 (75-100) mmHg Base Excess (-2.0-2.0) O2 Saturation (94-100) g/dF ABG pH (7.35-7.45) ABG HCO3 (22-28) ABG O2 Sat (Measured) (95-100) % Matt Test A-a Gradient a/A Ratio Hemoglobin Carboxyhemoglobin (0.0-6.9) % THgb Methemoglobin (1.4-1.5) % Temperature C POC O2 Flow Rate % Sodium (137-145) mmol/L Potassium (3.5-5.1) mmol/L Chloride (98-107) mmol/L Carbon Dioxide (22-30) mmol/L Anion Gap (5-15) MEQ/L BUN (9-20) mg/dL Creatinine (0.66-1.25) mg/dL Estimated GFR ML/MIN Glucose (74-106) mg/dL Lactic Acid 3.1 H (0.4-2.0) Calcium (8.4-10.2) mg/dL Total Bilirubin (0.2-1.3) mg/dL AST (17-59) U/L ALT (0-50) U/L Alkaline Phosphatase (38-126) U/L Ammonia (9-30) umol/L Serum Total Protein (6.3-8.2) g/dL Albumin (3.5-5.0) g/dL Slides for Path Review Radiology Exams: Radiology Procedures Category Date Time Status CHEST 1 VIEW (PORTABLE) Routine Exams 06/18/18 08:00 Ordered GALLBLADDER [US] Urgent Exams 06/18/18 Ordered Assessment/Plan (1) Lactic acidosis due to diabetes mellitus Current Visit: Yes Status: Acute Assessment & Plan: continue lantus 10 units daily and moderate dose sliding scale coverage. Code(s): E11.10 - TYPE 2 DIABETES MELLITUS WITH KETOACIDOSIS WITHOUT COMA (2) Intermittent confusion Current Visit: Yes Status: Acute Onset Date: ~06/16/18 Assessment & Plan: likely mutlifactorial, has had some underlying confusion since longstanding hospital stay with sepsis Code(s): R41.0 - DISORIENTATION, UNSPECIFIED (3) Cirrhosis of liver Current Visit: No Status: Chronic Qualifiers: Hepatic cirrhosis type: unspecified hepatic cirrhosis Ascites presence: without ascites Qualified Code(s): K74.60 - Unspecified cirrhosis of liver
[2018-06-18] MEDS: SODIUM CHLORIDE 0.45% W/ 20 mEq KCL 1,000 ML IV SCH (08:35)
--- NOTE | 2018-06-18 08:35 | XRAY ---
Indication: Elevated lactic acid. Pneumonia. Comparison: February 28, 2018. Portable chest remains clear. Heart is not enlarged for AP portable technique. Bony thorax intact. Impression: Stable nonacute chest.
[2018-06-18] MEDS: ENOXAPARIN SODIUM SQ SCH (10:27)
--- NOTE | 2018-06-18 11:16 | XRAY ---
Indication: Vomiting. Elevated lactate. Two-dimensional gallbladder sonogram performed. Comparison: None Gallbladder nominally distended without gallstones, wall thickening, or pericholecystic fluid. Common bile duct measures 3.7 mm. No intrahepatic biliary distention. Fatty echogenic liver with left lobe 2.9 x 3.0 x 3.4 cm hypoechogenic mass with color Doppler flow. Tiny anterior perihepatic fluid. Remaining visualized pancreas and right kidney sonographically unremarkable. Right kidney measures 10.5 cm in length. Impression: 1. Fatty liver with tiny nonspecific perihepatic fluid. Left lobe hypoechogenic mass with color Doppler flow possible hemangioma. CT liver with contrast using hemangioma protocol may yield further information. 2. Remaining gallbladder sonogram negative.
[2018-06-18] MEDS: Aldactone 25 MG PO SCH (12:05)
[2018-06-18] MEDS: Pepcid 20 MG PO SCH ×2 (12:06→21:30)
[2018-06-18] MEDS: FOLATE 1 MG PO SCH (12:06)
[2018-06-18] MEDS: ECOTRIN 81 MG PO SCH ×2 (12:06→21:30)
[2018-06-18] MEDS: NON-FORMULARY ITEM PO SCH ×3 (12:07→21:31)
[2018-06-18] MEDS: Xifaxan 200 MG PO SCH ×2 (12:07→21:30)
[2018-06-18] MEDS: Enulose 10 GM/15 ML PO SCH ×4 (12:07→21:31)
[2018-06-18] MEDS: Vitamin E 400 UNIT SOFTGEL PO SCH (12:08)
[2018-06-18] MEDS: Zinc Gluconate 50 MG PO SCH ×2 (12:08→21:32)
[2018-06-18] MEDS: VITAMIN B-1 100 MG PO SCH (12:10)
[2018-06-18] MEDS: Lexapro 10 MG PO SCH (12:11)
[2018-06-18] MEDS: Vitamin C 500 MG PO SCH (12:11)
[2018-06-18 13:26] LABS: ANION GAP 13.6 MEQ/L (5-15); BLOOD UREA NITROGEN 7 mg/dL (9-20); CHLORIDE 118 mmol/L (98-107); Calcium 8.3 mg/dL (8.4-10.2); Creatinine 1 0.86 mg/dL (0.66-1.25); Glucose 273 mg/dL (74-106); MAGNESIUM 1.5 mg/dL (1.6-2.3); Potassium 3.6 mmol/L (3.5-5.1); SODIUM 141 mmol/L (137-145)
[2018-06-18 13:31] LABS: Carbon Dioxide 13 mmol/L (22-30)
[2018-06-18] MEDS: Lantus Insulin SQ SCH (21:31)
[2018-06-19] MEDS: NovoLOG Insulin SQ PRN ×5 (05:01→20:04)
[2018-06-19] MEDS: Zosyn 3.375GM/100 Ml D5W 3.375 GM/100 ML IVPB IV SCH (05:01)
[2018-06-19 05:55] LABS: BASOPHIL % 0.5 % (0.0-0.4); Basophil (Absolute #) 0.02 (0-0.4); Eosinophil % 6.3 % (0.00-5.0); Eosinophil (Absolute #) 0.23 (0-0.5); Granulocytes % 68.7 % (36.0-66.0); Hematocrit 30.5 % (42-50); Hemoglobin 10.7 gm/dl (12.5-18.0); Lymphocyte (Absolute #) 0.58 (1.0-4.6); Lymphocytes % 15.8 % (24.0-44.0); Mean Cell Volume 93.8 fl (78-100); Mean Corpuscular Hemoglobin 32.9 pg (26-32); Mean Corpuscular Hgb Concent. 35.1 g/dl (32-36); Mean Platelet Volume 11.1 fl (6-9.5); Monocyte (Absolute #) 0.32 (0.0-1.3); Monocytes % 8.7 % (0.0-12.0); Platelet Count 34 K/mm3 (150-450); Red Blood Count 3.25 M/mm3 (4.1-5.6); White Blood Count 3.7 K/mm3 (4.0-10.5)
[2018-06-19] MEDS: PROVENTIL 2.5 MG/3 ML NEB IH SCH (06:50)
[2018-06-19 07:15] LABS: Slide Review 1 YES
[2018-06-19] MEDS: FOLATE 1 MG PO SCH (07:46)
[2018-06-19] MEDS: Aldactone 25 MG PO SCH (07:46)
[2018-06-19] MEDS: Lexapro 10 MG PO SCH (07:46)
[2018-06-19] MEDS: ENOXAPARIN SODIUM SQ SCH (07:46)
[2018-06-19] MEDS: NON-FORMULARY ITEM PO SCH ×3 (07:47→21:23)
[2018-06-19] MEDS: Vitamin C 500 MG PO SCH (07:47)
[2018-06-19] MEDS: Pepcid 20 MG PO SCH ×2 (07:47→21:23)
[2018-06-19] MEDS: ECOTRIN 81 MG PO SCH ×2 (07:47→21:23)
[2018-06-19] MEDS: Enulose 10 GM/15 ML PO SCH ×4 (07:47→21:23)
[2018-06-19] MEDS: Vitamin E 400 UNIT SOFTGEL PO SCH (07:49)
[2018-06-19] MEDS: Xifaxan 200 MG PO SCH ×2 (07:50→21:23)
[2018-06-19] MEDS: VITAMIN B-1 100 MG PO SCH (07:52)
[2018-06-19] MEDS: Zinc Gluconate 50 MG PO SCH ×2 (07:53→21:23)
[2018-06-19] MEDS: SODIUM CHLORIDE 0.45% W/ 20 mEq KCL 1,000 ML IV SCH (07:56)
[2018-06-19 08:42] LABS: ALBUMIN 2.3 g/dL (3.5-5.0); ALKALINE PHOSPHATASE 138 U/L (38-126); ANION GAP 9.3 MEQ/L (5-15); BLOOD UREA NITROGEN 8 mg/dL (9-20); CHLORIDE 121 mmol/L (98-107); Calcium 8.3 mg/dL (8.4-10.2); Creatinine 1 0.91 mg/dL (0.66-1.25); Glucose 247 mg/dL (74-106); Potassium 3.5 mmol/L (3.5-5.1); SGOT/AST 41 U/L (17-59); SGPT/ALT 34 U/L (0-50); SODIUM 142 mmol/L (137-145); Total Protein 4.7 g/dL (6.3-8.2)
--- NOTE | 2018-06-19 08:47 | PCM.NOTE ---
Date and Time: 06/19/18 0845 Subjective Assessment: patient doing better today, still has some confusion but denies any pain or complaints at this time. Objective Exam General Appearance: no apparent distress, alert Skin Exam: normal color, warm, dry Respiratory Exam: normal breath sounds, lungs clear, No respiratory distress Cardiovascular Exam: regular rate/rhythm, normal heart sounds Gastrointestinal/Abdomen Exam: soft, distention, No tenderness, No mass Extremity Exam: other (right knee no swelling, no redness. well healed scar) OBJECTIVE DATA Vital Signs: Vital Signs - 24 hr Temp Pulse Resp BP Pulse Ox 06/19/18 07:14 74 16 98 06/19/18 07:05 98.5 F 76 20 135/61 98 06/19/18 05:00 97 06/19/18 04:12 98.2 F 77 18 131/59 97 06/18/18 23:42 98.8 F 85 20 141/64 98 06/18/18 19:55 98.4 F 80 20 144/63 96 06/18/18 19:53 71 16 98 06/18/18 16:00 98.4 F 83 26 H 125/68 97 06/18/18 15:20 84 24 97 06/18/18 12:00 98.5 F 80 23 136/65 99 06/18/18 10:52 79 24 99 Pain Assessment - Last Documented Pain Intensity 2 Pain Scale Used 0-10 Pain Scale Intake and Output: Intake & Output 06/16/18 06/17/18 06/18/18 06/19/18 11:59 11:59 11:59 11:59 Intake Total 454 5787 2203 Balance 454 5787 2203 Weight 95.3 kg Lab Results: Accuchecks Date 06/19/1806/18/18 Date 06/18/18 Date 06/18/18 Time 07:30 Time 04:00 Time 23:45 Time 19:05 Accucheck Value: 217 Accucheck Value: 243 Accucheck Value: 354 Accucheck Value: 386 Accucheck Value: 312 Accucheck Value: 196 Accucheck Value: 217 Lab Results-Last 24 Hours 06/17/18 06/18/18 06/19/18 Range/Units 04:00 13:10 05:35 WBC 3.7 L (4.0-10.5) K/mm3 RBC 3.25 L (4.1-5.6) M/mm3 Hgb 10.7 L (12.5-18.0) gm/dl Hct 30.5 L (42-50) % MCV 93.8 (78-100) fl MCH 32.9 H (26-32) pg MCHC 35.1 (32-36) g/dl RDW 15.0 H (11.5-14.0) % Plt Count 34 L D (150-450) K/mm3 MPV 11.1 H (6-9.5) fl Gran % 68.7 H (36.0-66.0) % Eos # (Auto) 0.23 (0-0.5) Absolute Lymphs (auto) 0.58 L (1.0-4.6) Absolute Monos (auto) 0.32 (0.0-1.3) Lymphocytes % 15.8 L (24.0-44.0) % Monocytes % 8.7 (0.0-12.0) % Eosinophils % 6.3 H (0.00-5.0) % Basophils % 0.5 (0.0-0.4) % Absolute Granulocytes 2.53 (1.4-6.9) Basophils # 0.02 (0-0.4) Sodium 141 (137-145) mmol/L Potassium 3.6 D (3.5-5.1) mmol/L Chloride 118 H (98-107) mmol/L Carbon Dioxide 13 L* (22-30) mmol/L Anion Gap 13.6 (5-15) MEQ/L BUN 7 L (9-20) mg/dL Creatinine 0.86 (0.66-1.25) mg/dL Estimated GFR > 60.0 ML/MIN Glucose 273 H (74-106) mg/dL Hemoglobin A1c 11.32 H (4.5-6.0) % Lactic Acid (0.4-2.0) Calcium 8.3 L (8.4-10.2) mg/dL Magnesium 1.5 L (1.6-2.3) mg/dL Slides for Path Review YES 06/19/18 06/19/18 Range/Units 05:35 05:35 WBC (4.0-10.5) K/mm3 RBC (4.1-5.6) M/mm3 Hgb (12.5-18.0) gm/dl Hct (42-50) % MCV (78-100) fl MCH (26-32) pg MCHC (32-36) g/dl RDW (11.5-14.0) % Plt Count (150-450) K/mm3 MPV (6-9.5) fl Gran % (36.0-66.0) % Eos # (Auto) (0-0.5) Absolute Lymphs (auto) (1.0-4.6) Absolute Monos (auto) (0.0-1.3) Lymphocytes % (24.0-44.0) % Monocytes % (0.0-12.0) % Eosinophils % (0.00-5.0) % Basophils % (0.0-0.4) % Absolute Granulocytes (1.4-6.9) Basophils # (0-0.4) Sodium (137-145) mmol/L Potassium (3.5-5.1) mmol/L Chloride (98-107) mmol/L Carbon Dioxide (22-30) mmol/L Anion Gap (5-15) MEQ/L BUN (9-20) mg/dL Creatinine (0.66-1.25) mg/dL Estimated GFR ML/MIN Glucose (74-106) mg/dL Hemoglobin A1c (4.5-6.0) % Lactic Acid 1.4 (0.4-2.0) Calcium (8.4-10.2) mg/dL Magnesium 1.7 (1.6-2.3) mg/dL Slides for Path Review Radiology Exams: Radiology Procedures Category Date Time Status CHEST 1 VIEW (PORTABLE) Routine Exams 06/18/18 08:00 Completed GALLBLADDER [US] Urgent Exams 06/18/18 10:30 Completed Multi-Disciplinary Progress Notes: Multi-Disciplinary Progress Notes 06/18/18 10:39 Case Management Note by Giovana Lam LATE ENTRY: S/W DR. RODNEY, LAST NOC PT BI CARB DROPPED, IN METABOLIC ACIDOSIS AND MOVED TO ICU TO START AN INSULIN DRIP BEFORE THE PATIENT GOT IN TOO MUCH TROUBLE. CONTINUE CONFUSION. CHANGED ANTIBIOTICS. QUESTIONABLE SEPSIS. AT THAT TIME CHANGED TO INPATIENT. Initialized on 06/18/18 10:39 - END OF NOTE 06/18/18 10:10 (created 06/18/18 13:32) Case Management Note by Milly Stevenson DISCHARGE PLAN WILL BE FOR PT TO RETURN HOME WITH TO PRE EPISODIC LEVEL OF FNX. DENIES ADDNL NEEDS FOR DISCHARGE. HAS ALL NECESSARY EQUIP AT HOME AND REPORTS IS ALL IN WORKING CONDITION. WILL FOLLOW FOR ALL DC NEEDS. Initialized on 06/18/18 13:32 - END OF NOTE Assessment/Plan (1) Lactic acidosis due to diabetes mellitus Current Visit: Yes Status: Acute Onset Date: ~06/17/18 Assessment & Plan: no source of infection identified, urine culture negative. gallbladder ultrasound negative and chest xray normal, no fever and white count normal. will d/c zosyn, increase lantus to 20 units daily and continue sliding scale coverage. Code(s): E11.10 - TYPE 2 DIABETES MELLITUS WITH KETOACIDOSIS WITHOUT COMA (2) Intermittent confusion Current Visit: Yes Status: Acute Onset Date: ~06/16/18 Code(s): R41.0 - DISORIENTATION, UNSPECIFIED (3) Cirrhosis of liver Current Visit: No Status: Chronic Qualifiers: Hepatic cirrhosis type: unspecified hepatic cirrhosis Ascites presence: without ascites Qualified Code(s): K74.60 - Unspecified cirrhosis of liver
[2018-06-19 09:08] LABS: Carbon Dioxide 15 mmol/L (22-30)
[2018-06-19] MEDS ORDERED: Lantus Insulin SQ SCH (22:00)
[2018-06-20] MEDS: NovoLOG Insulin SQ PRN (00:02)
[2018-06-20] MEDS: Oxy-IR 5 MG PO PRN (00:05)
[2018-06-20] MEDS: SODIUM CHLORIDE 0.45% W/ 20 mEq KCL 1,000 ML IV SCH (01:39)
[2018-06-20 05:34] LABS: BASOPHIL % 0.6 % (0.0-0.4); Basophil (Absolute #) 0.03 (0-0.4); Eosinophil % 8.5 % (0.00-5.0); Hematocrit 32.8 % (42-50); Hemoglobin 11.4 gm/dl (12.5-18.0); Lymphocyte (Absolute #) 0.91 (1.0-4.6); Lymphocytes % 19.4 % (24.0-44.0); Mean Cell Volume 94.3 fl (78-100); Mean Corpuscular Hgb Concent. 34.8 g/dl (32-36); Mean Platelet Volume 11.6 fl (6-9.5); Monocyte (Absolute #) 0.35 (0.0-1.3); Monocytes % 7.5 % (0.0-12.0); Platelet Count 41 K/mm3 (150-450); Red Blood Count 3.48 M/mm3 (4.1-5.6); Red Cell Distribution Width 15.5 % (11.5-14.0); White Blood Count 4.7 K/mm3 (4.0-10.5)
[2018-06-20 05:46] LABS: Mean Corpuscular Hemoglobin 32.7 pg (26-32)
[2018-06-20 06:00] LABS: ALBUMIN 2.5 g/dL (3.5-5.0); ALKALINE PHOSPHATASE 156 U/L (38-126); ANION GAP 8.3 MEQ/L (5-15); BLOOD UREA NITROGEN 6 mg/dL (9-20); CHLORIDE 118 mmol/L (98-107); Calcium 8.3 mg/dL (8.4-10.2); Carbon Dioxide 18 mmol/L (22-30); Creatinine 1 0.75 mg/dL (0.66-1.25); Glucose 134 mg/dL (74-106); MAGNESIUM 1.5 mg/dL (1.6-2.3); Potassium 3.8 mmol/L (3.5-5.1); SGOT/AST 51 U/L (17-59); SGPT/ALT 38 U/L (0-50); SODIUM 141 mmol/L (137-145); Total Protein 4.9 g/dL (6.3-8.2)
--- NOTE | 2018-06-20 08:50 | PCM.DS ---
Discharge Summary Date of Admission: 06/18/18 01:23 Admitting Physician: KANU HERNANDEZ Primary Care Provider: KANU HERNANDEZ Allergies Allergies No Known Drug Allergies Allergy (Verified 06/16/18 19:44) Hospital Summary - Hospital Course Hospital Course: patient was admitted with confusion and high blood sugar, found to have a1c of 11.32% and lactic acidosis, no infectious source identified. his sugars are well controlled at this time and he is alert and back to his baseline, doing quite well today. - Vitals & Intake/Output Vital Signs: Vital Signs Temperature 98.2 F 06/20/18 04:05 Pulse Rate 66 06/20/18 04:05 Respiratory Rate 20 06/20/18 04:05 Blood Pressure 159/76 06/20/18 04:05 O2 Sat by Pulse Oximetry 97 06/20/18 07:35 Intake & Output: Intake & Output 06/17/18 06/18/18 06/19/18 06/20/18 11:59 11:59 11:59 11:59 Intake Total 454 5787 2203 3012 Balance 454 5787 2203 3012 Weight 95.3 kg - Lab Result Diagrams: 06/20/18 05:15 06/20/18 05:15 Lab Results-Last 24 Hrs: Accuchecks Date 06/20/18 Date 06/20/18 Date 06/19/18 Date 06/19/18 Date 06/19/18 Time 04:00 Time 00:00 Time 20:00 Time 16:30 Time 11:30 Accucheck Value: 134 Accucheck Value: 190 Accucheck Value: 275 Accucheck Value: 301 Accucheck Value: 251 Lab Results-Last 24 Hours 06/19/18 06/20/18 06/20/18 Range/Units 05:35 05:15 05:15 WBC 4.7 (4.0-10.5) K/mm3 RBC 3.48 L (4.1-5.6) M/mm3 Hgb 11.4 L (12.5-18.0) gm/dl Hct 32.8 L (42-50) % MCV 94.3 (78-100) fl MCH 32.7 H (26-32) pg MCHC 34.8 (32-36) g/dl RDW 15.5 H (11.5-14.0) % Plt Count 41 L (150-450) K/mm3 MPV 11.6 H (6-9.5) fl Gran % 64.0 (36.0-66.0) % Eos # (Auto) 0.40 (0-0.5) Absolute Lymphs (auto) 0.91 L (1.0-4.6) Absolute Monos (auto) 0.35 (0.0-1.3) Lymphocytes % 19.4 L (24.0-44.0) % Monocytes % 7.5 (0.0-12.0) % Eosinophils % 8.5 H (0.00-5.0) % Basophils % 0.6 (0.0-0.4) % Absolute Granulocytes 3.00 (1.4-6.9) Basophils # 0.03 (0-0.4) Sodium 142 141 (137-145) mmol/L Potassium 3.5 3.8 (3.5-5.1) mmol/L Chloride 121 H 118 H (98-107) mmol/L Carbon Dioxide 15 L* 18 L (22-30) mmol/L Anion Gap 9.3 8.3 (5-15) MEQ/L BUN 8 L 6 L (9-20) mg/dL Creatinine 0.91 0.75 (0.66-1.25) mg/dL Estimated GFR > 60.0 > 60.0 ML/MIN Glucose 247 H 134 H (74-106) mg/dL Calcium 8.3 L 8.3 L (8.4-10.2) mg/dL Magnesium 1.5 L (1.6-2.3) mg/dL Total Bilirubin 2.30 H 2.40 H (0.2-1.3) mg/dL AST 41 51 (17-59) U/L ALT 34 38 (0-50) U/L Alkaline Phosphatase 138 H 156 H (38-126) U/L Serum Total Protein 4.7 L 4.9 L (6.3-8.2) g/dL Albumin 2.3 L 2.5 L (3.5-5.0) g/dL Slides for Path Review Micro Results-Entire Visit: Accuchecks Date 06/20/18 Date 06/20/18 Date 06/19/18 Date 06/19/18 Date 06/19/18 Time 04:00 Time 00:00 Time 20:00 Time 16:30 Time 11:30 Accucheck Value: 134 Accucheck Value: 190 Accucheck Value: 275 Accucheck Value: 301 Accucheck Value: 251 - Radiology Exams Ordered Rad Exams-Entire Visit: Radiology Procedures Category Date Time Status CHEST 1 VIEW (PORTABLE) Routine Exams 06/18/18 08:00 Completed GALLBLADDER [US] Urgent Exams 06/18/18 10:30 Completed - Procedures and Test Procedures and Tests throughout Hospitalization: Therapy Orders & Screens 06/16/18 23:57 Respiratory Therapy Consult Comment: Reason For Exam: 06/17/18 00:25 Peak Expiratory Flow Rate ONCE Comment: Reason For Exam: Respiratory Therapy Assessment DAILY Comment: Discharge Exam General Appearance: no apparent distress, alert Neurologic Exam: alert, oriented x 3 Skin Exam: normal color, warm, dry Respiratory Exam: normal breath sounds, lungs clear, No respiratory distress Cardiovascular Exam: regular rate/rhythm, normal heart sounds Gastrointestinal/Abdomen Exam: soft, No tenderness, No mass Extremity Exam: other (right knee well healed scar, no warmth or redness, no effusion) Final Diagnosis/Problem List - Final Discharge Diagnosis/Problem (1) Lactic acidosis due to diabetes mellitus Current Visit: Yes Status: Acute Onset Date: ~06/17/18 (2) Intermittent confusion Current Visit: Yes Status: Acute Onset Date: ~06/16/18 (3) Cirrhosis of liver Current Visit: No Status: Chronic - Discharge Disposition: Home, Self-Care Condition: Good Prescriptions: New Pen Needle, Diabetic [Bd Ultra-Fine Pen Needle] 1 each QID #200 dis.needle Insulin Lispro [Humalog Kwikpen U-100] 100 unit SQ TID #3 insuln.pen Insulin Glargine,Hum.rec.anlog [Lantus Solostar] 20 unit SQ HS #3 pens Continue Thiamine Mononitrate [Vitamin B-1] 250 mg PO DAILY Ferrous Sulfate 325 mg PO BID Zinc Sulfate 220 mg PO BID Oxycodone HCl 5 mg PO Q6H PRN PRN PRN Reason: Pain Aspirin 81 gm Chew [Baby Aspirin 81 mg Chew] 81 mg PO BID Alprazolam 0.25 mg [xanAX 0.25 MG] 0.25 mg PO Q6H PRN PRN PRN Reason: Anxiety Ciprofloxacin [Cipro 500 MG] 500 mg PO BID Famotidine 20 mg [Pepcid 20 MG] 20 mg PO BID Vitamin E 400 Units [Vitamin E 400 UNIT SOFTGEL] 400 units PO DAILY Ascorbic Acid 500 mg [Vitamin C 500 MG] 500 mg PO DAILY Folic Acid 1 mg [Folate 1 mg] 1 mg PO DAILY Spironolactone 25 mg [Aldactone 25 MG] 50 mg PO DAILY Escitalopram Oxalate 10 mg [Lexapro 10 MG] 10 mg PO DAILY Rifaximin [Xifaxan] 550 mg PO BID Sodium Bicarbonate 650 mg PO TID #90 tablet Ondansetron HCl [Zofran] 4 mg PO Q6H PRN PRN PRN Reason: Nausea Lactulose [Lactulose 20 gm/30Ml Ud Cup] 30 mg PO QID Discontinued Insulin Glargine,Hum.rec.anlog [Lantus] 10 unit SQ QPM #1 vial Smz/Tmp Ds Tablet [Bactrim Ds Tablet] 1 tab PO BID Additional Instructions: give lantus 20 units sq every evening, give sliding scale insulin based off of moderate dose scale when checking blood sugars. check blood sugars three times daily. bring a log of your sugars and write down how much humalog you give on the log. call or return for problems or change of condition. followup in 2 weeks with blood sugar log, stop metformin at home Follow up with: KANU HERNANDEZ MD [Primary Care Provider] - Call for Appointment
[2018-06-20 09:03] VITALS: BP 172/72; PULSE 72; O2SAT 99
[2018-06-20] MEDS: Aldactone 25 MG PO SCH (09:28)
[2018-06-20] MEDS: Lexapro 10 MG PO SCH (09:28)
[2018-06-20] MEDS: VITAMIN B-1 100 MG PO SCH (09:28)
[2018-06-20] MEDS: FOLATE 1 MG PO SCH (09:28)
[2018-06-20] MEDS: Zinc Gluconate 50 MG PO SCH (09:29)
[2018-06-20] MEDS: Pepcid 20 MG PO SCH (09:29)
[2018-06-20] MEDS: NON-FORMULARY ITEM PO SCH (09:29)
[2018-06-20] MEDS: Vitamin C 500 MG PO SCH (09:29)
[2018-06-20] MEDS: ECOTRIN 81 MG PO SCH (09:29)
[2018-06-20] MEDS: Xifaxan 200 MG PO SCH (09:30)
[2018-06-20] MEDS: Vitamin E 400 UNIT SOFTGEL PO SCH (09:30)
[2018-06-20] MEDS: Enulose 10 GM/15 ML PO SCH (09:31)
[2018-06-20] MEDS: ENOXAPARIN SODIUM SQ SCH (09:33)
== END 2018-06-20 10:28 | disposition home or self-care (01) | DRG 638 ==
LOC: ED 19:27 → MED SURG 23:56 → OBSVTOIN 06-18 01:21 → INTOOBSV 06-18 01:21 → ICU 06-18 01:22 → OBSVTOIN 06-18 01:23 → MED SURG 06-18 16:00
PROVIDERS: ADMIT Family Medicine; ATTEND Family Medicine
DX: E11.10 Type 2 diabetes mellitus with ketoacidosis without coma (principal); N30.00 Acute cystitis without hematuria; E72.51 Non-ketotic hyperglycinemia; Z79.4 Long term (current) use of insulin; R41.0 Disorientation, unspecified; K74.60 Unspecified cirrhosis of liver; E87.6 Hypokalemia; D69.6 Thrombocytopenia, unspecified
CPT/HCPCS: 36000; 36415; 36600; 70450; 71045; 73562; 76705; 80048; 80053; 81001; 82140; 82375; 82803; 82805; 82962; 83036; 83605; 83735; 85025; 87086; 93005; 93041; 93268; 94150; 94640; 94760; 94762; 96360; 96361; 96372; 99285; J0696; J1650; J1815; J2543; J3480; J7609; A9270-GY; G0378

== ENCOUNTER 2019-06-25 17:13 | Inpatient (IN) | payer MEDICARE ==
[2019-06-25] MEDS ORDERED: Zofran 4 MG/2 ML VIAL ONE (18:02)
[2019-06-25] MEDS ORDERED: Sodium Chloride 0.9% 500 ML 500 ML IV ONE (18:02)
[2019-06-25 18:36] LABS: Lactic Acid 3.7 (0.4-2.0)
[2019-06-25 18:41] LABS: ALBUMIN 3.3 g/dL (3.5-5.0); ALKALINE PHOSPHATASE 325 U/L (38-126); AMYLASE 54 U/L (30-110); BLOOD UREA NITROGEN 22 mg/dL (9-20); CHLORIDE 99 mmol/L (98-107); Carbon Dioxide 22 mmol/L (22-30); Creatinine 1 1.13 mg/dL (0.66-1.25); LIPASE 141 U/L (23-300); MAGNESIUM 1.7 mg/dL (1.6-2.3); NT PRO BNP 339 pg/mL (0-900); Potassium 4.8 mmol/L (3.5-5.1); SGOT/AST 39 U/L (17-59); SGPT/ALT 28 U/L (0-50); SODIUM 131 mmol/L (137-145); Total Protein 6.8 g/dL (6.3-8.2)
[2019-06-25 18:45] LABS: INR 1.36 (0.8-3.0); PROTIME 15.5 SECONDS (8.83-12.87)
[2019-06-25 18:46] LABS: Hematocrit 38.7 % (42-50); Hemoglobin 13.8 gm/dl (12.5-18.0); Mean Cell Volume 93.5 fl (78-100); Mean Corpuscular Hemoglobin 33.3 pg (26-32); Mean Corpuscular Hgb Concent. 35.7 g/dl (32-36); Red Blood Count 4.14 M/mm3 (4.1-5.6); White Blood Count 5.9 K/mm3 (4.0-10.5)
[2019-06-25 18:47] LABS: Absolute Neutrophil Ct (ANC) 4.93 (1.4-6.9); BASOPHIL % 0.3 % (0.0-0.4); Eosinophil % 2.2 % (0.00-5.0); Glucose 606 mg/dL (74-106); Mean Platelet Volume 11.2 fl (7.5-11.0); Monocytes % 7.5 % (0.0-12.0); Platelet Count 51 K/mm3 (150-450); Red Cell Distribution Width 14.4 % (11.5-14.0)
[2019-06-25 18:48] LABS: Basophil (Absolute #) 0.02 (0-0.4); Eosinophil (Absolute #) 0.13 (0-0.5); Lymphocyte (Absolute #) 0.35 (1.0-4.6); Monocyte (Absolute #) 0.44 (0.0-1.3)
[2019-06-25 19:16] LABS: ANION GAP 14.8 MEQ/L (5-15)
[2019-06-25] MEDS ORDERED: Sodium Chloride 0.9% 1000 ML 1,000 ML ONE (21:39)
[2019-06-25] MEDS ORDERED: ROCEPHIN 1 Gm-D5w 50 ml Bag** 1 G/50 ML IVPB IV ONE (21:39)
[2019-06-25] MEDS ORDERED: NovoLIN R ONE (21:39)
[2019-06-25] MEDS ORDERED: NovoLOG Insulin SQ PRN (23:09)
[2019-06-26] MEDS ORDERED: xanAX 0.25 MG ONE (01:15)
[2019-06-26] MEDS: Zofran 4 MG/2 ML VIAL IV PRN ×2 (02:10→15:28)
[2019-06-26] MEDS: Sodium Chloride 0.9% 1000 ML 1,000 ML IV SCH ×2 (03:55→11:19)
[2019-06-26 06:16] LABS: Hematocrit 34.1 % (42-50); Hemoglobin 12.1 gm/dl (12.5-18.0); Mean Cell Volume 94.2 fl (78-100); Mean Corpuscular Hemoglobin 33.4 pg (26-32); Mean Corpuscular Hgb Concent. 35.5 g/dl (32-36); Mean Platelet Volume 11.5 fl (7.5-11.0); Platelet Count 47 K/mm3 (150-450); Red Blood Count 3.62 M/mm3 (4.1-5.6); Red Cell Distribution Width 14.8 % (11.5-14.0)
[2019-06-26 06:25] LABS: ALBUMIN 2.6 g/dL (3.5-5.0); ALKALINE PHOSPHATASE 195 U/L (38-126); ANION GAP 11.9 MEQ/L (5-15); BLOOD UREA NITROGEN 24 mg/dL (9-20); CHLORIDE 105 mmol/L (98-107); Calcium 8.6 mg/dL (8.4-10.2); Carbon Dioxide 20 mmol/L (22-30); Creatinine 1 1.15 mg/dL (0.66-1.25); Glucose 438 mg/dL (74-106); Potassium 4.5 mmol/L (3.5-5.1); SGOT/AST 36 U/L (17-59); SGPT/ALT 25 U/L (0-50); SODIUM 133 mmol/L (137-145); Total Protein 5.9 g/dL (6.3-8.2)
[2019-06-26 06:46] LABS: Lactic Acid 2.2 (0.4-2.0)
[2019-06-26 07:16] LABS: White Blood Count 5.1 K/mm3 (4.0-10.5)
--- NOTE | 2019-06-26 08:33 | PCM.HP ---
History of Present Illness - Chief Complaint Chief Complaint: hepatic encephalopathy History of Present Illness: is a 63 year old male with cirrhosis and hepatocellular carcinoma who presented to the ER due to altered mental status. notes increasingly confused behavior and defiance over the last several days, has had episodes similarly in the past with infection or elevated ammonia levels, no known fever. He is incontinent often at home and has to wear adult diapers, his overall prognosis is poor. - Review of Systems Constitutional: No Fever, No Chills Respiratory: No Cough, No Short Of Breath Cardiac: No Chest Pain, No Edema, No Syncope Abdominal/Gastrointestinal: No Abdominal Pain, No Nausea, No Vomiting, No Diarrhea Psychological: Emotional Lability, No Alcohol Abuse, No Drug Abuse All Other Systems: Reviewed and Negative Medications & Allergies Home Medications: Home Medication List Ferrous Sulfate 325 mg PO BID 03/12/17 [History Confirmed 06/26/19] Thiamine Mononitrate [Vitamin B-1] 250 mg PO DAILY 03/12/17 [History Confirmed 06/26/19] Zinc Sulfate 220 mg PO BID 05/02/17 [History Confirmed 06/26/19] Alprazolam 0.25 mg [xanAX 0.25 MG] 0.25 mg PO Q6H PRN PRN 11/16/17 [ History Confirmed 06/26/19] Ascorbic Acid 500 mg [Vitamin C 500 MG] 500 mg PO DAILY 11/16/17 [History Confirmed 06/26/19] Aspirin 81 gm Chew [Baby Aspirin 81 mg Chew] 81 mg PO BID 11/16/17 [ History Confirmed 06/26/19] Famotidine 20 mg [Pepcid 20 MG] 20 mg PO BID 11/16/17 [History Confirmed 06/26/19] Folic Acid 1 mg [Folate 1 mg] 1 mg PO DAILY 11/16/17 [History Confirmed ] Spironolactone 25 mg [Aldactone 25 MG] 50 mg PO DAILY 11/16/17 [History Confirmed 06/26/19] Vitamin E 400 Units [Vitamin E 400 UNIT SOFTGEL] 400 units PO DAILY [History Confirmed 06/26/19] Escitalopram Oxalate 10 mg [Lexapro 10 MG] 10 mg PO DAILY 02/28/18 [History Confirmed 06/26/19] Sodium Bicarbonate 650 mg PO TID #90 tablet 03/02/18 [Rx Confirmed 06/26/19] Lactulose [Lactulose 20 gm/30Ml Ud Cup] 30 mg PO QID 06/17/18 [History Confirmed 06/26/19] Insulin Lispro [Humalog Kwikpen U-100] 100 unit SQ TID #3 insuln.pen 06/20/18 [ Rx Confirmed 06/26/19] Allergies/Adverse Reactions: Allergies Allergy/AdvReac Type Severity Reaction Status Date / Time No Known Drug Allergies Allergy Verified 06/16/18 19:44 - Past Medical History Past Medical History: Yes Neurological History: Dementia ENT History: Cataracts Cardiac History: Hypertension Respiratory History: Pneumonia Endocrine Medical History: Diabetes Type II, Liver Disease Musculoskelatal History: Arthritis GI Medical History: Cirrhosis, Liver Cancer History: Dialysis Pyscho-Social History: Depression Male Reproductive Disorders: No Pertinent History Comment: elevated ammonia, pt has hx of sepsis. Prior dialysis. - Past Surgical History Past Surgical History: Yes Neuro Surgical History: No Pertinent History Cardiac History: No Pertinent History Respiratory Surgery: No Pertinent History GI Surgical History: Hernia Repair Genitourinary Surgical Hx: No Pertinent History Musculskeletal Surgical Hx: Joint Replacement, Other Male Surgical History: No Pertinent History Other Surgical History: partial RIGHT KNEE REPLACEMENT. cataracts, - Social History Smoking Status: Never smoker Exposure to second hand smoke: No Alcohol: None Drug Use: none - Physical Exam Vital Signs: Vital Signs - 24 hr Temp Pulse Resp BP Pulse Ox 06/26/19 07:29 99 F 80 20 116/52 96 06/26/19 05:00 101.4 F 94 H 20 172/73 06/25/19 22:51 98.4 F 89 17 145/64 98 General Appearance: no apparent distress, other (resting comfortably) Respiratory Exam: normal breath sounds, lungs clear, No respiratory distress Cardiovascular Exam: regular rate/rhythm, normal heart sounds, normal peripheral pulses Gastrointestinal/Abdomen Exam: soft, normal bowel sounds, No tenderness, No mass Skin Exam: normal color, warm, dry, No rash Results - Labs Lab/Micro Results: Lab Results-Last 24 Hours 06/25/19 06/25/19 06/25/19 Range/Units 18:33 18:34 18:34 WBC 5.9 (4.0-10.5) K/mm3 RBC 4.14 (4.1-5.6) M/mm3 Hgb 13.8 (12.5-18.0) gm/dl Hct 38.7 L (42-50) % MCV 93.5 (78-100) fl MCH 33.3 H (26-32) pg MCHC 35.7 (32-36) g/dl RDW 14.4 H (11.5-14.0) % Plt Count 51 L (150-450) K/mm3 MPV 11.2 H (7.5-11.0) fl Gran % 84.0 H (36.0-66.0) % Eos # (Auto) 0.13 (0-0.5) Absolute Lymphs (auto) 0.35 L (1.0-4.6) Absolute Monos (auto) 0.44 (0.0-1.3) Lymphocytes % 6.0 L (24.0-44.0) % Monocytes % 7.5 (0.0-12.0) % Eosinophils % 2.2 (0.00-5.0) % Basophils % 0.3 (0.0-0.4) % Absolute Granulocytes 4.93 (1.4-6.9) Basophils # 0.02 (0-0.4) PT (8.83-12.87) SECONDS INR (0.8-3.0) APTT (24.1-36.1) SECONDS Sodium 131 L (137-145) mmol/L Potassium 4.8 (3.5-5.1) mmol/L Chloride 99 (98-107) mmol/L Carbon Dioxide 22 (22-30) mmol/L Anion Gap 14.8 (5-15) MEQ/L BUN 22 H (9-20) mg/dL Creatinine 1.13 (0.66-1.25) mg/dL Estimated GFR > 60.0 ML/MIN Glucose 606 H* (74-106) mg/dL Lactic Acid 3.7 H (0.4-2.0) Calcium 10.0 (8.4-10.2) mg/dL Magnesium 1.7 (1.6-2.3) mg/dL Total Bilirubin 3.60 H (0.2-1.3) mg/dL AST 39 (17-59) U/L ALT 28 (0-50) U/L Alkaline Phosphatase 325 H (38-126) U/L Ammonia (9-30) umol/L NT-Pro-B Natriuret Pep 339 (0-900) pg/mL Serum Total Protein 6.8 (6.3-8.2) g/dL Albumin 3.3 L (3.5-5.0) g/dL Amylase 54 (30-110) U/L Lipase 141 (23-300) U/L 06/25/19 06/25/19 06/25/19 Range/Units 18:34 18:34 18:34 WBC (4.0-10.5) K/mm3 RBC (4.1-5.6) M/mm3 Hgb (12.5-18.0) gm/dl Hct (42-50) % MCV (78-100) fl MCH (26-32) pg MCHC (32-36) g/dl RDW (11.5-14.0) % Plt Count (150-450) K/mm3 MPV (7.5-11.0) fl Gran % (36.0-66.0) % Eos # (Auto) (0-0.5) Absolute Lymphs (auto) (1.0-4.6) Absolute Monos (auto) (0.0-1.3) Lymphocytes % (24.0-44.0) % Monocytes % (0.0-12.0) % Eosinophils % (0.00-5.0) % Basophils % (0.0-0.4) % Absolute Granulocytes (1.4-6.9) Basophils # (0-0.4) PT 15.5 H (8.83-12.87) SECONDS INR 1.36 (0.8-3.0) APTT 34.0 (24.1-36.1) SECONDS Sodium (137-145) mmol/L Potassium (3.5-5.1) mmol/L Chloride (98-107) mmol/L Carbon Dioxide (22-30) mmol/L Anion Gap (5-15) MEQ/L BUN (9-20) mg/dL Creatinine (0.66-1.25) mg/dL Estimated GFR ML/MIN Glucose (74-106) mg/dL Lactic Acid 2.0 (0.4-2.0) Calcium (8.4-10.2) mg/dL Magnesium (1.6-2.3) mg/dL Total Bilirubin (0.2-1.3) mg/dL AST (17-59) U/L ALT (0-50) U/L Alkaline Phosphatase (38-126) U/L Ammonia 45 H (9-30) umol/L NT-Pro-B Natriuret Pep (0-900) pg/mL Serum Total Protein (6.3-8.2) g/dL Albumin (3.5-5.0) g/dL Amylase (30-110) U/L Lipase (23-300) U/L 06/26/19 06/26/19 06/26/19 Range/Units 05:00 05:00 05:30 WBC 5.1 (4.0-10.5) K/mm3 RBC 3.62 L (4.1-5.6) M/mm3 Hgb 12.1 L (12.5-18.0) gm/dl Hct 34.1 L (42-50) % MCV 94.2 (78-100) fl MCH 33.4 H (26-32) pg MCHC 35.5 (32-36) g/dl RDW 14.8 H (11.5-14.0) % Plt Count 47 L (150-450) K/mm3 MPV 11.5 H (7.5-11.0) fl Gran % (36.0-66.0) % Eos # (Auto) (0-0.5) Absolute Lymphs (auto) (1.0-4.6) Absolute Monos (auto) (0.0-1.3) Lymphocytes % (24.0-44.0) % Monocytes % (0.0-12.0) % Eosinophils % (0.00-5.0) % Basophils % (0.0-0.4) % Absolute Granulocytes (1.4-6.9) Basophils # (0-0.4) PT (8.83-12.87) SECONDS INR (0.8-3.0) APTT (24.1-36.1) SECONDS Sodium 133 L (137-145) mmol/L Potassium 4.5 (3.5-5.1) mmol/L Chloride 105 (98-107) mmol/L Carbon Dioxide 20 L (22-30) mmol/L Anion Gap 11.9 (5-15) MEQ/L BUN 24 H (9-20) mg/dL Creatinine 1.15 (0.66-1.25) mg/dL Estimated GFR > 60.0 ML/MIN Glucose 438 H (74-106) mg/dL Lactic Acid (0.4-2.0) Calcium 8.6 (8.4-10.2) mg/dL Magnesium (1.6-2.3) mg/dL Total Bilirubin 2.50 H (0.2-1.3) mg/dL AST 36 (17-59) U/L ALT 25 (0-50) U/L Alkaline Phosphatase 195 H (38-126) U/L Ammonia 28 (9-30) umol/L NT-Pro-B Natriuret Pep (0-900) pg/mL Serum Total Protein 5.9 L (6.3-8.2) g/dL Albumin 2.6 L (3.5-5.0) g/dL Amylase (30-110) U/L Lipase (23-300) U/L 06/26/19 Range/Units 06:15 WBC (4.0-10.5) K/mm3 RBC (4.1-5.6) M/mm3 Hgb (12.5-18.0) gm/dl Hct (42-50) % MCV (78-100) fl MCH (26-32) pg MCHC (32-36) g/dl RDW (11.5-14.0) % Plt Count (150-450) K/mm3 MPV (7.5-11.0) fl Gran % (36.0-66.0) % Eos # (Auto) (0-0.5) Absolute Lymphs (auto) (1.0-4.6) Absolute Monos (auto) (0.0-1.3) Lymphocytes % (24.0-44.0) % Monocytes % (0.0-12.0) % Eosinophils % (0.00-5.0) % Basophils % (0.0-0.4) % Absolute Granulocytes (1.4-6.9) Basophils # (0-0.4) PT (8.83-12.87) SECONDS INR (0.8-3.0) APTT (24.1-36.1) SECONDS Sodium (137-145) mmol/L Potassium (3.5-5.1) mmol/L Chloride (98-107) mmol/L Carbon Dioxide (22-30) mmol/L Anion Gap (5-15) MEQ/L BUN (9-20) mg/dL Creatinine (0.66-1.25) mg/dL Estimated GFR ML/MIN Glucose (74-106) mg/dL Lactic Acid 2.2 H (0.4-2.0) Calcium (8.4-10.2) mg/dL Magnesium (1.6-2.3) mg/dL Total Bilirubin (0.2-1.3) mg/dL AST (17-59) U/L ALT (0-50) U/L Alkaline Phosphatase (38-126) U/L Ammonia (9-30) umol/L NT-Pro-B Natriuret Pep (0-900) pg/mL Serum Total Protein (6.3-8.2) g/dL Albumin (3.5-5.0) g/dL Amylase (30-110) U/L Lipase (23-300) U/L - Radiology Impressions Radiology Exams & Impressions: Radiology Procedures Category Date Time Status ABDOMEN AND PELVIS W CONTRAST [CT] Routine Exams 06/25/19 19:37 Taken Assessment/Plan (1) Lactic acidosis due to diabetes mellitus Current Visit: No Status: Acute Onset Date: ~06/17/18 Assessment & Plan: suspect blood sugar of 600 on presentation is to account for much of his mental status changes, reports he quit taking his insulin and refuses to comply. will cover with SSI Code(s): E11.10 - TYPE 2 DIABETES MELLITUS WITH KETOACIDOSIS WITHOUT COMA (2) Confusion Current Visit: No Status: Acute Onset Date: ~06/16/18 Assessment & Plan: ammonia normal, u/a not performed in ER so ordered but has had a dose of rocephin now so will continue rocephin at this time for possible/presumed UTI Code(s): R41.0 - DISORIENTATION, UNSPECIFIED (3) Cirrhosis of liver Current Visit: No Status: Chronic Qualifiers:
[2019-06-26 08:41] LABS: Appearance CLEAR (CLEAR); Bacteria MODERATE /HPF (NEGATIVE); Bilirubin NEGATIVE (NEGATIVE); Blood NEGATIVE Ery/ul (0-5); Glucose >=500 mg/dL (NEGATIVE); Ketones NEGATIVE (NEGATIVE); Leukocyte Esterase NEGATIVE (NEGATIVE); Mucus SLIGHT /HPF (NEGATIVE); Nitrite NEGATIVE (NEGATIVE); Protein,Urine Dip NEGATIVE (Negative); Specific Gravity 1.041 (1.005-1.025); Urobilinogen NEGATIVE mg/dL (0-1)
[2019-06-26 08:48] LABS: Budding Yeast Few /HPF (NEGATIVE); WBC 0-2 /HPF (0-5)
--- NOTE | 2019-06-26 08:56 | XRAY ---
Indication: Diffuse abdominal pain, nausea, and vomiting. Multiple contiguous axial images obtained through the abdomen and pelvis using 80 cc Isovue 370 contrast only. Comparison: November 16, 2018. Images through the lung bases and abdomen are degraded by respiration artifact. Lung bases demonstrates mild bilateral atelectasis. No gross infiltrate or effusion. Heart is not enlarged. Stable distal paraesophageal varices. Noncontrasted stomach and bowel loops appear nonobstructed. Normal appendix. No free fluid/air. Stable cirrhotic liver, massive splenomegaly measuring 19.2 cm, and large splenorenal varices. Left lobe of the liver demonstrates a new 2.5 cm indeterminant hypodense mass. Stable tiny gallstone. Remaining pancreas, adrenal glands, kidneys, ureters, and bladder appear unremarkable. Stable scattered aortoiliac calcifications. No AAA or pathologic retroperitoneal lymphadenopathy. Osseous structures again demonstrate mild degenerative changes throughout the spine and both hips. Both femur heads demonstrates stable subcortical serpiginous lines again possibly avascular necrosis. Impression: 1. Respiration artifact. 2. New indeterminate left lobe hepatic hypodense mass. 3. Stable cirrhotic liver, splenomegaly, and portosystemic collaterals. No ascites. 4. Stable tiny gallstone and chronic bony findings.
[2019-06-26 09:28] LABS: INFLUENZA A NEGATIVE (NEGATIVE); INFLUENZA B NEGATIVE (NEGATIVE); RESPIRATORY SYNCTIAL VIRUS NEGATIVE (Negative)
--- NOTE | 2019-06-26 09:30 | XRAY ---
Indication: Fever. Cirrhosis. Confusion. Portable chest now underinflated with new small bibasilar effusions and left base infiltrate/atelectasis. Remaining heart and upper lungs unremarkable.
[2019-06-26 09:40] LABS: Lactic Acid 2.1 (0.4-2.0)
[2019-06-26] MEDS ORDERED: ECOTRIN 81 MG PO SCH (10:00)
[2019-06-26] MEDS ORDERED: LACTULOSE 20 GM/30ML UD CUP PO SCH (10:00)
[2019-06-26] MEDS ORDERED: NON-FORMULARY ITEM (Ferrous Sulfate [Ferrous Sulfate] 325 MG) PO SCH (10:00)
[2019-06-26] MEDS ORDERED: FEOSOL 325 MG PO SCH (10:00)
[2019-06-26] MEDS ORDERED: FLUZONE HIGH-DOSE 2019-20 SYR IM ONE (10:00)
[2019-06-26] MEDS ORDERED: THIAMINE MONONITRATE 250 MG PO SCH (10:00)
[2019-06-26] MEDS ORDERED: BABY ASPIRIN 81 MG CHEW PO SCH ×2 (10:00)
[2019-06-26] MEDS: FEOSOL 325 MG PO SCH ×2 (11:14→22:03)
[2019-06-26] MEDS: ECOTRIN 81 MG PO SCH ×2 (11:14→22:03)
[2019-06-26] MEDS: Pepcid 20 MG PO SCH ×2 (11:14→22:02)
[2019-06-26] MEDS: Lexapro 10 MG PO SCH (11:14)
[2019-06-26] MEDS: Aldactone 25 MG PO SCH (11:14)
[2019-06-26] MEDS: NON-FORMULARY ITEM (Sodium Bicarbonate 650 MG) PO SCH ×3 (11:15→22:03)
[2019-06-26] MEDS: Zinc Gluconate 50 MG PO SCH ×2 (11:15→22:02)
[2019-06-26] MEDS: Vitamin E 400 UNIT SOFTGEL PO SCH (11:15)
[2019-06-26] MEDS: VITAMIN B-1 100 MG PO SCH (11:20)
[2019-06-26] MEDS: LACTULOSE 20 GM/30ML UD CUP PO SCH ×4 (11:22→22:01)
[2019-06-26] MEDS: FOLATE 1 MG PO SCH (11:24)
[2019-06-26] MEDS: Vitamin C 500 MG PO SCH (11:25)
[2019-06-26] MEDS: NovoLOG Insulin SQ PRN ×3 (12:06→22:25)
[2019-06-26] MEDS: xanAX 0.25 MG PO PRN (15:28)
[2019-06-26] MEDS: ROCEPHIN 1 Gm-D5w 50 ml Bag** 1 G/50 ML IVPB IV SCH (22:26)
[2019-06-27] MEDS: Sodium Chloride 0.9% 1000 ML 1,000 ML IV SCH ×3 (01:50→18:24)
[2019-06-27 04:57] LABS: Absolute Neutrophil Ct (ANC) 3.14 (1.4-6.9); BASOPHIL % 0.4 % (0.0-0.4); Basophil (Absolute #) 0.02 (0-0.4); Eosinophil % 4.9 % (0.00-5.0); Eosinophil (Absolute #) 0.22 (0-0.5); Hematocrit 32.7 % (42-50); Hemoglobin 11.4 gm/dl (12.5-18.0); Lymphocyte (Absolute #) 0.65 (1.0-4.6); Lymphocytes % 14.5 % (24.0-44.0); Mean Cell Volume 95.3 fl (78-100); Mean Corpuscular Hemoglobin 33.2 pg (26-32); Mean Corpuscular Hgb Concent. 34.9 g/dl (32-36); Mean Platelet Volume 11.3 fl (7.5-11.0); Monocyte (Absolute #) 0.44 (0.0-1.3); Monocytes % 9.8 % (0.0-12.0); Neutrophil % 70.4 % (36.0-66.0); Platelet Count 37 K/mm3 (150-450); Red Blood Count 3.43 M/mm3 (4.1-5.6); White Blood Count 4.5 K/mm3 (4.0-10.5)
[2019-06-27 05:01] LABS: ALBUMIN 2.3 g/dL (3.5-5.0); ALKALINE PHOSPHATASE 116 U/L (38-126); ANION GAP 8.5 MEQ/L (5-15); BLOOD UREA NITROGEN 20 mg/dL (9-20); CHLORIDE 113 mmol/L (98-107); Calcium 8.2 mg/dL (8.4-10.2); Carbon Dioxide 20 mmol/L (22-30); Creatinine 1 0.96 mg/dL (0.66-1.25); Glucose 274 mg/dL (74-106); Potassium 3.9 mmol/L (3.5-5.1); SGOT/AST 36 U/L (17-59); SGPT/ALT 23 U/L (0-50); SODIUM 137 mmol/L (137-145); Total Protein 5.4 g/dL (6.3-8.2)
[2019-06-27 05:28] LABS: Slide Review 1 YES
[2019-06-27] MEDS: NovoLOG Insulin SQ PRN ×3 (08:51→17:05)
--- NOTE | 2019-06-27 09:37 | PCM.NOTE ---
Date and Time: 06/27/19934 Subjective Assessment: Pt. alert this am, notes he had a good night and so far doing well this am , vitals are stable - Review of Systems Constitutional: No Fever, No Chills Eyes: No Symptoms Ears, Nose, & Throat: No Symptoms Respiratory: No Cough, No Short Of Breath Cardiac: No Chest Pain, No Edema, No Syncope Abdominal/Gastrointestinal: No Abdominal Pain, No Nausea, No Vomiting, No Diarrhea Genitourinary Symptoms: No Dysuria Skin: No Rash Neurological: No Symptoms Psychological: No Symptoms Objective Exam General Appearance: no apparent distress, alert Neurologic Exam: alert (oriented X2 thought he was in [place]), cooperative Skin Exam: normal color Eye Exam: EOMI Ears, Nose, Throat Exam: normal ENT inspection Neck Exam: normal inspection Respiratory Exam: normal breath sounds, lungs clear, No respiratory distress Cardiovascular Exam: regular rate/rhythm, normal heart sounds Extremity Exam: normal inspection, normal range of motion OBJECTIVE DATA Vital Signs: Vital Signs - 24 hr Temp Pulse Resp BP Pulse Ox 06/27/19 08:00 97.7 F 70 18 149/65 97 06/27/19 04:10 97.7 F 72 18 142/67 97 06/27/19 00:08 98.3 F 72 16 133/63 95 06/26/19 20:00 97.7 F 69 18 145/65 95 06/26/19 16:00 97.7 F 78 22 140/72 97 06/26/19 12:00 98.6 F 75 20 151/65 98 Pain Assessment - Last Documented Pain Intensity 0 Pain Scale Used 0-10 Pain Scale Intake and Output: Intake & Output 06/24/19 06/25/19 06/26/19 06/27/19 11:59 11:59 11:59 11:59 Intake Total 1157 1033 Output Total 625 Balance 532 1033 Weight 95.1 kg 95.1 kg Lab Results: Accuchecks Date 06/26/19 Date 06/26/19 Time 16:01 Time 11:30 Accucheck Value: 384 Accucheck Value: 148 Accucheck Value: 337 Lab Results-Last 24 Hours 06/26/19 06/26/19 06/27/19 Range/Units 08:46 13:00 04:56 WBC 4.5 (4.0-10.5) K/mm3 RBC 3.43 L (4.1-5.6) M/mm3 Hgb 11.4 L (12.5-18.0) gm/dl Hct 32.7 L (42-50) % MCV 95.3 (78-100) fl MCH 33.2 H (26-32) pg MCHC 34.9 (32-36) g/dl RDW 15.0 H (11.5-14.0) % Plt Count 37 L (150-450) K/mm3 MPV 11.3 H (7.5-11.0) fl Gran % 70.4 H (36.0-66.0) % Eos # (Auto) 0.22 (0-0.5) Absolute Lymphs (auto) 0.65 L (1.0-4.6) Absolute Monos (auto) 0.44 (0.0-1.3) Lymphocytes % 14.5 L (24.0-44.0) % Monocytes % 9.8 (0.0-12.0) % Eosinophils % 4.9 (0.00-5.0) % Basophils % 0.4 (0.0-0.4) % Absolute Granulocytes 3.14 (1.4-6.9) Basophils # 0.02 (0-0.4) Sodium (137-145) mmol/L Potassium (3.5-5.1) mmol/L Chloride (98-107) mmol/L Carbon Dioxide (22-30) mmol/L Anion Gap (5-15) MEQ/L BUN (9-20) mg/dL Creatinine (0.66-1.25) mg/dL Estimated GFR ML/MIN Glucose (74-106) mg/dL Hemoglobin A1c 11.61 H (4.5-6.0) % Lactic Acid 2.1 H (0.4-2.0) Calcium (8.4-10.2) mg/dL Total Bilirubin (0.2-1.3) mg/dL AST (17-59) U/L ALT (0-50) U/L Alkaline Phosphatase (38-126) U/L Ammonia (9-30) umol/L Serum Total Protein (6.3-8.2) g/dL Albumin (3.5-5.0) g/dL Slides for Path Review YES 06/27/19 06/27/19 Range/Units 04:56 04:56 WBC (4.0-10.5) K/mm3 RBC (4.1-5.6) M/mm3 Hgb (12.5-18.0) gm/dl Hct (42-50) % MCV (78-100) fl MCH (26-32) pg MCHC (32-36) g/dl RDW (11.5-14.0) % Plt Count (150-450) K/mm3 MPV (7.5-11.0) fl Gran % (36.0-66.0) % Eos # (Auto) (0-0.5) Absolute Lymphs (auto) (1.0-4.6) Absolute Monos (auto) (0.0-1.3) Lymphocytes % (24.0-44.0) % Monocytes % (0.0-12.0) % Eosinophils % (0.00-5.0) % Basophils % (0.0-0.4) % Absolute Granulocytes (1.4-6.9) Basophils # (0-0.4) Sodium 137 (137-145) mmol/L Potassium 3.9 (3.5-5.1) mmol/L Chloride 113 H (98-107) mmol/L Carbon Dioxide 20 L (22-30) mmol/L Anion Gap 8.5 (5-15) MEQ/L BUN 20 (9-20) mg/dL Creatinine 0.96 (0.66-1.25) mg/dL Estimated GFR > 60.0 ML/MIN Glucose 274 H (74-106) mg/dL Hemoglobin A1c (4.5-6.0) % Lactic Acid (0.4-2.0) Calcium 8.2 L (8.4-10.2) mg/dL Total Bilirubin 1.50 H (0.2-1.3) mg/dL AST 36 (17-59) U/L ALT 23 (0-50) U/L Alkaline Phosphatase 116 (38-126) U/L Ammonia 13 (9-30) umol/L Serum Total Protein 5.4 L (6.3-8.2) g/dL Albumin 2.3 L (3.5-5.0) g/dL Slides for Path Review Radiology Exams: Radiology Procedures Category Date Time Status ABDOMEN AND PELVIS W CONTRAST [CT] Routine Exams 06/25/19 19:37 Completed CHEST 1 VIEW (PORTABLE) Urgent Exams 06/26/19 08:38 Completed Assessment/Plan (1) Confusion Current Visit: No Status: Acute Onset Date: ~06/16/18 Assessment & Plan: improved from admission, ammonia level now normal and blood sugars are being treated appropriately, if patient continues to do well may consider discharge tomorrow. Code(s): R41.0 - DISORIENTATION, UNSPECIFIED
[2019-06-27] MEDS: ECOTRIN 81 MG PO SCH ×2 (10:02→21:36)
[2019-06-27] MEDS: Aldactone 25 MG PO SCH (10:02)
[2019-06-27] MEDS: Pepcid 20 MG PO SCH ×2 (10:02→21:36)
[2019-06-27] MEDS: Lexapro 10 MG PO SCH (10:02)
[2019-06-27] MEDS: FOLATE 1 MG PO SCH (10:03)
[2019-06-27] MEDS: VITAMIN B-1 100 MG PO SCH (10:03)
[2019-06-27] MEDS: FEOSOL 325 MG PO SCH ×2 (10:04→21:36)
[2019-06-27] MEDS: Vitamin C 500 MG PO SCH (10:04)
[2019-06-27] MEDS: Zinc Gluconate 50 MG PO SCH ×2 (10:04→21:36)
[2019-06-27] MEDS: Vitamin E 400 UNIT SOFTGEL PO SCH (10:05)
[2019-06-27] MEDS: LACTULOSE 20 GM/30ML UD CUP PO SCH ×5 (10:05→23:57)
[2019-06-27] MEDS: NON-FORMULARY ITEM (Sodium Bicarbonate 650 MG) PO SCH ×3 (10:05→21:36)
[2019-06-27] MEDS: ROCEPHIN 1 Gm-D5w 50 ml Bag** 1 G/50 ML IVPB IV SCH (21:37)
[2019-06-28] MEDS: xanAX 0.25 MG PO PRN ×2 (00:06→21:44)
[2019-06-28] MEDS: Sodium Chloride 0.9% 1000 ML 1,000 ML IV SCH ×3 (02:57→21:20)
[2019-06-28] MEDS: NovoLOG Insulin SQ PRN ×4 (08:35→22:31)
[2019-06-28] MEDS: Zinc Gluconate 50 MG PO SCH ×2 (10:20→21:43)
[2019-06-28] MEDS: ECOTRIN 81 MG PO SCH ×2 (10:20→21:43)
[2019-06-28] MEDS: Lexapro 10 MG PO SCH (10:20)
[2019-06-28] MEDS: Aldactone 25 MG PO SCH (10:20)
[2019-06-28] MEDS: FOLATE 1 MG PO SCH (10:20)
[2019-06-28] MEDS: Pepcid 20 MG PO SCH ×2 (10:21→21:43)
[2019-06-28] MEDS: FEOSOL 325 MG PO SCH ×2 (10:21→21:44)
[2019-06-28] MEDS: VITAMIN B-1 100 MG PO SCH (10:21)
[2019-06-28] MEDS: Vitamin C 500 MG PO SCH (10:21)
[2019-06-28] MEDS: Vitamin E 400 UNIT SOFTGEL PO SCH (10:23)
[2019-06-28] MEDS: NON-FORMULARY ITEM (Sodium Bicarbonate 650 MG) PO SCH ×3 (10:23→21:46)
[2019-06-28] MEDS: LACTULOSE 20 GM/30ML UD CUP PO SCH (10:27)
--- NOTE | 2019-06-28 13:18 | PCM.NOTE ---
Date and Time: 06/28/19 1315 Subjective Assessment: still improved but relapses into intermittent confusion, close to baseline, but notes increased stool frequency and she would like this to improve prior to d/c - Review of Systems Constitutional: No Symptoms Eyes: No Symptoms Ears, Nose, & Throat: No Symptoms Respiratory: No Symptoms Cardiac: No Symptoms Abdominal/Gastrointestinal: Diarrhea Genitourinary Symptoms: No Symptoms Musculoskeletal: No Symptoms Skin: No Symptoms Neurological: Other (intermittent confusion) Objective Exam General Appearance: no apparent distress Neurologic Exam: alert, cooperative Skin Exam: normal color, warm, dry Eye Exam: EOMI Ears, Nose, Throat Exam: normal ENT inspection Neck Exam: normal inspection Lymphatic Exam: No adenopathy Respiratory Exam: normal breath sounds Cardiovascular Exam: regular rate/rhythm Gastrointestinal/Abdomen Exam: soft, normal bowel sounds OBJECTIVE DATA Vital Signs: Vital Signs - 24 hr Temp Pulse Resp BP Pulse Ox 06/28/19 11:35 97.6 F 70 18 180/78 97 06/28/19 07:49 97.5 F 74 18 150/69 98 06/28/19 04:09 98.7 F 69 20 145/67 99 06/27/19 23:44 97.9 F 70 18 135/65 97 06/27/19 20:15 98.6 F 76 20 141/67 97 06/27/19 16:00 98.3 F 66 18 154/67 95 Pain Assessment - Last Documented Pain Intensity 0 Pain Scale Used 0-10 Pain Scale Intake and Output: Intake & Output 06/26/19 06/27/19 06/28/19 06/29/19 11:59 11:59 11:59 11:59 Intake Total 1157 1033 3366 Output Total 625 500 Balance 532 1033 2866 Weight 95.1 kg 95.1 kg Lab Results: Accuchecks Date 06/28/19 Time 11:39 Accucheck Value: 301 Accucheck Value: 281 Accucheck Value: 387 Accucheck Value: 407 Multi-Disciplinary Progress Notes: Multi-Disciplinary Progress Notes 06/27/19 18:00 Case Management Note by Giovana Lam DISCHARGE PLAN REVIEWED WITH [facility], AND LAY CAREGIVER. NORMALLY PATIENT LIVES AT HOME WITH HIS SPOUSE WHO HELPS HIM WITH SOME DAILY MOVEMENT. HE IS ABLE TO GET UP AND DOWN ON HIS OWN FROM HIS CHAIR. HE HAS A DIABETIC TESTING DEVICE AT HOME, WHICH HE REFUSES TO USE, OR LET [facility] USE. HE HAS A BEDSIDE [facility], WHICH HE USES. THEY HAVE REFUSED ALL DME OR ANY OTHER SERVICES. [facility] STATES THEY HAVE TRANSPORTATION AND MEANS TO PROVIDE MEDICATIONS. PLAN TO GO HOME TO PRE EPISODIC LEVEL OF FUNCTION. WILL CONTINUE TO MONITOR FOR ALL D/C NEEDS. Initialized on 06/27/19 18:00 - END OF NOTE 06/27/19 14:09 Case Management Note by Giovana Lam ATTEMPT TO CALL [facility], AT [phone], [facility]AYC[employer] AND [employer]SE. 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 Initialized on 06/27/19 14:09 - END OF NOTE Assessment/Plan (1) Confusion Current Visit: No Status: Acute Onset Date: ~06/16/18 Assessment & Plan: improved, near baseline. increased stool frequency will decrease lactulose to 45 tid, home dose is 30 per Code(s): R41.0 - DISORIENTATION, UNSPECIFIED
[2019-06-28] MEDS ORDERED: LACTULOSE 20 GM/30ML UD CUP PO SCH (15:00)
[2019-06-28] MEDS: Enulose 10 GM/15 ML PO SCH (21:45)
[2019-06-28] MEDS: ROCEPHIN 1 Gm-D5w 50 ml Bag** 1 G/50 ML IVPB IV SCH (21:45)
[2019-06-29 00:38] VITALS: O2SAT 98
[2019-06-29] MEDS: Sodium Chloride 0.9% 1000 ML 1,000 ML IV SCH (05:42)
[2019-06-29] MEDS: VITAMIN B-1 100 MG PO SCH (07:18)
[2019-06-29] MEDS: Vitamin E 400 UNIT SOFTGEL PO SCH (07:19)
[2019-06-29] MEDS: Vitamin C 500 MG PO SCH (07:19)
[2019-06-29] MEDS: Zinc Gluconate 50 MG PO SCH (07:19)
[2019-06-29] MEDS: Aldactone 25 MG PO SCH (07:19)
[2019-06-29] MEDS: FOLATE 1 MG PO SCH (07:20)
[2019-06-29] MEDS: Lexapro 10 MG PO SCH (07:20)
[2019-06-29] MEDS: NON-FORMULARY ITEM (Sodium Bicarbonate 650 MG) PO SCH (07:20)
[2019-06-29] MEDS: Pepcid 20 MG PO SCH (07:20)
[2019-06-29] MEDS: FEOSOL 325 MG PO SCH (07:20)
[2019-06-29] MEDS: ECOTRIN 81 MG PO SCH (07:20)
[2019-06-29] MEDS: NovoLOG Insulin SQ PRN (07:21)
[2019-06-29] MEDS: Enulose 10 GM/15 ML PO SCH (07:22)
[2019-06-29 07:24] VITALS: BP 158/68; PULSE 80
--- NOTE | 2019-06-29 08:32 | PCM.DS ---
Discharge Summary Date of Admission: 06/25/19 22:55 Admitting Physician: KANU HERNANDEZ Primary Care Provider: KANU HERNANDEZ Allergies Allergies No Known Drug Allergies Allergy (Verified 06/16/18 19:44) Hospital Summary - Hospital Course Hospital Course: patient with cirrhosis and hepatocellular carcinoma admitted with altered mental status, cultures are negative. was placed on rocephin emperically, blood sugar was extremely high, he had quit his diabetic meds at home on his own. - Vitals & Intake/Output Vital Signs: Vital Signs Temperature 98.8 F 06/29/19 07:23 Pulse Rate 80 06/29/19 07:23 Respiratory Rate 18 06/29/19 07:23 Blood Pressure 158/68 06/29/19 07:23 O2 Sat by Pulse Oximetry 98 06/29/19 07:23 Intake & Output: Intake & Output 06/26/19 06/27/19 06/28/19 06/29/19 11:59 11:59 11:59 11:59 Intake Total 1157 1033 3366 3781 Output Total 625 500 Balance 532 1033 2866 3781 Weight 95.1 kg 95.1 kg - Lab Result Diagrams: 06/27/19 04:56 06/27/19 04:56 Lab Results-Last 24 Hrs: Accuchecks Date 06/29/19 Date 06/28/19 Time 07:33 Time 11:39 Accucheck Value: 298 Accucheck Value: 374 Accucheck Value: 337 Accucheck Value: 301 Micro Results-Entire Visit: Microbiology 06/26/19 03:43 Urine Culture - Final Urine, Void <10K NORMAL SKIN ALYSIA PROBABLE SKIN CONTAMINANT 06/25/19 18:34 Blood Culture - Preliminary Blood NO GROWTH TO DATE 06/25/19 18:34 Blood Culture - Preliminary Blood NO GROWTH TO DATE Accuchecks Date 06/29/19 Date 06/28/19 Time 07:33 Time 11:39 Accucheck Value: 298 Accucheck Value: 374 Accucheck Value: 337 Accucheck Value: 301 Discharge Exam General Appearance: no apparent distress, alert Neurologic Exam: alert, oriented x 3 Respiratory Exam: normal breath sounds, lungs clear, No respiratory distress Cardiovascular Exam: regular rate/rhythm, normal heart sounds Gastrointestinal/Abdomen Exam: soft, No tenderness, No mass Extremity Exam: normal inspection, normal range of motion Skin Exam: normal color, warm, dry Final Diagnosis/Problem List - Final Discharge Diagnosis/Problem (1) Hepatic encephalopathy Current Visit: Yes Status: Acute Code(s): K72.90 - HEPATIC FAILURE, UNSPECIFIED WITHOUT COMA (2) Lactic acidosis due to diabetes mellitus Current Visit: No Status: Acute Onset Date: ~06/17/18 Assessment & Plan: resume lantus 20 units daily at home and use humalog for moderate dose sliding scale coverage as needed Code(s): E11.10 - TYPE 2 DIABETES MELLITUS WITH KETOACIDOSIS WITHOUT COMA (3) Confusion Current Visit: No Status: Acute Onset Date: ~06/16/18 Assessment & Plan: u/a was taken with culture after rocephin given in ER, will send home on cefdinir emperically x 5 days Code(s): R41.0 - DISORIENTATION, UNSPECIFIED (4) Cirrhosis of liver Current Visit: No Status: Chronic - Discharge Disposition: Home, Self-Care Condition: Stable Prescriptions: New Cefdinir 300 mg PO BID #10 capsule Continue Thiamine Mononitrate [Vitamin B-1] 250 mg PO DAILY Ferrous Sulfate 325 mg PO BID Zinc Sulfate 220 mg PO BID Aspirin 81 gm Chew [Baby Aspirin 81 mg Chew] 81 mg PO BID Alprazolam 0.25 mg [xanAX 0.25 MG] 0.25 mg PO Q6H PRN PRN PRN Reason: Anxiety Famotidine 20 mg [Pepcid 20 MG] 20 mg PO BID Vitamin E 400 Units [Vitamin E 400 UNIT SOFTGEL] 400 units PO DAILY Ascorbic Acid 500 mg [Vitamin C 500 MG] 500 mg PO DAILY Folic Acid 1 mg [Folate 1 mg] 1 mg PO DAILY Spironolactone 25 mg [Aldactone 25 MG] 50 mg PO DAILY Escitalopram Oxalate 10 mg [Lexapro 10 MG] 10 mg PO DAILY Sodium Bicarbonate 650 mg PO TID #90 tablet Lactulose [Lactulose 20 gm/30Ml Ud Cup] 30 ml PO TID Insulin Lispro [Humalog Kwikpen U-100] 100 unit SQ TID #3 insuln.pen Follow up with: KANU HERNANDEZ MD [Primary Care Provider] - 1 Week
== END 2019-06-29 09:39 | disposition home or self-care (01) | DRG 441 ==
LOC: ED 17:13 → UNDOADMIN 22:41 → MED SURG 22:41
PROVIDERS: ADMIT Family Medicine; ATTEND Family Medicine
DX: K72.90 Hepatic failure, unspecified without coma (principal); E11.10 Type 2 diabetes mellitus with ketoacidosis without coma; C22.7 Other specified carcinomas of liver; R41.0 Disorientation, unspecified; I10 Essential (primary) hypertension; K74.60 Unspecified cirrhosis of liver; Z79.899 Other long term (current) drug therapy
CPT/HCPCS: 36415; 71045; 74177; 80053; 81001; 82140; 82150; 82962; 83036; 83605; 83690; 83735; 83880; 85025; 85610; 85730; 87040; 87086; 87631; 90662; 99285; J0696; J2405; A9270-GY